=== PATIENT | male | born 1990 | race Caucasian/White ===

== ENCOUNTER 2016-05-25 11:38 | Inpatient (IN) | payer OTHER ==
[~2016-05-25] VITALS: Ht 154.9 cm; Wt 48.3 kg
[~2016-05-25 11:38] MED LIST: ACET167L GT; ALBU0.08 INH; BACL0.05; BACL1TAB GT; CHOL4POW11 GT; CLON0.5T3 GT; CLON0.5T3 PO; CLOT1CRE TOP; DIAZ5GEL PR; DICY10CA12 GT; DOXY1SUS PEG; GLYC1TAB5 GT; LACTCHW3 PEG; LAMO25TA GT; LMC/150 GT; MOME50SP5 NAE; NEOMOIN76 TOP; NUTRLIQ61 GT; PLMINSR5 NEB; PROM5SUP2 PR; TRIA0.5O TOP; [UNRECOGNIZED DRUG - CODE] PEG; [UNRECOGNIZED DRUG - CODE] TOP
--- NOTE | 2016-05-25 12:21 | EMERGENCY ROOM VISIT NOTE ---
History Report prepared by Ranjeet: Wilma Olvera Under the Supervision of: Dr. Everardo Marroquin M.D. First contact with patient: 11:58 Chief Complaint: FEVER Stated Complaint: FEVER, CONGESTION-SENT BY OFFICE History of Present Illness The patient is a 25 year old male who presents to the Emergency Room with complaints of sudden possible aspiration that occurred last evening. Per the patient's caregivers, the patient vomited last evening. They state that they took the patient to his PCP's office today and he was concerned for aspiration. The caregivers note that the patient developed a cough, cold, and congestion within the last two days. They state that the patient ran a fever of 102 degrees Fahrenheit yesterday that was alleviated with Tylenol. The patient's caregivers note that the patient was with his family over the holiday and was exposed to several illnesses. They note that the patient only receives medications through his g-tube. The caregivers note that the patient has a history of Cerebral Palsy. Source of History: caregiver Onset: last evening Position: other (global) Quality: other (possible aspiration) Timing: other (sudden) Associated Symptoms: + cough, + fevers, + vomiting Note: Associated Symptoms: cold, congestion Review of Systems All systems have been listed, reviewed, and are negative other than those previously mentioned. Please see Additional Medical History Sheet. Past Medical & Surgical Medical Problems: (1) Asthma (2) Cerebral palsy, quadriplegic (3) Dystonia (4) gastric tube placement (5) Incision of thigh tendon- bilateral (6) Pneumonia (7) Seizure (8) Sepsis Surgical Problems: (1) History of gastrostomy tube placement (2) MRSA nasal colonization (3) S/p incision of thigh tendon (4) S/P insertion of intrathecal pump Family History Patient reports no known family medical history. Social History Smoking Status: Never Smoker Alcohol Use: none Drug Use: none Marital Status: single Housing Status: other Occupation Status: disabled Current/Historical Medications Scheduled Budesonide (Pulmicort Respules 0.5MG/2ML), 2 ML NEB BID Cholestyramine (Questran), 1 PKT GT DAILY Clonazepam (Klonopin), 0.25 MG GT BID Clonazepam (Klonopin), 0.5 MG PO HS Dicyclomine Hcl (Dicyclomine Hcl), 10 MG GT BID Esomeprazole Magnesium (Nexium), 20 MG PO DAILY Fexofenadine Hcl (Chayo Allergy), 1 TAB PO DAILY Glycopyrrolate (Robinul), 1.25 TAB GT TID Lactobacillus (Lactinex), 1 TAB PEG BIDM Lamotrigine (Lamictal), 75 MG GT HS Lamotrigine (Lamictal), 150 MG GT BID Mometasone Furoate (Nasonex), 2 SPRAY ROSA MARIA DAILY Neomycin-Bacitracin Zn-Polymyx (Triple Antibiotic), 1 APPLN TOP BID Nutritional Supplements (Peptamen 1.5), 500 ML GT UD Nutritional Supplements (Nutren 2.0 Angel), 1 DOSE PEG UD Scheduled PRN Acetaminophen (Tylenol), 217 MG GT Q6 PRN for Headache or Pain Albuterol Soln (Proventil 0.083% 2.5MG/3ML), 2.5 MG INH Q4H PRN for Wheezing Clotrimazole (Topical) (Tgt Clotrimazole), 1 APPLN TOP BID PRN for fungal rash on buttocks/groin Diazepam (Anticonvulsant) (Diastat Acudial), 10 MG AZ for seizures Promethazine (Phenergan Suppository), 12.5 MG [place] Q8 PRN for Nausea Triamcinolone Acet 0.5% (Triamcinolone Acet 0.5%), 1 APPLN TOP BID PRN for rash Zinc Oxide (Topical) (Boudreauxs Butt Paste), 1 APPLN TOP UD PRN for brief change Allergies Coded Allergies: Cat Dander (Verified Allergy, Unknown, SHORTNESS OF BREATH, 05/25/16) POLLEN (Verified Allergy, Unknown, SHORTNESS OF BREATH, 05/25/16) Ciprofloxacin (Verified Adverse Reaction, Unknown, GI SYMPTOMS, 05/25/16) Dust (Verified Adverse Reaction, Unknown, SHORTNESS OF BREATH, 05/25/16) Physical Exam Vital Signs Date Time Temp Pulse Resp B/P Pulse Ox O2 Delivery O2 Flow Rate FiO2 05/25/16 13:33 105 22 99/59 95 Room Air 05/25/16 11:45 120 20 120/60 92 Room Air Physical Exam GENERAL: Patient awake, alert, noncommunicable, Patient does not appear toxic. Patient is adequately hydrated and well-nourished. SKIN: No erythema, pallor, cyanosis or rash HEENT: Normal head, pupils equal, reactive to light and accommodation. Neck: Without adenopathy, no neck vein distention. LUNGS: Clear to auscultation. No wheezes, no rales, no rhonchi. HEART: No murmurs. No gallops. No rubs ABDOMEN: G-tube in mid abdomen, soft, nontender. No masses, no rebound, no hepatomegaly or splenomegaly. EXTREMITIES: Contracted extremities NEUROLOGIC: Cranial nerves II-XII within normal limits. No gross motor sensory function deficits. Medical Decision & Procedures ER Provider Diagnostic Interpretation: X ray results are stated below per my interpretation and the radiologist's interpretation. CHEST ONE VIEW PORTABLE HISTORY: Cough. aspiration pneumonia ? COMPARISON: Chest 04/04/2016. FINDINGS: No pneumothorax. No pleural effusions. The heart remains borderline enlarged. Stable increased markings within the right perihilar location. This may represent prominent vessels. Increased density overlying the left cardiac silhouette has slightly progressed. IMPRESSION: Increased density within the left retrocardiac location. This may represent a developing pneumonia. Electronically signed by: Jamie Cash M.D. 05/25/2016 12:21 PM Dictated Date/Time: 05/25/2016 12:18 PM Laboratory Results 05/25/16 12:27 Red Blood Count 4.72, Mean Corpuscular Volume 93.9, Mean Corpuscular Hemoglobin 32.0, Mean Corpuscular Hemoglobin Concent 34.1, Mean Platelet Volume 11.1, Neutrophils (%) (Auto) 67.8, Lymphocytes (%) (Auto) 18.2, Monocytes (%) (Auto) 12.9, Eosinophils (%) (Auto) 0.5, Basophils (%) (Auto) 0.3, Neutrophils # (Auto ) 7.73, Lymphocytes # (Auto) 2.08, Monocytes # (Auto) 1.47, Eosinophils # (Auto ) 0.06, Basophils # (Auto) 0.03 05/25/16 12:27 Test 05/25/16 12:27 White Blood Count 11.40 K/uL (4.8-10.8) Red Blood Count 4.72 M/uL (4.7-6.1) Hemoglobin 15.1 g/dL (14.0-18.0) Hematocrit 44.3 % (42-52) Mean Corpuscular Volume 93.9 fL (80-100) Mean Corpuscular Hemoglobin 32.0 pg (25-34) Mean Corpuscular Hemoglobin Concent 34.1 g/dl (32-36) Platelet Count 208 K/uL (130-400) Mean Platelet Volume 11.1 fL (7.4-10.4) Neutrophils (%) (Auto) 67.8 % Lymphocytes (%) (Auto) 18.2 % Monocytes (%) (Auto) 12.9 % Eosinophils (%) (Auto) 0.5 % Basophils (%) (Auto) 0.3 % Neutrophils # (Auto) 7.73 K/uL (1.4-6.5) Lymphocytes # (Auto) 2.08 K/uL (1.2-3.4) Monocytes # (Auto) 1.47 K/uL (0.11-0.59) Eosinophils # (Auto) 0.06 K/uL (0-0.5) Basophils # (Auto) 0.03 K/uL (0-0.2) RDW Standard Deviation 46.0 fL (36.4-46.3) RDW Coefficient of Variation 13.3 % (11.5-14.5) Immature Granulocyte % (Auto) 0.3 % Immature Granulocyte # (Auto) 0.03 K/uL (0.00-0.02) Anion Gap 10.0 mmol/L (3-11) Est Creatinine Clear Calc Drug Dose 112.3 ml/min Estimated GFR () > 150.0 Estimated GFR (Non- 136.1 BUN/Creatinine Ratio 17.5 (10-20) Lactic Acid Level 2.3 mmol/L (0.4-2.0) Calcium Level 9.0 mg/dl (8.5-10.1) Procalcitonin 1.94 ng/mL (0-0.5) Laboratory results as stated above per my review. Medications Administered Medications (Trade) Dose Ordered Sig/Elizabeth Route Start Time Stop Time Status Last Admin Dose Admin Sodium Chloride 2,000 ml @ 999 mls/hr Q2H1M IV 05/25/16 13:15 06/24/16 13:14 05/25/16 13:27 999 MLS/HR Piperacillin Sod/ Tazobactam Sod/ Dextrose (Zosyn Iv/D5 100ml) 115 ml @ 230 mls/hr NOW ONCE IV 05/25/16 13:30 05/25/16 13:59 DC 05/25/16 13:28 230 MLS/HR ED Course 1158: Past medical records reviewed. The patient was evaluated in room A11B. A complete history and physical examination was performed. 1315: Ordered Sodium Chloride 2000 ml @ 999 mls/hr IV. 1322: I discussed the patients case with Mandeep Farley. He is going to evaluate the patient for further treatment. 1324: I reevaluated the patient and he is resting comfortably. I discussed the exam findings with the patient's caregivers and I discussed the treatment plan. They verbalized complete understanding and agreement. The patient will be evaluated for further treatment. 1330: Ordered Piperacillin Sod/Tazobactam Sod 3.375 gm/Dextrose 115 ml @ 230 mls /hr protocol IV. Medical Decision Nurses notes reviewed. Medical history sheet reviewed. Differential diagnosis includes but is not limited to: pneumonia, aspiration pneumonia, bronchitis, viral infection. The patient is brought here with concern about an aspiration pneumonia. On chest x-ray he does appear to have an infiltrate behind his heart. Lactic acid is elevated. White count is also slightly elevated. The patient was given extra fluids and started on IV antibiotics after blood cultures were obtained. I discussed care with the care managers and with the hospitalist. Consults Time Called: 1312 Consulting Physician: Mandeep Farley Returned Call: 1322 I discussed the patients case with Mandeep Farley. He is going to evaluate the patient for further treatment. Impression Primary Impression: Aspiration pneumonia Additional Impression: Sepsis Scribe Attestation The scribe's documentation has been prepared under my direction and personally reviewed by me in its entirety. I confirm that the note above accurately reflects all work, treatment, procedures, and medical decision making performed by me. Departure Information Dispostion Being Evaluated By Hospitalist Merissa Solis D.O. (PCP)
[2016-05-25 12:36] LABS: BASO % 0.3 %; BASO ABS # 0.03 K/uL (0-0.2); COMPLETE YES; EOS % 0.5 %; HEMATOCRIT 44.3 % (42-52); IG% 0.3 %; LYMPH % 18.2 %; LYMPH ABS # 2.08 K/uL (1.2-3.4); MEAN CELL VOLUME 93.9 fL (80-100); MEAN CORPUSCULAR HGB CONC 34.1 g/dl (32-36); MEAN PLATELET VOLUME 11.1 fL (7.4-10.4); MONO % 12.9 %; NEUT % 67.8 %; PLATELET COUNT 208 K/uL (130-400); RED BLOOD COUNT 4.72 M/uL (4.7-6.1)
[2016-05-25] MEDS ORDERED: ESOM20CA PO (12:46)
[2016-05-25] MEDS ORDERED: FEXO1TAB49 PO (12:49)
[2016-05-25 12:53] LABS: BLOOD UREA NITROGEN 11 mg/dl (7-18); BUN/CREATININE RATIO 17.5 (10-20); CARBON DIOXIDE 29 mmol/L (21-32); CHLORIDE 99 mmol/L (98-107); CREATININE 0.64 mg/dl (0.60-1.40); GLUCOSE 95 mg/dl (70-99); POTASSIUM 4.1 mmol/L (3.5-5.1); SODIUM 138 mmol/L (136-145)
[2016-05-25] MEDS ORDERED: PIPERACILLIN/TAZOBACTAM 3.375 GM/100ML D5W IV STA (13:09)
[2016-05-25] MEDS ORDERED: SODIUM CHLORIDE 0.9% 1000ML 2,000 ML IV SCH (13:15)
[2016-05-25] MEDS ORDERED: PIPERACILL/TAZOBAC IV 3.375 GM in DEXTROSE 5% 100ML IV ONE (13:30)
[2016-05-25 14:05] VITALS: O2SAT 95; Ht 154.9 cm; Wt 48.3 kg
[2016-05-25] MEDS ORDERED: LEVALBUTEROL/IPRATROPIUM NEB INH PRN (14:15)
[2016-05-25] MEDS ORDERED: BUTT PASTE 171 APPLN/57 GM JAR TOP PRN (14:30)
[2016-05-25] MEDS ORDERED: ACETAMINOPHEN SOLN 160 MG/5 ML BTL GT PRN (14:30)
[2016-05-25] MEDS ORDERED: CLOTRIMAZOLE 1% CR 15 GM TUBE EXT PRN (14:30)
[2016-05-25] MEDS ORDERED: PROMETHAZINE HCL 12.5 MG SUPP PR PRN (14:30)
[2016-05-25] MEDS ORDERED: LEVALBUTEROL/IPRATROPIUM NEB INH SCH (15:00)
--- NOTE | 2016-05-25 15:08 | DIAGNOSTIC IMAGING REPORT ---
KUB CLINICAL HISTORY: Evaluate for obstruction. COMPARISON STUDY: Abdominal ultrasound February 08, 2014. FINDINGS: A device projects over the right lower quadrant. There is a suspected PEG tube. The bowel gas pattern is normal. Deformity of the left hip is chronic. Bone formation projecting over each groin is chronic as well. There is mild dextroscoliosis of the lumbar spine. There is a moderate amount of stool within the rectum. IMPRESSION: No evidence of a bowel obstruction. Electronically signed by: Bebo Gonzalez M.D. 05/25/2016 3:05 PM Dictated Date/Time: 05/25/2016 3:04 PM
[2016-05-25] MEDS ORDERED: LEVALBUTEROL 1.25MG/0.5ML NEB INH PRN (15:15)
[2016-05-25] MEDS ORDERED: IPRATROPIUM BROMIDE NEB SOLN 0.02% 2.5 ML VIAL INH PRN (15:15)
[2016-05-25] MEDS ORDERED: PIPERACILL/TAZOBAC CONSULT ACTIVE PRN (15:40)
[2016-05-25] MEDS ORDERED: [UNRECOGNIZED DRUG - REMARK] PRN (15:45)
[2016-05-25 16:00] VITALS: O2SAT 91
[2016-05-25] MEDS: D5W AND NSS 1,000 ML IV SCH (16:21)
[2016-05-25] MEDS: DOXYCYCLINE HYCLATE 100 MG in DEXTROSE 5% 100ML IV SCH (16:24)
[2016-05-25] MEDS: LACTOBACILLUS ACIDOPHILUS (FLORANEX) TAB PEG SCH (16:31)
[2016-05-25 18:58] LABS: URINE APPEARANCE CLEAR (CLEAR); URINE BILIRUBIN NEG (NEG); URINE COLOR DK YELLOW; URINE EPITHELIAL CELL AUTO >30 /lpf (0-5); URINE NITRITE NEG (NEG); URINE SPECIFIC GRAVITY 1.032 (1.000-1.030); UROBILINOGEN NEG (NEG)
[2016-05-25 19:00] VITALS: PULSE 88; O2SAT 92
[2016-05-25 19:02] LABS: MANUAL MICROSCOPIC REQUIRED? NO; REVIEW REQ? YES
[2016-05-25] MEDS: BUDESONIDE 0.5 MG/2 ML VIAL (PULMICORT) INH SCH (20:00)
[2016-05-25] MEDS ORDERED: PIPERACILL/TAZOBAC IV 3.375 GM in DEXTROSE 5% 100ML IV SCH (20:00)
[2016-05-25] MEDS ORDERED: CLONAZEPAM 0.5 MG TAB GT SCH (20:00)
[2016-05-25] MEDS: LEVALBUTEROL 1.25MG/0.5ML NEB INH SCH (20:39)
[2016-05-25] MEDS: IPRATROPIUM BROMIDE NEB SOLN 0.02% 2.5 ML VIAL INH SCH (20:39)
[2016-05-25] MEDS: PIPERACILL/TAZOBAC IV 3.375 GM in DEXTROSE 5% 100ML IV SCH (20:49)
[2016-05-25] MEDS: BACITRACIN OINT 15 GM TUBE EXT SCH (21:10)
[2016-05-25] MEDS: NEOMYCIN/POLYMYX/BACITR OINT 15 GM TUBE EXT SCH (21:13)
[2016-05-25] MEDS: GLYCOPYRROLATE 1 MG TAB GT SCH (21:14)
[2016-05-25] MEDS: DICYCLOMINE HCL 10 MG CAP GT SCH (21:16)
[2016-05-25] MEDS: CLONAZEPAM 0.5 MG TAB GT SCH (21:17)
--- NOTE | 2016-05-25 22:14 | History and Physical ---
History & Physical Date & Time of Service: May 25, 2016 at 22:03 Chief Complaint: Aspiration Pneumonia Primary Care Physician: Merissa Lopez D.O. History of Present Illness Source: caregiver, clinic records 25 year old male with history of CP, Seizure, Recurrent Aspiration, G tube placement, and Asthma presenting with cough, fever and lethargy. Patient's history obtained from caregivers. Patient was at baseline health until yesterday when he was noted to have intermittent fevers throughout the day associated with cough. During the night, he apparently had vomiting as well. Caregivers were concerned for possible aspiration. He was then brought to the ED for further evaluation. At the ER, patient was tachycardic with elevated WBC. CXR showed possible left sided pneumonia. He was given Zosyn IV. On exam, patient seems sleepy intermittently awakens, moans and flails his arms. Not in distress, but bouts of cough noted. Past Medical/Surgical History Medical Problems: (1) Asthma Status: Chronic (2) Cerebral palsy, quadriplegic Status: Chronic (3) Dystonia Status: Chronic (4) gastric tube placement Status: Chronic (5) Incision of thigh tendon- bilateral Status: Chronic (6) Seizure Status: Chronic Surgical Problems: (1) History of gastrostomy tube placement Status: Chronic (2) MRSA nasal colonization Status: Chronic (3) S/p incision of thigh tendon Status: Chronic (4) S/P insertion of intrathecal pump Status: Chronic Family History Patient reports no known family medical history. Social History Smoking Status: Never Smoker Drug Use: none Marital Status: single Housing status: other Occupational Status: disabled Multi-Drug Resistant Organisms History of MDRO: Yes Type of MDRO: MRSA Allergies Coded Allergies: Cat Dander (Verified Allergy, Unknown, SHORTNESS OF BREATH, 05/25/16) POLLEN (Verified Allergy, Unknown, SHORTNESS OF BREATH, 05/25/16) Ciprofloxacin (Verified Adverse Reaction, Unknown, GI SYMPTOMS, 05/25/16) Dust (Verified Adverse Reaction, Unknown, SHORTNESS OF BREATH, 05/25/16) Home Medications Scheduled Budesonide (Pulmicort Respules 0.5MG/2ML), 2 ML NEB BID Cholestyramine (Questran), 1 PKT GT DAILY Clonazepam (Klonopin), 0.25 MG GT BID Clonazepam (Klonopin), 0.5 MG PO HS Dicyclomine Hcl (Dicyclomine Hcl), 10 MG GT BID Esomeprazole Magnesium (Nexium), 20 MG PO DAILY Fexofenadine Hcl (Chayo Allergy), 1 TAB PO DAILY Glycopyrrolate (Robinul), 1.25 TAB GT TID Lactobacillus (Lactinex), 1 TAB PEG BIDM Lamotrigine (Lamictal), 75 MG GT HS Lamotrigine (Lamictal), 150 MG GT BID Mometasone Furoate (Nasonex), 2 SPRAY ROSA MARIA DAILY Neomycin-Bacitracin Zn-Polymyx (Triple Antibiotic), 1 APPLN TOP BID Nutritional Supplements (Peptamen 1.5), 500 ML GT UD Nutritional Supplements (Nutren 2.0 Angel), 1 DOSE PEG UD Scheduled PRN Acetaminophen (Tylenol), 217 MG GT Q6 PRN for Headache or Pain Albuterol Soln (Proventil 0.083% 2.5MG/3ML), 2.5 MG INH Q4H PRN for Wheezing Clotrimazole (Topical) (Tgt Clotrimazole), 1 APPLN TOP BID PRN for fungal rash on buttocks/groin Diazepam (Anticonvulsant) (Diastat Acudial), 10 MG GA for seizures Promethazine (Phenergan Suppository), 12.5 MG GA Q8 PRN for Nausea Triamcinolone Acet 0.5% (Triamcinolone Acet 0.5%), 1 APPLN TOP BID PRN for rash Zinc Oxide (Topical) (Boudreauxs Butt Paste), 1 APPLN TOP UD PRN for brief change Review of Systems FULL ROS difficult to obtain as patient has CP. Constitutional- as noted above Pulmonary- as noted above GI- no diarrhea, no melena, no hematochezia - no hematuria Musculoskeletal- no signs of pain Derm- no rashes, no new skin lesions, no changing skin lesions Hematologic- no unusual bruising, no unusual bleeding Neuro- no new focal neurologic symptoms Physical Exam Vital Signs Date Time Temp Pulse Resp B/P Pulse Ox O2 Delivery O2 Flow Rate FiO2 05/25/16 19:00 88 24 92 Room Air 05/25/16 16:00 91 Room Air 05/25/16 14:52 110 20 97/56 91 05/25/16 14:47 110 20 97/56 91 Room Air 05/25/16 14:05 95 Room Air 05/25/16 13:33 105 22 99/59 95 Room Air 05/25/16 11:45 120 20 120/60 92 Room Air General Appearance: no apparent distress Head: normocephalic Eyes: normal inspection ENT: normal ENT inspection Neck: supple, no adenopathy, thyroid normal, no JVD Respiratory/Chest: lungs clear, normal breath sounds, no respiratory distress, no accessory muscle use Cardiovascular: regular rate, rhythm, no edema, no murmur Abdomen/GI: normal bowel sounds, non tender, soft, + pertinent finding ((+) PEG tube site benign) Extremities/Musculoskelatal: normal inspection, no calf tenderness, no pedal edema, normal range of motion Neurologic/Psych: + pertinent finding (moves extremities equally, patient is non verbal) Skin: normal color, warm/dry, no rash Lymphatic: no adenopathy Diagnostics Laboratory Results Results Past 24 Hours Test 05/25/16 12:27 05/25/16 15:25 05/25/16 16:13 05/25/16 18:30 Range/Units White Blood Count 11.40 4.8-10.8 K/uL Red Blood Count 4.72 4.7-6.1 M/uL Hemoglobin 15.1 14.0-18.0 g/dL Hematocrit 44.3 42-52 % Mean Corpuscular Volume 93.9 80-100 fL Mean Corpuscular Hemoglobin 32.0 25-34 pg Mean Corpuscular Hemoglobin Concent 34.1 32-36 g/dl Platelet Count 208 130-400 K/uL Mean Platelet Volume 11.1 7.4-10.4 fL Neutrophils (%) (Auto) 67.8 % Lymphocytes (%) (Auto) 18.2 % Monocytes (%) (Auto) 12.9 % Eosinophils (%) (Auto) 0.5 % Basophils (%) (Auto) 0.3 % Neutrophils # (Auto) 7.73 1.4-6.5 K/uL Lymphocytes # (Auto) 2.08 1.2-3.4 K/uL Monocytes # (Auto) 1.47 0.11-0.59 K/uL Eosinophils # (Auto) 0.06 0-0.5 K/uL Basophils # (Auto) 0.03 0-0.2 K/uL RDW Standard Deviation 46.0 36.4-46.3 fL RDW Coefficient of Variation 13.3 11.5-14.5 % Immature Granulocyte % (Auto) 0.3 % Immature Granulocyte # (Auto) 0.03 0.00-0.02 K/uL Sodium Level 138 136-145 mmol/L Potassium Level 4.1 3.5-5.1 mmol/L Chloride Level 99 98-107 mmol/L Carbon Dioxide Level 29 21-32 mmol/L Anion Gap 10.0 3-11 mmol/L Blood Urea Nitrogen 11 7-18 mg/dl Creatinine 0.64 0.60-1.40 mg/dl Est Creatinine Clear Calc Drug Dose 112.3 ml/min Estimated GFR () > 150.0 Estimated GFR (Non- 136.1 BUN/Creatinine Ratio 17.5 10-20 Random Glucose 95 70-99 mg/dl Lactic Acid Level 2.3 0.6 0.4-2.0 mmol/L Calcium Level 9.0 8.5-10.1 mg/dl Procalcitonin 1.94 0-0.5 ng/mL Influenza Type A Antigen Neg for Influ A NEG Influenza Type B Antigen Neg for Influ B NEG Urine Color DK YELLOW Urine Appearance CLEAR CLEAR Urine pH 7.0 4.5-7.5 Urine Specific [place] 1.032 1.000-1.030 Urine Protein 1+ NEG Urine Glucose (UA) NEG NEG Urine Ketones TRACE NEG Urine Occult Blood NEG NEG Urine Nitrite NEG NEG Urine Bilirubin NEG NEG Urine Urobilinogen NEG NEG Urine Leukocyte Esterase TRACE NEG Urine WBC (Auto) 5-10 0-5 /hpf Urine RBC (Auto) 0-4 0-4 /hpf Urine Hyaline Casts (Auto) 1-5 0-5 /lpf Urine Epithelial Cells (Auto) >30 0-5 /lpf Urine Bacteria (Auto) NEG NEG Urine Renal Epithelial Cells 0-5 0-5 /lpf Microbiology Results 05/25/16 Blood Culture, Received Pending 05/25/16 Blood Culture, Received Pending 05/25/16 MRSA DNA Surveillance Screen - Final, Complete Specimen Positive for MRSA by DNA Probe Diagnostic Radiology IMPRESSION: Increased density within the left retrocardiac location. This may represent a developing pneumonia. Impression Assessment and Plan POSSIBLE SEPSIS FROM R/O FLU flu swab ASPIRATION VS. CAP blood cultures Zosyn, Doxy IV Nebs Suction PRN R/O UTI check urinalysis R/O C DIFF check c diff, stool cultures VOMITING check KUB hold feeding today Nutrition consult IV fluids CEREBRAL PALSY 1:1 obs SEIZURE seizure precautions REC ASPIRATION aspiration precautions G TUBE PLACEMENT appears benign no issues as per caregivers ASTHMA not in exacerbation DVT prophylaxis SCDs Code status Full Code Disposition pending Advanced Directives Existing Advance Directive: No Existing Living Will: No Existing Power of Thermoforming Operator: No VTE Prophylaxis VTE Risk Assessment Done? Y/N: Yes Risk Level: Moderate
[2016-05-25 23:29] VITALS: BP 114/66; PULSE 94; TEMP 37.2; O2SAT 93
[2016-05-26] MEDS: D5W AND NSS 1,000 ML IV SCH ×2 (04:14→17:42)
[2016-05-26] MEDS: PIPERACILL/TAZOBAC IV 3.375 GM in DEXTROSE 5% 100ML IV SCH ×3 (04:14→22:05)
[2016-05-26] MEDS: DOXYCYCLINE HYCLATE 100 MG in DEXTROSE 5% 100ML IV SCH ×2 (04:14→19:48)
[2016-05-26 07:17] LABS: CREATININE 0.47 mg/dl (0.60-1.40)
[2016-05-26 07:50] VITALS: PULSE 84; O2SAT 96
[2016-05-26] MEDS: IPRATROPIUM BROMIDE NEB SOLN 0.02% 2.5 ML VIAL INH SCH ×3 (07:50→19:12)
[2016-05-26] MEDS: BUDESONIDE 0.5 MG/2 ML VIAL (PULMICORT) INH SCH ×2 (07:50→19:12)
[2016-05-26] MEDS: CLONAZEPAM 0.5 MG TAB GT SCH ×3 (07:57→20:57)
[2016-05-26] MEDS: NEOMYCIN/POLYMYX/BACITR OINT 15 GM TUBE EXT SCH ×2 (07:57→19:51)
[2016-05-26] MEDS: DICYCLOMINE HCL 10 MG CAP GT SCH ×2 (07:58→20:57)
[2016-05-26] MEDS: BACITRACIN OINT 15 GM TUBE EXT SCH ×2 (07:59→19:51)
[2016-05-26] MEDS: GLYCOPYRROLATE 1 MG TAB GT SCH ×3 (07:59→20:57)
[2016-05-26] MEDS: FEXOFENADINE HCL 180 MG TAB PO SCH (08:00)
[2016-05-26] MEDS ORDERED: CHOLESTYRAMINE LIGHT 4 GM PKT GT SCH (08:00)
[2016-05-26] MEDS: LANSOPRAZOLE SOLUTAB 30 MG GT SCH (08:01)
[2016-05-26] MEDS: LACTOBACILLUS ACIDOPHILUS (FLORANEX) TAB PEG SCH ×2 (08:01→17:43)
[2016-05-26] MEDS: FLUTICASONE PROPIONATE NA SPR 16 GM BTL SCH (08:03)
[2016-05-26 09:43] LABS: BASO % 0.2 %; BASO ABS # 0.02 K/uL (0-0.2); COMPLETE YES; EOS % 3.5 %; HEMATOCRIT 38.9 % (42-52); IG% 0.4 %; LYMPH % 19.3 %; LYMPH ABS # 1.55 K/uL (1.2-3.4); MEAN CELL VOLUME 93.7 fL (80-100); MEAN CORPUSCULAR HEMOGLOBIN 30.6 pg (25-34); MEAN CORPUSCULAR HGB CONC 32.6 g/dl (32-36); MEAN PLATELET VOLUME 11.3 fL (7.4-10.4); MONO % 10.3 %; NEUT % 66.3 %; PLATELET COUNT 191 K/uL (130-400); RED BLOOD COUNT 4.15 M/uL (4.7-6.1); WHITE BLOOD COUNT 8.02 K/uL (4.8-10.8)
[2016-05-26 09:49] LABS: BLOOD UREA NITROGEN 5 mg/dl (7-18); BUN/CREATININE RATIO 11.5 (10-20); CALCIUM 7.9 mg/dl (8.5-10.1); CARBON DIOXIDE 28 mmol/L (21-32); CHLORIDE 106 mmol/L (98-107); CREATININE 0.45 mg/dl (0.60-1.40); GLUCOSE 97 mg/dl (70-99); MAGNESIUM 2.1 mg/dl (1.8-2.4); POTASSIUM 3.4 mmol/L (3.5-5.1); SODIUM 142 mmol/L (136-145)
[2016-05-26 14:13] VITALS: BP 102/67; PULSE 96; TEMP 36.7; O2SAT 93
--- NOTE | 2016-05-26 14:15 | Progress Note ---
Medicine Progress Note Date & Time of Visit: May 26, 2016 at 14:05. Subjective as per RN, patient was awake this morning, seemed to enjoy his bath still noted to have occasional coughs no nausea/vomiting observed had 2 BMS today no other symptoms Objective Last 8 Hrs Date Time Temp Pulse Resp B/P Pulse Ox O2 Delivery O2 Flow Rate FiO2 05/26/16 08:00 Room Air 05/26/16 07:50 84 24 96 Room Air Physical Exam: General- sitting on wheelchair, seems sleepy, but easily rousable, not in distress, no accessory muscle use Eyes- anicteric Neck- supple, no JVD Lungs- clear to auscultation bilaterally, no rales/wheezes Heart- normal rate, regular rhythm; no murmur Abdomen- normal bowel sounds, soft, nontender Extremities- no pretibial edema, no calf tenderness Neuro- moves extremities equally with tactile stimuli Skin- warm & dry Laboratory Results: Last 24 Hours Test 05/25/16 15:25 05/25/16 16:13 05/25/16 18:30 05/26/16 06:19 Influenza Type A Antigen Neg for Influ A Influenza Type B Antigen Neg for Influ B Lactic Acid Level 0.6 mmol/L Urine Color DK YELLOW Urine Appearance CLEAR Urine pH 7.0 Urine Specific Slater 1.032 Urine Protein 1+ Urine Glucose (UA) NEG Urine Ketones TRACE Urine Occult Blood NEG Urine Nitrite NEG Urine Bilirubin NEG Urine Urobilinogen NEG Urine Leukocyte Esterase TRACE Urine WBC (Auto) 5-10 /hpf Urine RBC (Auto) 0-4 /hpf Urine Hyaline Casts (Auto) 1-5 /lpf Urine Epithelial Cells (Auto) >30 /lpf Urine Bacteria (Auto) NEG Urine Renal Epithelial Cells 0-5 /lpf White Blood Count 8.02 K/uL Red Blood Count 4.15 M/uL Hemoglobin 12.7 g/dL Hematocrit 38.9 % Mean Corpuscular Volume 93.7 fL Mean Corpuscular Hemoglobin 30.6 pg Mean Corpuscular Hemoglobin Concent 32.6 g/dl Platelet Count 191 K/uL Mean Platelet Volume 11.3 fL Neutrophils (%) (Auto) 66.3 % Lymphocytes (%) (Auto) 19.3 % Monocytes (%) (Auto) 10.3 % Eosinophils (%) (Auto) 3.5 % Basophils (%) (Auto) 0.2 % Neutrophils # (Auto) 5.31 K/uL Lymphocytes # (Auto) 1.55 K/uL Monocytes # (Auto) 0.83 K/uL Eosinophils # (Auto) 0.28 K/uL Basophils # (Auto) 0.02 K/uL RDW Standard Deviation 46.1 fL RDW Coefficient of Variation 13.4 % Immature Granulocyte % (Auto) 0.4 % Immature Granulocyte # (Auto) 0.03 K/uL Sodium Level 142 mmol/L Potassium Level 3.4 mmol/L Chloride Level 106 mmol/L Carbon Dioxide Level 28 mmol/L Anion Gap 8.0 mmol/L Blood Urea Nitrogen 5 mg/dl Creatinine 0.45 mg/dl Est Creatinine Clear Calc Drug Dose 159.7 ml/min Estimated GFR () > 150.0 Estimated GFR (Non- > 150.0 BUN/Creatinine Ratio 11.5 Random Glucose 97 mg/dl Calcium Level 7.9 mg/dl Magnesium Level 2.1 mg/dl Date/Time Source Procedure Growth Status 05/25/16 15:25 Nasal MRSA DNA Surveillance Screen - Final Specimen Positive for MRSA by DNA Probe Complete Assessment & Plan 25 year old male with history of Cerebral Palsy, Seizure, Recurrent Aspiration, G tube placement, and Asthma presenting with cough, fever and lethargy. POSSIBLE SEPSIS FROM ASPIRATION VS. CAP cxr: Increased density within the left retrocardiac location. This may represent developing pneumonia. blood cultures: pending Zosyn, Doxy IV Day 2 Nebs Suction PRN - flu: negative - U/A does not appear to have UTI - c diff, stool cultures: pending VOMITING, Resolved KUB: no obstruction, (+) moderate amount of stool (+) BMs today no nausea/vomiting today - resume tube feeds today, discussed with Nutrionist CEREBRAL PALSY 1:1 obs SEIZURE seizure precautions RECURRENT ASPIRATION aspiration precautions G TUBE PLACEMENT appears benign no issues as per caregivers ASTHMA not in exacerbation DVT prophylaxis SCDs for now Code status Full Code Disposition pending Current Inpatient Medications: Current Inpatient Medications Medications (Trade) Dose Ordered Sig/Elizabeth Route Start Time Stop Time Status Last Admin Dose Admin Piperacillin Sod/ Tazobactam Sod 1 ea 1 ea UD PRN N/A 05/25/16 15:40 06/24/16 15:39 Dextrose/Sodium Chloride (D5W And Nss) 1,000 ml @ 75 mls/hr [id number] IV 05/25/16 14:15 06/24/16 14:14 05/26/16 04:14 75 MLS/HR Budesonide (Pulmicort Respules 0.5MG/ 2ML Neb Soln) 1 mg BIDR INH 05/25/16 20:00 06/24/16 19:59 05/26/16 07:50 1 MG Clonazepam (Klonopin Tab) 0.5 mg HS GT 05/25/16 21:00 06/24/16 20:59 05/25/16 21:17 0.5 MG Clotrimazole (Lotrimin 1% Crm) 1 appln BID PRN EXT 05/25/16 14:30 06/24/16 14:29 Dicyclomine HCl (Bentyl Cap) 10 mg BID GT 05/25/16 20:00 06/24/16 20:59 05/26/16 07:58 10 MG Fexofenadine HCl (Chayo Tab) 180 mg DAILY PO 05/26/16 08:00 06/25/16 08:59 05/26/16 08:00 180 MG Glycopyrrolate (Robinul Tab) 1.25 mg TID GT 05/25/16 20:00 06/24/16 20:59 05/26/16 07:59 1.25 MG Lactobacillus Acidophilus (Floranex Tab) 1 tab BIDM PEG 05/25/16 17:00 06/24/16 17:59 05/26/16 08:01 1 TAB Lamotrigine (Lamictal Tab) 75 mg HS PO 05/25/16 21:00 06/24/16 20:59 05/25/16 21:19 75 MG Neomycin/ Polymyxin/ Bacitracin (Neosporin Oint) 1 appln BID EXT 05/25/16 20:00 06/24/16 19:59 05/26/16 07:57 1 APPLN Promethazine HCl (Phenergan Supp) 12.5 mg Q8H PRN [place] 05/25/16 14:30 06/24/16 14:29 Acetaminophen (Tylenol Soln) 217 mg Q6 PRN GT 05/25/16 14:30 06/24/16 14:29 Lansoprazole (Prevacid Solutab) 30 mg QAM GT 05/26/16 08:00 2/8/17 07:59 05/26/16 08:01 30 MG Lamotrigine (Lamictal Tab) 150 mg [id number] GT 05/26/16 07:00 06/25/16 06:59 05/26/16 06:30 150 MG Fluticasone Propionate (Flonase Nasal [place]) 2 sprays DAILY NA 05/26/16 08:00 06/25/16 07:59 05/26/16 08:03 2 SPRAYS Miscellaneous Information (Order Awaiting Action) 1 ea QS N/A 05/26/16 00:00 06/25/16 00:00 Clonazepam (Klonopin Tab) 0.25 mg BID@0800,1400 GT 05/26/16 08:00 06/25/16 07:59 05/26/16 07:57 0.25 MG Ipratropium [place] (Atrovent 0.02% 0.5MG/2.5ML Neb) 0.5 mg Q6R INH 05/25/16 21:00 06/24/16 20:59 05/26/16 07:50 0.5 MG Levalbuterol (Xopenex 1.25MG/ 0.5ML Neb) 1.25 mg Q6R INH 05/25/16 21:00 06/24/16 20:59 05/25/16 20:39 1.25 MG Ipratropium [place] (Atrovent 0.02% 0.5MG/2.5ML Neb) 0.5 mg Q4H PRN INH 05/25/16 15:15 06/24/16 15:14 Levalbuterol 1.25 mg 1.25 mg Q4H PRN INH 05/25/16 15:15 06/24/16 15:14 Doxycycline Hyclate/Dextrose (Vibramycin IV/ D5 100ml) 110 ml @ 55 mls/hr Q12@0400,1600 IV 05/25/16 16:00 06/01/16 15:59 05/26/16 04:14 55 MLS/HR Miscellaneous Information 1 ea 1 ea UD PRN N/A 05/25/16 15:45 06/24/16 15:44 Piperacillin Sod/ Tazobactam Sod/ Dextrose (Zosyn Iv/D5 100ml) 115 ml @ 28.75 mls/ hr Q8H IV 05/25/16 20:00 06/01/16 19:59 05/26/16 12:46 28.75 MLS/HR Bacitracin (Bacitracin Oint) 1 appln BID EXT 05/25/16 20:00 05/30/16 08:01 05/26/16 07:59 1 APPLN
[2016-05-26] MEDS: LEVALBUTEROL 1.25MG/0.5ML NEB INH SCH ×2 (14:23→19:12)
[2016-05-26 14:27] VITALS: PULSE 97; O2SAT 91
[2016-05-26] MEDS ORDERED: POTASSIUM CHLORIDE 20 MEQ/15 ML UDC PO ONE (14:30)
[2016-05-26] MEDS: PEPTAMEN 1.5 CAL 1000ML BAG PEG SCH (17:42)
[2016-05-26 19:13] VITALS: PULSE 96; O2SAT 92
[2016-05-26] MEDS: TUBE FEEDING WATER FLUSH PEG SCH (20:58)
[2016-05-27] VITALS (9 sets, daily range): BP systolic 105–128; BP diastolic 62–63; PULSE 78–113; TEMP 36.9–37.3; O2SAT 93–98
[2016-05-27] MEDS: IPRATROPIUM BROMIDE NEB SOLN 0.02% 2.5 ML VIAL INH SCH ×4 (02:00→21:45)
[2016-05-27] MEDS: LEVALBUTEROL 1.25MG/0.5ML NEB INH SCH ×4 (02:00→21:45)
[2016-05-27] MEDS: TUBE FEEDING WATER FLUSH PEG SCH ×4 (02:51→21:29)
[2016-05-27] MEDS: DOXYCYCLINE HYCLATE 100 MG in DEXTROSE 5% 100ML IV SCH ×2 (04:05→18:20)
[2016-05-27 06:21] LABS: HEMATOCRIT 38.1 % (42-52); MEAN CELL VOLUME 94.3 fL (80-100); MEAN CORPUSCULAR HEMOGLOBIN 32.2 pg (25-34); MEAN CORPUSCULAR HGB CONC 34.1 g/dl (32-36); MEAN PLATELET VOLUME 11.1 fL (7.4-10.4); PLATELET COUNT 226 K/uL (130-400); RED BLOOD COUNT 4.04 M/uL (4.7-6.1); WHITE BLOOD COUNT 7.92 K/uL (4.8-10.8)
[2016-05-27] MEDS: PIPERACILL/TAZOBAC IV 3.375 GM in DEXTROSE 5% 100ML IV SCH ×3 (06:24→22:00)
[2016-05-27] MEDS: D5W AND NSS 1,000 ML IV SCH ×2 (06:24→20:04)
[2016-05-27] MEDS: PEPTAMEN 1.5 CAL 1000ML BAG PEG SCH ×2 (06:32→17:09)
[2016-05-27 07:00] LABS: CREATININE 0.46 mg/dl (0.60-1.40)
[2016-05-27] MEDS: BUDESONIDE 0.5 MG/2 ML VIAL (PULMICORT) INH SCH ×2 (07:18→21:45)
[2016-05-27] MEDS: FEXOFENADINE HCL 180 MG TAB PO SCH (07:30)
[2016-05-27] MEDS: GLYCOPYRROLATE 1 MG TAB GT SCH ×3 (07:30→20:08)
[2016-05-27] MEDS: DICYCLOMINE HCL 10 MG CAP GT SCH ×2 (07:30→20:07)
[2016-05-27] MEDS: LACTOBACILLUS ACIDOPHILUS (FLORANEX) TAB PEG SCH ×2 (07:30→17:08)
[2016-05-27] MEDS: NEOMYCIN/POLYMYX/BACITR OINT 15 GM TUBE EXT SCH ×2 (07:31→20:07)
[2016-05-27] MEDS: LANSOPRAZOLE SOLUTAB 30 MG GT SCH (07:31)
[2016-05-27] MEDS: BACITRACIN OINT 15 GM TUBE EXT SCH ×2 (07:31→20:06)
[2016-05-27] MEDS: CLONAZEPAM 0.5 MG TAB GT SCH ×3 (07:32→20:16)
[2016-05-27] MEDS: FLUTICASONE PROPIONATE NA SPR 16 GM BTL SCH (07:33)
--- NOTE | 2016-05-27 15:41 | Progress Note ---
Medicine Progress Note Date & Time of Visit: May 27, 2016 at 11:49. (Tabatha Hannah PA-C) Subjective Patient seen and examined with caregiver at bedside. Unable to obtain hx from patient as he is nonverbal. Per prior notes patient was lethargic on presentation. Caregiver states mental status back to baseline. Nursing states he is still coughing and requiring suctioning. [facility]. He is getting tube feedings. No further vomiting. He had 1 loose BM today. (Tabatha Hannah PA-C) Objective Last 8 Hrs Date Time Temp Pulse Resp B/P Pulse Ox O2 Delivery O2 Flow Rate FiO2 05/27/16 08:05 Room Air 05/27/16 07:15 92 18 93 Room Air Physical Exam: General-alert, sitting in wheelchair, no edema, caregiver at bedside Eyes-anicteric Neck-trachea midline Lungs-coughing frequently, + diffuse rhonchi, no respiratory distress, no accessory muscle use Heart-RRR, no murmur Abdomen-soft, nontender, BS normal, G tube site appears healthy- no erythema or drainage Extremities- has spasticity of extremities Neuro-alert, nonverbal, does not follow commands, spontaneously moves all extremities Laboratory Results: Last 24 Hours Test 05/26/16 14:03 05/27/16 05:50 Bedside Glucose 86 mg/dl White Blood Count 7.92 K/uL Red Blood Count 4.04 M/uL Hemoglobin 13.0 g/dL Hematocrit 38.1 % Mean Corpuscular Volume 94.3 fL Mean Corpuscular Hemoglobin 32.2 pg Mean Corpuscular Hemoglobin Concent 34.1 g/dl RDW Standard Deviation 46.1 fL RDW Coefficient of Variation 13.3 % Platelet Count 226 K/uL Mean Platelet Volume 11.1 fL Creatinine 0.46 mg/dl Est Creatinine Clear Calc Drug Dose 156.3 ml/min Estimated GFR () > 150.0 Estimated GFR (Non- > 150.0 Date/Time Source Procedure Growth Status 05/26/16 22:00 Stool C.difficile Toxin B Gene (PCR) - Final No C. difficile toxin B gene detected Complete 05/26/16 22:00 Stool Shiga Toxin Test Pending Received 05/26/16 22:00 Stool Stool Culture Pending Received (Tabatha Hannah PA-C) Assessment & Plan POSSIBLE SEPSIS Likely secondary to pneumonia; possible aspiration vs. CAP CXR- left retrocardiac density Leukocytosis resolved Blood cultures- no growth to date; influenza negative; UA- did not appear infected; C diff neg; stool culture- no growth to date On Zosyn and doxycycline day 3- may transition to clindamycin tomorrow Continue nebs and suctioning VOMITING KUB showed no obstruction, + moderate amount of stool Vomiting is resolved Getting tube feedings DIARRHEA Had 1 loose BM today per nursing C. diff negative, stool cx- no growth to date CEREBRAL PALSY Has 1:1 observation HISTORY OF SEIZURE Continue Lamictal Seizure precautions HISTORY OF ASPIRATION S/P G TUBE PLACEMENT Aspiration precautions ASTHMA Not in exacerbation Continue nebs DVT PROPHYLAXIS SCD's [facility] management involved Follows with Dr. Merissa Lopez for primary care. Patient's mother Joyce West updated by phone on 05/27. States she will be coming by hospital tomorrow afternoon. Patient seen in collaboration with Dr. Montero. Please see her addendum. Current Inpatient Medications: Current Inpatient Medications Medications (Trade) Dose Ordered Sig/Elizabeth Route Start Time Stop Time Status Last Admin Dose Admin Piperacillin Sod/ Tazobactam Sod 1 ea 1 ea UD PRN N/A 05/25/16 15:40 06/24/16 15:39 Dextrose/Sodium Chloride (D5W And Nss) 1,000 ml @ 75 mls/hr [id number] IV 05/25/16 14:15 06/24/16 14:14 05/27/16 06:24 75 MLS/HR Budesonide (Pulmicort Respules 0.5MG/ 2ML Neb Soln) 1 mg BIDR INH 05/25/16 20:00 06/24/16 19:59 05/27/16 07:18 1 MG Clonazepam (Klonopin Tab) 0.5 mg HS GT 05/25/16 21:00 06/24/16 20:59 05/26/16 20:57 0.5 MG Clotrimazole (Lotrimin 1% Crm) 1 appln BID PRN EXT 05/25/16 14:30 06/24/16 14:29 Dicyclomine HCl (Bentyl Cap) 10 mg BID GT 05/25/16 20:00 06/24/16 20:59 05/27/16 07:30 10 MG Fexofenadine HCl (Chayo Tab) 180 mg DAILY PO 05/26/16 08:00 06/25/16 08:59 05/27/16 07:30 180 MG Glycopyrrolate (Robinul Tab) 1.25 mg TID GT 05/25/16 20:00 06/24/16 20:59 05/27/16 07:30 1.25 MG Lactobacillus Acidophilus (Floranex Tab) 1 tab BIDM PEG 05/25/16 17:00 06/24/16 17:59 05/27/16 07:30 1 TAB Lamotrigine (Lamictal Tab) 75 mg HS PO 05/25/16 21:00 06/24/16 20:59 05/26/16 20:58 75 MG Neomycin/ Polymyxin/ Bacitracin (Neosporin Oint) 1 appln BID EXT 05/25/16 20:00 06/24/16 19:59 05/27/16 07:31 1 APPLN Promethazine HCl (Phenergan Supp) 12.5 mg Q8H PRN [place] 05/25/16 14:30 06/24/16 14:29 Acetaminophen (Tylenol Soln) 217 mg Q6 PRN GT 05/25/16 14:30 06/24/16 14:29 Lansoprazole (Prevacid Solutab) 30 mg QAM GT 05/26/16 08:00 06/25/16 07:59 05/27/16 07:31 30 MG Lamotrigine (Lamictal Tab) 150 mg [id number] GT 05/26/16 07:00 06/25/16 06:59 05/27/16 06:27 150 MG Fluticasone Propionate (Flonase Nasal [place]) 2 sprays DAILY NA 05/26/16 08:00 06/25/16 07:59 05/27/16 07:33 2 SPRAYS Miscellaneous Information (Order Awaiting Action) 1 ea QS N/A 05/26/16 00:00 06/25/16 00:00 Clonazepam (Klonopin Tab) 0.25 mg BID@0800,1400 GT 05/26/16 08:00 06/25/16 07:59 05/27/16 07:32 0.25 MG Ipratropium [place] (Atrovent 0.02% 0.5MG/2.5ML Neb) 0.5 mg Q6R INH 05/25/16 21:00 06/24/16 20:59 05/27/16 07:17 0.5 MG Levalbuterol (Xopenex 1.25MG/ 0.5ML Neb) 1.25 mg Q6R INH 05/25/16 21:00 06/24/16 20:59 05/27/16 07:17 1.25 MG Ipratropium [place] (Atrovent 0.02% 0.5MG/2.5ML Neb) 0.5 mg Q4H PRN INH 05/25/16 15:15 06/24/16 15:14 Levalbuterol 1.25 mg 1.25 mg Q4H PRN INH 05/25/16 15:15 06/24/16 15:14 Doxycycline Hyclate/Dextrose (Vibramycin IV/ D5 100ml) 110 ml @ 55 mls/hr Q12@0400,1600 IV 05/25/16 16:00 06/01/16 15:59 05/27/16 04:05 55 MLS/HR Miscellaneous Information 1 ea UD PRN N/A 05/25/16 15:45 06/24/16 15:44 Bacitracin (Bacitracin Oint) 1 appln BID EXT 05/25/16 20:00 05/30/16 08:01 05/27/16 07:31 1 APPLN Enteral Nutritional Formula (Peptamen 1.5) 800 ml DAILY@0700,1600 PEG 05/26/16 17:00 06/25/16 16:59 05/27/16 06:32 800 ML Miscellaneous (Stop Order) 1 ea DAILY@1200,2100 N/A 05/26/16 22:00 06/25/16 21:59 05/27/16 11:40 1 EA Sterile Water 1 ea 1 ea Q6H PEG 05/26/16 21:00 06/25/16 20:59 05/27/16 07:31 1 EA Piperacillin Sod/ Tazobactam Sod/ Dextrose (Zosyn Iv/D5 100ml) 115 ml @ 28.75 mls/ hr Q8H IV 05/27/16 06:00 06/01/16 05:59 05/27/16 06:24 28.75 MLS/HR (Tabatha Hannah, PAEmmaC) Agree with the above progress note. Spoke with the patient's mother and updated on the condition/labs/plan of care. No overnight events noted. Suctioning requirements remain fairly frequent as per nursing staff. Patient tolerating tube feeds. + BM of diarrhea consistency. Cardiac: RR, S1 and S2 auscultated. Resp: few scattered rhonchi, no wheezes or rales. (Bibi Montero ., D.O.)
[2016-05-28 01:34] VITALS: O2SAT 95
[2016-05-28] MEDS: LEVALBUTEROL 1.25MG/0.5ML NEB INH SCH ×4 (03:00→19:48)
[2016-05-28] MEDS: IPRATROPIUM BROMIDE NEB SOLN 0.02% 2.5 ML VIAL INH SCH ×4 (03:00→19:48)
[2016-05-28] MEDS: TUBE FEEDING WATER FLUSH PEG SCH ×4 (03:13→22:00)
[2016-05-28] MEDS: DOXYCYCLINE HYCLATE 100 MG in DEXTROSE 5% 100ML IV SCH ×2 (03:55→21:59)
[2016-05-28] MEDS: PIPERACILL/TAZOBAC IV 3.375 GM in DEXTROSE 5% 100ML IV SCH ×2 (06:00→13:53)
[2016-05-28 06:14] LABS: HEMATOCRIT 37.3 % (42-52); MEAN CELL VOLUME 92.8 fL (80-100); MEAN CORPUSCULAR HEMOGLOBIN 30.8 pg (25-34); MEAN CORPUSCULAR HGB CONC 33.2 g/dl (32-36); MEAN PLATELET VOLUME 10.7 fL (7.4-10.4); PLATELET COUNT 243 K/uL (130-400); RED BLOOD COUNT 4.02 M/uL (4.7-6.1); WHITE BLOOD COUNT 6.91 K/uL (4.8-10.8)
[2016-05-28 06:51] LABS: CREATININE 0.38 mg/dl (0.60-1.40)
[2016-05-28] MEDS: CLONAZEPAM 0.5 MG TAB GT SCH ×3 (07:49→22:24)
[2016-05-28] MEDS: DICYCLOMINE HCL 10 MG CAP GT SCH ×2 (07:49→22:02)
[2016-05-28] MEDS: NEOMYCIN/POLYMYX/BACITR OINT 15 GM TUBE EXT SCH ×2 (07:49→22:04)
[2016-05-28 07:50] VITALS: BP 118/74; PULSE 88; TEMP 36.4; O2SAT 97
[2016-05-28] MEDS: LANSOPRAZOLE SOLUTAB 30 MG GT SCH (07:50)
[2016-05-28 07:51] VITALS: PULSE 96; O2SAT 92
[2016-05-28] MEDS: GLYCOPYRROLATE 1 MG TAB GT SCH ×3 (07:51→22:02)
[2016-05-28] MEDS: FLUTICASONE PROPIONATE NA SPR 16 GM BTL SCH (07:51)
[2016-05-28] MEDS: FEXOFENADINE HCL 180 MG TAB PO SCH (07:51)
[2016-05-28] MEDS: LACTOBACILLUS ACIDOPHILUS (FLORANEX) TAB PEG SCH ×2 (07:51→17:06)
[2016-05-28] MEDS: BUDESONIDE 0.5 MG/2 ML VIAL (PULMICORT) INH SCH ×2 (07:51→19:49)
[2016-05-28] MEDS: BACITRACIN OINT 15 GM TUBE EXT SCH ×2 (07:52→22:03)
[2016-05-28] MEDS: PEPTAMEN 1.5 CAL 1000ML BAG PEG SCH ×2 (07:53→17:06)
--- NOTE | 2016-05-28 10:09 | Progress Note ---
Medicine Progress Note Date & Time of Visit: May 28, 2016 at 08:59. (Tabatha Hannah PA-C) Subjective Patient seen and examined. Pt is nonverbal so history gathered from nursing. Nurse states he is still having some cough. Respiratory was in to see him this morning. He is having tube feedings. No vomiting. He had 1 loose stool overnight. He was mildly agitated this morning but resting comfortably in wheelchair now. (Tabatha Hannah PA-C) Objective Last 8 Hrs Date Time Temp Pulse Resp B/P Pulse Ox O2 Delivery O2 Flow Rate FiO2 05/28/16 07:51 96 22 92 Room Air 05/28/16 07:50 36.4 88 20 118/74 97 05/28/16 01:34 95 Room Air Physical Exam: General- sleeping comfortably in wheelchair, no distress, caregiver at bedside Eyes-anicteric Neck-trachea midline Lungs-occasional cough, lungs CTA bilaterally,no wheezing, no respiratory distress, no accessory muscle use Heart-RRR, no murmur Abdomen-soft, nontender, BS normal, G tube site appears healthy- no erythema or drainage Extremities- has spasticity of extremities, no edema Neuro-alert, nonverbal, does not follow commands, spontaneously moves all extremities Laboratory Results: Last 24 Hours Test 05/28/16 05:23 White Blood Count 6.91 K/uL Red Blood Count 4.02 M/uL Hemoglobin 12.4 g/dL Hematocrit 37.3 % Mean Corpuscular Volume 92.8 fL Mean Corpuscular Hemoglobin 30.8 pg Mean Corpuscular Hemoglobin Concent 33.2 g/dl RDW Standard Deviation 44.9 fL RDW Coefficient of Variation 13.1 % Platelet Count 243 K/uL Mean Platelet Volume 10.7 fL Creatinine 0.38 mg/dl Est Creatinine Clear Calc Drug Dose 189.1 ml/min Estimated GFR () > 150.0 Estimated GFR (Non- > 150.0 (Tabatha Hannah PA-C) Assessment & Plan POSSIBLE SEPSIS- resolved Likely secondary to pneumonia; possible aspiration vs. CAP CXR- left retrocardiac density Leukocytosis resolved Blood cultures- no growth to date; influenza negative; UA- did not appear infected; C diff neg; stool culture- no growth to date On Zosyn and doxycycline day 3- transition to Augmentin and doxycycline today Continue nebs and suctioning VOMITING- resolved KUB showed no obstruction, + moderate amount of stool Getting tube feedings DIARRHEA Having 1-2 loose BM per day C. diff negative, stool cx- no growth to date CEREBRAL PALSY Has 1:1 observation HISTORY OF SEIZURE Continue Lamictal Seizure precautions HISTORY OF ASPIRATION S/P G TUBE PLACEMENT Aspiration precautions ASTHMA Not in exacerbation Continue nebs DVT PROPHYLAXIS SCD's FULL CODE DISPOSITION Lives at [facility] care home Case management involved Follows with Dr. Merissa Lopez for primary care. Patient's mother Joyce West updated by phone on 05/27. Likely can be discharged tomorrow morning Patient seen in collaboration with Dr. Montero. Please see her addendum. Current Inpatient Medications: Current Inpatient Medications Medications (Trade) Dose Ordered Sig/Elizabeth Route Start Time Stop Time Status Last Admin Dose Admin Piperacillin Sod/ Tazobactam Sod 1 ea 1 ea UD PRN N/A 05/25/16 15:40 06/24/16 15:39 Dextrose/Sodium Chloride (D5W And Nss) 1,000 ml @ 75 mls/hr [id number] IV 05/25/16 14:15 06/24/16 14:14 05/27/16 20:04 75 MLS/HR Budesonide (Pulmicort Respules 0.5MG/ 2ML Neb Soln) 1 mg BIDR INH 05/25/16 20:00 06/24/16 19:59 05/28/16 07:51 1 MG Clonazepam (Klonopin Tab) 0.5 mg HS GT 05/25/16 21:00 06/24/16 20:59 05/27/16 20:16 0.5 MG Clotrimazole (Lotrimin 1% Crm) 1 appln BID PRN EXT 05/25/16 14:30 06/24/16 14:29 05/28/16 07:52 1 APPLN Dicyclomine HCl (Bentyl Cap) 10 mg BID GT 05/25/16 20:00 06/24/16 20:59 05/28/16 07:49 10 MG Fexofenadine HCl (Chayo Tab) 180 mg DAILY PO 05/26/16 08:00 06/25/16 08:59 05/28/16 07:51 180 MG Glycopyrrolate (Robinul Tab) 1.25 mg TID GT 05/25/16 20:00 06/24/16 20:59 05/28/16 07:51 1.25 MG Lactobacillus Acidophilus (Floranex Tab) 1 tab BIDM PEG 05/25/16 17:00 06/24/16 17:59 05/28/16 07:51 1 TAB Lamotrigine (Lamictal Tab) 75 mg HS PO 05/25/16 21:00 06/24/16 20:59 05/27/16 21:30 75 MG Neomycin/ Polymyxin/ Bacitracin (Neosporin Oint) 1 appln BID EXT 05/25/16 20:00 06/24/16 19:59 05/28/16 07:49 1 APPLN Promethazine HCl (Phenergan Supp) 12.5 mg Q8H PRN [place] 05/25/16 14:30 06/24/16 14:29 Acetaminophen (Tylenol Soln) 217 mg Q6 PRN GT 05/25/16 14:30 06/24/16 14:29 Lansoprazole (Prevacid Solutab) 30 mg QAM GT 05/26/16 08:00 06/25/16 07:59 05/28/16 07:50 30 MG Lamotrigine (Lamictal Tab) 150 mg [id number] GT 05/26/16 07:00 06/25/16 06:59 05/28/16 07:48 150 MG Fluticasone Propionate (Flonase Nasal [place]) 2 sprays DAILY NA 05/26/16 08:00 06/25/16 07:59 05/28/16 07:51 2 SPRAYS Miscellaneous Information (Order Awaiting Action) 1 ea QS N/A 05/26/16 00:00 06/25/16 00:00 Clonazepam (Klonopin Tab) 0.25 mg BID@0800,1400 GT 05/26/16 08:00 06/25/16 07:59 05/28/16 07:49 0.25 MG Ipratropium [place] (Atrovent 0.02% 0.5MG/2.5ML Neb) 0.5 mg Q6R INH 05/25/16 21:00 06/24/16 20:59 05/28/16 07:51 0.5 MG Levalbuterol (Xopenex 1.25MG/ 0.5ML Neb) 1.25 mg Q6R INH 05/25/16 21:00 06/24/16 20:59 05/28/16 07:51 1.25 MG Ipratropium [place] (Atrovent 0.02% 0.5MG/2.5ML Neb) 0.5 mg Q4H PRN INH 05/25/16 15:15 06/24/16 15:14 Levalbuterol 1.25 mg 1.25 mg Q4H PRN INH 05/25/16 15:15 06/24/16 15:14 Doxycycline Hyclate/Dextrose (Vibramycin IV/ D5 100ml) 110 ml @ 55 mls/hr Q12@0400,1600 IV 05/25/16 16:00 06/01/16 15:59 05/28/16 03:55 55 MLS/HR Miscellaneous Information 1 ea UD PRN N/A 05/25/16 15:45 06/24/16 15:44 Bacitracin (Bacitracin Oint) 1 appln BID EXT 05/25/16 20:00 05/30/16 08:01 05/28/16 07:52 1 APPLN Enteral Nutritional Formula (Peptamen 1.5) 800 ml DAILY@0700,1600 PEG 05/26/16 17:00 06/25/16 16:59 05/28/16 07:53 800 ML Miscellaneous (Stop Order) 1 ea DAILY@1200,2100 N/A 05/26/16 22:00 06/25/16 21:59 05/27/16 21:29 1 EA Sterile Water 1 ea 1 ea Q6H PEG 05/26/16 21:00 06/25/16 20:59 05/28/16 03:13 1 EA Piperacillin Sod/ Tazobactam Sod/ Dextrose (Zosyn Iv/D5 100ml) 115 ml @ 28.75 mls/ hr Q8H IV 05/27/16 06:00 06/01/16 05:59 05/28/16 06:00 28.75 MLS/HR (Tabatha Hannah, JESÚS) Agree with the above progress notes. Caregiver was at bedside and updated. No overnight events noted. Still with a productive cough and frequent suctioning but caregiver and mother reports the patient normally requires frequent suctioning at baseline. Has 1-2 episodes diarrhea per day. Patient was reportedly agitated earlier but appears calm and comfortable now. Cardiac exam: RR, S1 and S2 auscultated. GI: soft, NT, ND, +BS, + PEG tube. Resp: CTA B/L with occasional productive cough. Continue plan as above. (Bibi Montero, D.O.)
[2016-05-28] MEDS: D5W AND NSS 1,000 ML IV SCH ×2 (10:58→22:24)
[2016-05-28 14:18] VITALS: PULSE 92; O2SAT 92
--- NOTE | 2016-05-28 14:42 | DIAGNOSTIC IMAGING REPORT ---
CHEST ONE VIEW PORTABLE CLINICAL HISTORY: Aspiration pneumonia COMPARISON STUDY: 05/25/2016 FINDINGS: The heart is borderline enlarged. There are persistent left lower lobe airspace opacities. There is slight prominence of the upper lobe markings and one cannot exclude subtle upper lung zone airspace opacities. There is no overt failure. No pleural effusions are visualized.[ IMPRESSION: 1. Persistent left retrocardiac airspace opacity 2. Slight prominence the upper lobe interstitial markings. Additional subtle airspace opacities cannot be excluded Electronically signed by: Castro Liu M.D. 05/28/2016 2:40 PM Dictated Date/Time: 05/28/2016 2:38 PM
[2016-05-28 16:20] VITALS: O2SAT 92
[2016-05-28] MEDS: AMOXICILLIN/CLAVULANATE SUSP 250 MG/5 ML GT SCH ×2 (17:13→22:24)
[2016-05-28 19:54] VITALS: PULSE 102; O2SAT 96
[2016-05-29] MEDS: LEVALBUTEROL 1.25MG/0.5ML NEB INH SCH ×2 (02:55→07:20)
[2016-05-29] MEDS: IPRATROPIUM BROMIDE NEB SOLN 0.02% 2.5 ML VIAL INH SCH ×2 (02:55→07:20)
[2016-05-29] MEDS: TUBE FEEDING WATER FLUSH PEG SCH (03:55)
[2016-05-29] MEDS: DOXYCYCLINE HYCLATE 100 MG in DEXTROSE 5% 100ML IV SCH (03:55)
[2016-05-29] MEDS: AMOXICILLIN/CLAVULANATE SUSP 250 MG/5 ML GT SCH (05:49)
[2016-05-29 06:17] LABS: HEMATOCRIT 41.6 % (42-52); MEAN CELL VOLUME 93.3 fL (80-100); MEAN CORPUSCULAR HEMOGLOBIN 31.6 pg (25-34); MEAN CORPUSCULAR HGB CONC 33.9 g/dl (32-36); MEAN PLATELET VOLUME 10.9 fL (7.4-10.4); PLATELET COUNT 319 K/uL (130-400); RED BLOOD COUNT 4.46 M/uL (4.7-6.1); WHITE BLOOD COUNT 7.54 K/uL (4.8-10.8)
[2016-05-29 06:43] LABS: BLOOD UREA NITROGEN 9 mg/dl (7-18); CALCIUM 9.3 mg/dl (8.5-10.1); CARBON DIOXIDE 25 mmol/L (21-32); CHLORIDE 107 mmol/L (98-107); CREATININE 0.41 mg/dl (0.60-1.40); GLUCOSE 76 mg/dl (70-99); SODIUM 143 mmol/L (136-145)
[2016-05-29 07:12] VITALS: PULSE 99; O2SAT 96
[2016-05-29] MEDS: BUDESONIDE 0.5 MG/2 ML VIAL (PULMICORT) INH SCH (07:19)
[2016-05-29 08:00] VITALS: PULSE 109; O2SAT 94
[2016-05-29] MEDS: BACITRACIN OINT 15 GM TUBE EXT SCH (08:53)
[2016-05-29] MEDS: DICYCLOMINE HCL 10 MG CAP GT SCH (08:53)
[2016-05-29] MEDS: PEPTAMEN 1.5 CAL 1000ML BAG PEG SCH (08:53)
[2016-05-29] MEDS: CLONAZEPAM 0.5 MG TAB GT SCH (08:53)
[2016-05-29] MEDS: LANSOPRAZOLE SOLUTAB 30 MG GT SCH (08:54)
[2016-05-29] MEDS: GLYCOPYRROLATE 1 MG TAB GT SCH (08:55)
[2016-05-29] MEDS: FEXOFENADINE HCL 180 MG TAB PO SCH (08:55)
[2016-05-29] MEDS: LACTOBACILLUS ACIDOPHILUS (FLORANEX) TAB PEG SCH (08:55)
[2016-05-29] MEDS: FLUTICASONE PROPIONATE NA SPR 16 GM BTL SCH (08:55)
[2016-05-29] MEDS: NEOMYCIN/POLYMYX/BACITR OINT 15 GM TUBE EXT SCH (08:56)
[2016-05-29] MEDS ORDERED: AMOX1SUS4 GT (11:09)
[2016-05-29] MEDS ORDERED: DOXY1SUS PEG (11:09)
[2016-05-29] MEDS ORDERED: BCTO EXT (11:09)
[2016-05-29 11:18] VITALS: BP 118/74; PULSE 109; TEMP 36.4; O2SAT 94
--- NOTE | 2016-05-29 11:20 | Discharge Instructions ---
Discharge Instructions Admission Reason for Admission: Aspiration Pneumonia Discharge Discharge Diagnosis / Problem: Aspiration pneumonia Discharge Goals Goal(s): Therapeutic intervention Activity Recommendations Activity Limitations: resume your previous activity . Instructions / Follow-Up Instructions / Follow-Up Maintain aspiration precautions Please see Dr. Lopez on Thursday, June 02 at 10:50AM for hospital follow up. Current Hospital Diet Patient's current hospital diet: Discharge Diet Recommended Diet: N/A Pending Studies Studies pending at discharge: no Medical Emergencies . Who to Call and When: Medical Emergencies: If at any time you feel your situation is an emergency, please call 911 immediately. . Non-Emergent Contact Non-Emergency issues call your: Primary Care Provider . . "Provider Documentation" section prepared by Bibi Montero. VTE Core Measure Inpt VTE Proph given/why not?: SCD's
[2016-05-29] MEDS: D5W AND NSS 1,000 ML IV SCH (11:35)
--- NOTE | 2016-06-09 08:25 | Discharge Summary ---
Discharge Summary Admission Date: May 25, 2016 at 13:45 Discharge Date: May 29, 2016 Discharge Disposition: Home Principal Diagnosis: Aspiration pneumonia Medication Reconciliation New Medications: Doxycycline (Monohydrate) (Doxycycline) 25 Mg/5 Ml Nadira 100 MG PEG Q12 for 6 Days, #12 DOSE Amoxicillin & Pot Clavulanate (Amoxicillin/Clavulanate P) 1 Nadira Nadira 500 MG GT Q8 for 6 Days, #12 DOSE Bacitracin (Bacitracin Zinc) 45 Appln/15 Gm Oint 1 APPLN EXT BID, #1 TUBE Continued Medications: Acetaminophen (Tylenol) 500 Mg/15 Ml Liq 217 MG GT Q6 PRN for Headache or Pain Albuterol Soln (Proventil 0.083% 2.5MG/3ML) Nebu 2.5 MG INH Q4H PRN for Wheezing, EA Budesonide (Pulmicort Respules 0.5MG/2ML) 0.5 Mg/2 Ml Nebu 2 ML NEB BID, EA Cholestyramine (Questran) 4 Gm Pow 1 PKT GT DAILY with 12:30 tube feeding Clonazepam (Klonopin) 0.5 Mg Tab 0.25 MG GT BID, TAB Clonazepam (Klonopin) 0.5 Mg Tab 0.5 MG PO HS, TAB Clotrimazole (Topical) (Tgt Clotrimazole) 1 % Cre 1 APPLN TOP BID PRN for fungal rash on buttocks/groin for 7 Days, #45 GM Diazepam (Anticonvulsant) (Diastat Acudial) 10 Mg Gel 10 MG DE PRN for seizures Dicyclomine Hcl (Dicyclomine Hcl) 10 Mg Cap 10 MG GT BID for 30 Days, #60 CAP 3 Refills Esomeprazole Magnesium (Nexium) 20 Mg Capcr 20 MG PO DAILY, CAP open 1 cap and mix with 50ml water. then give via syringe into G-TUBE. MARGARITO FLUSH. Fexofenadine Hcl (Chayo Allergy) 180 Mg Tab 1 TAB PO DAILY, TAB Glycopyrrolate (Robinul) 1 Mg Tab 1.25 TAB GT TID Lactobacillus (Lactinex) Chw 1 TAB PEG BIDM, #60 CHW Lamotrigine (Lamictal) 25 Mg Tab 75 MG GT HS for 30 Days, #60 TAB 1 Refill Lamotrigine (Lamictal) 150 Mg Tab 150 MG GT BID, TAB Mometasone Furoate (Nasonex) [place] 2 SPRAY ROSA MARIA DAILY, BTL Neomycin-Bacitracin Zn-Polymyx (Triple Antibiotic) 1 Oin Oin 1 APPLN TOP BID to G tube area Nutritional Supplements (Nutren 2.0 Angel) 1 Liq Liq 1 DOSE PEG UD for 30 Days 5 cartons per day. Using Kangaroo pump, should run 155ml/hr over 8 hours daily from 7-11am and 5-9pm Promethazine (Phenergan Suppository) 12.5 Mg Supp 12.5 MG DE Q8 PRN for Nausea, SUPP Triamcinolone Acet 0.5% (Triamcinolone Acet 0.5%) Oint 1 APPLN TOP BID PRN for rash for 7 Days, #15 GM Zinc Oxide (Topical) (Boudreauxs Butt Paste) 16 % Oin 1 APPLN TOP UD PRN for brief change Discontinued Medications: Nutritional Supplements (Peptamen 1.5) 1 Liq Liq 500 ML GT UD for 30 Days 160 ml/hour 7AM-12PM, AND 4PM-9PM (total of 7 cartons per day) Admission Information HPI (per Admitting provider): 25 year old male with history of CP, Seizure, Recurrent Aspiration, G tube placement, and Asthma presenting with cough, fever and lethargy. Patient's history obtained from caregivers. Patient was at baseline health until yesterday when he was noted to have intermittent fevers throughout the day associated with cough. During the night, he apparently had vomiting as well. Caregivers were concerned for possible aspiration. He was then brought to the ED for further evaluation. At the ER, patient was tachycardic with elevated WBC. CXR showed possible left sided pneumonia. He was given Zosyn IV. On exam, patient seems sleepy intermittently awakens, moans and flails his arms. Not in distress, but bouts of cough noted. Physical Exam (per Admitting): General Appearance: no apparent distress Head: normocephalic Eyes: normal inspection ENT: normal ENT inspection Neck: supple, no adenopathy, thyroid normal, no JVD Respiratory/Chest: lungs clear, normal breath sounds, no respiratory distress, no accessory muscle use Cardiovascular: regular rate, rhythm, no edema, no murmur Abdomen/GI: normal bowel sounds, non tender, soft, + pertinent finding ((+) PEG tube site benign) Extremities/Musculoskelatal: normal inspection, no calf tenderness, no pedal edema, normal range of motion Neurologic/Psych: + pertinent finding (moves extremities equally, patient is non verbal) Skin: normal color, warm/dry, no rash Lymphatic: no adenopathy Hospital Course POSSIBLE SEPSIS: now resolved -secondary to pneumonia; most likely aspiration pneumonia vs. CAP CXR: left retrocardiac density -Leukocytosis resolved -Blood cultures: no growth to date; influenza negative -UA: negative for infection -C diff negative and stool culture negative -treated with Zosyn and doxycycline; transitioned to Augmentin and doxycycline for continuation upon discharge -Continue nebs and suctioning VOMITING: resolved -KUB: no obstruction, + moderate amount of stool -tolerating tube feedings without difficulty DIARRHEA: -Having 1-2 loose BM per day -C. diff negative, stool cx- no growth to date -did mention to patients mother that given KUB findings, patient may require holding questran periodically as KUB showed moderate retained stool CEREBRAL PALSY: -has 1:1 observation -seizure and aspiration precautions -strict NPO status SEIZURE DISORDER: -Continue Lamictal -Seizure precautions HISTORY OF ASPIRATION S/P G TUBE PLACEMENT -Aspiration precautions ASTHMA: -Not in exacerbation -Continue nebs PHYSICAL EXAM ON DAY OF DISCHARGE: GENERAL: Patient is in no acute distress. Sitting upright in wheelchair. Occasionally awakens and has spastic movements of head and extremities HEENT: No acute trauma, mucous membranes moist, no scleral icterus. NECK: No stridor, trachea is midline. LUNGS: Clear to auscultation bilaterally, no wheeze, no rhonchi, breath sounds equal. Occasional cough HEART: Without murmurs gallops or rubs, regular rate and rhythm. ABDOMEN: Soft, nontender, bowel sounds positive EXTREMITIES: No cyanosis or edema NEUROLOGIC: Moving all extremities, unable to answer questions, intermittently follows commands SKIN: No rash, no jaundice, no diaphoresis. Total time spent on discharge = 39 This includes examination of the patient, discharge planning, medication reconciliation, and communication with other providers. Discharge Instructions See patient instructions
[2016-10-11] MEDS ORDERED: AMOX1SUS4 GT (11:14)
[2016-10-11] MEDS ORDERED: PRED15SO GT (11:14)
== END 2016-05-29 12:57 | disposition home or self-care (01) | DRG 871 ==
LOC: ENRESERVDT → ENRESERVTM → EDSEX 11:40 → C.EDB 11:40 → UNDOADMIN 13:45 → C.MS4W 13:45 → C.4E 05-26 17:14
PROVIDERS: ADMIT Internal Medicine; ATTEND Internal Medicine
DX: A41.9 Sepsis, unspecified organism (principal); J69.0 Pneumonitis due to inhalation of food and vomit; R11.2 Nausea with vomiting, unspecified; R19.7 Diarrhea, unspecified; G80.9 Cerebral palsy, unspecified; R56.9 Unspecified convulsions; J45.909 Unspecified asthma, uncomplicated; Z93.1 Gastrostomy status; Z22.322 Carrier or suspected carrier of Methicillin resistant Staphylococcus aureus; Z79.51 Long term (current) use of inhaled steroids; Z79.899 Other long term (current) drug therapy

== ENCOUNTER 2016-06-28 12:37 | Emergency (ER) | payer OTHER ==
[~2016-06-28] VITALS: Ht 154.9 cm; Wt 42.0 kg
[~2016-06-28 12:37] MED LIST changes: +AMOX1SUS4 GT; -BACL0.05; -BACL1TAB GT; +BCTO EXT; +ESOM20CA PO; +FEXO1TAB49 PO; -NUTRLIQ61 GT
[2016-06-28 12:50] VITALS: TEMP 36.9; Ht 154.9 cm; Wt 42.0 kg
[2016-06-28] MEDS ORDERED: LORAZEPAM 2 MG/ML 1 ML VIAL IV STA (13:23)
[2016-06-28] MEDS ORDERED: SODIUM CHLORIDE 0.9% 1000ML 500 ML IV STA (13:23)
--- NOTE | 2016-06-28 13:39 | EMERGENCY ROOM VISIT NOTE ---
History Report prepared by Ranjeet: Jaswinder Rivera Under the Supervision of: Dr. Edwardo Christianson M.D. First contact with patient: 13:20 Chief Complaint: ILLNESS Stated Complaint: GENERAL MALAISE, INCREASED CONGESTION History of Present Illness The patient is a 25 year old male who presents to the Emergency Room with complaints of persistent "generalized malaise" beginning this week. He has a history of cerebral palsy. Per caregiver, the patient has had increased congestion lately. He notes that the patient has an extensive history of aspiration pneumonia and requires airway suctioning regularly. He denies noticing any choking episodes. The caregiver notes that the patient has been very agitated lately which may mean he is developing an infection. He denies any known fevers, or vomiting and states that the patient has otherwise been stable. He denies any recent falls, or injuries. The caregiver denies any known history of urine infections and states that the patient is able to urinate without catheterization. HPI limited secondary to mental status. Source of History: caregiver History Limited By: other (mental status) Onset: This week Quality: other ("generalized malaise") Timing: other (Persistent) Associated Symptoms: No fevers, No vomiting Review of Systems Unobtainable secondary to mental state Past Medical & Surgical Medical Problems: (1) Asthma (2) Cerebral palsy, quadriplegic (3) Dystonia (4) gastric tube placement (5) Incision of thigh tendon- bilateral (6) Pneumonia (7) Seizure (8) Sepsis Surgical Problems: (1) History of gastrostomy tube placement (2) MRSA nasal colonization (3) S/p incision of thigh tendon (4) S/P insertion of intrathecal pump Family History Patient reports no known family medical history. Social History Smoking Status: Never Smoker Alcohol Use: none Drug Use: none Marital Status: single Housing Status: other Occupation Status: disabled Current/Historical Medications Scheduled Amoxicillin & Pot Clavulanate (Amoxicillin/Clavulanate P), 500 MG GT Q8 Budesonide (Pulmicort Respules 0.5MG/2ML), 2 ML NEB BID Cefdinir (Omnicef), 300 MG PO Q12H Cefdinir (Omnicef), 300 MG PEG Q12H Cholestyramine (Questran), 1 PKT GT DAILY Clonazepam (Klonopin), 0.25 MG GT BID Clonazepam (Klonopin), 0.5 MG PO HS Dicyclomine Hcl (Dicyclomine Hcl), 10 MG GT BID Esomeprazole Magnesium (Nexium), 20 MG PO DAILY Fexofenadine Hcl (Chayo Allergy), 1 TAB PO DAILY Glycopyrrolate (Robinul), 1.25 TAB GT TID Lactobacillus (Lactinex), 1 TAB PEG BIDM Lamotrigine (Lamictal), 75 MG GT HS Lamotrigine (Lamictal), 150 MG GT BID Mometasone Furoate (Nasonex), 2 SPRAY ROSA MARIA DAILY Neomycin-Bacitracin Zn-Polymyx (Triple Antibiotic), 1 APPLN TOP BID Nutritional Supplements (Nutren 2.0 Angel), 1 DOSE PEG UD Scheduled PRN Albuterol Soln (Proventil 0.083% 2.5MG/3ML), 2.5 MG INH Q4H PRN for Wheezing Clotrimazole (Topical) (Tgt Clotrimazole), 1 APPLN TOP BID PRN for fungal rash on buttocks/groin Diazepam (Anticonvulsant) (Diastat Acudial), 10 MG ME for seizures Promethazine (Phenergan Suppository), 12.5 MG ME Q8 PRN for Nausea Triamcinolone Acet 0.5% (Triamcinolone Acet 0.5%), 1 APPLN TOP BID PRN for rash Zinc Oxide (Topical) (Boudreauxs Butt Paste), 1 APPLN TOP UD PRN for brief change Allergies Coded Allergies: Cat Dander (Verified Allergy, Unknown, SHORTNESS OF BREATH, 06/28/16) POLLEN (Verified Allergy, Unknown, SHORTNESS OF BREATH, 06/28/16) Ciprofloxacin (Verified Adverse Reaction, Unknown, GI SYMPTOMS, 06/28/16) Dust (Verified Adverse Reaction, Unknown, SHORTNESS OF BREATH, 06/28/16) Physical Exam Vital Signs Date Time Temp Pulse Resp B/P Pulse Ox O2 Delivery O2 Flow Rate FiO2 06/28/16 16:08 100 18 100/56 98 06/28/16 15:31 94 12 100/56 95 06/28/16 14:16 112 20 95 Room Air 06/28/16 14:16 95 Room Air 06/28/16 14:13 122 06/28/16 12:50 36.9 77 24 158/81 99 Room Air Physical Exam GENERAL: Patient is in no acute distress. HEENT: No acute trauma, normocephalic atraumatic, mucous membranes dry, no nasal congestion, no scleral icterus. NECK: No stridor, no adenopathy, no meningismus, trachea is midline. LUNGS: Clear to auscultation bilaterally, no wheeze, no rhonchi, breath sounds equal. HEART: Mildly tachycardic with a regular rhythm. No murmurs. ABDOMEN: Soft, nontender, bowel sounds positive, no hernias, no peritonitis. EXTREMITIES: Moving upper extremities but not lower extremities consistent with past history. NEUROLOGIC: Awake. MR noted. Moving upper extremities equally. SKIN: No rash, no jaundice, no diaphoresis. Medical Decision & Procedures ER Provider Diagnostic Interpretation: X-ray results as stated below per interpretation by me and the radiologist: SINGLE VIEW CHEST FINDINGS: An AP, portable, upright chest radiograph is compared to study dated 05/28/2016. The examination is significantly degraded by portable technique and patient rotation. The heart is mildly enlarged. The pulmonary vasculature is noncongested. No airspace consolidation or large pleural effusion is identified. Chronic interstitial thickening is similar to previous. No pneumothorax is seen. The bony thorax is grossly intact. IMPRESSION: Cardiomegaly with no active disease in the chest. Electronically signed by: Edwardo Herrera M.D. Laboratory Results 06/28/16 13:47 Red Blood Count 4.95, Mean Corpuscular Volume 96.0, Mean Corpuscular Hemoglobin 32.1, Mean Corpuscular Hemoglobin Concent 33.5, Mean Platelet Volume 12.5, Neutrophils (%) (Auto) 66.0, Lymphocytes (%) (Auto) 19.6, Monocytes (%) (Auto) 10.2, Eosinophils (%) (Auto) 3.5, Basophils (%) (Auto) 0.5, Neutrophils # (Auto ) 5.64, Lymphocytes # (Auto) 1.68, Monocytes # (Auto) 0.87, Eosinophils # (Auto ) 0.30, Basophils # (Auto) 0.04 06/28/16 13:47 Test 06/28/16 13:47 White Blood Count 8.55 K/uL (4.8-10.8) Red Blood Count 4.95 M/uL (4.7-6.1) Hemoglobin 15.9 g/dL (14.0-18.0) Hematocrit 47.5 % (42-52) Mean Corpuscular Volume 96.0 fL (80-100) Mean Corpuscular Hemoglobin 32.1 pg (25-34) Mean Corpuscular Hemoglobin Concent 33.5 g/dl (32-36) Platelet Count 237 K/uL (130-400) Mean Platelet Volume 12.5 fL (7.4-10.4) Neutrophils (%) (Auto) 66.0 % Lymphocytes (%) (Auto) 19.6 % Monocytes (%) (Auto) 10.2 % Eosinophils (%) (Auto) 3.5 % Basophils (%) (Auto) 0.5 % Neutrophils # (Auto) 5.64 K/uL (1.4-6.5) Lymphocytes # (Auto) 1.68 K/uL (1.2-3.4) Monocytes # (Auto) 0.87 K/uL (0.11-0.59) Eosinophils # (Auto) 0.30 K/uL (0-0.5) Basophils # (Auto) 0.04 K/uL (0-0.2) RDW Standard Deviation 48.8 fL (36.4-46.3) RDW Coefficient of Variation 13.9 % (11.5-14.5) Immature Granulocyte % (Auto) 0.2 % Immature Granulocyte # (Auto) 0.02 K/uL (0.00-0.02) Urine Color YELLOW Urine Appearance TURBID (CLEAR) Urine pH 7.5 (4.5-7.5) Urine Specific [place] 1.026 (1.000-1.030) Urine Protein TRACE (NEG) Urine Glucose (UA) NEG (NEG) Urine Ketones NEG (NEG) Urine Occult Blood NEG (NEG) Urine Nitrite NEG (NEG) Urine Bilirubin NEG (NEG) Urine Urobilinogen NEG (NEG) Urine Leukocyte Esterase SMALL (NEG) Urine WBC (Auto) >30 /hpf (0-5) Urine RBC (Auto) 5-10 /hpf (0-4) Urine Hyaline Casts (Auto) 10-30 /lpf (0-5) Urine Epithelial Cells (Auto) >30 /lpf (0-5) Urine Bacteria (Auto) NEG (NEG) Urine Renal Epithelial Cells 0-5 /lpf (0-5) Anion Gap 9.0 mmol/L (3-11) Est Creatinine Clear Calc Drug Dose 101.6 ml/min Estimated GFR () > 150.0 Estimated GFR (Non- 134.4 BUN/Creatinine Ratio 25.5 (10-20) Calcium Level 9.5 mg/dl (8.5-10.1) Total Bilirubin 0.6 mg/dl (0.2-1) Aspartate Amino Transf (AST/SGOT) 26 U/L (15-37) Alanine Aminotransferase (ALT/SGPT) 34 U/L (12-78) Alkaline Phosphatase 104 U/L (45-117) Total Protein 8.4 gm/dl (6.4-8.2) Albumin 4.4 gm/dl (3.4-5.0) Globulin 4.0 gm/dl (2.5-4.0) Albumin/Globulin Ratio 1.1 (0.9-2) Chemistry Specimen Hemolysis Laboratory results reviewed by me. Medications Administered Medications (Trade) Dose Ordered Sig/Elizabeth Route Start Time Stop Time Status Last Admin Dose Admin Sodium Chloride (Nss 1000ml) 500 ml @ 999 mls/hr Q31M STAT IV 06/28/16 13:23 06/28/16 13:53 DC 06/28/16 14:14 999 MLS/HR Lorazepam (Ativan Inj) 1 mg NOW STAT IV 06/28/16 13:23 06/28/16 13:28 DC 06/28/16 13:48 1 MG Ceftriaxone Sodium (Rocephin Inj) 1 gm NOW STAT IV 06/28/16 15:16 06/28/16 15:17 DC 06/28/16 15:26 1 GM ECG Indication: other (malaise) Rate (beats per minute): 113 Rhythm: sinus tachycardia Findings: no acute ischemic change, no ectopy ED Course 1321: The patient was evaluated in room A10. A complete history and physical exam was performed. 1323: Ordered Ativan 1 mg IV, Sodium Chloride 500 ml @ 999 mls/hr IV. 1516: Ordered Rocephin 1 gm IV. 1535: Reevaluated the patient. He is fast asleep. Discussed results and discharge instructions: his caregivers verbalized understanding and agreement. The patient is ready for discharge. Medical Decision The patient is a 25 year old male who presents to the ED with complaints of "generalized malaise". Differential diagnoses considered include aspiration, dehydration, pneumonia, UTI, electrolyte imbalance, anemia, as well as other etiologies were considered There is no leukocytosis or concerning anemia. No significant electrolyte abnormality, kidney failure or hepatitis. Chest film does not show pneumonia or CHF. Urinalysis is suggestive of infection, urine culture is pending. The patient received IV saline, he was given a dose of IV ceftriaxone for the possible UTI. He received a dose of IV Ativan to help with relaxation during his ER stay. The patient presents with a change in his behavior and some increased malaise. He may have a UTI. I do not think he requires a hospital stay, antibiotics are being prescribed as an outpatient. He will be on Omnicef twice a day for 10 days. The workers will watch him closely and return him here for worsening of his condition. A close follow-up with the doctors office outside the hospital was suggested. Impression Primary Impression: Weakness Additional Impression: UTI (urinary tract infection) Scribe Attestation The scribe's documentation has been prepared under my direction and personally reviewed by me in its entirety. I confirm that the note above accurately reflects all work, treatment, procedures, and medical decision making performed by me. Departure Information Dispostion Home / Self-Care Prescriptions Cefdinir (OMNICEF) 300 Mg Cap 300 MG PEG Q12H for 10 Days, #20 CAP Prov: Edwardo Christianson M.D. 06/28/16 Cefdinir (OMNICEF) 300 Mg Cap 300 MG PO Q12H for 10 Days, #20 CAP Prov: Edwardo Christianson M.D. 06/28/16 Referrals Merissa Lopez D.O. (PCP) Forms HOME CARE DOCUMENTATION FORM, IMPORTANT VISIT INFORMATION, WORK / SCHOOL INSTRUCTIONS Patient Instructions My [facility] [place] [facility] Additional Instructions all meds as before start omnicef 2x per day for 10 days for the urine infection return for worsening symptoms or worsening of his condition see teagan cooley for a recheck thursday this week lab testing and chest film looked ok today Problem Qualifiers
[2016-06-28 14:10] LABS: BASO % 0.5 %; BASO ABS # 0.04 K/uL (0-0.2); COMPLETE YES; EOS % 3.5 %; HEMATOCRIT 47.5 % (42-52); IG% 0.2 %; LYMPH % 19.6 %; LYMPH ABS # 1.68 K/uL (1.2-3.4); MEAN CORPUSCULAR HEMOGLOBIN 32.1 pg (25-34); MEAN CORPUSCULAR HGB CONC 33.5 g/dl (32-36); MEAN PLATELET VOLUME 12.5 fL (7.4-10.4); MONO % 10.2 %; PLATELET COUNT 237 K/uL (130-400); RED BLOOD COUNT 4.95 M/uL (4.7-6.1); WHITE BLOOD COUNT 8.55 K/uL (4.8-10.8)
[2016-06-28 14:16] VITALS: O2SAT 95
[2016-06-28 14:23] LABS: ALT/SGPT 34 U/L (12-78); BLOOD UREA NITROGEN 17 mg/dl (7-18); BUN/CREATININE RATIO 25.5 (10-20); CALCIUM 9.5 mg/dl (8.5-10.1); CARBON DIOXIDE 27 mmol/L (21-32); CHLORIDE 104 mmol/L (98-107); CREATININE 0.66 mg/dl (0.60-1.40); GLUCOSE 90 mg/dl (70-99); POTASSIUM 4.3 mmol/L (3.5-5.1); SODIUM 140 mmol/L (136-145)
--- NOTE | 2016-06-28 14:23 | DIAGNOSTIC IMAGING REPORT ---
SINGLE VIEW CHEST CLINICAL HISTORY: Weakness. Change in mental status. FINDINGS: An AP, portable, upright chest radiograph is compared to study dated 05/28/2016. The examination is significantly degraded by portable technique and patient rotation. The heart is mildly enlarged. The pulmonary vasculature is noncongested. No airspace consolidation or large pleural effusion is identified. Chronic interstitial thickening is similar to previous. No pneumothorax is seen. The bony thorax is grossly intact. IMPRESSION: Cardiomegaly with no active disease in the chest. Electronically signed by: Edwardo Herrera M.D. 06/28/2016 2:21 PM Dictated Date/Time: 06/28/2016 2:20 PM
[2016-06-28 14:41] LABS: ALB/GLOB RATIO 1.1 (0.9-2); ALKALINE PHOSPHATASE 104 U/L (45-117); AST/SGOT 26 U/L (15-37)
[2016-06-28 14:45] LABS: URINE APPEARANCE TURBID (CLEAR); URINE BILIRUBIN NEG (NEG); URINE COLOR YELLOW; URINE EPITHELIAL CELL AUTO >30 /lpf (0-5); URINE NITRITE NEG (NEG); URINE PH 7.5 (4.5-7.5); URINE SPECIFIC GRAVITY 1.026 (1.000-1.030); UROBILINOGEN NEG (NEG)
[2016-06-28 15:01] LABS: MANUAL MICROSCOPIC REQUIRED? NO; REVIEW REQ? YES
[2016-06-28 15:03] LABS: SULFASALICYLIC ACID POS (NEG)
[2016-06-28] MEDS ORDERED: CEFTRIAXONE SOD INJ 1 GM ADDVIAL IV STA (15:16)
[2016-06-28] MEDS ORDERED: CEFD300C2 PO (15:39)
[2016-06-28] MEDS ORDERED: CEFD300C2 PEG (15:55)
[2016-06-28 16:08] VITALS: BP 100/56; PULSE 100; O2SAT 98
[2016-10-11] MEDS ORDERED: PRED15SO GT (11:14)
[2016-10-11] MEDS ORDERED: AMOX1SUS4 GT (11:14)
== END 2016-06-28 16:10 | disposition home or self-care (01) ==
LOC: C.EDB 12:38 → C.EDA 16:10
DX: R53.1 Weakness (principal); N39.0 Urinary tract infection, site not specified; J45.909 Unspecified asthma, uncomplicated; G80.8 Other cerebral palsy; Z93.1 Gastrostomy status

== ENCOUNTER 2016-10-08 18:50 | Inpatient (IN) | payer OTHER ==
[~2016-10-08] VITALS: Ht 152.4 cm; Wt 48.3 kg
[~2016-10-08 18:50] MED LIST changes: -ACET167L GT; -BCTO EXT; -DOXY1SUS PEG
--- NOTE | 2016-10-08 19:46 | EMERGENCY ROOM VISIT NOTE ---
History Report prepared by Ranjeet: Dakotah Bhat Under the Supervision of: Dr. Edwardo Christianson M.D. First contact with patient: 19:07 Chief Complaint: COUGH Stated Complaint: COUGH, LUNG SOUNDS NOT CLEAR History of Present Illness The patient is a 26 year old male who presents to the Emergency Room with complaints of a constant cough and congestion for the past few days. The patient 's caretakers state that the patient has congestion in his lungs, and he has a history of aspiration with pneumonia. The caretakers state that the patient was a lot less active this morning. They state that the patient has a feeding tube, and he sometimes spits up his feeds. They deny any fever, urinary symptoms, and they state that he is taking amoxicillin for the respiratory symptoms, and he just finished taking prednisone. Source of History: caregiver Onset: a couple of days ago Position: other (global) Quality: other (cough and congestion) Timing: constant Associated Symptoms: No fevers, No urinary symptoms Review of Systems See HPI for pertinent positives & negatives. A total of 10 systems reviewed and were otherwise negative. Past Medical & Surgical Medical Problems: (1) Asthma (2) Cerebral palsy, quadriplegic (3) Cough (4) Dystonia (5) gastric tube placement (6) Incision of thigh tendon- bilateral (7) Pneumonia (8) Seizure (9) Sepsis Surgical Problems: (1) History of gastrostomy tube placement (2) MRSA nasal colonization (3) S/p incision of thigh tendon (4) S/P insertion of intrathecal pump Family History Patient reports no known family medical history. Social History Smoking Status: Never Smoker Alcohol Use: none Drug Use: none Marital Status: single Housing Status: other Occupation Status: disabled Current/Historical Medications Scheduled Albuterol Sulf (Proventil 0.083% 2.5MG/3ML), 2.5 MG INH BID Amoxicillin & Pot Clavulanate (Amoxicillin/Clavulanate P), 500 MG GT Q8 Budesonide (Pulmicort Respules 0.5MG/2ML), 2 ML NEB BID Cholestyramine (Cholestyramine), 4 GM GT DAILY Clonazepam (Klonopin), 0.25 MG GT BID Clonazepam (Klonopin), 0.5 MG PO HS Dicyclomine Hcl (Dicyclomine Hcl), 10 MG GT BID Fexofenadine Hcl (Chayo Allergy), 1 TAB GT DAILY Fluticasone Propionate (Nasal) (Flonase Allergy Relief), 2 SPRAYS ROSA MARIA DAILY Glycopyrrolate (Glycopyrrolate), 1.25 MG GT TID Lactobacillus Acidophilus (Lactinex), 1 TAB GT BID Lamotrigine (Lamotrigine), 75 MG GT HS Lamotrigine (Lamictal), 1 TAB GT BID Nutritional Supplements (Nutren 2.0 Angel), 1 DOSE PEG UD Omeprazole (Omeprazole), 1 TAB GT DAILY Prednisolone Sodium Phosphate (Prednisolone Sodium Phosp), 5 ML GT DAILY Saline (Saline Nasal [place]), 2 SPRAYS ROSA MARIA DAILY Scheduled PRN Clotrimazole (Topical) (Tgt Clotrimazole), 1 APPLN TOP BID PRN for fungal rash on buttocks/groin Diazepam (Anticonvulsant) (Diastat Acudial), 10 MG TX for seizures Promethazine (Phenergan Suppository), 12.5 MG TX Q8 PRN for Nausea Allergies Coded Allergies: Cat Dander (Verified Allergy, Unknown, SHORTNESS OF BREATH, 10/08/16) POLLEN (Verified Allergy, Unknown, SHORTNESS OF BREATH, 10/08/16) Ciprofloxacin (Verified Adverse Reaction, Unknown, GI SYMPTOMS, 10/08/16) Dust (Verified Adverse Reaction, Unknown, SHORTNESS OF BREATH, 10/08/16) Physical Exam Vital Signs Date Time Temp Pulse Resp B/P Pulse Ox O2 Delivery O2 Flow Rate FiO2 10/08/16 20:49 93 Room Air 10/08/16 20:38 36.6 118 20 106/79 88 Room Air 10/08/16 19:45 93 Room Air 10/08/16 18:58 36.3 117 24 105/65 100 Room Air Physical Exam GENERAL: Patient is in no acute distress. HEENT: No acute trauma, normocephalic atraumatic, mucous membranes moist, no nasal congestion, no scleral icterus. NECK: No stridor, no adenopathy, no meningismus, trachea is midline. LUNGS: Rhonchi heard bilaterally. Breath sounds are equal. No wheezing. HEART: Cannot assess heart tones because of the lung sounds. ABDOMEN: Feeding tube in the left upper quadrant. Soft, nontender, bowel sounds positive, no hernias, no peritonitis. EXTREMITIES: Constant movement in the upper extremities consistent with underlying cerebral palsy. No edema to the upper extremities. NEUROLOGIC: Constant motion of the upper extremities. MR noted. CP noted. Sitting in a wheel chair. SKIN: No rash, no jaundice, no diaphoresis. Medical Decision & Procedures ER Provider Diagnostic Interpretation: Radiology results as stated below per my review and radiologist interpretation: CHEST ONE VIEW PORTABLE CLINICAL HISTORY: Respiratory distress. Dyspnea. Cough. COMPARISON STUDY: Chest radiograph June 28, 2016. FINDINGS: The patient is slightly rotated. Lung volumes are normal. There is no consolidation to suggest pneumonia. Apparent retrocardiac opacity is likely artifactual. Cardiomediastinal silhouette is stable. There is no evidence of pulmonary edema. Widening of right paratracheal stripe is unchanged. IMPRESSION: No acute cardiopulmonary findings. Apparent retrocardiac opacity is likely artifactual. If persistent symptoms, PA and lateral chest radiographs are recommended. Electronically signed by: Bebo Gonzalez M.D. 10/08/2016 8:10 PM Dictated Date/Time: 10/08/2016 8:08 PM Laboratory Results Test 10/08/16 19:30 10/08/16 20:11 Immature Granulocyte % (Auto) 1.0 % White Blood Count 17.79 K/uL (4.8-10.8) Red Blood Count 5.43 M/uL (4.7-6.1) Hemoglobin 16.9 g/dL (14.0-18.0) Hematocrit 51.6 % (42-52) Mean Corpuscular Volume 95.0 fL (80-100) Mean Corpuscular Hemoglobin 31.1 pg (25-34) Mean Corpuscular Hemoglobin Concent 32.8 g/dl (32-36) Platelet Count 337 K/uL (130-400) Mean Platelet Volume 11.7 fL (7.4-10.4) Neutrophils (%) (Auto) 86.8 % Lymphocytes (%) (Auto) 8.0 % Monocytes (%) (Auto) 3.4 % Eosinophils (%) (Auto) 0.6 % Basophils (%) (Auto) 0.2 % Neutrophils # (Auto) 15.46 K/uL (1.4-6.5) Lymphocytes # (Auto) 1.42 K/uL (1.2-3.4) Monocytes # (Auto) 0.60 K/uL (0.11-0.59) Eosinophils # (Auto) 0.10 K/uL (0-0.5) Basophils # (Auto) 0.03 K/uL (0-0.2) Immature Granulocyte # (Auto) 0.18 K/uL (0.00-0.02) Bedside Lactic Acid Venous 2.07 mmol/L (0.90-1.70) Laboratory results reviewed by me. Medications Administered Medications (Trade) Dose Ordered Sig/Elizabeth Route Start Time Stop Time Status Last Admin Dose Admin Clindamycin Phosphate/Dextrose (Cleocin Iv/ Dextrose Add-Olive 100ML) 106 ml @ 100 mls/hr ONE ONCE IV 10/08/16 20:30 10/08/16 21:33 DC 10/08/16 20:45 100 MLS/HR Albuterol/ Ipratropium 3 ml 3 ml NOW STAT INH 10/08/16 20:56 10/08/16 20:57 DC 10/08/16 21:19 3 ML Sodium Chloride (Nss 500ml) 500 ml @ 999 mls/hr Q31M STAT IV 10/08/16 21:03 10/08/16 21:33 DC 10/08/16 21:20 999 MLS/HR ED Course 1907: The patient was evaluated in room C11. A complete history and physical exam was performed. 2030: Clindamycin Phosphate 900mg / Dextrose 106ml @ 100mls/hr 2055: DuoNeb 3ml INH 2102: Sodium Chloride 500 ml @ 999 mls/hr IV 2106: I reevaluated the patient, and I discussed the treatment plan with his caretakers. 2108: I discussed the patient's case with Mandeep Landrum. He is going to evaluate the patient for further treatment. Medical Decision The patient is a 26 year old male who presents to the ED with complaints of a cough and congestion. Differential diagnoses considered include pneumonia, bronchitis, aspiration, pneumothorax, heart failure, and URI. There is a moderate leukocytosis at 17,000, this could be consistent with infection. No anemia. No significant electrolyte abnormality or kidney failure. Blood cultures are pending. Lactic acid level was mildly elevated at just over 2. Chest film showed some possible congestion at the left base. No pneumothorax or heart failure. The patient received IV saline, he was given a DuoNeb. He received IV clindamycin. The patient did become hypoxic during his stay in the ER, given his failed outpatient treatment, given the hypoxia and the concern for pneumonia, admission /observation was warranted. The on-call hospitalist was consulted. Consults Time Called: 2104 Consulting Physician: Mandeep Landrum Returned Call: 2108 I discussed the patient's case with Mandeep Landrum. He is going to evaluate the patient for further treatment. Impression Primary Impression: Pneumonia Additional Impressions: Hypoxia Failure of outpatient treatment Scribe Attestation The scribe's documentation has been prepared under my direction and personally reviewed by me in its entirety. I confirm that the note above accurately reflects all work, treatment, procedures, and medical decision making performed by me. Departure Information Dispostion Being Evaluated By Hospitalist Referrals No Doctor, Assigned (PCP) Patient Instructions My [facility] Problem Qualifiers
[2016-10-08 19:53] LABS: BASO % 0.2 %; BASO ABS # 0.03 K/uL (0-0.2); COMPLETE YES; EOS % 0.6 %; HEMATOCRIT 51.6 % (42-52); LYMPH ABS # 1.42 K/uL (1.2-3.4); MEAN CORPUSCULAR HEMOGLOBIN 31.1 pg (25-34); MEAN CORPUSCULAR HGB CONC 32.8 g/dl (32-36); MEAN PLATELET VOLUME 11.7 fL (7.4-10.4); MONO % 3.4 %; NEUT % 86.8 %; PLATELET COUNT 337 K/uL (130-400); RED BLOOD COUNT 5.43 M/uL (4.7-6.1); WHITE BLOOD COUNT 17.79 K/uL (4.8-10.8)
--- NOTE | 2016-10-08 20:11 | DIAGNOSTIC IMAGING REPORT ---
CHEST ONE VIEW PORTABLE CLINICAL HISTORY: Respiratory distress. Dyspnea. Cough. COMPARISON STUDY: Chest radiograph June 28, 2016. FINDINGS: The patient is slightly rotated. Lung volumes are normal. There is no consolidation to suggest pneumonia. Apparent retrocardiac opacity is likely artifactual. Cardiomediastinal silhouette is stable. There is no evidence of pulmonary edema. Widening of right paratracheal stripe is unchanged. IMPRESSION: No acute cardiopulmonary findings. Apparent retrocardiac opacity is likely artifactual. If persistent symptoms, PA and lateral chest radiographs are recommended. Electronically signed by: Bebo Gonzalez M.D. 10/08/2016 8:10 PM Dictated Date/Time: 10/08/2016 8:08 PM
[2016-10-08 20:13] LABS: BLOOD UREA NITROGEN 26 mg/dl (7-18); BUN/CREATININE RATIO 36.1 (10-20); CALCIUM 9.6 mg/dl (8.5-10.1); CARBON DIOXIDE 36 mmol/L (21-32); CHLORIDE 103 mmol/L (98-107); CREATININE 0.72 mg/dl (0.60-1.40); GLUCOSE 96 mg/dl (70-99); POTASSIUM 5.1 mmol/L (3.5-5.1); SODIUM 143 mmol/L (136-145)
[2016-10-08] MEDS ORDERED: CLINDAMYCIN IV 900 MG in DEXTROSE 5% ADD-VANTAGE 100ML 100 ML IV ONE (20:30)
[2016-10-08] MEDS ORDERED: ALBUT/IPRATROP 3MG/0.5MG NEB 3 ML VIAL INH STA (20:56)
[2016-10-08] MEDS ORDERED: SODIUM CHLORIDE 0.9% 500ML 500 ML IV STA (21:03)
[2016-10-08] MEDS ORDERED: PRED15SO GT (21:14)
[2016-10-08] MEDS ORDERED: CHOL4POW4 GT ×2 (21:17→22:15)
[2016-10-08] MEDS ORDERED: FEXO1TAB49 GT (21:17)
[2016-10-08] MEDS ORDERED: LMC25 GT (21:19)
[2016-10-08] MEDS ORDERED: OMEP20TA GT (21:19)
[2016-10-08] MEDS ORDERED: ALBINS/ INH (21:21)
[2016-10-08] MEDS ORDERED: LCTX GT (21:24)
[2016-10-08] MEDS ORDERED: LAMO150T32 GT (21:25)
--- NOTE | 2016-10-08 22:02 | History and Physical ---
History & Physical Date & Time of Service: October 08, 2016 at 21:30 . Chief Complaint: cough . Primary Care Physician: Merissa Lopez D.O. . History of Present Illness Source: caregiver, clinic records, hospital records 26 YO male followed by Dr. Merissa Lopez for Family Medicine. History of cerebral palsy, seizure disorder, asthma, and other problems as noted below. Lives in [facility] facility. Nonverbal, bed & wheelchair bound at baseline. NPO. Receives all meds and nutrition via PEG. Developed increasing chest congestion a few days ago. No apparent fever. No nausea or vomiting. Stools somewhat looser than baseline. Seen in clinic and prescribed amoxicillin / clavulanic acid + prednisolone. [facility] staff has noted increasing cough and chest congestion despite those therapies. . Past Medical/Surgical History Chronic Medical Problems: (1) Asthma Status: Chronic (2) Cerebral palsy, quadriplegic Status: Chronic (3) Dystonia Status: Chronic (4) gastric tube placement Status: Chronic (5) Incision of thigh tendon- bilateral Status: Chronic (6) Seizure Status: Chronic Surgical Problems: (1) History of gastrostomy tube placement Status: Chronic (2) MRSA nasal colonization Status: Chronic (3) S/p incision of thigh tendon Status: Chronic (4) S/P insertion of intrathecal pump Status: Chronic . Family History Unable to obtain due to patient's cognitive status. . Social History Smoking Status: Never Smoker Alcohol Use: none Drug Use: none Marital Status: single Housing status: assisted living Occupational Status: disabled Multi-Drug Resistant Organisms History of MDRO: Yes Type of MDRO: MRSA Allergies Coded Allergies: Cat Dander (Verified Allergy, Unknown, SHORTNESS OF BREATH, 10/08/16) POLLEN (Verified Allergy, Unknown, SHORTNESS OF BREATH, 10/08/16) Ciprofloxacin (Verified Adverse Reaction, Unknown, GI SYMPTOMS, 10/08/16) Dust (Verified Adverse Reaction, Unknown, SHORTNESS OF BREATH, 10/08/16) Home Medications Scheduled Albuterol Sulf (Proventil 0.083% 2.5MG/3ML), 2.5 MG INH BID Amoxicillin & Pot Clavulanate (Amoxicillin/Clavulanate P), 500 MG GT Q8 Budesonide (Pulmicort Respules 0.5MG/2ML), 2 ML NEB BID Cholestyramine (Cholestyramine), 4 GM GT DAILY Clonazepam (Klonopin), 0.25 MG GT BID Clonazepam (Klonopin), 0.5 MG PO HS Dicyclomine Hcl (Dicyclomine Hcl), 10 MG GT BID Fexofenadine Hcl (Chayo Allergy), 1 TAB GT DAILY Fluticasone Propionate (Nasal) (Flonase Allergy Relief), 2 SPRAYS ROSA MARIA DAILY Glycopyrrolate (Glycopyrrolate), 1.25 MG GT TID Lactobacillus Acidophilus (Lactinex), 1 TAB GT BID Lamotrigine (Lamotrigine), 75 MG GT HS Lamotrigine (Lamictal), 1 TAB GT BID Nutritional Supplements (Nutren 2.0 Angel), 1 DOSE PEG UD Omeprazole (Omeprazole), 1 TAB GT DAILY Prednisolone Sodium Phosphate (Prednisolone Sodium Phosp), 5 ML GT DAILY Saline (Saline Nasal [place]), 2 SPRAYS ROSA MARIA DAILY Scheduled PRN Clotrimazole (Topical) (Tgt Clotrimazole), 1 APPLN TOP BID PRN for fungal rash on buttocks/groin Diazepam (Anticonvulsant) (Diastat Acudial), 10 MG GA for seizures Promethazine (Phenergan Suppository), 12.5 MG GA Q8 PRN for Nausea Review of Systems Unable to obtain due to patient's cognitive status. . Physical Exam Vital Signs Date Time Temp Pulse Resp B/P Pulse Ox O2 Delivery O2 Flow Rate FiO2 10/08/16 20:49 93 Room Air 10/08/16 20:38 36.6 118 20 106/79 88 Room Air 10/08/16 19:45 93 Room Air 10/08/16 18:58 36.3 117 24 105/65 100 Room Air General Appearance: no apparent distress, + thin Head: normocephalic, atraumatic Eyes: normal inspection, PERRL, EOMI, sclerae normal ENT: + pertinent finding (increased oral secretions) Neck: supple, no adenopathy, thyroid normal, no JVD, trachea midline Respiratory/Chest: no respiratory distress, no accessory muscle use, + rhonchi (bilateral), + wheezing (diffuse) Cardiovascular: regular rate, rhythm, no edema, no gallop, no JVD, + systolic murmur (I/ sys murmur at base) Abdomen/GI: normal bowel sounds, non tender, soft, no organomegaly, + pertinent finding (PEG) Extremities/Musculoskelatal: no calf tenderness, + pertinent finding (atrophy all 4 extremities) Neurologic/Psych: alert, + pertinent finding (pupils reactive, EOMI, nonverbal , diffuse motor weakness, dystonic movements upper extremities) Skin: normal color, warm/dry, no rash Lymphatic: no adenopathy (cervical) Diagnostics Laboratory Results Results Past 24 Hours Test 10/08/16 19:30 10/08/16 20:11 10/08/16 21:15 Range/Units White Blood Count 17.79 4.8-10.8 K/uL Red Blood Count 5.43 4.7-6.1 M/uL Hemoglobin 16.9 14.0-18.0 g/dL Hematocrit 51.6 42-52 % Mean Corpuscular Volume 95.0 80-100 fL Mean Corpuscular Hemoglobin 31.1 25-34 pg Mean Corpuscular Hemoglobin Concent 32.8 32-36 g/dl Platelet Count 337 130-400 K/uL Mean Platelet Volume 11.7 7.4-10.4 fL Neutrophils (%) (Auto) 86.8 % Lymphocytes (%) (Auto) 8.0 % Monocytes (%) (Auto) 3.4 % Eosinophils (%) (Auto) 0.6 % Basophils (%) (Auto) 0.2 % Neutrophils # (Auto) 15.46 1.4-6.5 K/uL Lymphocytes # (Auto) 1.42 1.2-3.4 K/uL Monocytes # (Auto) 0.60 0.11-0.59 K/uL Eosinophils # (Auto) 0.10 0-0.5 K/uL Basophils # (Auto) 0.03 0-0.2 K/uL RDW Standard Deviation 44.1 36.4-46.3 fL RDW Coefficient of Variation 12.8 11.5-14.5 % Immature Granulocyte % (Auto) 1.0 % Immature Granulocyte # (Auto) 0.18 0.00-0.02 K/uL Sodium Level 143 136-145 mmol/L Potassium Level 5.1 3.5-5.1 mmol/L Chloride Level 103 98-107 mmol/L Carbon Dioxide Level 36 21-32 mmol/L Anion Gap 4.0 3-11 mmol/L Blood Urea Nitrogen 26 7-18 mg/dl Creatinine 0.72 0.60-1.40 mg/dl Estimated GFR () 149.2 Estimated GFR (Non- 128.7 BUN/Creatinine Ratio 36.1 10-20 Random Glucose 96 70-99 mg/dl Calcium Level 9.6 8.5-10.1 mg/dl Bedside Lactic Acid Venous 2.07 0.90-1.70 mmol/L Microbiology Results 10/08/16 Blood Culture, Received Pending 10/08/16 Blood Culture, Received Pending Diagnostic Radiology CHEST ONE VIEW PORTABLE FINDINGS: The patient is slightly rotated. Lung volumes are normal. There is no consolidation to suggest pneumonia. Apparent retrocardiac opacity is likely artifactual. Cardiomediastinal silhouette is stable. There is no evidence of pulmonary edema. Widening of right paratracheal stripe is unchanged. IMPRESSION: No acute cardiopulmonary findings. Apparent retrocardiac opacity is likely artifactual. If persistent symptoms, PA and lateral chest radiographs are recommended. Electronically signed by: Bebo Gonzalez M.D. 10/08/2016 8:10 PM Dictated Date/Time: 10/08/2016 8:08 PM . Impression Assessment and Plan COUGH Suspected aspiration pneumonia, although chest x-ray does not show any definite infiltrates. Serum lactate 2.07- recheck. Blood cultures obtained in ED. Received IV clindamycin in ED. Change Rx to clindamycin + piperacillin / tazobactam for broader coverage. Add MRSA coverage if no improvement. HYPOXIA O2 sats as low as 88% on RA in ED. Improved with suctioning + nebs. Supplemental O2 as needed. EXACERBATION OF ASTHMA Rx with IV methylprednisolone and nebs. SEIZURE DISORDER No recent seizures. Continue lamotrigine. CEREBRAL PALSY Continue usual meds, ROM. VTE PROPHYLAXIS High risk for VTE. SQ heparin. DISPOSITION Expected discharge to [facility] facility. Family Medicine follow-up with Dr. Merissa Norton. . VTE Prophylaxis VTE Risk Assessment Done? Y/N: Yes Risk Level: Moderate Given or contraindicated: Unfractionated heparin SQ
[2016-10-08] MEDS ORDERED: RBN1 GT (22:15)
[2016-10-08] MEDS ORDERED: FLUT0.15 NAE (22:15)
[2016-10-08] MEDS ORDERED: SALI1SPR3 NAE (22:15)
[2016-10-08] MEDS ORDERED: GLYCOPYRROLATE 1 MG TAB GT ONE (22:16)
[2016-10-08] MEDS ORDERED: BUDESONIDE 0.5 MG/2 ML VIAL (PULMICORT) INH ONE (22:16)
[2016-10-08] MEDS ORDERED: CLONAZEPAM 0.5 MG TAB GT ONE (22:16)
[2016-10-08 22:30] VITALS: BP 115/57; O2SAT 92; Ht 152.4 cm; Wt 48.3 kg
[2016-10-08] MEDS ORDERED: SODIUM CHLORIDE 0.9% 1000ML 1,000 ML IV SCH (22:45)
[2016-10-08] MEDS ORDERED: LEVALBUTEROL 0.63MG/3 ML NEB INH PRN (22:45)
[2016-10-08] MEDS ORDERED: METHYLPREDNISOLONE IV 40 MG in SYRINGE 0 ML IV ONE (23:00)
[2016-10-08] MEDS ORDERED: PIPERACILL/TAZOBAC CONSULT ACTIVE PRN (23:15)
[2016-10-08] MEDS ORDERED: PIPERACILL/TAZOBAC IV 3.375 GM in DEXTROSE 5% 100ML IV ONE (23:15)
[2016-10-08 23:50] LABS: INR 1.1 (0.9-1.1); PARTIAL THROMBOPLASTIN RATIO 1.1
[2016-10-09] MEDS: PIPERACILL/TAZOBAC IV 3.375 GM in DEXTROSE 5% 100ML 100 ML IV SCH ×3 (03:58→20:11)
[2016-10-09] MEDS: CLINDAMYCIN IV 600 MG in DEXTROSE 5% ADD-VANTAGE 50ML 50 ML IV SCH ×2 (05:47→16:01)
[2016-10-09] MEDS: METHYLPREDNISOLONE IV 20 MG in SYRINGE 0 ML IV SCH ×3 (05:47→20:11)
[2016-10-09] MEDS: LANSOPRAZOLE SOLUTAB 15 MG PEG SCH (06:01)
[2016-10-09] MEDS: HEPARIN SOD 5000 UNIT/0.5 ML CARP SQ SCH ×2 (06:29→17:39)
[2016-10-09] MEDS: LEVALBUTEROL 1.25MG/0.5ML NEB INH SCH ×4 (08:05→18:50)
[2016-10-09] MEDS: IPRATROPIUM BROMIDE NEB SOLN 0.02% 2.5 ML VIAL INH SCH ×4 (08:05→18:49)
[2016-10-09] MEDS: BUDESONIDE 0.5 MG/2 ML VIAL (PULMICORT) INH SCH ×2 (08:05→18:50)
[2016-10-09 08:06] VITALS: PULSE 86
[2016-10-09 08:20] LABS: BLOOD UREA NITROGEN 18 mg/dl (7-18); BUN/CREATININE RATIO 28.4 (10-20); CARBON DIOXIDE 28 mmol/L (21-32); CHLORIDE 104 mmol/L (98-107); CREATININE 0.64 mg/dl (0.60-1.40); GLUCOSE 143 mg/dl (70-99); POTASSIUM 4.5 mmol/L (3.5-5.1); SODIUM 140 mmol/L (136-145)
[2016-10-09] MEDS: GLYCOPYRROLATE 1 MG TAB GT SCH ×3 (08:21→19:37)
[2016-10-09] MEDS: CLONAZEPAM 0.5 MG TAB GT SCH ×2 (08:21→19:39)
[2016-10-09] MEDS: FEXOFENADINE HCL 180 MG TAB PO SCH (08:21)
[2016-10-09] MEDS: DICYCLOMINE HCL 20 MG TAB GT SCH ×2 (08:22→19:34)
[2016-10-09] MEDS: LACTOBACILLUS ACIDOPHILUS (FLORANEX) TAB GT SCH ×2 (08:22→16:28)
[2016-10-09 09:11] LABS: CALCIUM 8.7 mg/dl (8.5-10.1)
[2016-10-09 09:45] LABS: HEMATOCRIT 48.7 % (42-52); MEAN CELL VOLUME 94.2 fL (80-100); MEAN CORPUSCULAR HEMOGLOBIN 30.8 pg (25-34); MEAN CORPUSCULAR HGB CONC 32.6 g/dl (32-36); MEAN PLATELET VOLUME 11.6 fL (7.4-10.4); PLATELET COUNT 278 K/uL (130-400); RED BLOOD COUNT 5.17 M/uL (4.7-6.1)
[2016-10-09] MEDS: FLUTICASONE PROPIONATE NA SPR 16 GM BTL NAE SCH (10:11)
[2016-10-09] MEDS: SODIUM CHLORIDE 0.65% NA SOLN 45 ML (OCEAN) NAE SCH (10:11)
[2016-10-09 11:26] VITALS: PULSE 105
[2016-10-09] MEDS: CHOLESTYRAMINE LIGHT 4 GM PKT PO SCH (13:33)
[2016-10-09 15:42] VITALS: PULSE 99
[2016-10-09 15:49] VITALS: BP 124/74; PULSE 122; TEMP 35.8; O2SAT 91
--- NOTE | 2016-10-09 16:21 | Progress Note ---
Medicine Progress Note Date & Time of Visit: October 09, 2016 at 15:56. Subjective Pt was seen and examined Lying in bed sleeping with mother at bedside Open eyes during physical exam and went back to sleep Mother said that he has been comfortable. As per mother his cough seems to be improved Objective Last 8 Hrs Date Time Temp Pulse Resp B/P Pulse Ox O2 Delivery O2 Flow Rate FiO2 10/09/16 15:49 35.8 122 18 124/74 91 Room Air 10/09/16 15:42 99 20 Room Air 10/09/16 11:26 105 20 Room Air 10/09/16 08:45 Room Air 10/09/16 08:06 86 20 Room Air Physical Exam: General- No acute distress Head- atraumatic Eyes- PERRL, EOMI ENT- oropharynx clear Neck- supple, no JVD Lungs- Poor air entry Heart- regular rhythm; + systolic murmur Abdomen- normal bowel sounds, soft Extremities- no pretibial edema Neuro- sleeping, pupil reactive Skin- warm & dry Laboratory Results: Last 24 Hours Test 10/08/16 19:30 10/08/16 20:11 10/08/16 23:30 10/09/16 07:25 White Blood Count 17.79 K/uL 13.20 K/uL Red Blood Count 5.43 M/uL 5.17 M/uL Hemoglobin 16.9 g/dL 15.9 g/dL Hematocrit 51.6 % 48.7 % Mean Corpuscular Volume 95.0 fL 94.2 fL Mean Corpuscular Hemoglobin 31.1 pg 30.8 pg Mean Corpuscular Hemoglobin Concent 32.8 g/dl 32.6 g/dl Platelet Count 337 K/uL 278 K/uL Mean Platelet Volume 11.7 fL 11.6 fL Neutrophils (%) (Auto) 86.8 % Lymphocytes (%) (Auto) 8.0 % Monocytes (%) (Auto) 3.4 % Eosinophils (%) (Auto) 0.6 % Basophils (%) (Auto) 0.2 % Neutrophils # (Auto) 15.46 K/uL Lymphocytes # (Auto) 1.42 K/uL Monocytes # (Auto) 0.60 K/uL Eosinophils # (Auto) 0.10 K/uL Basophils # (Auto) 0.03 K/uL RDW Standard Deviation 44.1 fL 43.7 fL RDW Coefficient of Variation 12.8 % 12.7 % Immature Granulocyte % (Auto) 1.0 % Immature Granulocyte # (Auto) 0.18 K/uL Sodium Level 143 mmol/L 140 mmol/L Potassium Level 5.1 mmol/L 4.5 mmol/L Chloride Level 103 mmol/L 104 mmol/L Carbon Dioxide Level 36 mmol/L 28 mmol/L Anion Gap 4.0 mmol/L 8.0 mmol/L Blood Urea Nitrogen 26 mg/dl 18 mg/dl Creatinine 0.72 mg/dl 0.64 mg/dl Estimated GFR () 149.2 > 150.0 Estimated GFR (Non- 128.7 135.1 BUN/Creatinine Ratio 36.1 28.4 Random Glucose 96 mg/dl 143 mg/dl Calcium Level 9.6 mg/dl 8.7 mg/dl Bedside Lactic Acid Venous 2.07 mmol/L Prothrombin Time 12.0 SECONDS Prothromb Time International Ratio 1.1 Activated Partial Thromboplast Time 28.8 SECONDS Partial Thromboplastin Ratio 1.1 Lactic Acid Level 0.6 mmol/L Procalcitonin < 0.05 ng/ml Est Creatinine Clear Calc Drug Dose 119.5 ml/min Date/Time Source Procedure Growth Status 10/08/16 20:05 Blood Blood Culture Pending Received 10/08/16 19:30 Blood Blood Culture Pending Received Assessment & Plan COUGH Possible related to aspiration pneumonia vs oral secretion CXR showed no acute cardiopulmonary findings Leukocytosis and elevated poc lactate on admission Received IV clinda in the ED On IV Zosyn + clinda will discontinue clinda Blood cx pending. repeat latic acid normal WBC trending down Will repeat procalcitonin and if negative will discontinue abx HYPOXIA O2 sats in the 91 % on RA Continue suctioning and DuoNeb treatment Supplemental O2 as needed. will do chest PT EXACERBATION OF ASTHMA continue IV solumedrol and titrate to BID Continue neb treatment. SEIZURE DISORDER No recent seizures. Continue lamotrigine. CEREBRAL PALSY Continue usual meds, Stable VTE PROPHYLAXIS High risk for VTE. SQ heparin. DISPOSITION Expected discharge to [facility] facility. Family Medicine follow-up with Dr. Merissa Norton. Current Inpatient Medications: Current Inpatient Medications Medications (Trade) Dose Ordered Sig/Elizabeth Route Start Time Stop Time Status Last Admin Dose Admin Heparin Sodium (Porcine) (Heparin Sq 5000 Unit/0.5ml) 5,000 unit Q12H SQ 5/25/17 06:00 11/08/16 05:59 10/09/16 06:29 5,000 UNIT Budesonide (Pulmicort Respules 0.5MG/ 2ML Neb Soln) 0.5 mg BID@0800,1999 INH 10/09/16 08:00 11/08/16 07:59 10/09/16 08:05 0.5 MG Clonazepam (Klonopin Tab) 0.25 mg BID@08,1999 GT 10/09/16 08:00 11/08/16 07:59 10/09/16 08:21 0.25 MG Clonazepam (Klonopin Tab) 0.5 mg HS PO 10/09/16 21:00 11/08/16 20:59 Dicyclomine HCl (Bentyl Tab) 10 mg BID GT 10/09/16 08:00 11/08/16 08:59 10/09/16 08:22 10 MG Fexofenadine HCl (Chayo Tab) 180 mg DAILY@0800 PO 10/09/16 08:00 11/08/16 07:59 10/09/16 08:21 180 MG Fluticasone Propionate (Flonase Nasal [place]) 2 sprays DAILY@1000 ROSA MARIA 10/09/16 10:00 11/08/16 09:59 10/09/16 10:11 2 SPRAYS Glycopyrrolate (Robinul Tab) 1.25 mg TID@0800,1400,1999 GT 10/09/16 08:00 11/08/16 07:59 10/09/16 13:31 1.25 MG Lactobacillus Acidophilus (Floranex Tab) 1 tab BID@0800,1700 GT 10/09/16 08:00 11/08/16 07:59 10/09/16 08:22 1 TAB Lamotrigine (Lamictal Tab) 75 mg DAILY@1999 PEG 10/09/16 20:00 11/08/16 19:59 Lamotrigine (Lamictal Tab) 150 mg BID@0800,1999 GT 10/09/16 08:00 11/08/16 07:59 10/09/16 08:22 150 MG Sodium Chloride (Vona Nasal [place]) 2 sprays DAILY@1000 ROSA MARIA 10/09/16 10:00 11/08/16 09:59 10/09/16 10:11 2 SPRAYS Cholestyramine Resin (Questran Powder Light) 4 gm DAILY@1230 PO 10/09/16 12:30 11/08/16 12:29 10/09/16 13:33 4 GM Lansoprazole (Prevacid Solutab) 15 mg DAILY@0700 PEG 10/09/16 07:00 11/08/16 06:59 10/09/16 06:01 15 MG Non-Formulary Medication (Non-Formulary Patient'S Own Med) 155 ea BID@0700,1700 PEG 10/09/16 17:00 11/08/16 16:59 Ipratropium [place] (Atrovent 0.02% 0.5MG/2.5ML Neb) 0.5 mg QIDR INH 10/09/16 08:00 11/08/16 07:59 10/09/16 15:42 0.5 MG Levalbuterol (Xopenex 1.25MG/ 0.5ML Neb) 1.25 mg QIDR INH 10/09/16 08:00 11/08/16 07:59 10/09/16 15:42 1.25 MG Levalbuterol 0.63 mg 0.63 mg Q2H PRN INH 10/08/16 22:45 11/07/16 22:44 Clindamycin Phosphate 600 mg/ Dextrose 54 ml @ 100 mls/hr Q8H IV 10/09/16 06:00 10/16/16 05:59 10/09/16 05:47 100 MLS/HR Methylprednisolone Sodium Succinate 20 mg/Syringe 0.32 ml @ 1.5 mls/min Q8H IV 10/09/16 06:00 11/08/16 05:59 10/09/16 13:31 1.5 MLS/MIN Piperacillin Sod/ Tazobactam Sod/ Dextrose (Zosyn Iv/D5 100ml) 115 ml @ 28.75 mls/ hr Q8H IV 10/09/16 04:00 10/16/16 03:59 10/09/16 11:46 28.75 MLS/HR Piperacillin Sod/ Tazobactam Sod (Consult) 1 ea UD PRN N/A 10/08/16 23:15 11/07/16 23:14 Miscellaneous (Stop Order) 1 ea BID@1100,2100 ONCE N/A 10/09/16 21:00 10/09/16 21:01
[2016-10-09] MEDS: NUTREN PEG SCH (17:00)
[2016-10-09 18:51] VITALS: PULSE 111
[2016-10-09] MEDS ORDERED: [UNRECOGNIZED DRUG - REMARK] ONE (21:00)
[2016-10-09] MEDS: CLONAZEPAM 0.5 MG TAB PO SCH (22:31)
[2016-10-10] VITALS (7 sets, daily range): BP systolic 103–114; BP diastolic 51–77; PULSE 99–116; TEMP 36.5–36.9; O2SAT 90–92
[2016-10-10] MEDS: PIPERACILL/TAZOBAC IV 3.375 GM in DEXTROSE 5% 100ML 100 ML IV SCH ×3 (04:00→20:29)
[2016-10-10] MEDS: HEPARIN SOD 5000 UNIT/0.5 ML CARP SQ SCH ×2 (06:21→18:55)
[2016-10-10] MEDS: NUTREN PEG SCH ×2 (06:50→17:20)
[2016-10-10] MEDS: IPRATROPIUM BROMIDE NEB SOLN 0.02% 2.5 ML VIAL INH SCH ×4 (07:31→19:18)
[2016-10-10] MEDS: LEVALBUTEROL 1.25MG/0.5ML NEB INH SCH ×4 (07:31→19:18)
[2016-10-10] MEDS: BUDESONIDE 0.5 MG/2 ML VIAL (PULMICORT) INH SCH ×2 (07:31→19:18)
[2016-10-10 08:42] LABS: HEMATOCRIT 43.7 % (42-52); MEAN CELL VOLUME 94.6 fL (80-100); MEAN CORPUSCULAR HEMOGLOBIN 31.2 pg (25-34); MEAN PLATELET VOLUME 11.9 fL (7.4-10.4); PLATELET COUNT 262 K/uL (130-400); RED BLOOD COUNT 4.62 M/uL (4.7-6.1); WHITE BLOOD COUNT 18.03 K/uL (4.8-10.8)
[2016-10-10] MEDS: CLONAZEPAM 0.5 MG TAB GT SCH ×2 (08:44→20:20)
[2016-10-10] MEDS: LACTOBACILLUS ACIDOPHILUS (FLORANEX) TAB GT SCH ×2 (08:46→17:20)
[2016-10-10] MEDS: GLYCOPYRROLATE 1 MG TAB GT SCH ×3 (08:46→20:22)
[2016-10-10] MEDS: FEXOFENADINE HCL 180 MG TAB PO SCH (08:47)
[2016-10-10] MEDS: DICYCLOMINE HCL 20 MG TAB GT SCH ×2 (08:47→20:24)
[2016-10-10] MEDS: LANSOPRAZOLE SOLUTAB 15 MG PEG SCH (08:47)
[2016-10-10] MEDS: FLUTICASONE PROPIONATE NA SPR 16 GM BTL NAE SCH (10:22)
[2016-10-10] MEDS: SODIUM CHLORIDE 0.65% NA SOLN 45 ML (OCEAN) NAE SCH (10:22)
[2016-10-10] MEDS: METHYLPREDNISOLONE IV 20 MG in SYRINGE 0 ML IV SCH ×2 (10:22→21:25)
[2016-10-10] MEDS: CHOLESTYRAMINE LIGHT 4 GM PKT PO SCH (12:30)
--- NOTE | 2016-10-10 16:50 | Progress Note ---
Internal Med Progress Note Date of Service: October 10, 2016. Provider Documentation: SUBJECTIVE: The patient was seen and examined in presence of the Mother Remains stable No events at last night OBJECTIVE: Vital Signs-as noted below Exam: General-no distress at rest Eyes-normal ENT-normal Neck-Supple Lungs-Clear to auscultate bilaterally Heart-Regular,no murmur Abdomen-Benign,no masses Extremities-No edema Neuro-AAOx3 Lab data as noted below. ASSESSMENT & PLAN: COUGH with Respiratory distress Possible related to aspiration pneumonia vs oral secretion CXR showed no acute cardiopulmonary findings Leukocytosis and elevated POC lactate on admission Received IV Clinda in the ED Has been on IV Zosyn ,Clindamycin discontinued Blood cx -Negative WBC trending down Clinically better Repeat CXR in AM If clinically better will discharge-discussed with the Mother HYPOXIA O2 sats in the 91 % on RA Continue suctioning and DuoNeb treatment Supplemental O2 as needed. will do chest PT Saturating well on RA EXACERBATION OF ASTHMA Continue IV solumedrol and titrate to BID Continue neb treatment. Will need tapering dose on discharge SEIZURE DISORDER No recent seizures. Continue lamotrigine. CEREBRAL PALSY Continue usual meds, Stable VTE PROPHYLAXIS High risk for VTE. SQ heparin. DISPOSITION Expected discharge to [facility] facility. Family Medicine follow-up with Dr. Merissa Norton. Likely to be discharged tomorrow Vital Signs: Date Time Temp Pulse Resp B/P Pulse Ox O2 Delivery O2 Flow Rate FiO2 10/10/16 15:26 100 20 92 Room Air 10/10/16 10:58 102 20 92 Room Air 10/10/16 08:01 36.9 112 16 103/51 91 Room Air 10/10/16 08:00 Room Air 10/10/16 07:31 102 20 91 Room Air 10/10/16 00:00 Room Air 10/09/16 20:00 Room Air 10/09/16 18:51 111 20 Room Air Lab Results: Results Past 24 Hours Test 10/10/16 08:12 Range/Units White Blood Count 18.03 4.8-10.8 K/uL Red Blood Count 4.62 4.7-6.1 M/uL Hemoglobin 14.4 14.0-18.0 g/dL Hematocrit 43.7 42-52 % Mean Corpuscular Volume 94.6 80-100 fL Mean Corpuscular Hemoglobin 31.2 25-34 pg Mean Corpuscular Hemoglobin Concent 33.0 32-36 g/dl RDW Standard Deviation 44.7 36.4-46.3 fL RDW Coefficient of Variation 13.0 11.5-14.5 % Platelet Count 262 130-400 K/uL Mean Platelet Volume 11.9 7.4-10.4 fL Procalcitonin < 0.05 0-0.5 ng/ml
[2016-10-10] MEDS: CLONAZEPAM 0.5 MG TAB PO SCH (22:06)
[2016-10-11] MEDS: PIPERACILL/TAZOBAC IV 3.375 GM in DEXTROSE 5% 100ML 100 ML IV SCH (04:04)
[2016-10-11] MEDS: HEPARIN SOD 5000 UNIT/0.5 ML CARP SQ SCH (06:09)
[2016-10-11] MEDS: LANSOPRAZOLE SOLUTAB 15 MG PEG SCH (06:46)
[2016-10-11] MEDS: IPRATROPIUM BROMIDE NEB SOLN 0.02% 2.5 ML VIAL INH SCH ×2 (06:53→11:21)
[2016-10-11] MEDS: BUDESONIDE 0.5 MG/2 ML VIAL (PULMICORT) INH SCH (06:53)
[2016-10-11 06:54] VITALS: PULSE 92; O2SAT 93
[2016-10-11] MEDS: LEVALBUTEROL 1.25MG/0.5ML NEB INH SCH ×2 (06:54→11:21)
[2016-10-11 07:21] VITALS: BP 99/81; PULSE 92; TEMP 37.6; O2SAT 93
[2016-10-11] MEDS: FEXOFENADINE HCL 180 MG TAB PO SCH (07:39)
[2016-10-11] MEDS: DICYCLOMINE HCL 20 MG TAB GT SCH (07:39)
[2016-10-11] MEDS: GLYCOPYRROLATE 1 MG TAB GT SCH (07:39)
[2016-10-11] MEDS: LACTOBACILLUS ACIDOPHILUS (FLORANEX) TAB GT SCH (07:40)
[2016-10-11] MEDS: CLONAZEPAM 0.5 MG TAB GT SCH (07:40)
[2016-10-11] MEDS: NUTREN PEG SCH (08:23)
--- NOTE | 2016-10-11 08:37 | DIAGNOSTIC IMAGING REPORT ---
SINGLE VIEW CHEST CLINICAL HISTORY: Pneumonia. FINDINGS: An AP, portable, semierect chest radiograph is compared to study dated 10/08/2016. The examination is significantly degraded by portable technique and patient rotation. The heart is mildly enlarged. The pulmonary vasculature is noncongested. No airspace consolidation or large pleural effusion is identified. Chronic interstitial thickening is similar to previous. No pneumothorax is seen. The bony thorax is grossly intact. IMPRESSION: Cardiomegaly with no acute cardiopulmonary abnormality. There has been no significant change from 10/08/2016. Electronically signed by: Edwardo Herrera M.D. 10/11/2016 8:36 AM Dictated Date/Time: 10/11/2016 8:35 AM
[2016-10-11] MEDS: METHYLPREDNISOLONE IV 20 MG in SYRINGE 0 ML IV SCH (08:45)
[2016-10-11] MEDS: SODIUM CHLORIDE 0.65% NA SOLN 45 ML (OCEAN) NAE SCH (09:45)
[2016-10-11] MEDS: FLUTICASONE PROPIONATE NA SPR 16 GM BTL NAE SCH (09:46)
[2016-10-11] MEDS ORDERED: AMOXICILLIN/CLAVULANATE SUSP 400 MG/5 ML UDP GT ONE (11:03)
--- NOTE | 2016-10-11 11:08 | Progress Note ---
Internal Med Progress Note Date of Service: October 11, 2016. Provider Documentation: SUBJECTIVE: The patient was seen and examined in presence of the Mother Remains stable No events at last night Mother wants to take him lauren today OBJECTIVE: Vital Signs-as noted below Exam: General-no distress at rest Eyes-normal ENT-normal Neck-Supple Lungs-Clear to auscultate bilaterally Heart-Regular,no murmur Abdomen-Benign,no masses Extremities-No edema Neuro-Has cerebral Palsy Nonverbal Dystonic movements of the Upper extremities Lab data as noted below. ASSESSMENT & PLAN: COUGH with Respiratory distress Possible related to aspiration pneumonia vs oral secretion CXR showed no acute cardiopulmonary findings Leukocytosis and elevated POC lactate on admission Received IV Clinda in the ED Has been on IV Zosyn ,Clindamycin discontinued Blood cx -Negative WBC remains elevated and in part due to Steroid Clinically much better Repeat CXR in AM-no pneumonia Will continue with Augmentin suspension BID for 4 more days Mother is ready to take him home any moment HYPOXIA-Resolved O2 sats in the 91 % on RA Continue suctioning and DuoNeb treatment Supplemental O2 as needed. will do chest PT Saturating well on RA EXACERBATION OF ASTHMA Continue IV solumedrol and titrate to BID Continue neb treatment. Will need tapering dose on discharge Short tapering course was prescribed SEIZURE DISORDER No recent seizures. Continue lamotrigine. CEREBRAL PALSY Continue usual meds, Stable VTE PROPHYLAXIS High risk for VTE. SQ heparin. DISPOSITION Expected discharge to [facility] facility. Family Medicine follow-up with Dr. Merissa Norton. Discharged today Vital Signs: Date Time Temp Pulse Resp B/P Pulse Ox O2 Delivery O2 Flow Rate FiO2 10/11/16 11:46 37.6 121 20 97 Room Air 10/11/16 11:22 121 20 97 Room Air 10/11/16 08:30 Room Air 10/11/16 07:21 37.6 92 16 99/81 93 Room Air 10/11/16 06:54 92 20 93 Room Air 10/11/16 00:00 Room Air 10/10/16 23:02 36.5 116 16 114/77 90 Room Air 10/10/16 19:18 99 20 92 Room Air 10/10/16 16:00 92 Room Air 10/10/16 15:26 100 20 92 Room Air
[2016-10-11] MEDS ORDERED: AMOX1SUS4 GT (11:14)
[2016-10-11] MEDS ORDERED: PRED15SO GT (11:14)
--- NOTE | 2016-10-11 11:21 | Discharge Instructions ---
Discharge Instructions Date of Service October 11, 2016. Admission Reason for Admission: COUGH Discharge Discharge Diagnosis / Problem: Cough with respiratory distress,Likely aspiration ,no pneumonia Discharge Goals Goal(s): Prevent Disease Progression Activity Recommendations Activity Limitations: resume your previous activity (Assistannce required) . Instructions / Follow-Up Instructions / Follow-Up Dr Marcum on 10/17/16 at 10:45 AM at [facility],Dr Lopez is out of office. Current Hospital Diet Patient's current hospital diet: Discharge Diet Recommended Diet: N/A (Peg Tube feeding) Pending Studies Studies pending at discharge: no Medical Emergencies . Who to Call and When: Medical Emergencies: If at any time you feel your situation is an emergency, please call 911 immediately. . Non-Emergent Contact Non-Emergency issues call your: Primary Care Provider . Past History Medical & Surgical History: (1) Cerebral palsy, quadriplegic (2) Cough (3) Hypoxia (4) Asthma (5) Seizure (6) Dystonia (7) gastric tube placement (8) History of gastrostomy tube placement (9) S/p incision of thigh tendon (10) S/P insertion of intrathecal pump (11) MRSA nasal colonization . "Provider Documentation" section prepared by Darell Jung. . VTE Core Measure Inpt VTE Proph given/why not?: Unfractionated heparin SQ
[2016-10-11 11:22] VITALS: PULSE 121; O2SAT 97
[2016-10-11 11:46] VITALS: BP 99/81; PULSE 121; TEMP 37.6; O2SAT 97
[2016-10-11] MEDS ORDERED: AMOXICILLIN/CLAVULANATE SUSP 400 MG/5 ML UDP PO ONE (12:00)
[2016-10-11] MEDS ORDERED: AMOXICILLIN/CLAVULANATE SUSP 400 MG/5 ML UDP GT SCH (20:00)
--- NOTE | 2016-10-12 07:31 | Discharge Summary ---
Discharge Summary Date of Service October 12, 2016. Discharge Summary Admission Date: October 08, 2016 at 21:20 Discharge Date: October 11, 2016 Discharge Disposition: Home Principal Diagnosis: Cough with respiratory distress,Likely aspiration ,no pneumonia Secondary Diagnoses/Problems: Please see H&P and Hospital progress note Medication Reconciliation Changed Medications: Prednisolone Sodium Phosphate (Prednisolone Sodium Phosp) 15 Mg/5 Ml Reena 5 ML GT DAILY for 6 Days, #20 ML (Changed from: x 3 days) 5ml daily for 3 days and then 2.5 ml daily for 4 days Continued Medications: Albuterol Sulf (Proventil 0.083% 2.5MG/3ML) 2.5 Mg/3 Ml Nebu 2.5 MG INH BID, EA BID @ [id number] + q 4 hrs PRN Amoxicillin & Pot Clavulanate (Amoxicillin/Clavulanate P) 1 Nadira Nadira 500 MG GT Q8 for 4 Days, #8 DOSE (This prescription has been renewed) Budesonide (Pulmicort Respules 0.5MG/2ML) 0.5 Mg/2 Ml Nebu 2 ML NEB BID, EA 3159-7394 Cholestyramine (Cholestyramine) 4 Gm Pow 4 GM GT DAILY mix with 4 ounces of tube feeding daily at 12:30 Clonazepam (Klonopin) 0.5 Mg Tab 0.25 MG GT BID, TAB 0532-3551 Clonazepam (Klonopin) 0.5 Mg Tab 0.5 MG PO HS, TAB 2000 Clotrimazole (Topical) (Tgt Clotrimazole) 1 % Cre 1 APPLN TOP BID PRN for fungal rash on buttocks/groin for 7 Days, #45 GM Diazepam (Anticonvulsant) (Diastat Acudial) 10 Mg Gel 10 MG WA PRN for seizures Dicyclomine Hcl (Dicyclomine Hcl) 10 Mg Cap 10 MG GT BID for 30 Days, #60 CAP 3 Refills [id number] Fexofenadine Hcl (Chayo Allergy) 180 Mg Tab 1 TAB GT DAILY, TAB Fluticasone Propionate (Nasal) (Flonase Allergy Relief) 50 Mcg/Act Spr 2 SPRAYS ROSA MARIA DAILY use saline nasal spray before Flonase Glycopyrrolate (Glycopyrrolate) 1 Mg Tab 1.25 MG GT TID @ 0800, 1400, 2000 Lactobacillus Acidophilus (Lactinex) Tab 1 TAB GT BID, TAB 8311-5313 Lamotrigine (Lamotrigine) 25 Mg Tab 75 MG GT HS at 2000 with 150 mg dose Lamotrigine (Lamictal) 150 Mg Tab 1 TAB GT BID, TAB 3534-1570 Nutritional Supplements (Nutren 2.0 Angel) 1 Liq Liq 1 DOSE PEG UD for 30 Days 5 cartons per day. Using Kangaroo pump, should run 155ml/hr over 8 hours daily from 7-11am and 5-9pm Omeprazole (Omeprazole) 20 Mg Tab 1 TAB GT DAILY, TAB Promethazine (Phenergan Suppository) 12.5 Mg Supp 12.5 MG WA Q8 PRN for Nausea, SUPP Saline (Saline Nasal [place]) 0.65 % Spr 2 SPRAYS ROSA MARIA DAILY prior to Flonase Admission Information HPI (per Admitting provider): 26 YO male followed by Dr. Merissa Lopez for Family Medicine. History of cerebral palsy, seizure disorder, asthma, and other problems as noted below. Lives in [facility] facility. Nonverbal, bed & wheelchair bound at baseline. NPO. Receives all meds and nutrition via PEG. Developed increasing chest congestion a few days ago. No apparent fever. No nausea or vomiting. Stools somewhat looser than baseline. Seen in clinic and prescribed amoxicillin / clavulanic acid + prednisolone. [facility] staff has noted increasing cough and chest congestion despite those therapies. Past Medical/Surgical History Chronic Medical Problems: (1) Asthma Status: Chronic (2) Cerebral palsy, quadriplegic Status: Chronic (3) Dystonia Status: Chronic (4) gastric tube placement Status: Chronic (5) Incision of thigh tendon- bilateral Status: Chronic (6) Seizure Status: Chronic Surgical Problems: (1) History of gastrostomy tube placement Status: Chronic (2) MRSA nasal colonization Status: Chronic (3) S/p incision of thigh tendon Status: Chronic (4) S/P insertion of intrathecal pump Status: Chronic . Family History Unable to obtain due to patient's cognitive status. . Social History Smoking Status: Never Smoker Alcohol Use: none Drug Use: none Marital Status: single Housing status: assisted living Occupational Status: disabled Multi-Drug Resistant Organisms History of MDRO: Yes Type of MDRO: MRSA Allergies Coded Allergies: Cat Dander (Verified Allergy, Unknown, SHORTNESS OF BREATH, 10/08/16) POLLEN (Verified Allergy, Unknown, SHORTNESS OF BREATH, 10/08/16) Ciprofloxacin (Verified Adverse Reaction, Unknown, GI SYMPTOMS, 10/08/16) Dust (Verified Adverse Reaction, Unknown, SHORTNESS OF BREATH, 10/08/16) Home Medications Scheduled Albuterol Sulf (Proventil 0.083% 2.5MG/3ML), 2.5 MG INH BID Amoxicillin & Pot Clavulanate (Amoxicillin/Clavulanate P), 500 MG GT Q8 Budesonide (Pulmicort Respules 0.5MG/2ML), 2 ML NEB BID Cholestyramine (Cholestyramine), 4 GM GT DAILY Clonazepam (Klonopin), 0.25 MG GT BID Clonazepam (Klonopin), 0.5 MG PO HS Dicyclomine Hcl (Dicyclomine Hcl), 10 MG GT BID Fexofenadine Hcl (Chayo Allergy), 1 TAB GT DAILY Fluticasone Propionate (Nasal) (Flonase Allergy Relief), 2 SPRAYS ROSA MARIA DAILY Glycopyrrolate (Glycopyrrolate), 1.25 MG GT TID Lactobacillus Acidophilus (Lactinex), 1 TAB GT BID Lamotrigine (Lamotrigine), 75 MG GT HS Lamotrigine (Lamictal), 1 TAB GT BID Nutritional Supplements (Nutren 2.0 Angel), 1 DOSE PEG UD Omeprazole (Omeprazole), 1 TAB GT DAILY Prednisolone Sodium Phosphate (Prednisolone Sodium Phosp), 5 ML GT DAILY Saline (Saline Nasal [place]), 2 SPRAYS ROSA MARIA DAILY Scheduled PRN Clotrimazole (Topical) (Tgt Clotrimazole), 1 APPLN TOP BID PRN for fungal rash on buttocks/groin Diazepam (Anticonvulsant) (Diastat Acudial), 10 MG WA for seizures Promethazine (Phenergan Suppository), 12.5 MG WA Q8 PRN for Nausea Review of Systems Unable to obtain due to patient's cognitive status. . Physical Ex - H&P Physical Exam Vital Signs Date Time Temp Pulse Resp B/P Pulse Ox O2 Delivery O2 Flow Rate FiO2 10/08/16 20:49 93 Room Air 10/08/16 20:38 36.6 118 20 106/79 88 Room Air 10/08/16 19:45 93 Room Air 10/08/16 18:58 36.3 117 24 105/65 100 Room Air General Appearance: no apparent distress, + thin Head: normocephalic, atraumatic Eyes: normal inspection, PERRL, EOMI, sclerae normal ENT: + pertinent finding (increased oral secretions) Neck: supple, no adenopathy, thyroid normal, no JVD, trachea midline Respiratory/Chest: no respiratory distress, no accessory muscle use, + rhonchi (bilateral), + wheezing (diffuse) Cardiovascular: regular rate, rhythm, no edema, no gallop, no JVD, + systolic murmur (I/ sys murmur at base) Abdomen/GI: normal bowel sounds, non tender, soft, no organomegaly, + pertinent finding (PEG) Extremities/Musculoskelatal: no calf tenderness, + pertinent finding (atrophy all 4 extremities) Neurologic/Psych: alert, + pertinent finding (pupils reactive, EOMI, nonverbal , diffuse motor weakness, dystonic movements upper extremities) Skin: normal color, warm/dry, no rash Lymphatic: no adenopathy (cervical) Diagnostics - H&P Diagnostics Laboratory Results Results Past 24 Hours Test 10/08/16 19:30 10/08/16 20:11 10/08/16 21:15 Range/Units White Blood Count 17.79 4.8-10.8 K/uL Red Blood Count 5.43 4.7-6.1 M/uL Hemoglobin 16.9 14.0-18.0 g/dL Hematocrit 51.6 42-52 % Mean Corpuscular Volume 95.0 80-100 fL Mean Corpuscular Hemoglobin 31.1 25-34 pg Mean Corpuscular Hemoglobin Concent 32.8 32-36 g/dl Platelet Count 337 130-400 K/uL Mean Platelet Volume 11.7 7.4-10.4 fL Neutrophils (%) (Auto) 86.8 % Lymphocytes (%) (Auto) 8.0 % Monocytes (%) (Auto) 3.4 % Eosinophils (%) (Auto) 0.6 % Basophils (%) (Auto) 0.2 % Neutrophils # (Auto) 15.46 1.4-6.5 K/uL Lymphocytes # (Auto) 1.42 1.2-3.4 K/uL Monocytes # (Auto) 0.60 0.11-0.59 K/uL Eosinophils # (Auto) 0.10 0-0.5 K/uL Basophils # (Auto) 0.03 0-0.2 K/uL RDW Standard Deviation 44.1 36.4-46.3 fL RDW Coefficient of Variation 12.8 11.5-14.5 % Immature Granulocyte % (Auto) 1.0 % Immature Granulocyte # (Auto) 0.18 0.00-0.02 K/uL Sodium Level 143 136-145 mmol/L Potassium Level 5.1 3.5-5.1 mmol/L Chloride Level 103 98-107 mmol/L Carbon Dioxide Level 36 21-32 mmol/L Anion Gap 4.0 3-11 mmol/L Blood Urea Nitrogen 26 7-18 mg/dl Creatinine 0.72 0.60-1.40 mg/dl Estimated GFR () 149.2 Estimated GFR (Non- 128.7 BUN/Creatinine Ratio 36.1 10-20 Random Glucose 96 70-99 mg/dl Calcium Level 9.6 8.5-10.1 mg/dl Bedside Lactic Acid Venous 2.07 0.90-1.70 mmol/L Microbiology Results 10/08/16 Blood Culture, Received Pending 10/08/16 Blood Culture, Received Pending Diagnostic Radiology CHEST ONE VIEW PORTABLE FINDINGS: The patient is slightly rotated. Lung volumes are normal. There is no consolidation to suggest pneumonia. Apparent retrocardiac opacity is likely artifactual. Cardiomediastinal silhouette is stable. There is no evidence of pulmonary edema. Widening of right paratracheal stripe is unchanged. IMPRESSION: No acute cardiopulmonary findings. Apparent retrocardiac opacity is likely artifactual. If persistent symptoms, PA and lateral chest radiographs are recommended. Electronically signed by: Bebo Gonzalez M.D. 10/08/2016 8:10 PM Dictated Date/Time: 10/08/2016 8:08 PM . Impression - H&P Impression Assessment and Plan COUGH Suspected aspiration pneumonia, although chest x-ray does not show any definite infiltrates. Serum lactate 2.07- recheck. Blood cultures obtained in ED. Received IV clindamycin in ED. Change Rx to clindamycin + piperacillin / tazobactam for broader coverage. Add MRSA coverage if no improvement. HYPOXIA O2 sats as low as 88% on RA in ED. Improved with suctioning + nebs. Supplemental O2 as needed. EXACERBATION OF ASTHMA Rx with IV methylprednisolone and nebs. SEIZURE DISORDER No recent seizures. Continue lamotrigine. CEREBRAL PALSY Continue usual meds, ROM. VTE PROPHYLAXIS High risk for VTE. SQ heparin. DISPOSITION Expected discharge to [facility] facility. Family Medicine follow-up with Dr. Merissa Norton. . VTE Prophylaxis VTE Risk Assessment Done? Y/N: Yes Risk Level: Moderate Given or contraindicated: Unfractionated heparin SQ . Physical Exam (per Admitting): General Appearance: no apparent distress, + thin Head: normocephalic, atraumatic Eyes: normal inspection, PERRL, EOMI, sclerae normal ENT: + pertinent finding (increased oral secretions) Neck: supple, no adenopathy, thyroid normal, no JVD, trachea midline Respiratory/Chest: no respiratory distress, no accessory muscle use, + rhonchi (bilateral), + wheezing (diffuse) Cardiovascular: regular rate, rhythm, no edema, no gallop, no JVD, + systolic murmur (I/ sys murmur at base) Abdomen/GI: normal bowel sounds, non tender, soft, no organomegaly, + pertinent finding (PEG) Extremities/Musculoskelatal: no calf tenderness, + pertinent finding ( atrophy all 4 extremities) Neurologic/Psych: alert, + pertinent finding (pupils reactive, EOMI, nonverbal, diffuse motor weakness, dystonic movements upper extremities) Skin: normal color, warm/dry, no rash Lymphatic: no adenopathy (cervical) Hospital Course COUGH with Respiratory distress Possible related to aspiration pneumonia vs oral secretion CXR showed no acute cardiopulmonary findings Leukocytosis and elevated POC lactate on admission Received IV Clinda in the ED Has been on IV Zosyn ,Clindamycin discontinued Blood cx -Negative WBC remains elevated and in part due to Steroid Clinically much better Repeat CXR in AM-no pneumonia Will continue with Augmentin suspension BID for 4 more days Mother is ready to take him home any moment HYPOXIA-Resolved O2 sats in the 91 % on RA Continue suctioning and DuoNeb treatment Supplemental O2 as needed. will do chest PT Saturating well on RA EXACERBATION OF ASTHMA Continue IV solumedrol and titrate to BID Continue neb treatment. Will need tapering dose on discharge Short tapering course was prescribed SEIZURE DISORDER No recent seizures. Continue lamotrigine. CEREBRAL PALSY Continue usual meds, Stable VTE PROPHYLAXIS High risk for VTE. SQ heparin. DISPOSITION Expected discharge to [facility] facility. Family Medicine follow-up with Dr. Merissa Norton. Discharged today Total time spent on discharge = 35 minutes This includes examination of the patient, discharge planning, medication reconciliation, and communication with other providers. Discharge Instructions Date of Service October 11, 2016. Admission Reason for Admission: COUGH Discharge Discharge Diagnosis / Problem: Cough with respiratory distress,Likely aspiration ,no pneumonia Discharge Goals Goal(s): Prevent Disease Progression Activity Recommendations Activity Limitations: resume your previous activity (Assistannce required) . Instructions / Follow-Up Instructions / Follow-Up Dr Marcum on 10/17/16 at 10:45 AM at [facility] [place],Dr Lopez is out of office. Current Hospital Diet Patient's current hospital diet: Discharge Diet Recommended Diet: N/A (Peg Tube feeding) Pending Studies Studies pending at discharge: no Medical Emergencies . Who to Call and When: Medical Emergencies: If at any time you feel your situation is an emergency, please call 911 immediately. . Non-Emergent Contact Non-Emergency issues call your: Primary Care Provider . Past History Medical & Surgical History: (1) Cerebral palsy, quadriplegic (2) Cough (3) Hypoxia (4) Asthma (5) Seizure (6) Dystonia (7) gastric tube placement (8) History of gastrostomy tube placement (9) S/p incision of thigh tendon (10) S/P insertion of intrathecal pump (11) MRSA nasal colonization . "Provider Documentation" section prepared by Darell Jung. . VTE Core Measure Inpt VTE Proph given/why not?: Unfractionated heparin SQ <Electronically signed by Darell Jung M.D.> Signed: 10/11/16 1121
== END 2016-10-11 12:40 | disposition home or self-care (01) | DRG 206 ==
LOC: ENRESERVDT → ENRESERVTM → C.EDB 18:52 → C.MS4W 21:20
PROVIDERS: ADMIT Hospitalist; ATTEND Internal Medicine
DX: T17.800A Unspecified foreign body in other parts of respiratory tract causing asphyxiation, initial encounter (principal); J45.901 Unspecified asthma with (acute) exacerbation; G80.8 Other cerebral palsy; Z93.1 Gastrostomy status; Z86.14 Personal history of Methicillin resistant Staphylococcus aureus infection; G40.909 Epilepsy, unspecified, not intractable, without status epilepticus; Z74.09 Other reduced mobility; X58.XXXA Exposure to other specified factors, initial encounter; Y92.199 Unspecified place in other specified residential institution as the place of occurrence of the external cause

== ENCOUNTER → 2016-12-09 | Outpatient (CLI) | payer OTHER ==
[~2016-12-09] MED LIST changes: +ALBINS/ INH; -ALBU0.08 INH; -CHOL4POW11 GT; +CHOL4POW4 GT; -ESOM20CA PO; +FEXO1TAB49 GT; -FEXO1TAB49 PO; +FLUT0.15 NAE; -GLYC1TAB5 GT; -LACTCHW3 PEG; +LAMO150T32 GT; -LAMO25TA GT; +LCTX GT; -LMC/150 GT; +LMC25 GT; -MOME50SP5 NAE; -NEOMOIN76 TOP; +OMEP20TA GT; +PRED15SO GT; +RBN1 GT; +SALI1SPR3 NAE; -TRIA0.5O TOP; -[UNRECOGNIZED DRUG - CODE] TOP
--- NOTE | 2016-12-09 18:31 | DIAGNOSTIC IMAGING REPORT ---
CHEST 2 VIEWS ROUTINE CLINICAL HISTORY: 26 years-old Male presenting with pneumonia, cough, congestion. TECHNIQUE: PA and lateral views of the chest were obtained. COMPARISON: 10/11/2016. FINDINGS: Cardiomediastinal silhouette unchanged from prior and likely within normal limits. Mild prominence of the main pulmonary artery. Lungs and pleural spaces clear. Osseous structures normal. A gastrostomy tube is likely present. IMPRESSION: 1. No acute cardiopulmonary disease. Electronically signed by: Willie Ruiz M.D. 12/09/2016 6:30 PM Dictated Date/Time: 12/09/2016 6:28 PM
== END | disposition home or self-care (01) ==
LOC: C.RAD 17:21
PROVIDERS: ATTEND Physician Assistant
DX: J18.9 Pneumonia, unspecified organism (principal)

== ENCOUNTER → 2016-12-19 | Outpatient (CLI) | payer OTHER ==
--- NOTE | 2016-12-19 19:40 | DIAGNOSTIC IMAGING REPORT ---
CHEST 2 VIEWS ROUTINE HISTORY: COUGH COMPARISON: Chest 12/09/2016. FINDINGS: The lungs are clear. Cardiac silhouette is top normal in size. No pleural effusions. No pneumothorax. IMPRESSION: No significant change compared to the prior study. No acute process. Electronically signed by: Jamie Cash M.D. 12/19/2016 7:38 PM Dictated Date/Time: 12/19/2016 7:33 PM
== END | disposition home or self-care (01) ==
LOC: C.RAD1850 18:19
PROVIDERS: ATTEND Physician Assistant Medical
DX: R05 Cough (principal)

== ENCOUNTER → 2017-03-31 | Outpatient (CLI) | payer OTHER ==
[2017-03-31 10:05] LABS: BASO % 0.2 %; BASO ABS # 0.03 K/uL (0-0.2); COMPLETE YES; EOS % 3.6 %; HEMATOCRIT 48.5 % (42-52); IG% 0.3 %; LYMPH % 12.9 %; MEAN CORPUSCULAR HEMOGLOBIN 31.9 pg (25-34); MEAN CORPUSCULAR HGB CONC 33.2 g/dl (32-36); MEAN PLATELET VOLUME 12.7 fL (7.4-10.4); MONO % 5.9 %; NEUT % 77.1 %; PLATELET COUNT 211 K/uL (130-400); RED BLOOD COUNT 5.05 M/uL (4.7-6.1); WHITE BLOOD COUNT 15.47 K/uL (4.8-10.8)
[2017-03-31 10:32] LABS: ALT/SGPT 50 U/L (12-78); BLOOD UREA NITROGEN 17 mg/dl (7-18); BUN/CREATININE RATIO 29.6 (10-20); CALCIUM 9.2 mg/dl (8.5-10.1); CARBON DIOXIDE 31 mmol/L (21-32); CHLORIDE 102 mmol/L (98-107); CREATININE 0.57 mg/dl (0.60-1.40); GLUCOSE 74 mg/dl (70-99); POTASSIUM 4.7 mmol/L (3.5-5.1); SODIUM 141 mmol/L (136-145)
[2017-03-31 10:35] LABS: ALKALINE PHOSPHATASE 107 U/L (45-117); AST/SGOT 28 U/L (15-37)
== END | disposition home or self-care (01) ==
LOC: C.LAB1850 09:16
PROVIDERS: ATTEND Psychiatry & Neurology Neurology
DX: R56.9 Unspecified convulsions (principal)

== ENCOUNTER 2017-04-12 13:47 | Emergency (ER) | payer OTHER ==
[2017-04-12 13:53] VITALS: TEMP 37.2
[2017-04-12] MEDS ORDERED: ALBUT/IPRATROP 3MG/0.5MG NEB 3 ML VIAL INH STA (14:32)
[2017-04-12] MEDS ORDERED: SODIUM CHLORIDE 0.9% 1000ML 1,000 ML IV ONE (14:32)
--- NOTE | 2017-04-12 14:32 | EMERGENCY ROOM VISIT NOTE ---
History Report prepared by Ranjeet: Keyon Dalal Under the Supervision of: Dr. Reinier Álvarez M.D. First contact with patient: 14:18 Chief Complaint: FEVER Stated Complaint: FEVER, COUGH, CONGESTION History of Present Illness The patient is a 26 year old white male with a past medical history of asthma, CP, MR, seizures who presents to the ED with a cc of worsening fever beginning 2 hours ago. The caregiver states the patient was home for the past few days and developed severe congestion. She reports this morning, the patient woke with a 'white frothy' congestion. The caregiver notes the patient developed a fever of 100.3 this afternoon, was given Tylenol, and it brielle to 101.7. She states the patient had a normal WBC last week after recovering from an infection. Positive flu vaccine, persistent cough. Source of History: caregiver Onset: 2 hours ago Position: other (global) Quality: other (fever) Timing: worsening Associated Symptoms: + cough Note: Associated symptoms: severe congestion Review of Systems See HPI for pertinent positives and negatives. A total of ten systems were reviewed and were otherwise negative. Past Medical & Surgical Medical Problems: (1) Asthma (2) Cerebral palsy, quadriplegic (3) Cough (4) Dystonia (5) gastric tube placement (6) Incision of thigh tendon- bilateral (7) Pneumonia (8) Seizure (9) Sepsis Surgical Problems: (1) History of gastrostomy tube placement (2) MRSA nasal colonization (3) S/p incision of thigh tendon (4) S/P insertion of intrathecal pump Family History Patient reports no known family medical history. Social History Smoking Status: Never Smoker Alcohol Use: none Drug Use: none Marital Status: single Housing Status: other Occupation Status: disabled Current/Historical Medications Scheduled Albuterol Sulf (Proventil 0.083% 2.5MG/3ML), 2.5 MG INH BID Artificial Saliva (Biotene Moisturizing Mout), 2 SPRAY MT DAILY Budesonide (Pulmicort Respules 0.5MG/2ML), 2 ML NEB BID Cholestyramine (Cholestyramine), 4 GM GT DAILY Clonazepam (Klonopin), 0.25 MG GT BID Clonazepam (Klonopin), 0.5 MG PO HS Dicyclomine Hcl (Dicyclomine Hcl), 10 MG GT BID Fexofenadine Hcl (Chayo Allergy), 180 MG GT DAILY Fluticasone Propionate (Nasal) (Flonase Allergy Relief), 2 SPRAYS ROSA MARIA DAILY Glycopyrrolate (Glycopyrrolate), 1.25 MG GT TID Lactobacillus Acidophilus (Lactinex), 1 TAB GT BID Lamotrigine (Lamotrigine), 75 MG GT HS Lamotrigine (Lamictal), 150 MG GT BID Levofloxacin (Levaquin), 750 MG PEG DAILY Lorazepam (Ativan), 1 MG GT DIRECTED Gupxrzxv-Erdapvnetn-Jsjmujixs (Triple Antibiotic), 1 APPLN TOP BID Nutritional Supplements (Nutren 2.0), 1 DOSE PEG DIRECTED Omeprazole (Omeprazole), 20 MG GT DAILY Saline (Saline Nasal [place]), 2 SPRAYS ROSA MARIA DAILY Zinc Oxide (Topical) (Boudreauxs Butt Paste), 1 APPLN TOP DIRECTED [Water], 1 DOSE GT DIRECTED Scheduled PRN Acetaminophen 320 Mg/10 Ml (Tylenol 320 MG/10 ML), 6.5 ML GT Q4H PRN for Fever or Headache Baclofen (Lioresal), 10 MG GT TID PRN for SPASMS Diazepam (Anticonvulsant) (Diastat Acudial), 10 MG PA for seizures Allergies Coded Allergies: Cat Dander (Verified Allergy, Unknown, SHORTNESS OF BREATH, 04/01/17) POLLEN (Verified Allergy, Unknown, SHORTNESS OF BREATH, 04/01/17) Ciprofloxacin (Verified Adverse Reaction, Unknown, GI SYMPTOMS, 04/01/17) Dust (Verified Adverse Reaction, Unknown, SHORTNESS OF BREATH, 04/01/17) Physical Exam Vital Signs Date Time Temp Pulse Resp B/P (MAP) Pulse Ox O2 Delivery O2 Flow Rate FiO2 04/12/17 17:00 118 24 94 04/12/17 16:00 127 28 96 Room Air 04/12/17 15:20 110 04/12/17 15:01 113 20 95 Room Air 04/12/17 15:00 139 32 90 Room Air 04/12/17 13:53 37.2 86 20 96 Room Air Physical Exam GENERAL: Awake, alert, well-appearing, NAD HENT: Normocephalic, atraumatic. EYES: Normal conjunctiva. Sclera non-icteric. NECK: Supple. No nuchal rigidity. FROM. RESPIRATORY: Coarse breath sounds in the right lung field. CARDIAC: RRR, no MRG ABDOMEN: Soft, NTND, BS+ MSK: No chest wall TTP, no LE edema. Thin extremities. NEURO: GCS 15, CN 2-12 intact, moves all 4s on command SKIN: No rash or jaundice noted. Medical Decision & Procedures ER Provider Diagnostic Interpretation: Radiology results as stated below per my review and radiologist interpretation: CHEST ONE VIEW PORTABLE HISTORY: Evaluate Fever/Sepsis COMPARISON: Chest 12/19/2016. FINDINGS: No focal lung consolidations to suggest pneumonia. No evidence for pulmonary edema. No pleural effusions. No pneumothorax. The heart is stable in size. A gastrostomy tube and right lower quadrant pain pump are noted. IMPRESSION: No focal lung consolidations to suggest pneumonia. Electronically signed by: Jamie Cash M.D. 04/12/2017 3:57 PM Dictated Date/Time: 04/12/2017 3:56 PM Laboratory Results 04/12/17 14:55 Red Blood Count 4.88, Mean Corpuscular Volume 95.9, Mean Corpuscular Hemoglobin 31.8, Mean Corpuscular Hemoglobin Concent 33.1, Mean Platelet Volume 11.6, Neutrophils (%) (Auto) 77.6, Lymphocytes (%) (Auto) 8.1, Monocytes (%) (Auto) 12.1, Eosinophils (%) (Auto) 1.5, Basophils (%) (Auto) 0.3, Neutrophils # (Auto ) 8.82, Lymphocytes # (Auto) 0.92, Monocytes # (Auto) 1.38, Eosinophils # (Auto ) 0.17, Basophils # (Auto) 0.03 04/12/17 14:55 04/12/17 15:45 Test 04/12/17 14:40 04/12/17 14:55 04/12/17 15:45 Influenza Type A Antigen Neg for Influ A (NEG) Influenza Type B Antigen Neg for Influ B (NEG) White Blood Count 11.36 K/uL (4.8-10.8) Red Blood Count 4.88 M/uL (4.7-6.1) Hemoglobin 15.5 g/dL (14.0-18.0) Hematocrit 46.8 % (42-52) Mean Corpuscular Volume 95.9 fL (80-100) Mean Corpuscular Hemoglobin 31.8 pg (25-34) Mean Corpuscular Hemoglobin Concent 33.1 g/dl (32-36) Platelet Count 197 K/uL (130-400) Mean Platelet Volume 11.6 fL (7.4-10.4) Neutrophils (%) (Auto) 77.6 % Lymphocytes (%) (Auto) 8.1 % Monocytes (%) (Auto) 12.1 % Eosinophils (%) (Auto) 1.5 % Basophils (%) (Auto) 0.3 % Neutrophils # (Auto) 8.82 K/uL (1.4-6.5) Lymphocytes # (Auto) 0.92 K/uL (1.2-3.4) Monocytes # (Auto) 1.38 K/uL (0.11-0.59) Eosinophils # (Auto) 0.17 K/uL (0-0.5) Basophils # (Auto) 0.03 K/uL (0-0.2) RDW Standard Deviation 47.8 fL (36.4-46.3) RDW Coefficient of Variation 13.5 % (11.5-14.5) Immature Granulocyte % (Auto) 0.4 % Immature Granulocyte # (Auto) 0.04 K/uL (0.00-0.02) Anion Gap 8.0 mmol/L (3-11) Estimated GFR () 148.4 Estimated GFR (Non- 128.0 BUN/Creatinine Ratio 23.8 (10-20) Calcium Level 9.0 mg/dl (8.5-10.1) Total Bilirubin 0.5 mg/dl (0.2-1) Alanine Aminotransferase (ALT/SGPT) 40 U/L (12-78) Alkaline Phosphatase 102 U/L (45-117) Total Protein 8.1 gm/dl (6.4-8.2) Albumin 3.9 gm/dl (3.4-5.0) Venous Blood pH 7.40 (7.36-7.41) Venous Blood Partial Pressure CO2 54 mmHg (38.0-50.0) Venous Blood Partial Pressure O2 31 mmHg Venous Blood HCO3 32 mmol/L Venous Blood Oxygen Saturation 61.3 % Venous Blood Base Excess 5.9 mEq/L Lactic Acid Level 2.0 mmol/L (0.4-2.0) Direct Bilirubin 0.1 mg/dl (0-0.2) Aspartate Amino Transf (AST/SGOT) 26 U/L (15-37) Laboratory results reviewed by me Medications Administered Medications (Trade) Dose Ordered Sig/Elizabeth Route Start Time Stop Time Status Last Admin Dose Admin Sodium Chloride 1,000 ml @ 2,000 mls/hr Q30M ONCE IV 04/12/17 14:32 04/12/17 15:01 DC 04/12/17 16:15 2,000 MLS/HR Albuterol/ Ipratropium (Duoneb) 12 ml ONE STAT INH 04/12/17 14:32 04/12/17 14:36 DC 04/12/17 15:01 12 ML Levofloxacin (Levaquin Tab) 750 mg ONE ONCE PO 04/12/17 17:15 04/12/17 17:16 DC 04/12/17 17:29 750 MG ECG Indication: other (respiratory distress) Rate (beats per minute): 113 Rhythm: sinus tachycardia Findings: other (RAD but normal intervals, No STS or TWI) Comparison ECG Date: 06/28/16 Change: no significant change ED Course 1425: The patient was evaluated in room A10. A complete history and physical exam was performed. 1738: I reevaluated the patient. Discussed results and discharge instructions: the caregiver verbalized understanding and agreement. The patient is ready for discharge. Medical Decision The patient is a 26 year old white male with a past medical history of asthma, CP, MR, seizures who presents to the ED with a cc of worsening fever beginning 2 hours ago. Etiologies such as infections, reactive airway disease, pneumonia, pneumothorax, COPD, CHF, cardiac ischemia, pulmonary embolism, musculoskeletal, gastrointestinal, as well as others were entertained. Patient was seen and evaluated the bedside. Patient has a known history of CPMR and seizure disorder who has had some issues with pneumonia in the past. There was concern that the patient did have a fever beginning today. He is also had some increased secretions coming from the mouth. Patient does live in a 24-hour care correction. Patient did receive flu shot this year. On exam patient is fairly well-appearing and does not appear toxic. Patient per the caregiver states that he is at his baseline. Patient did have blood work that was completed along with a chest x-ray, flu, VBG, lactate, EKG. Patient's EKG did show some sinus tachycardia. Patient's gas did show some chronic hypercarbia was well compensated with a normal pH. Patient's chest x- ray was clear. Flu was negative. Patient lactate was 2. Patient did receive 2 L of IV fluids. Patient was suctioned from the mouth without much issue. Patient did have blood cultures that were drawn. Patient was routinely incontinent did not have a [place] in place and thus a urinalysis was not able to be obtained. Patient was never amenable to having a blood pressure completed. Upon review of the patient's chart over the last year patient has not had a documented blood pressure. I did discuss this with the caregiver stated that the patient really has a blood pressure that is taken unless he is asleep. Patient is very active. Patient's white blood cell count is normal. Patient flu negative. patient did receive some Levaquin through his PEG tube. He did have a known adverse reaction with some abdominal issues with Cipro however he tolerated this well and did not have an adverse reaction. Given that the patient was unable to have a urinalysis completed I discussed with the caregiver that this would cover both long and urine. She was concerned about the possibility as the patient has not had his baclofen pump refilled. However , she did state that if the patient is have a fever and/or infection that the patient would not have this filled regardless. Given that the patient had a fever with likely not have this completed anyway the antibiotics were continued. Case management did discuss this with the caregiver and stated that he would have follow-up this week was told return if anything else was concerning. Also, the patient does receive 24-hour care and is protecting his airway without issue. I do not believe that staying in the hospital will change the management of his care given that he heard he has 24-hour care and follow-up arranged for him this week. They were amenable to this plan of care. Furthermore, with blood cultures being drawn that were positive that would be called. I also did review prior blood and urine cultures over the last year. None have grown anything. Caregiver was amenable to this plan of care. Patient was given strict follow-up, discharge, and return precautions. All questions were answered. Patient was deemed suitable for outpatient follow-up at this time. Patient agreed with the plan of care and was safely discharged home. Medication Reconcilliation Current Medication List: was personally reviewed by me Impression Primary Impression: Cough Additional Impressions: Fever Upper respiratory infection Scribe Attestation The scribe's documentation has been prepared under my direction and personally reviewed by me in its entirety. I confirm that the note above accurately reflects all work, treatment, procedures, and medical decision making performed by me. Departure Information Dispostion Home / Self-Care Prescriptions Levofloxacin (Levaquin) 500 Mg Tab 750 MG PEG DAILY for 7 Days, #11 TAB Please give with 5pm medications via PEG tube. Prov: Reinier Álvarez M.D. 04/12/17 Referrals Merissa Lopez D.O. (PCP) Forms HOME CARE DOCUMENTATION FORM, IMPORTANT VISIT INFORMATION Patient Instructions ED Upper Resp Infec Abx Tx, My [facility] Additional Instructions Please return to the emergency department if you have worsening or recurrent symptoms not amenable to at-home treatment. Please call for a follow-up appointment with her primary care physician. Please take your medications as prescribed. If you have other concerns and/or complaints please feel free to also call your primary care physician's office or return the ED for further evaluation, management, and treatment. Take your medications as prescribed. Please continue to take antibiotics for your G-tube. Consider a probiotic. You have been examined and treated today on an emergency basis only. This is not a substitute for, or an effort to provide, complete comprehensive medical care. It is impossible to recognize and treat all injuries or illnesses in a single emergency department visit. It is therefore important that you follow up closely with [facility], your PCP, and/or your specialist(s). Call as soon as possible for an appointment. Thank you for your time and consideration. I look forward to speaking with you again soon. Please don't hesitate to call us if you have any questions. Problem Qualifiers Additional Impressions: Fever Fever type: unspecified Qualified Codes: R50.9 - Fever, unspecified Upper respiratory infection URI type: unspecified URI Qualified Codes: J06.9 - Acute upper respiratory infection, unspecified
[2017-04-12] MEDS ORDERED: WATER GT (14:44)
[2017-04-12] MEDS ORDERED: NEOM-25 TOP (14:44)
[2017-04-12] MEDS ORDERED: [UNRECOGNIZED DRUG - CODE] TOP (14:44)
[2017-04-12] MEDS ORDERED: ARTISPR MT (14:44)
[2017-04-12] MEDS ORDERED: BACL1TAB GT (14:44)
[2017-04-12] MEDS ORDERED: NUTRLIQ14 PEG (14:44)
[2017-04-12] MEDS ORDERED: ATV/1 GT (14:44)
[2017-04-12] MEDS ORDERED: ACTUDL10 GT (14:44)
[2017-04-12 15:01] VITALS: PULSE 113; O2SAT 95
[2017-04-12 15:09] LABS: BASO % 0.3 %; BASO ABS # 0.03 K/uL (0-0.2); COMPLETE YES; EOS % 1.5 %; HEMATOCRIT 46.8 % (42-52); IG% 0.4 %; LYMPH % 8.1 %; LYMPH ABS # 0.92 K/uL (1.2-3.4); MEAN CELL VOLUME 95.9 fL (80-100); MEAN CORPUSCULAR HEMOGLOBIN 31.8 pg (25-34); MEAN CORPUSCULAR HGB CONC 33.1 g/dl (32-36); MEAN PLATELET VOLUME 11.6 fL (7.4-10.4); MONO % 12.1 %; NEUT % 77.6 %; PLATELET COUNT 197 K/uL (130-400); RED BLOOD COUNT 4.88 M/uL (4.7-6.1); WHITE BLOOD COUNT 11.36 K/uL (4.8-10.8)
[2017-04-12 15:31] LABS: ALKALINE PHOSPHATASE 102 U/L (45-117); ALT/SGPT 40 U/L (12-78); BLOOD UREA NITROGEN 17 mg/dl (7-18); BUN/CREATININE RATIO 23.8 (10-20); CARBON DIOXIDE 30 mmol/L (21-32); CHLORIDE 98 mmol/L (98-107); CREATININE 0.73 mg/dl (0.60-1.40); GLUCOSE 86 mg/dl (70-99); SODIUM 136 mmol/L (136-145)
[2017-04-12 15:56] LABS: VEN BLD GAS O2 SATURATION 61.3 %; VEN BLOOD GAS BASE EXCESS 5.9 mEq/L
--- NOTE | 2017-04-12 15:59 | DIAGNOSTIC IMAGING REPORT ---
CHEST ONE VIEW PORTABLE HISTORY: Evaluate Fever/Sepsis COMPARISON: Chest 12/19/2016. FINDINGS: No focal lung consolidations to suggest pneumonia. No evidence for pulmonary edema. No pleural effusions. No pneumothorax. The heart is stable in size. A gastrostomy tube and right lower quadrant pain pump are noted. IMPRESSION: No focal lung consolidations to suggest pneumonia. Electronically signed by: Jamie Cash M.D. 04/12/2017 3:57 PM Dictated Date/Time: 04/12/2017 3:56 PM
[2017-04-12 16:06] LABS: POTASSIUM 4.2 mmol/L (3.5-5.1)
[2017-04-12] MEDS ORDERED: LEVOFLOXACIN 750 MG TAB PO ONE (17:15)
[2017-04-12] MEDS ORDERED: LEVO-366 PEG (17:43)
[2017-04-12 18:02] VITALS: PULSE 118; O2SAT 96
== END 2017-04-12 17:55 | disposition home or self-care (01) ==
LOC: C.EDB 13:48 → C.EDA 17:55
DX: J06.9 Acute upper respiratory infection, unspecified (principal); J45.909 Unspecified asthma, uncomplicated; Z79.2 Long term (current) use of antibiotics

== ENCOUNTER → 2017-06-30 | Outpatient (CLI) | payer OTHER ==
[~2017-06-30] MED LIST changes: +ACTUDL10 GT; -AMOX1SUS4 GT; +ARTISPR MT; +ATV/1 GT; +BACL1TAB GT; -CLOT1CRE TOP; +LAMO150T GT; -LAMO150T32 GT; +NEOM-25 TOP; +NUTRLIQ14 PEG; -PRED15SO GT; -PROM5SUP2 PR; +WATER GT; -[UNRECOGNIZED DRUG - CODE] PEG; +[UNRECOGNIZED DRUG - CODE] TOP
--- NOTE | 2017-06-30 14:52 | DIAGNOSTIC IMAGING REPORT ---
CHEST 2 VIEWS ROUTINE HISTORY: Cough. COMPARISON: Chest 04/12/2017. FINDINGS: No focal lung consolidations to suggest pneumonia. No pleural effusions. No pneumothorax. The heart remains borderline enlarged. Right lower quadrant partially visualized pain pump with the intrathecal catheter terminating at the T6 level. IMPRESSION: No focal lung consolidations to suggest pneumonia. Electronically signed by: Jamie Cash M.D. 06/30/2017 2:51 PM Dictated Date/Time: 06/30/2017 2:49 PM
== END | disposition home or self-care (01) ==
LOC: C.RAD1850 14:15
PROVIDERS: ATTEND Physician Assistant
DX: R05 Cough (principal)

== ENCOUNTER 2020-11-05 13:52 | Inpatient (IN) ==
--- NOTE | 2020-11-05 15:22 | Emergency Department Note ---
Impression & Plan Abdominal wall cellulitis, Fever ED Provider Note NAME: DEXTER PUGA AGE: 30 SEX: M : 1990 ARRIVES VIA: Walk-In INFORMANT: Patient, ED PROVIDER(S): Reinier Álvarez MD Chief Complaint: Fever, cough HPI: Patient does present with mother at bedside and the patient does have a known history of intellectual disability and aspiration pneumonia who developed a fever beginning Thursday. Several weeks ago the patient did have a dry and unproductive cough but this is since gotten worse. Of note the mother states that the patient also did have his baclofen pump changed at the end of August with Dr. Zapien. This was done at same-day surgery. Fevers were as high as 102 at home and the patient has been trialed ibuprofen and Tylenol. Patient is vaccinated for Covid. Patient does live at the [facility]. ROS: See HPI for pertinent positives and negatives. A total of 10 systems were reviewed and otherwise negative. Past medical history: See below Surgical history: See below Social history: See below Physical Exam: GENERAL: Wearing glasses. EYE EXAM: Normal conjunctiva. PERRL, no anisocoria and EOM's grossly intact w/o pain. NECK: Supple, no nuchal rigidity, no adenopathy, non-tender. No signs of meni ngismus. LUNGS: Clear to auscultation. Normal chest wall mechanics. HEART: Tachycardic and regular, no MRG. ABDOMEN: Abdomen soft, scant erythema surrounding surgical scarring site with no active bleeding or drainage over the right lower quadrant. BACK: No CVA TTP. SKIN: No rashes and no bruising. UPPER EXTREMITIES: Upper extremities are grossly normal. Spasticity noted. LOWER EXTREMITIES: Thin extremities noted, no edema. NEURO EXAM: Awake and alert, does not follow commands, nonverbal. Differential diagnoses: Sepsis, UTI, pneumonia, metabolic, electrolyte abnormalities, cardiac sources, intracerebral event, toxicologic, neurologic, as well as other pathologies. Course: Patient was seen and evaluated the bedside. Full history physical exam was performed. EKG interpreted by me Sinus tachycardia, rate of 110, normal intervals, normal axis, incomplete right bundle, motion artifact most prominent in leads I to III. No significant change from comparison EKG April 12, 2017. Imaging Studies: See below Cardiac monitoring: An order was placed for continuous cardiac monitoring. The monitor shows a rate of 113 with sinus tachycardia rhythm. MDM: Patient does present with concern for fevers and [facility] Covid testing and chest x-ray. Of note the patient does have some slight erythema surrounding his baclofen pump site. Blood work is obtained patient was ordered Zosyn empirically and IV fluids. CT scan of the abdomen pelvis also ordered. Patient does have very mild white count of 12 with slight thrombocytosis and anemia. Kidney function relatively unremarkable. Pro-Angel not elevated. Covid negative. Patient CT does show likely soft tissue infection cannot rule out small abscess given that the patient motion during the scan. Given the patient is intellectually disabled and lives at a intermediate with fever believe the patient would benefit from inpatient treatment and monitoring and reassessment. I did speak to the on-call hospitalist Romel Tineo PA-C and the patient was admitted by Dr. Mccoy. 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 Seizure Seizures well controlled on Lamictal per 03/19/20 neuro note Severe mental handicap Spasticity Surgical History H/O wisdom tooth extraction Hamstring tightness of both lower extremities s/p surgical release of adductor and hamstrings S/P insertion of intrathecal pump Family History Family/Other Heart disease Father Diabetes Heart trouble Social History Smoking Status: Never smoker Second Hand Exposure: No; Preferred Language: Armenian Communication Ability: Impaired Beliefs That Will Affect Care: None marital status: Single Current Living Situation: Personal Care Facility Current Living Situation Comment: LIVES AT [facility] current occupational status: disabled Feels Safe at Home: Yes Assistive Devices: None and Glasses Allergies Allergies Allergy/AdvReac Type Severity Reaction Status Date / Time cat dander Allergy Intermediate SHORTNESS Verified 11/05/20 16:17 OF BREATH pollen extracts Allergy Intermediate SHORTNESS Verified 11/05/20 16:17 OF BREATH ciprofloxacin AdvReac Intermediate GI SYMPTOMS Verified 11/05/20 16:17 Dust AdvReac Intermediate SHORTNESS Uncoded 11/05/20 16:17 OF BREATH Home Meds Home Medications Medication Instructions Recorded Confirmed clonazepam 0.5 mg tablet 0.25 mg FEEDING TUBE UD tab 01/22/18 11/05/20 dicyclomine 10 mg capsule 10 mg FEEDING TUBE BID cap 01/22/18 11/05/20 fexofenadine 180 mg tablet 180 mg FEEDING TUBE QAM 01/22/18 11/05/20 fluticasone propionate 50 2 sprays INTNAS QAM 01/22/18 11/05/20 mcg/actuation nasal spray,suspension glycopyrrolate 1 mg tablet 1 mg FEEDING TUBE TID tab 01/22/18 11/05/20 lamotrigine 150 mg tablet 150 mg FEEDING TUBE BID 01/22/18 11/05/20 lamotrigine 25 mg tablet 75 mg FEEDING TUBE HS tab 01/22/18 11/05/20 omeprazole 20 mg capsule,delayed 20 mg FEEDING TUBE QAM 01/22/18 11/05/20 release saliva stimulant comb. no.3 1 appln MUCOUS MEMBRANE Q2H PRN 01/22/18 11/05/20 sodium chloride 0.65 % nasal spray 2 sprays INTNAS QAM PRN ml 01/22/18 11/05/20 aerosol water for irrigation, sterile 1 ml IRRIGATION DAILY PRN ml 01/22/18 11/05/20 diazepam 12.5 mg-15 mg-17.5 mg-20 10 mg NM DAILY PRN 02/14/19 11/05/20 mg rectal kit Nutren 2.0 4 ea FEEDING TUBE DAILY 02/25/19 11/05/20 Florajen3 3 cap DAILY 08/14/20 11/05/20 Percussion Vest 08/14/20 09/19/20 Prevalite 4 g PO QDL 08/14/20 11/05/20 albuterol sulfate 2.5 mg INHALATION QAM PRN 08/14/20 11/05/20 clotrimazole 1 applic TOPICAL BID PRN 08/14/20 11/05/20 dantrolene 25 mg FEEDING TUBE BID 08/14/20 11/05/20 triamcinolone acetonide 1 applic TOPICAL BID PRN 08/14/20 11/05/20 baclofen 10 mg PO DIRECTED PRN 11/05/20 11/05/20 Previous Rx's Medication Instructions Recorded budesonide 0.5 mg/2 mL suspension 0.5 mg INH BID #120 ml 06/21/20 for nebulization hydrocodone 7.5 mg-acetaminophen 15 ml PO Q8H PRN #60 ml 09/04/20 325 mg/15 mL oral solution Results & Data (ED) Vital Signs Vital Signs - 24 hr 11/05/20 14:24 11/05/20 15:45 11/05/20 17:44 Temperature 37.5 C Temperature Source Temporal Artery Scan Pulse Rate 113 H Pulse Rate [Right Radial] Pulse Rhythm [Right Radial] Pulse Strength [Right Radial] Respiratory Rate 20 18 Respiratory Effort / Characteristics Non-Labored Spontaneous Non-Labored Spontaneous Respiratory Depth Respiratory Pattern Blood Pressure 133/76 Blood Pressure Mean 95 Blood Pressure Position Sitting Pulse Oximetry 97 97 99 Oxygen Delivery Method Room Air Room Air Room Air Sepsis Recent Fever Within 48 Hours Yes Sepsis New/Unexplained Change in Mental Status No Sepsis Action Taken by Nursing No Action Required 11/05/20 18:00 Temperature Temperature Source Pulse Rate Pulse Rate [Right Radial] 110 H Pulse Rhythm [Right Radial] Regular Pulse Strength [Right Radial] Normal Respiratory Rate 17 Respiratory Effort / Characteristics Non-Labored Spontaneous Respiratory Depth Normal Respiratory Pattern Regular Blood Pressure Blood Pressure Mean Blood Pressure Position Pulse Oximetry 98 Oxygen Delivery Method Room Air Sepsis Recent Fever Within 48 Hours Sepsis New/Unexplained Change in Mental Status Sepsis Action Taken by Retirement Medications Current Medication List: was personally reviewed by me Laboratory Data Attestation: I reviewed the patient's lab results. Result diagrams: 11/05/20 15:48 11/05/20 15:48 Lab Results 11/05/20 11/05/20 11/05/20 Range/Units 15:35 15:35 15:48 WBC 12.94 H (4.8-10.8) K/uL RBC 4.08 L (4.7-6.1) M/uL Hgb 12.5 L (14.0-18.0) g/dL Hct 39.0 L (42-52) % MCV 95.6 (80-100) fL MCH 30.6 (25-34) pg MCHC 32.1 (32-36) g/dL RDW Std Deviation 46.1 (36.4-46.3) fL RDW Coeff of Kimo 13.1 (11.5-14.5) % Plt Count 450 H (130-400) K/uL MPV 10.4 (7.4-10.4) fL Immature Gran % (Auto) 0.3 % Neut % (Auto) 76.6 % Lymph % (Auto) 13.1 % [place] % (Auto) 7.0 % Eos % (Auto) 2.8 % Baso % (Auto) 0.2 % Neut # (Auto) 9.92 H (1.4-6.5) K/uL Lymph # (Auto) 1.70 (1.2-3.4) K/uL [place] # (Auto) 0.90 H (0.11-0.59) K/uL Eos # (Auto) 0.36 (0-0.5) K/uL Baso # (Auto) 0.02 (0-0.2) K/uL Immature Gran # (Auto) 0.04 H (0.00-0.02) K/uL PT (9.0-12.0) Seconds INR (0.9-1.1) APTT (21.0-31.0) Seconds PTT Ratio Sodium (136-145) mmol/L Potassium (3.5-5.1) mmol/L Chloride (98-107) mmol/L Carbon Dioxide (21-32) mmol/L Anion Gap (3-11) BUN (7-18) mg/dl Creatinine (0.6-1.4) mg/dl Est Cr Clr Drug Dosing Est GFR ( Amer) ml/min Est GFR (Non-Af Amer) ml/min BUN/Creatinine Ratio (10-20) Glucose (70-99) mg/dl Lactate (0.4-2.0) mmol/L Calcium (8.5-10.1) mg/dl Magnesium (1.8-2.4) mg/dl Total Bilirubin (0.2-1) mg/dl AST (15-37) U/L ALT (12-78) U/L Alkaline Phosphatase (45-117) U/L Total Protein (6.4-8.2) gm/dl Albumin (3.4-5.0) gm/dl Globulin (2.5-4.0) gm/dl Albumin/Globulin Ratio (0.9-2) Procalcitonin (0-0.5) ng/ml COVID-19 Eval Order Covid19 at [facility] SARS-CoV-2 (PCR) NEGATIVE (Negative) 11/05/20 11/05/20 11/05/20 Range/Units 15:48 15:48 15:48 WBC (4.8-10.8) K/uL RBC (4.7-6.1) M/uL Hgb (14.0-18.0) g/dL Hct (42-52) % MCV (80-100) fL MCH (25-34) pg MCHC (32-36) g/dL RDW Std Deviation (36.4-46.3) fL RDW Coeff of Kimo (11.5-14.5) % Plt Count (130-400) K/uL MPV (7.4-10.4) fL Immature Gran % (Auto) % Neut % (Auto) % Lymph % (Auto) % [place] % (Auto) % Eos % (Auto) % Baso % (Auto) % Neut # (Auto) (1.4-6.5) K/uL Lymph # (Auto) (1.2-3.4) K/uL [place] # (Auto) (0.11-0.59) K/uL Eos # (Auto) (0-0.5) K/uL Baso # (Auto) (0-0.2) K/uL Immature Gran # (Auto) (0.00-0.02) K/uL PT (9.0-12.0) Seconds INR (0.9-1.1) APTT (21.0-31.0) Seconds PTT Ratio Sodium 138 (136-145) mmol/L Potassium 4.6 (3.5-5.1) mmol/L Chloride 102 (98-107) mmol/L Carbon Dioxide 31 (21-32) mmol/L Anion Gap 5.0 (3-11) BUN 15 (7-18) mg/dl Creatinine 0.58 L (0.6-1.4) mg/dl Est Cr Clr Drug Dosing Not Reportable Est GFR ( Amer) > 150.0 ml/min Est GFR (Non-Af Amer) 136.8 ml/min BUN/Creatinine Ratio 25.9 H (10-20) Glucose 101 H (70-99) mg/dl Lactate 1.2 (0.4-2.0) mmol/L Calcium 9.0 (8.5-10.1) mg/dl Magnesium 2.5 H (1.8-2.4) mg/dl Total Bilirubin 0.3 (0.2-1) mg/dl AST 11 L (15-37) U/L ALT 14 (12-78) U/L Alkaline Phosphatase 93 (45-117) U/L Total Protein 8.1 (6.4-8.2) gm/dl Albumin 3.4 (3.4-5.0) gm/dl Globulin 4.7 H (2.5-4.0) gm/dl Albumin/Globulin Ratio 0.7 L (0.9-2) Procalcitonin < 0.05 (0-0.5) ng/ml COVID-19 Eval Order SARS-CoV-2 (PCR) (Negative) 11/05/20 Range/Units 16:36 WBC (4.8-10.8) K/uL RBC (4.7-6.1) M/uL Hgb (14.0-18.0) g/dL Hct (42-52) % MCV (80-100) fL MCH (25-34) pg MCHC (32-36) g/dL RDW Std Deviation (36.4-46.3) fL RDW Coeff of Kimo (11.5-14.5) % Plt Count (130-400) K/uL MPV (7.4-10.4) fL Immature Gran % (Auto) % Neut % (Auto) % Lymph % (Auto) % [place] % (Auto) % Eos % (Auto) % Baso % (Auto) % Neut # (Auto) (1.4-6.5) K/uL Lymph # (Auto) (1.2-3.4) K/uL [place] # (Auto) (0.11-0.59) K/uL Eos # (Auto) (0-0.5) K/uL Baso # (Auto) (0-0.2) K/uL Immature Gran # (Auto) (0.00-0.02) K/uL PT 11.2 (9.0-12.0) Seconds INR 1.1 (0.9-1.1) APTT 26.8 (21.0-31.0) Seconds PTT Ratio 1.0 Sodium (136-145) mmol/L Potassium (3.5-5.1) mmol/L Chloride (98-107) mmol/L Carbon Dioxide (21-32) mmol/L Anion Gap (3-11) BUN (7-18) mg/dl Creatinine (0.6-1.4) mg/dl Est Cr Clr Drug Dosing Est GFR ( Amer) ml/min Est GFR (Non-Af Amer) ml/min BUN/Creatinine Ratio (10-20) Glucose (70-99) mg/dl Lactate (0.4-2.0) mmol/L Calcium (8.5-10.1) mg/dl Magnesium (1.8-2.4) mg/dl Total Bilirubin (0.2-1) mg/dl AST (15-37) U/L ALT (12-78) U/L Alkaline Phosphatase (45-117) U/L Total Protein (6.4-8.2) gm/dl Albumin (3.4-5.0) gm/dl Globulin (2.5-4.0) gm/dl Albumin/Globulin Ratio (0.9-2) Procalcitonin (0-0.5) ng/ml COVID-19 Eval Order SARS-CoV-2 (PCR) (Negative) Administered Medications Discontinued Medications Sodium Chloride (Nss 1000ml) 1,000 mls @ 999 mls/hr IV .Q1H1M AIMEE Stop: 11/05/20 16:30 Last Infusion: 11/05/20 18:22 Dose: 0 mls/hr Documented by: [id number] Admin: 11/05/20 17:05 Dose: 999 mls/hr Documented by: [id number] Piperacillin Sod/Tazobactam Sod (Zosyn) 4.5 gm in 120 mls @ 240 mls/hr IV NOW ONE Stop: 11/05/20 15:58 Last Infusion: 11/05/20 17:39 Dose: 0 mls/hr Documented by: [id number] Admin: 11/05/20 17:04 Dose: 240 mls/hr Documented by: [id number] Lorazepam (Ativan) 0.5 mg in 1 mls @ 1 mls/min IV NOW STA Stop: 11/05/20 18:08 Last Admin: 11/05/20 18:23 Dose: Not Given Documented by: [id number] Vancomycin HCl 1,250 mg/ (Sodium Chloride) 525 mls @ 200 mls/hr IV NOW ONE Stop: 11/05/20 21:05 Last Admin: 11/05/20 18:46 Dose: 200 mls/hr Documented by: [id number] Ioversol (Optiray 320 100ml) 94 ml IV ONCE ONE Stop: 11/05/20 18:09 Last Admin: 11/05/20 18:08 Dose: 94 ml Documented by: [id number] Imaging Data Radiologist's Impression: Abdomen/Pelvis CT 11/05/20 15:29 CT SCAN OF THE ABDOMEN AND PELVIS WITH IV CONTRAST CLINICAL HISTORY: Erythema at the right lower quadrant baclofen pump site. Fever. COMPARISON STUDY: Abdominal radiograph dated 05/25/2016. TECHNIQUE: Following the IV administration of 94 cc of Optiray 320, CT scan of the abdomen and pelvis is performed from the lung bases to the proximal femora. Images are reviewed in the axial, sagittal, and coronal planes. IV contrast was administered without complication. A dose lowering technique was utilized adhering to the principles of ALARA. The examination is degraded by streak artifact from the arms which could not be elevated above the abdomen as well as by extensive metallic streak artifact from a pump device in the right lower quadrant. There is also motion artifact. The patient is also suboptimal due to cachexia and a paucity of intraperitoneal fat. CT DOSE: 313.74 mGy.cm FINDINGS: Lung bases: The heart is normal in size and without pericardial effusion. There are mild bibasilar airspace opacities. No pleural effusion is seen. Liver: The contrast-enhanced liver is normal in size, contour, and attenuation. There is no intrahepatic biliary ductal dilatation. The hepatic veins and portal veins are patent. Gallbladder: Unremarkable. Spleen: Normal in size and attenuation. Pancreas: Unremarkable. Adrenal glands: Unremarkable. Kidneys: The contrast enhanced kidneys are normal in size and without hydronephrosis. The kidneys enhance symmetrically. A nonobstructing left renal calculus is identified. This is not well measured due to streak and motion artifact. Abdominal vasculature: The abdominal aorta is normal in course and caliber. Stomach and bowel: A gastrostomy tube is in place. There is no bowel obstruction. Question an inflammatory process involving the ascending colon deep to the pain pump. Inflammatory stranding is suggested around the colon at this level and there is likely wall thickening. This is not well assessed due to extensive streak artifact.. The appendix is well-visualized and normal. Peritoneum: There is no intraperitoneal free air or abdominal ascites. Lymphadenopathy: None. Pelvic viscera: The bladder is distended but otherwise normal in appearance. The prostate and seminal vesicles are normal as visualized. Skeletal structures: The skeletal structures appear osteopenic. No lytic or b lastic lesions are seen. Chronic deformity of the hips and bony pelvis is similar to previous. Soft tissues: The patient is cachectic. A pain pump device is present in the r ight lower quadrant abdominal wall. Leads enter the central canal at the thoracolumbar junction. There is infiltration, soft tissue gas (axial image #264), and fluid identified around the pump, greatest superficially. There is overlying dermal thickening. IMPRESSION: 1. Significantly streak and motion artifact compromised examination. 2. There is infiltration, soft tissue gas, and fluid identified surrounding the pain pump with overlying dermal thickening. This is not well evaluated due to significant streak artifact. Correlate clinically for evidence of soft tissue infection. A small abscess is not excluded. 3. Suspect an inflammatory process involving the ascending colon deep to the pain pump. Again, this is not well assessed due to significant streak artifact. This could represent a primary colonic inflammatory process such as colitis or diverticulitis or could be related to the inflammatory process around the pump. Clinical correlation will be essential. 4. The appendix is discrete from this process and normal. 5. No intraperitoneal free air is identified. 6. Airspace opacities are present at both lung bases. This likely represents atelectasis. Correlate clinically for evidence of a mild infectious/inflammatory pneumonitis. ACT 112: Negative or not required by law. Electronically signed by: Edwardo Herrera M.D. 11/05/2020 6:22 PM Chest X-Ray 11/05/20 15:29 XR chest 1V portable CLINICAL HISTORY: SEPSIS COMPARISON STUDY: August 28, 2020 FINDINGS: No pneumothorax. No pleural effusion. No large infiltrates or consolidative lesions are seen. Previously seen hazy opa cities at bilateral lower lung region are improved. Cardiac silhouette is prominent. Evaluation is slightly limited due to rotation. No significant pulmonary vascular congestion.. Osseous structures: unremarkable IMPRESSION: 1. Mild prominence of cardiac silhouette. 2. Interval improvement of hazy opacities at bilateral lower lungs ACT 112: Negative or not required by law. The above report was generated using voice recognition software. It may contain grammatical, syntax or spelling errors. Electronically signed by: Rosenda Iglesias DO 11/05/2020 4:37 PM Discharge Plan Visit Data Chief Complaint: Fever Stated Complaint: FEVER/COUGH ED Provider: Reinier Álvarez Discharge Problem: Abdominal wall cellulitis, Fever Discharge Instructions Interventions: ED Discharge Assessment Last Done: 11/05/20 20:55 Discharge Problem: Fever Qualifiers: Fever type: unspecified Qualified Code(s): R50.9 - Fever, unspecified
[2020-11-05] MEDS ORDERED: PIPERACILL/TAZOBAC CONSULT ACTIVE PRN (15:29)
[2020-11-05] MEDS ORDERED: PIPERACILLIN/TAZOBACTAM 4.5 GM/120 ML BAG IV ONE (15:29)
[2020-11-05] MEDS ORDERED: SODIUM CHLORIDE 0.9% 1000ML 1,000 ML IV SCH (15:30)
[2020-11-05 16:18] LABS: Basophils # (auto) 0.02 K/uL (0-0.2); Basophils % (auto) 0.2 %; Eosinophils # (auto) 0.36 K/uL (0-0.5); Eosinophils % (auto) 2.8 %; Hemoglobin 12.5 g/dL (14.0-18.0); Immature Granulocytes # (auto) 0.04 K/uL (0.00-0.02); Immature Granulocytes % (auto) 0.3 %; Lymphocytes % (auto) 13.1 %; Mean Corpuscular Hemoglobin 30.6 pg (25-34); Mean Corpuscular Hgb Conc 32.1 g/dL (32-36); Mean Corpuscular Volume 95.6 fL (80-100); Mean Platelet Volume 10.4 fL (7.4-10.4); Neutrophils # (auto) 9.92 K/uL (1.4-6.5); Neutrophils % (auto) 76.6 %; Platelet Count 450 K/uL (130-400); RDW Coefficient of Variation 13.1 % (11.5-14.5); RDW Standard Deviation 46.1 fL (36.4-46.3); Red Blood Count 4.08 M/uL (4.7-6.1); White Blood Count 12.94 K/uL (4.8-10.8)
[2020-11-05 16:33] LABS: Alanine Aminotransferase 14 U/L (12-78); Albumin Level 3.4 gm/dl (3.4-5.0); Aspartate Aminotransferase 11 U/L (15-37); BUN Creatinine Ratio 25.9 (10-20); Blood Urea Nitrogen 15 mg/dl (7-18); Carbon Dioxide 31 mmol/L (21-32); Chloride 102 mmol/L (98-107); Est GFR (African American) > 150.0 ml/min; Est GFR (Non-African American) 136.8 ml/min; Glucose 101 mg/dl (70-99); Magnesium 2.5 mg/dl (1.8-2.4); Potassium 4.6 mmol/L (3.5-5.1); Sodium 138 mmol/L (136-145)
[2020-11-05 16:36] LABS: Albumin Globulin Ratio 0.7 (0.9-2); Alkaline Phosphatase 93 U/L (45-117); Bilirubin,Total 0.3 mg/dl (0.2-1); Globulin 4.7 gm/dl (2.5-4.0); Total Protein 8.1 gm/dl (6.4-8.2)
--- NOTE | 2020-11-05 16:38 | XRay Report ---
XR chest 1V portable CLINICAL HISTORY: SEPSIS COMPARISON STUDY: August 28, 2020 FINDINGS: No pneumothorax. No pleural effusion. No large infiltrates or consolidative lesions are seen. Previously seen hazy opacities at bilateral l ower lung region are improved. Cardiac silhouette is prominent. Evaluation is slightly limited due to rotation. No significant pulmonary vascular congestion.. Osseous structures: unremarkable IMPRESSION: 1. Mild prominence of cardiac silhouette. 2. Interval improvement of hazy opacities at bilateral lower lungs ACT 112: Negative or not required by law. The above report was generated using voice recognition software. It may contain grammatical, syntax o r spelling errors. Electronically signed by: Rosenda Iglesias DO 11/05/2020 4:37 PM
[2020-11-05 16:59] LABS: INR 1.1 (0.9-1.1); Partial Thromboplastin Time 26.8 Seconds (21.0-31.0); Prothrombin Time 11.2 Seconds (9.0-12.0)
[2020-11-05] MEDS ORDERED: LORazepam 0.5 MG/1 ML VIAL IV STA (18:07)
[2020-11-05] MEDS ORDERED: OPTIRAY 320 100ml IV ONE (18:08)
[2020-11-05] MEDS ORDERED: ETOMIDATE 2 MG/ML 20 ML VIAL IV ONE (18:15)
--- NOTE | 2020-11-05 18:24 | CT Scan Report ---
CT SCAN OF THE ABDOMEN AND PELVIS WITH IV CONTRAST CLINICAL HISTORY: Erythema at the right lower quadrant baclofen pump site. Fever. COMPARISON STUDY: Abdominal radiograph dated 05/25/2016. TECHNIQUE: Following the IV administration of 94 cc of Optiray 320, CT scan of the abdomen and pelvi s is performed from the lung bases to the proximal femora. Images are reviewed in the axial, sagittal , and coronal planes. IV contrast was administered without complication. A dose lowering technique wa s utilized adhering to the principles of ALARA. The examination is degraded by streak artifact from t he arms which could not be elevated above the abdomen as well as by extensive metallic streak artifac t from a pump device in the right lower quadrant. There is also motion artifact. The patient is also suboptimal due to cachexia and a paucity of intraperitoneal fat. CT DOSE: 313.74 mGy.cm FINDINGS: Lung bases: The heart is normal in size and without pericardial effusion. There are mild bibasilar ai rspace opacities. No pleural effusion is seen. Liver: The contrast-enhanced liver is normal in size, contour, and attenuation. There is no intrahepa tic biliary ductal dilatation. The hepatic veins and portal veins are patent. Gallbladder: Unremarkable. Spleen: Normal in size and attenuation. Pancreas: Unremarkable. Adrenal glands: Unremarkable. Kidneys: The contrast enhanced kidneys are normal in size and without hydronephrosis. The kidneys enh ance symmetrically. A nonobstructing left renal calculus is identified. This is not well measured due to streak and motion artifact. Abdominal vasculature: The abdominal aorta is normal in course and caliber. Stomach and bowel: A gastrostomy tube is in place. There is no bowel obstruction. Question an inflamm atory process involving the ascending colon deep to the pain pump. Inflammatory stranding is suggeste d around the colon at this level and there is likely wall thickening. This is not well assessed due t o extensive streak artifact.. The appendix is well-visualized and normal. Peritoneum: There is no intraperitoneal free air or abdominal ascites. Lymphadenopathy: None. Pelvic viscera: The bladder is distended but otherwise normal in appearance. The prostate and seminal vesicles are normal as visualized. Skeletal structures: The skeletal structures appear osteopenic. No lytic or blastic lesions are seen. Chronic deformity of the hips and bony pelvis is similar to previous. Soft tissues: The patient is cachectic. A pain pump device is present in the right lower quadrant abd ominal wall. Leads enter the central canal at the thoracolumbar junction. There is infiltration, soft tissue gas (axial image #264), and fluid identified around the pump, greatest superficially. There i s overlying dermal thickening. IMPRESSION: 1. Significantly streak and motion artifact compromised examination. 2. There is infiltration, soft tissue gas, and fluid identified surrounding the pain pump with overly ing dermal thickening. This is not well evaluated due to significant streak artifact. Correlate clini mat for evidence of soft tissue infection. A small abscess is not excluded. 3. Suspect an inflammatory process involving the ascending colon deep to the pain pump. Again, this i s not well assessed due to significant streak artifact. This could represent a primary colonic inflam matory process such as colitis or diverticulitis or could be related to the inflammatory process arou nd the pump. Clinical correlation will be essential. 4. The appendix is discrete from this process and normal. 5. No intraperitoneal free air is identified. 6. Airspace opacities are present at both lung bases. This likely represents atelectasis. Correlate c linically for evidence of a mild infectious/inflammatory pneumonitis. ACT 112: Negative or not required by law. Electronically signed by: Edwardo Herrera M.D. 11/05/2020 6:22 PM
[2020-11-05] MEDS ORDERED: VANCOMYCIN HCL 1,250 MG in SODIUM CHLORIDE 0.9% 500 ML IV ONE (18:28)
[2020-11-05] MEDS ORDERED: VANCOMYCIN CONSULT ACTIVE PRN (18:28)
--- NOTE | 2020-11-05 20:09 | History & Physical Report ---
Date of Service November 05, 2020 Assessment & Plan (1) Sepsis: Multifactorial : Recurrent aspiration pneumonia, history of aspiration with status post PEG tube placement Abdominal wall infection, hx intrathecal pump placement for spasticity secondary to cerebral palsy Colitis on CT ? Extension of abdominal wall/possible intrathecal pump infection hx MRSA as per records New onset anemia, stool Hemoccult negative seizure disorder, stable on regimen Medical telemetry CS, Vanco Zosyn Aspiration precautions, swallow eval Pain Management follow-up evaluation for intrathecal pump site May need General Surgery consultation pending pain management evaluation. GI consult Re: Colitis on CT Anemia work-up, transfuse PRBC if hemoglobin less than 7 and or for symptomatic anemia DVT prophylaxis. Lovenox subcu Full code Patient's mother requesting updates from providers. Ms. Joyce West, contact #[phone]. History of Present Illness Chief Complaint: Fever, cough Primary Care Provider: Merissa Lopez DO History obtained from family and records. Unable to obtain history from patient secondary to nonverbal state. Medical history significant for asthma, recurrent aspiration status post PEG replacement, dystonia as per records; cerebral palsy, chronic spasticity on intrathecal baclofen pump, seizure disorder, history of MRSA as per records. Last confinement 2016 for aspiration pneumonia. Patient underwent baclofen pump replacement on the right abdomen last August 2020 by [facility]. Wound healing appropriately on follow-up at the office last month. Patient's mother noted persistent redness however procedure from 2 months ago. 2 days ago patient noted to be febrile at home with dry unproductive cough. Productive cough subsequently got worse. Patient intrathecal pump site on the abdomen noted to be persistently read by both parents. Temperature 102 at home. No black/bloody stools as per patient's mother. At the ER, patient received Vancomycin and Zosyn for sepsis. MEDICAL HISTORY: As above. SURGERIES: PEG tube placement. Some thigh tendon surgery, thecal pump placement. FAMILY HISTORY: Cannot be obtained. PERSONAL AND SOCIAL HISTORY: Non-smoker, primary caregiver is mother. Allergies Allergy/AdvReac Type Severity Reaction Status Date / Time cat dander Allergy Intermediate SHORTNESS Verified 11/05/20 16:17 OF BREATH pollen extracts Allergy Intermediate SHORTNESS Verified 11/05/20 16:17 OF BREATH ciprofloxacin AdvReac Intermediate GI SYMPTOMS Verified 11/05/20 16:17 Dust AdvReac Intermediate SHORTNESS Uncoded 11/05/20 16:17 OF BREATH Home Medications Medication Instructions Recorded Confirmed Type clonazepam 0.5 mg tablet 0.25 mg FEEDING TUBE UD tab 01/22/18 11/05/20 History dicyclomine 10 mg capsule 10 mg FEEDING TUBE BID cap 01/22/18 11/05/20 History fexofenadine 180 mg tablet 180 mg FEEDING TUBE QAM 01/22/18 11/05/20 History fluticasone propionate 50 2 sprays INTNAS QAM 01/22/18 11/05/20 History mcg/actuation nasal spray,suspension glycopyrrolate 1 mg tablet 1 mg FEEDING TUBE TID tab 01/22/18 11/05/20 History lamotrigine 150 mg tablet 150 mg FEEDING TUBE BID 01/22/18 11/05/20 History lamotrigine 25 mg tablet 75 mg FEEDING TUBE HS tab 01/22/18 11/05/20 History omeprazole 20 mg capsule,delayed 20 mg FEEDING TUBE QAM 01/22/18 11/05/20 History release saliva stimulant comb. no.3 1 appln MUCOUS MEMBRANE Q2H PRN 01/22/18 11/05/20 History sodium chloride 0.65 % nasal spray 2 sprays INTNAS QAM PRN ml 01/22/18 11/05/20 History aerosol water for irrigation, sterile 1 ml IRRIGATION DAILY PRN ml 01/22/18 11/05/20 History diazepam 12.5 mg-15 mg-17.5 mg-20 10 mg [place] DAILY PRN 02/14/19 11/05/20 History mg rectal kit Nutren 2.0 4 ea FEEDING TUBE DAILY 02/25/19 11/05/20 History budesonide 0.5 mg/2 mL suspension 0.5 mg INH BID #120 ml 06/21/20 11/05/20 Rx for nebulization Florajen3 3 cap DAILY 08/14/20 11/05/20 History Percussion Vest 08/14/20 09/19/20 History Prevalite 4 g PO QDL 08/14/20 11/05/20 History albuterol sulfate 2.5 mg INHALATION QAM PRN 08/14/20 11/05/20 History clotrimazole 1 applic TOPICAL BID PRN 08/14/20 11/05/20 History dantrolene 25 mg FEEDING TUBE BID 08/14/20 11/05/20 History triamcinolone acetonide 1 applic TOPICAL BID PRN 08/14/20 11/05/20 History hydrocodone 7.5 mg-acetaminophen 15 ml PO Q8H PRN #60 ml 09/04/20 11/05/20 Rx 325 mg/15 mL oral solution baclofen 10 mg PO DIRECTED PRN 11/05/20 11/05/20 History 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 Seizure Seizures well controlled on Lamictal per 03/19/20 neuro note Severe mental handicap Spasticity Surgical History H/O wisdom tooth extraction Hamstring tightness of both lower extremities s/p surgical release of adductor and hamstrings S/P insertion of intrathecal pump Family History Family/Other Heart disease Father Diabetes Heart trouble Social History Smoking Status: Never smoker Second Hand Exposure: No; Hx Alcohol Use: No Hx Substance Use: No Preferred Language: Sinhala Communication Ability: Impaired Beliefs That Will Affect Care: None marital status: Single Current Living Situation: Parent and Personal Care Facility Current Living Situation Comment: Personal Care Facility during week. Parents during the weekend current occupational status: disabled Other Information That Helps Us Care for You: No Feels Safe at Home: Yes Assistive Devices: Nebulizer and Wheelchair Review of Systems Review of Systems: Could not be reliably obtained Physical Exam Physical Exam: GENERAL: Restless, no respiratory distress, intermittent coughing spells SKIN: Pallor , warm HEENT: pale palpebral conjunctivae, no ptosis, dry buccal mucosa NECK : Supple, no tenderness CHEST : Decreased breath sounds, occasional expiratory wheezes, no tenderness HEART : RRR , no obvious murmurs ABDOMEN: Tender induration right anterior abdomen, PEG tube in place RECTAL : Intact sphincter, brown stool (FOBT negative) EXTREMITIES : No LE swelling/tenderness, no other conspicuous deformities noted NEUROLOGIC : Incoherent, restless Results & Data Results & Data ([facility]) Vital Signs (Past 12 Hours) Vital Signs Temp Pulse Pulse Resp BP Pulse Ox 11/05/20 18:00 110 H 17 98 11/05/20 17:44 99 11/05/20 15:45 18 97 11/05/20 14:24 37.5 C 113 H 20 133/76 97 Laboratory Results Laboratory Results WBC 12.94 K/uL (4.8-10.8) H 11/05/20 15:48 RBC 4.08 M/uL (4.7-6.1) L 11/05/20 15:48 Hgb 12.5 g/dL (14.0-18.0) L 11/05/20 15:48 Hct 39.0 % (42-52) L 11/05/20 15:48 MCV 95.6 fL (80-100) 11/05/20 15:48 MCH 30.6 pg (25-34) 11/05/20 15:48 MCHC 32.1 g/dL (32-36) 11/05/20 15:48 RDW Std Deviation 46.1 fL (36.4-46.3) 11/05/20 15:48 RDW Coeff of Kimo 13.1 % (11.5-14.5) 11/05/20 15:48 Plt Count 450 K/uL (130-400) H 11/05/20 15:48 MPV 10.4 fL (7.4-10.4) 11/05/20 15:48 Immature Gran % (Auto) 0.3 % 11/05/20 15:48 Neut % (Auto) 76.6 % 11/05/20 15:48 Lymph % (Auto) 13.1 % 11/05/20 15:48 [place] % (Auto) 7.0 % 11/05/20 15:48 Eos % (Auto) 2.8 % 11/05/20 15:48 Baso % (Auto) 0.2 % 11/05/20 15:48 Neut # (Auto) 9.92 K/uL (1.4-6.5) H 11/05/20 15:48 Lymph # (Auto) 1.70 K/uL (1.2-3.4) 11/05/20 15:48 [place] # (Auto) 0.90 K/uL (0.11-0.59) H 11/05/20 15:48 Eos # (Auto) 0.36 K/uL (0-0.5) 11/05/20 15:48 Baso # (Auto) 0.02 K/uL (0-0.2) 11/05/20 15:48 Immature Gran # (Auto) 0.04 K/uL (0.00-0.02) H 11/05/20 15:48 PT 11.2 Seconds (9.0-12.0) 11/05/20 16:36 INR 1.1 (0.9-1.1) 11/05/20 16:36 APTT 26.8 Seconds (21.0-31.0) 11/05/20 16:36 PTT Ratio 1.0 11/05/20 16:36 Sodium 138 mmol/L (136-145) 11/05/20 15:48 Potassium 4.6 mmol/L (3.5-5.1) 11/05/20 15:48 Chloride 102 mmol/L (98-107) 11/05/20 15:48 Carbon Dioxide 31 mmol/L (21-32) 11/05/20 15:48 Anion Gap 5.0 (3-11) 11/05/20 15:48 BUN 15 mg/dl (7-18) 11/05/20 15:48 Creatinine 0.58 mg/dl (0.6-1.4) L 11/05/20 15:48 Est Cr Clr Drug Dosing Not Reportable 11/05/20 15:48 Est GFR ( Amer) > 150.0 ml/min 11/05/20 15:48 Est GFR (Non-Af Amer) 136.8 ml/min 11/05/20 15:48 BUN/Creatinine Ratio 25.9 (10-20) H 11/05/20 15:48 Glucose 101 mg/dl (70-99) H 11/05/20 15:48 Lactate 1.2 mmol/L (0.4-2.0) 11/05/20 15:48 Calcium 9.0 mg/dl (8.5-10.1) 11/05/20 15:48 Magnesium 2.5 mg/dl (1.8-2.4) H 11/05/20 15:48 Total Bilirubin 0.3 mg/dl (0.2-1) 11/05/20 15:48 AST 11 U/L (15-37) L 11/05/20 15:48 ALT 14 U/L (12-78) 11/05/20 15:48 Alkaline Phosphatase 93 U/L (45-117) 11/05/20 15:48 Total Protein 8.1 gm/dl (6.4-8.2) 11/05/20 15:48 Albumin 3.4 gm/dl (3.4-5.0) 11/05/20 15:48 Globulin 4.7 gm/dl (2.5-4.0) H 11/05/20 15:48 Albumin/Globulin Ratio 0.7 (0.9-2) L 11/05/20 15:48 Procalcitonin < 0.05 ng/ml (0-0.5) 11/05/20 15:48 COVID-19 Eval Order Covid19 at [facility] 11/05/20 15:35 SARS-CoV-2 (PCR) NEGATIVE (Negative) 11/05/20 15:35 Impressions Abdomen/Pelvis CT 11/05/20 15:29 CT SCAN OF THE ABDOMEN AND PELVIS WITH IV CONTRAST CLINICAL HISTORY: Erythema at the right lower quadrant baclofen pump site. Fever. COMPARISON STUDY: Abdominal radiograph dated 05/25/2016. TECHNIQUE: Following the IV administration of 94 cc of Optiray 320, CT scan of the abdomen and pelvis is performed from the lung bases to the proximal femora. Images are reviewed in the axial, sagittal, and coronal planes. IV contrast was administered without complication. A dose lowering technique was utilized adhering to the principles of ALARA. The examination is degraded by streak artifact from the arms which could not be elevated above the abdomen as well as by extensive metallic streak artifact from a pump device in the right lower quadrant. There is also motion artifact. The patient is also suboptimal due to cachexia and a paucity of intraperitoneal fat. CT DOSE: 313.74 mGy.cm FINDINGS: Lung bases: The heart is normal in size and without pericardial effusion. There are mild bibasilar airspace opacities. No pleural effusion is seen. Liver: The contrast-enhanced liver is normal in size, contour, and attenuation. There is no intrahepatic biliary ductal dilatation. The hepatic veins and portal veins are patent. Gallbladder: Unremarkable. Spleen: Normal in size and attenuation. Pancreas: Unremarkable. Adrenal glands: Unremarkable. Kidneys: The contrast enhanced kidneys are normal in size and without hydronephrosis. The kidneys enhance symmetrically. A nonobstructing left renal calculus is identified. This is not well measured due to streak and motion artifact. Abdominal vasculature: The abdominal aorta is normal in course and caliber. Stomach and bowel: A gastrostomy tube is in place. There is no bowel obstruction. Question an inflammatory process involving the ascending colon deep to the pain pump. Inflammatory stranding is suggested around the colon at this level and there is likely wall thickening. This is not well assessed due to extensive streak artifact.. The appendix is well-visualized and normal. Peritoneum: There is no intraperitoneal free air or abdominal ascites. Lymphadenopathy: None. Pelvic viscera: The bladder is distended but otherwise normal in appearance. The prostate and seminal vesicles are normal as visualized. Skeletal structures: The skeletal structures appear osteopenic. No lytic or blastic lesions are seen. Chronic deformity of the hips and bony pelvis is similar to previous. Soft tissues: The patient is cachectic. A pain pump device is present in the right lower quadrant abdominal wall. Leads enter the central canal at the thoracolumbar junction. There is infiltration, soft tissue gas (axial image #264), and fluid identified around the pump, greatest superficially. There is overlying dermal thickening. IMPRESSION: 1. Significantly streak and motion artifact compromised examination. 2. There is infiltration, soft tissue gas, and fluid identified surrounding the pain pump with overlying dermal thickening. This is not well evaluated due to significant streak artifact. Correlate clinically for evidence of soft tissue infection. A small abscess is not excluded. 3. Suspect an inflammatory process involving the ascending colon deep to the pain pump. Again, this is not well assessed due to significant streak artifact. This could represent a primary colonic inflammatory process such as colitis or diverticulitis or could be related to the inflammatory process around the pump. Clinical correlation will be essential. 4. The appendix is discrete from this process and normal. 5. No intraperitoneal free air is identified. 6. Airspace opacities are present at both lung bases. This likely represents atelectasis. Correlate clinically for evidence of a mild infectious/inflammatory pneumonitis. ACT 112: Negative or not required by law. Electronically signed by: Edwardo Herrera M.D. 11/05/2020 6:22 PM Chest X-Ray 11/05/20 15:29 XR chest 1V portable CLINICAL HISTORY: SEPSIS COMPARISON STUDY: August 28, 2020 FINDINGS: No pneumothorax. No pleural effusion. No large infiltrates or consolidative lesions are seen. Previously seen hazy opacities at bilateral lower lung region are improved. Cardiac silhouette is prominent. Evaluation is slightly limited due to rotation. No significant pulmonary vascular congestion.. Osseous structures: unremarkable IMPRESSION: 1. Mild prominence of cardiac silhouette. 2. Interval improvement of hazy opacities at bilateral lower lungs ACT 112: Negative or not required by law. The above report was generated using voice recognition software. It may contain grammatical, syntax or spelling errors. Electronically signed by: Rosenda Iglesias DO 11/05/2020 4:37 PM Diagnostic Findings EKG as per interpretation: Rate 110, sinus tachycardia, normal axis, incomplete RBBB, T wave inversion septal leads
[2020-11-05] MEDS ORDERED: ACETAMINOPHEN 1,000 MG/100 ML VIAL IV PRN (20:29)
[2020-11-05] MEDS ORDERED: PROMETHAZINE HCL 6.25 MG in SODIUM CHLORIDE 0.9% 50 ML IV PRN (20:30)
[2020-11-05] MEDS ORDERED: KETOROLAC TROMETHAMINE 15 MG/ML VIAL IV ONE (20:40)
[2020-11-05] MEDS ORDERED: SODIUM CHLORIDE 0.65% NA SOLN 45 ML (OCEAN) PRN (21:26)
[2020-11-05] MEDS ORDERED: SODIUM CHLORIDE 0.9% 1000ML 1,000 ML IV ONE (21:26)
[2020-11-05] MEDS ORDERED: [UNRECOGNIZED DRUG - OTHER] feeding tube SCH (21:26)
[2020-11-05] MEDS ORDERED: NUTRITIONAL SUPPLEMENTS feeding tube SCH (21:26)
[2020-11-05 22:10] LABS: Appearance Urine Clear (Clear); Bacteria Urine Automated Negative (Negative); Bilirubin Urine Negative (Negative); Blood Urine Negative (Negative); Color Urine Yellow; Epithelial Cell Urine Auto 0-5 /lpf (0-5); Glucose Urine UA Negative (Negative); Ketones Urine Negative (Negative); Leukocyte Esterase Urine 1+ (Negative); Nitrite Urine Negative (Negative); Protein Urine Negative (Negative); RBC Urine Automated 0-4 /hpf (0-4); Specific Gravity Urine > 1.045 (1.000-1.030); Urobilinogen Urine Negative (Negative); WBC Urine Automated >30 /hpf (0-5); pH Urine 8.5 (4.5-7.5)
[2020-11-05] MEDS: PIPERACILLIN/TAZOBACTAM 3.375 GM in DEXTROSE 5% 100 ML IV SCH (22:14)
[2020-11-05] MEDS: GLYCOPYRROLATE 1 MG TAB PO SCH (22:18)
[2020-11-05] MEDS: DANTROLENE SODIUM 25 MG CAP PEG SCH (22:19)
[2020-11-05] MEDS: DICYCLOMINE HCL 10 MG CAP GT SCH (22:20)
[2020-11-05] MEDS: lamoTRIgine 25 MG TAB PO SCH (22:22)
[2020-11-05] MEDS: BUDESONIDE 0.5 MG/2 ML VIAL (PULMICORT) INH SCH (22:30)
[2020-11-05] MEDS: clonazePAM 0.25 MG TAB PO SCH (22:43)
[2020-11-06] MEDS ORDERED: XOPENEX/ATROVENT 1.25mg/0.5MG NEB COMBO NEB SCH (01:00)
[2020-11-06] MEDS: IPRATROPIUM BROMIDE NEB SOLN 0.02% 2.5 ML VIAL INH SCH ×4 (01:21→18:55)
[2020-11-06] MEDS: LEVALBUTEROL 1.25MG/0.5ML NEB INH SCH ×4 (01:21→18:55)
[2020-11-06] MEDS: VANCOMYCIN HCL 1,000 MG in SODIUM CHLORIDE 0.9% 250 ML IV SCH ×3 (01:41→18:07)
[2020-11-06] MEDS: PIPERACILLIN/TAZOBACTAM 3.375 GM in DEXTROSE 5% 100 ML IV SCH ×3 (05:51→22:01)
[2020-11-06 06:27] LABS: Basophils # (auto) 0.03 K/uL (0-0.2); Basophils % (auto) 0.3 %; Eosinophils # (auto) 0.57 K/uL (0-0.5); Eosinophils % (auto) 5.8 %; Hematocrit (blood only) 36.4 % (42-52); Hemoglobin 11.5 g/dL (14.0-18.0); Immature Granulocytes # (auto) 0.03 K/uL (0.00-0.02); Immature Granulocytes % (auto) 0.3 %; Lymphocytes # (auto) 1.56 K/uL (1.2-3.4); Lymphocytes % (auto) 15.8 %; Mean Corpuscular Hemoglobin 30.7 pg (25-34); Mean Corpuscular Hgb Conc 31.6 g/dL (32-36); Mean Corpuscular Volume 97.1 fL (80-100); Mean Platelet Volume 10.3 fL (7.4-10.4); Monocytes # (auto) 0.68 K/uL (0.11-0.59); Monocytes % (auto) 6.9 %; Neutrophils # (auto) 7.03 K/uL (1.4-6.5); Neutrophils % (auto) 70.9 %; Platelet Count 407 K/uL (130-400); RDW Coefficient of Variation 13.2 % (11.5-14.5); RDW Standard Deviation 46.6 fL (36.4-46.3); Red Blood Count 3.75 M/uL (4.7-6.1); Reticulocyte % 1.4 % (0.5-2.0); Reticulocytes # 0.05 10^6/uL (0.02-0.10)
[2020-11-06 07:07] LABS: BUN Creatinine Ratio 21.5 (10-20); Blood Urea Nitrogen 9 mg/dl (7-18); Calcium 8.2 mg/dl (8.5-10.1); Carbon Dioxide 25 mmol/L (21-32); Chloride 110 mmol/L (98-107); Creatinine Clr Calc Pharmacy 179.4 ml/min; Est GFR (African American) > 150.0 ml/min; Est GFR (Non-African American) > 150.0 ml/min; Glucose 69 mg/dl (70-99); Potassium 4.1 mmol/L (3.5-5.1); Sodium 140 mmol/L (136-145)
[2020-11-06] MEDS: BUDESONIDE 0.5 MG/2 ML VIAL (PULMICORT) INH SCH ×2 (07:08→18:55)
[2020-11-06 07:11] LABS: Ferritin 98.5 ng/ml (8-388); Iron 67 mcg/dl (35-175); Total Iron Binding Capacity 297 mcg/dl (250-450); Transferrin 207 mg/dl (200-360)
[2020-11-06] MEDS: DICYCLOMINE HCL 10 MG CAP GT SCH ×2 (08:43→20:27)
[2020-11-06] MEDS: clonazePAM 0.25 MG TAB PO SCH ×3 (08:43→20:26)
[2020-11-06] MEDS: FEXOFENADINE HCL 180 MG TAB PO SCH (08:44)
[2020-11-06] MEDS: DANTROLENE SODIUM 25 MG CAP PEG SCH ×2 (08:44→20:26)
[2020-11-06] MEDS: GLYCOPYRROLATE 1 MG TAB PO SCH ×3 (08:44→20:29)
[2020-11-06] MEDS: LANSOPRAZOLE 30 MG SOLTAB PEG SCH (08:44)
[2020-11-06] MEDS: lamoTRIgine 100 MG TAB PO SCH ×2 (08:45→20:26)
[2020-11-06] MEDS: ADVANCED PROBIOTIC 1250 MG CAPSULE PO SCH (08:45)
[2020-11-06] MEDS: FLUTICASONE PROPIONATE NA SPR 16 GM BTL SCH (08:46)
[2020-11-06 08:53] LABS: Folate (Folic Acid) > 20.00 ng/ml (>5.38)
[2020-11-06] MEDS ORDERED: ENOXAPARIN INJ 30 MG/0.3 ML SYR SQ SCH (09:00)
[2020-11-06 09:31] LABS: Vitamin B12 1672 pg/ml (193-986)
--- NOTE | 2020-11-06 09:53 | Pain Management Consultation ---
Date of Consultation November 06, 2020 Assessment & Plan (1) Sepsis: (2) Abdominal wall cellulitis: (3) Cerebral palsy, quadriplegic: (4) Presence of intrathecal pump: Intrathecal pump pocket appears infected. I have consulted Dr. Luciano to aid in removal of intrathecal pump as it is a subfascial implant. Spoke with Dr. Jenkins and discussed the case and agrees with removal of the pump due to infection. Explantation of the pump will be planned. Continue current antibiotic regimen. History of Present Illness Attending Physician: Tyrese Velasco MD History of Present Illness Mr. West is a 30-year-old male that is well-known with the [facility] pain service with a history of cerebral palsy and significant spasticity that has required the implantation of an intrathecal baclofen pump and catheter delivery system. He did have the pump replaced on 09/04/2020 without any complication. Week 1 and week 2 wound checks appeared well. Patient is nonverbal so his mother is providing history. She states that the incision site appeared pink and thought to be normal healing process. Spams have not worsened recently. Mother brought him in because of a fever. CT scan shows infiltration, soft tissue gas, and fluid surrounding the pump. There is also a suspected inflammatory process of the ascending colon. No reported GI symptoms. Allergies Allergy/AdvReac Type Severity Reaction Status Date / Time cat dander Allergy Intermediate SHORTNESS Verified 11/05/20 16:17 OF BREATH pollen extracts Allergy Intermediate SHORTNESS Verified 11/05/20 16:17 OF BREATH ciprofloxacin AdvReac Intermediate GI SYMPTOMS Verified 11/05/20 16:17 Dust AdvReac Intermediate SHORTNESS Uncoded 11/05/20 16:17 OF BREATH Home Medications Medication Instructions Recorded Confirmed Type clonazepam 0.5 mg tablet 0.25 mg FEEDING TUBE UD tab 01/22/18 11/05/20 History dicyclomine 10 mg capsule 10 mg FEEDING TUBE BID cap 01/22/18 11/05/20 History fexofenadine 180 mg tablet 180 mg FEEDING TUBE QAM 01/22/18 11/05/20 History fluticasone propionate 50 2 sprays INTNAS QAM 01/22/18 11/05/20 History mcg/actuation nasal spray,suspension glycopyrrolate 1 mg tablet 1 mg FEEDING TUBE TID tab 01/22/18 11/05/20 History lamotrigine 150 mg tablet 150 mg FEEDING TUBE BID 01/22/18 11/05/20 History lamotrigine 25 mg tablet 75 mg FEEDING TUBE HS tab 01/22/18 11/05/20 History omeprazole 20 mg capsule,delayed 20 mg FEEDING TUBE QAM 01/22/18 11/05/20 History release saliva stimulant comb. no.3 1 appln MUCOUS MEMBRANE Q2H PRN 01/22/18 11/05/20 History sodium chloride 0.65 % nasal spray 2 sprays INTNAS QAM PRN ml 01/22/18 11/05/20 History aerosol water for irrigation, sterile 1 ml IRRIGATION DAILY PRN ml 01/22/18 11/05/20 History diazepam 12.5 mg-15 mg-17.5 mg-20 10 mg [place] DAILY PRN 02/14/19 11/05/20 History mg rectal kit Nutren 2.0 4 ea FEEDING TUBE DAILY 02/25/19 11/05/20 History budesonide 0.5 mg/2 mL suspension 0.5 mg INH BID #120 ml 06/21/20 11/05/20 Rx for nebulization Florajen3 3 cap DAILY 08/14/20 11/05/20 History Percussion Vest 08/14/20 09/19/20 History Prevalite 4 g PO QDL 08/14/20 11/05/20 History albuterol sulfate 2.5 mg INHALATION QAM PRN 08/14/20 11/05/20 History clotrimazole 1 applic TOPICAL BID PRN 08/14/20 11/05/20 History dantrolene 25 mg FEEDING TUBE BID 08/14/20 11/05/20 History triamcinolone acetonide 1 applic TOPICAL BID PRN 08/14/20 11/05/20 History hydrocodone 7.5 mg-acetaminophen 15 ml PO Q8H PRN #60 ml 09/04/20 11/05/20 Rx 325 mg/15 mL oral solution baclofen 10 mg PO DIRECTED PRN 11/05/20 11/05/20 History Supervising Physician Co-Signing Physician Notes Patient's EMR reviewed, patient examined and plan of care discussed with patient's mother at 17:05 today. Kennedy is a 30-year-old male with trouble palsy with severe spasticity for which she had an intrathecal drug delivery system implanted with infusion of intrathecal baclofen. He underwent a subfascial implant initially and had the intrathecal pump replaced several months ago due to depleted battery. Initially, he was doing well but subsequently it was noted that he had redness at the pump pocket site. Over the last several days he developed fever and subsequently brought to emergency room as the parents thought that he might have Covid. During the evaluation it was noted that he had increased erythema and fluid collection at the pump pocket site and he was subsequently admitted for IV antibiotic therapy and consultation was placed with pain management. Examination, he has erythema around the incision site with palpable fluid collection underneath the skin. CT scan demonstrated presence of fluid and gas in the pump pocket. Consultation was requested with Dr. Ojeda from general surgery and it was determined mutually that the pump needs to be explanted due to infection at the site. Patient did receive Lovenox subcutaneously this morning for DVT prophylaxis this morning. It is plan to proceed with explantation pump tomorrow at 1 PM. Treatment plan discussed with mother in detail. She was informed that the plan is to leave the intrathecal portion of the catheter in case the spasms cannot be treated with oral baclofen and dantrolene and he requires reimplantation of the pump in the future for intrathecal baclofen therapy. Potential complications were discussed with her. Discussion included possibility of additional infection, bleeding, nerve injury, and possible drawls from baclofen requiring additional treatment and monitoring in the PCU over the ICU in the perioperative. Her questions were answered and she voiced understanding. She gives informed consent. Patient History Medical History Allergies Anxiety Aspiration into airway Per pulm 12/04, "doing well clinically, continue to observe for signs or symptoms of aspiration" Asthma working diagnosis, unable to complete PFTs Cerebral palsy, 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) Dry mouth Dystonia Excessive salivation Gastrostomy in place 18F 2.7 cm, change every 3 months, maintain 5-6 ml of water in baloon GERD (gastroesophageal reflux disease) 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 Seizure Seizures well controlled on Lamictal per 03/19/20 neuro note Severe mental handicap Spasticity Surgical History H/O wisdom tooth extraction Hamstring tightness of both lower extremities s/p surgical release of adductor and hamstrings S/P insertion of intrathecal pump Family History Family/Other Heart disease Father Diabetes Heart trouble Social History Smoking Status: Never smoker Second Hand Exposure: No; Hx Alcohol Use: No Hx Substance Use: No Preferred Language: Macedonian Communication Ability: Impaired Beliefs That Will Affect Care: None marital status: Single Current Living Situation: Parent and Personal Care Facility Current Living Situation Comment: Personal Care Facility during week. Parents during the weekend current occupational status: disabled Other Information That Helps Us Care for You: No Feels Safe at Home: Yes Assistive Devices: Nebulizer and Wheelchair Physical Exam Physical Exam: GENERAL: This is a 30 year old male that is sleeping comfortably in the hospital bed, accompanied by his mother. HEAD/FACE: Normocephalic and atraumatic. ENT: Nose without bleeding or discharge. Oral mucosa moist. NECK: Full ROM without apparent pain. No swelling or masses noted. RESPIRATORY: Patient with unlabored breathing. No signs of respiratory distress. CHEST/AXILLA: Chest movement symmetrical. No deformities noted. ABDOMEN/GI: Intrathecal pump is located in the right lower abdomen. There is no tenderness or mobility. There is some fluctuation over the pump. BACK: Moves without difficulty SKIN: The incision is enlarged and striated. There are papules surrounding the pump incision. There is mild warmth to the touch. MS/EXTREMITY: Chronic lower extremity atrophy. One spontaneous spasm during my visit. NEURO: Nonverbal.
--- NOTE | 2020-11-06 10:20 | Gastrointestinal Consultation ---
Date of Consultation November 06, 2020 Assessment & Plan (1) Abdominal wall cellulitis: 30 year old male with history of asthma, recurrent aspiration status post PEG replacement, dystonia as per records;cerebral palsy, chronic spasticity on intrathecal baclofen pump, seizure disorder, history of MRSA admitted w/ fever and abnormal imaging, GI asked to evaluate for colitis on CT. Recommended ID, general surgery and pain management consultation regarding cellulitis and abnormal CT imaging concerning for soft tissue infection. Please continue IV ABX. Discussed with family at bedside colitis on CT who is interested in stool studies if diarrhea type symptoms were to occur but would prefer conservative management at this point in time. No acute indication for colonoscopy. Recall GI as needed. Thank you for allowing us to participate in the care of this patient. Please call with any acute changes, questions or concerns. Please see addendum below with additional recommendation from my supervising physician. Supervising Physician Co-Signing Physician Notes Attg add - I interviewed and examined pt, reviwed chart and labs. Pt with cellulitis around intrathecal pain pump also ? coliits. Pt without change in BH, diarrhea. CT images reviewed with radiology - asc colon is difficult to see due to streak artifact, colitis findings are equivocal. Would not pursue further w/u for colitis in absence of other clinical symptoms. Please call with questions. History of Present Illness Reason for Consultation: colitis on CT Requesting Physician: Krista Attending Physician: Tyrese Velasco MD History of Present Illness 30 year old male with history of asthma, recurrent aspiration status post PEG replacement, dystonia as per records;cerebral palsy, chronic spasticity on intrathecal baclofen pump, seizure disorder, history of MRSA as per records who is admitted through the ED w/ fevers - GI asked to evaluate for colitis on CT. Pt was seen and evaluated, chart reviewed. Mother and nursing in room who aids in history. Notes was in his typical state of health. Had pain pump replaced in August and had been doing well. She notes prolonged healing and some erythema at incision s ite but denies any fluid collection or drainage. Suggests about 1-2 days ago he developed intermittent fevers, dry cough and per family they thought the redness of incision site was larger. This prompted ED evaluation. Family denies any GI symptoms. No issues with tube feeds, tolerance. No vomiting. No change in bowel habits, specifically no black or bloody stools. In the ED, he was started on Vancomycin and Zosyn. Labs revealed leukocytics at 13 w/ slight anemia, HGB 11.5 w/o BUN elevation. CT w/ infiltration, soft tissue gas, and fluid identified surrounding the pain pump with overlying dermal thickening. This is not well evaluated due to significant streak artifact. Correlate clinically for evidence of soft tissue infection. A small abscess is not excluded. Suspect an inflammatory process involving the ascending colon deep to the pain pump CTAP 2020: Significantly streak and motion artifact compromised examination.There is infiltration, soft tissue gas, and fluid identified surrou nding the pain pump with overlying dermal thickening. This is not well evaluated due to significant streak artifact. Correlate clinically for evidence of soft tissue infection. A small abscess is not excluded. Suspect an inflammatory process involving the ascending colon deep to the pain pump. Again, this is not well assessed due to significant streak artifact. This could represent a primary colonic inflammatory process such as colitis or diverticulitis or could be related to the inflammatory process around the pump. Clinical correlation will be essential.The appendix is discrete from this process and normal. No intraperitoneal free air is identified. Airspace opacities are present at both lung bases. This likely represents atelectasis. Correlate clinically for evidence of a mild infectious/inflammatory pneumonitis. Allergies Allergy/AdvReac Type Severity Reaction Status Date / Time cat dander Allergy Intermediate SHORTNESS Verified 11/05/20 16:17 OF BREATH pollen extracts Allergy Intermediate SHORTNESS Verified 11/05/20 16:17 OF BREATH ciprofloxacin AdvReac Intermediate GI SYMPTOMS Verified 11/05/20 16:17 Dust AdvReac Intermediate SHORTNESS Uncoded 11/05/20 16:17 OF BREATH Home Medications Medication Instructions Recorded Confirmed Type clonazepam 0.5 mg tablet 0.25 mg FEEDING TUBE UD tab 01/22/18 11/05/20 History dicyclomine 10 mg capsule 10 mg FEEDING TUBE BID cap 01/22/18 11/05/20 History fexofenadine 180 mg tablet 180 mg FEEDING TUBE QAM 01/22/18 11/05/20 History fluticasone propionate 50 2 sprays INTNAS QAM 01/22/18 11/05/20 History mcg/actuation nasal spray,suspension glycopyrrolate 1 mg tablet 1 mg FEEDING TUBE TID tab 01/22/18 11/05/20 History lamotrigine 150 mg tablet 150 mg FEEDING TUBE BID 01/22/18 11/05/20 History lamotrigine 25 mg tablet 75 mg FEEDING TUBE HS tab 01/22/18 11/05/20 History omeprazole 20 mg capsule,delayed 20 mg FEEDING TUBE QAM 01/22/18 11/05/20 History release saliva stimulant comb. no.3 1 appln MUCOUS MEMBRANE Q2H PRN 01/22/18 11/05/20 History sodium chloride 0.65 % nasal spray 2 sprays INTNAS QAM PRN ml 01/22/18 11/05/20 History aerosol water for irrigation, sterile 1 ml IRRIGATION DAILY PRN ml 01/22/18 11/05/20 History diazepam 12.5 mg-15 mg-17.5 mg-20 10 mg NM DAILY PRN 02/14/19 11/05/20 History mg rectal kit Nutren 2.0 4 ea FEEDING TUBE DAILY 02/25/19 11/05/20 History budesonide 0.5 mg/2 mL suspension 0.5 mg INH BID #120 ml 06/21/20 11/05/20 Rx for nebulization Florajen3 3 cap DAILY 08/14/20 11/05/20 History Percussion Vest 08/14/20 09/19/20 History Prevalite 4 g PO QDL 08/14/20 11/05/20 History albuterol sulfate 2.5 mg INHALATION QAM PRN 08/14/20 11/05/20 History clotrimazole 1 applic TOPICAL BID PRN 08/14/20 11/05/20 History dantrolene 25 mg FEEDING TUBE BID 08/14/20 11/05/20 History triamcinolone acetonide 1 applic TOPICAL BID PRN 08/14/20 11/05/20 History hydrocodone 7.5 mg-acetaminophen 15 ml PO Q8H PRN #60 ml 09/04/20 11/05/20 Rx 325 mg/15 mL oral solution baclofen 10 mg PO DIRECTED PRN 11/05/20 11/05/20 History Patient History Medical History Allergies Anxiety Aspiration into airway Per pulm 12/04, "doing well clinically, continue to observe for signs or symptoms of aspiration" Asthma working diagnosis, unable to complete PFTs Cerebral palsy, 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) Dry mouth Dystonia Excessive salivation Gastrostomy in place 18F 2.7 cm, change every 3 months, maintain 5-6 ml of water in baloon GERD (gastroesophageal reflux disease) 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 Seizure Seizures well controlled on Lamictal per 03/19/20 neuro note Severe mental handicap Spasticity Surgical History H/O wisdom tooth extraction Hamstring tightness of both lower extremities s/p surgical release of adductor and hamstrings S/P insertion of intrathecal pump Family History Family/Other Heart disease Father Diabetes Heart trouble Social History Smoking Status: Never smoker Second Hand Exposure: No; Hx Alcohol Use: No Hx Substance Use: No Preferred Language: Portuguese Communication Ability: Impaired Beliefs That Will Affect Care: None marital status: Single Current Living Situation: Parent and Personal Care Facility Current Living Situation Comment: Personal Care Facility during week. Parents during the weekend current occupational status: disabled Other Information That Helps Us Care for You: No Feels Safe at Home: Yes Assistive Devices: Nebulizer and Wheelchair Review of Systems Review of Systems: Unobtainable due to cognitive status Physical Exam 2 Constitutional: WD/WN, vitals as above no acute distress Neck: trachea midline, no thyromegaly Respiratory: normal respiratory effort; no respiratory distress Auscultation: + diminished lung sounds Cardiovascular: Rate/Rhythm: regular rate and regular rhythm Gastrointestinal (Abdomen): Inspection/Auscultation: normal bowel sounds Pe rcussion/Palpation: abdomen soft; abdomen nontender, no guarding and abdomen not rigid PEG tube in place, flushing well Erythema noted in RLQ at incision line of pain pump Skin: no rashes, warm and dry Results & Data ([facility]) Vital Signs (Past 12 Hours) Vital Signs Temp Pulse Pulse Resp BP BP Pulse Ox 11/06/20 07:40 36.9 C 120/62 11/06/20 07:34 106 H 11/06/20 07:20 104 H 98 11/06/20 07:08 104 H 20 98 11/06/20 05:13 36.4 C L 98 H 18 103/73 93 11/06/20 01:23 77 18 95 11/05/20 22:33 94 H 16 94 11/05/20 22:20 94 H Laboratory Results 11/06/20 11/06/20 11/06/20 Range/Units 05:57 05:57 05:57 WBC 9.90 (4.8-10.8) K/uL RBC 3.75 L (4.7-6.1) M/uL Hgb 11.5 L (14.0-18.0) g/dL Hct 36.4 L (42-52) % MCV 97.1 (80-100) fL MCH 30.7 (25-34) pg MCHC 31.6 L (32-36) g/dL RDW Std Deviation 46.6 H (36.4-46.3) fL RDW Coeff of Kimo 13.2 (11.5-14.5) % Plt Count 407 H (130-400) K/uL MPV 10.3 (7.4-10.4) fL Immature Gran % (Auto) 0.3 % Neut % (Auto) 70.9 % Lymph % (Auto) 15.8 % Schley % (Auto) 6.9 % Eos % (Auto) 5.8 % Baso % (Auto) 0.3 % Reticulocyte % (Auto) 1.4 (0.5-2.0) % Neut # (Auto) 7.03 H (1.4-6.5) K/uL Lymph # (Auto) 1.56 (1.2-3.4) K/uL Schley # (Auto) 0.68 H (0.11-0.59) K/uL Eos # (Auto) 0.57 H (0-0.5) K/uL Baso # (Auto) 0.03 (0-0.2) K/uL Reticulocyte # 0.05 (0.02-0.10) 10^6/uL Immature Gran # (Auto) 0.03 H (0.00-0.02) K/uL PT (9.0-12.0) Seconds INR (0.9-1.1) APTT (21.0-31.0) Seconds PTT Ratio Sodium 140 (136-145) mmol/L Potassium 4.1 (3.5-5.1) mmol/L Chloride 110 H (98-107) mmol/L Carbon Dioxide 25 (21-32) mmol/L Anion Gap 5.0 (3-11) BUN 9 D (7-18) mg/dl Creatinine 0.43 L (0.6-1.4) mg/dl Est Cr Clr Drug Dosing 179.4 Est GFR ( Amer) > 150.0 ml/min Est GFR (Non-Af Amer) > 150.0 ml/min BUN/Creatinine Ratio 21.5 H (10-20) Glucose 69 L (70-99) mg/dl Lactate (0.4-2.0) mmol/L Calcium 8.2 L (8.5-10.1) mg/dl Magnesium (1.8-2.4) mg/dl Iron 67 (35-175) mcg/dl TIBC 297 (250-450) mcg/dl Transferrin 207 (200-360) mg/dl Ferritin 98.5 (8-388) ng/ml Total Bilirubin (0.2-1) mg/dl AST (15-37) U/L ALT (12-78) U/L Alkaline Phosphatase (45-117) U/L Total Protein (6.4-8.2) gm/dl Albumin (3.4-5.0) gm/dl Globulin (2.5-4.0) gm/dl Albumin/Globulin Ratio (0.9-2) Vitamin B12 1672 H (193-986) pg/ml Folate > 20.00 (>5.38) ng/ml Procalcitonin (0-0.5) ng/ml Urine Color Urine Appearance (Clear) Urine pH (4.5-7.5) Ur Specific [place] (1.000-1.030) Urine Protein (Negative) Urine Glucose (UA) (Negative) Urine Ketones (Negative) Urine Blood (Negative) Urine Nitrite (Negative) Urine Bilirubin (Negative) Urine Urobilinogen (Negative) Ur Leukocyte Esterase (Negative) Urine WBC (Auto) (0-5) /hpf Urine RBC (Auto) (0-4) /hpf U Hyaline Cast (Auto) (0-5) /lpf U Epithel Cells (Auto) (0-5) /lpf Urine Bacteria (Auto) (Negative) COVID-19 Eval Order SARS-CoV-2 (PCR) (Negative) Blood Type Antibody Screen 11/06/20 11/05/20 11/05/20 Range/Units 05:57 21:48 16:36 WBC (4.8-10.8) K/uL RBC (4.7-6.1) M/uL Hgb (14.0-18.0) g/dL Hct (42-52) % MCV (80-100) fL MCH (25-34) pg MCHC (32-36) g/dL RDW Std Deviation (36.4-46.3) fL RDW Coeff of Kimo (11.5-14.5) % Plt Count (130-400) K/uL MPV (7.4-10.4) fL Immature Gran % (Auto) % Neut % (Auto) % Lymph % (Auto) % Schley % (Auto) % Eos % (Auto) % Baso % (Auto) % Reticulocyte % (Auto) (0.5-2.0) % Neut # (Auto) (1.4-6.5) K/uL Lymph # (Auto) (1.2-3.4) K/uL Schley # (Auto) (0.11-0.59) K/uL Eos # (Auto) (0-0.5) K/uL Baso # (Auto) (0-0.2) K/uL Reticulocyte # (0.02-0.10) 10^6/uL Immature Gran # (Auto) (0.00-0.02) K/uL PT 11.2 (9.0-12.0) Seconds INR 1.1 (0.9-1.1) APTT 26.8 (21.0-31.0) Seconds PTT Ratio 1.0 Sodium (136-145) mmol/L Potassium (3.5-5.1) mmol/L Chloride (98-107) mmol/L Carbon Dioxide (21-32) mmol/L Anion Gap (3-11) BUN (7-18) mg/dl Creatinine (0.6-1.4) mg/dl Est Cr Clr Drug Dosing Est GFR ( Amer) ml/min Est GFR (Non-Af Amer) ml/min BUN/Creatinine Ratio (10-20) Glucose (70-99) mg/dl Lactate (0.4-2.0) mmol/L Calcium (8.5-10.1) mg/dl Magnesium (1.8-2.4) mg/dl Iron (35-175) mcg/dl TIBC (250-450) mcg/dl Transferrin (200-360) mg/dl Ferritin (8-388) ng/ml Total Bilirubin (0.2-1) mg/dl AST (15-37) U/L ALT (12-78) U/L Alkaline Phosphatase (45-117) U/L Total Protein (6.4-8.2) gm/dl Albumin (3.4-5.0) gm/dl Globulin (2.5-4.0) gm/dl Albumin/Globulin Ratio (0.9-2) Vitamin B12 (193-986) pg/ml Folate (>5.38) ng/ml Procalcitonin (0-0.5) ng/ml Urine Color Yellow Urine Appearance Clear (Clear) Urine pH 8.5 H (4.5-7.5) Ur Specific [place] > 1.045 H (1.000-1.030) Urine Protein Negative (Negative) Urine Glucose (UA) Negative (Negative) Urine Ketones Negative (Negative) Urine Blood Negative (Negative) Urine Nitrite Negative (Negative) Urine Bilirubin Negative (Negative) Urine Urobilinogen Negative (Negative) Ur Leukocyte Esterase 1+ H (Negative) Urine WBC (Auto) >30 H (0-5) /hpf Urine RBC (Auto) 0-4 (0-4) /hpf U Hyaline Cast (Auto) 10-30 H (0-5) /lpf U Epithel Cells (Auto) 0-5 (0-5) /lpf Urine Bacteria (Auto) Negative (Negative) COVID-19 Eval Order SARS-CoV-2 (PCR) (Negative) Blood Type O Positive Antibody Screen NEGATIVE 11/05/20 11/05/20 11/05/20 Range/Units 15:48 15:48 15:48 WBC (4.8-10.8) K/uL RBC (4.7-6.1) M/uL Hgb (14.0-18.0) g/dL Hct (42-52) % MCV (80-100) fL MCH (25-34) pg MCHC (32-36) g/dL RDW Std Deviation (36.4-46.3) fL RDW Coeff of Kimo (11.5-14.5) % Plt Count (130-400) K/uL MPV (7.4-10.4) fL Immature Gran % (Auto) % Neut % (Auto) % Lymph % (Auto) % Schley % (Auto) % Eos % (Auto) % Baso % (Auto) % Reticulocyte % (Auto) (0.5-2.0) % Neut # (Auto) (1.4-6.5) K/uL Lymph # (Auto) (1.2-3.4) K/uL Schley # (Auto) (0.11-0.59) K/uL Eos # (Auto) (0-0.5) K/uL Baso # (Auto) (0-0.2) K/uL Reticulocyte # (0.02-0.10) 10^6/uL Immature Gran # (Auto) (0.00-0.02) K/uL PT (9.0-12.0) Seconds INR (0.9-1.1) APTT (21.0-31.0) Seconds PTT Ratio Sodium 138 (136-145) mmol/L Potassium 4.6 (3.5-5.1) mmol/L Chloride 102 (98-107) mmol/L Carbon Dioxide 31 (21-32) mmol/L Anion Gap 5.0 (3-11) BUN 15 (7-18) mg/dl Creatinine 0.58 L (0.6-1.4) mg/dl Est Cr Clr Drug Dosing Not Reportable Est GFR ( Amer) > 150.0 ml/min Est GFR (Non-Af Amer) 136.8 ml/min BUN/Creatinine Ratio 25.9 H (10-20) Glucose 101 H (70-99) mg/dl Lactate 1.2 (0.4-2.0) mmol/L Calcium 9.0 (8.5-10.1) mg/dl Magnesium 2.5 H (1.8-2.4) mg/dl Iron (35-175) mcg/dl TIBC (250-450) mcg/dl Transferrin (200-360) mg/dl Ferritin (8-388) ng/ml Total Bilirubin 0.3 (0.2-1) mg/dl AST 11 L (15-37) U/L ALT 14 (12-78) U/L Alkaline Phosphatase 93 (45-117) U/L Total Protein 8.1 (6.4-8.2) gm/dl Albumin 3.4 (3.4-5.0) gm/dl Globulin 4.7 H (2.5-4.0) gm/dl Albumin/Globulin Ratio 0.7 L (0.9-2) Vitamin B12 (193-986) pg/ml Folate (>5.38) ng/ml Procalcitonin < 0.05 (0-0.5) ng/ml Urine Color Urine Appearance (Clear) Urine pH (4.5-7.5) Ur Specific [place] (1.000-1.030) Urine Protein (Negative) Urine Glucose (UA) (Negative) Urine Ketones (Negative) Urine Blood (Negative) Urine Nitrite (Negative) Urine Bilirubin (Negative) Urine Urobilinogen (Negative) Ur Leukocyte Esterase (Negative) Urine WBC (Auto) (0-5) /hpf Urine RBC (Auto) (0-4) /hpf U Hyaline Cast (Auto) (0-5) /lpf U Epithel Cells (Auto) (0-5) /lpf Urine Bacteria (Auto) (Negative) COVID-19 Eval Order SARS-CoV-2 (PCR) (Negative) Blood Type Antibody Screen 11/05/20 11/05/20 11/05/20 Range/Units 15:48 15:35 15:35 WBC 12.94 H (4.8-10.8) K/uL RBC 4.08 L (4.7-6.1) M/uL Hgb 12.5 L (14.0-18.0) g/dL Hct 39.0 L (42-52) % MCV 95.6 (80-100) fL MCH 30.6 (25-34) pg MCHC 32.1 (32-36) g/dL RDW Std Deviation 46.1 (36.4-46.3) fL RDW Coeff of Kimo 13.1 (11.5-14.5) % Plt Count 450 H (130-400) K/uL MPV 10.4 (7.4-10.4) fL Immature Gran % (Auto) 0.3 % Neut % (Auto) 76.6 % Lymph % (Auto) 13.1 % Schley % (Auto) 7.0 % Eos % (Auto) 2.8 % Baso % (Auto) 0.2 % Reticulocyte % (Auto) (0.5-2.0) % Neut # (Auto) 9.92 H (1.4-6.5) K/uL Lymph # (Auto) 1.70 (1.2-3.4) K/uL Schley # (Auto) 0.90 H (0.11-0.59) K/uL Eos # (Auto) 0.36 (0-0.5) K/uL Baso # (Auto) 0.02 (0-0.2) K/uL Reticulocyte # (0.02-0.10) 10^6/uL Immature Gran # (Auto) 0.04 H (0.00-0.02) K/uL PT (9.0-12.0) Seconds INR (0.9-1.1) APTT (21.0-31.0) Seconds PTT Ratio Sodium (136-145) mmol/L Potassium (3.5-5.1) mmol/L Chloride (98-107) mmol/L Carbon Dioxide (21-32) mmol/L Anion Gap (3-11) BUN (7-18) mg/dl Creatinine (0.6-1.4) mg/dl Est Cr Clr Drug Dosing Est GFR ( Amer) ml/min Est GFR (Non-Af Amer) ml/min BUN/Creatinine Ratio (10-20) Glucose (70-99) mg/dl Lactate (0.4-2.0) mmol/L Calcium (8.5-10.1) mg/dl Magnesium (1.8-2.4) mg/dl Iron (35-175) mcg/dl TIBC (250-450) mcg/dl Transferrin (200-360) mg/dl Ferritin (8-388) ng/ml Total Bilirubin (0.2-1) mg/dl AST (15-37) U/L ALT (12-78) U/L Alkaline Phosphatase (45-117) U/L Total Protein (6.4-8.2) gm/dl Albumin (3.4-5.0) gm/dl Globulin (2.5-4.0) gm/dl Albumin/Globulin Ratio (0.9-2) Vitamin B12 (193-986) pg/ml Folate (>5.38) ng/ml Procalcitonin (0-0.5) ng/ml Urine Color Urine Appearance (Clear) Urine pH (4.5-7.5) Ur Specific [place] (1.000-1.030) Urine Protein (Negative) Urine Glucose (UA) (Negative) Urine Ketones (Negative) Urine Blood (Negative) Urine Nitrite (Negative) Urine Bilirubin (Negative) Urine Urobilinogen (Negative) Ur Leukocyte Esterase (Negative) Urine WBC (Auto) (0-5) /hpf Urine RBC (Auto) (0-4) /hpf U Hyaline Cast (Auto) (0-5) /lpf U Epithel Cells (Auto) (0-5) /lpf Urine Bacteria (Auto) (Negative) COVID-19 Eval Order Covid19 at [facility] SARS-CoV-2 (PCR) NEGATIVE (Negative) Blood Type Antibody Screen
[2020-11-06] MEDS: CHOLESTYRAMINE LIGHT 4 GM PKT PEG SCH (11:30)
--- NOTE | 2020-11-06 15:04 | Hospitalist Progress Note ---
Date of Service November 06, 2020 Assessment & Plan (1) Sepsis: Sepsis Secondary to abdominal wall cellulitis due to intrathecal pump implant pocket infection Possible Aspiration pneumonia -CTA DB:There is infiltration, soft tissue gas, and fluid identified surrounding the pain pump with overlying dermal thickening. This is not well evaluated due to significant streak artifact. Correlate clinically for evidence of soft tissue infection. A small abscess is not excluded. Suspect an inflammatory process involving the ascending colon deep to the pain pump. Again, this is not well assessed due to significant streak artifact. This could represent a primary colonic inflammatory process such as colitis or diverticulitis or could be related to the inflammatory process around the pump. Clinical correlation will be essential. The appendix is discrete from this process and normal. No intraperitoneal free air is identified. Airspace opacities are present at both lung bases. This likely represents atelectasis. Correlate clinically for evidence of a mild infectious/inflammatory pneumonitis. -Urine culture negative Blood cultures pending Continue empiric antibiotics with vancomycin, Zosyn Appreciate GI, pain management input Surgery consult for replacement of intrathecal pain pump Anemia Likely due to chronic disease Normal iron panel, folate levels High B12 levels stool Hemoccult negative Cerebral Palsy Seizure disorder stable Continue home medications DVT Px: Lovenox SQ Code Status Full code Admission and Anticipated Discharge Date Admission Date: November 05, 2020 Subjective Patient is seen and examined at bedside Non verbal at baseline secondary to cerebral palsy +Dystonic movements at baseline as per family Discussed with patient's mother at bedside Afebrile today Leukocytosis normalized Surgery consulted for possible intrathecal pump replacement Urine culture negative Blood cultures pending Review of Systems Review of Systems: Unobtainable due to cognitive status Physical Exam Physical Exam: Physical Exam: Vitals signs as noted above General Appearance:Thin, +Dystonic movements Head: normocephalic, Atraumatic Eyes: normal inspection, EOMI Neck: supple, Trachea midline Respiratory/Chest: Decreased breath sounds, CTA Cardiovascular: S1, S2, No murmur Abdomen/GI:Soft, Non tender, Bowel sounds present, + intrathecal pocket induration, +PEG tube Extremities/Musculoskeletal:normal inspection, no edema Neurologic/Psych:+ Dystonic movement of all extremities + Cerebral Palsy Skin: normal color, warm Results & Data Results & Data ([facility]) Vital Signs (Past 12 Hours) Vital Signs Temp Pulse Pulse Resp BP BP Pulse Ox 11/06/20 12:57 99 H 20 94 11/06/20 12:17 37.1 C 107 H 20 93 11/06/20 07:40 36.9 C 120/62 11/06/20 07:34 106 H 11/06/20 07:20 104 H 98 11/06/20 07:08 104 H 20 98 11/06/20 05:13 36.4 C L 98 H 18 103/73 93 Laboratory Results Short CBC 11/05/20 11/06/20 Range/Units 15:48 05:57 WBC 12.94 H 9.90 (4.8-10.8) K/uL Hgb 12.5 L 11.5 L (14.0-18.0) g/dL Hct 39.0 L 36.4 L (42-52) % Plt Count 450 H 407 H (130-400) K/uL BMP 11/05/20 11/06/20 15:48 05:57 Sodium 138 140 Potassium 4.6 4.1 Chloride 102 110 H Carbon Dioxide 31 25 BUN 15 9 D Creatinine 0.58 L 0.43 L Glucose 101 H 69 L Calcium 9.0 8.2 L Liver Function 11/05/20 Range/Units 15:48 Total Bilirubin 0.3 (0.2-1) mg/dl AST 11 L (15-37) U/L ALT 14 (12-78) U/L Alkaline Phosphatase 93 (45-117) U/L Albumin 3.4 (3.4-5.0) gm/dl Urine 11/05/20 Range/Units 21:48 Urine Color Yellow Urine Appearance Clear (Clear) Urine pH 8.5 H (4.5-7.5) Ur Specific [place] > 1.045 H (1.000-1.030) Urine Protein Negative (Negative) Urine Glucose (UA) Negative (Negative)
--- NOTE | 2020-11-06 15:08 | Electrocardiogram Report ---
Test Reason : Blood Pressure : / mmHG Vent. Rate : 110 BPM Atrial Rate : 110 BPM P-R Int : 146 ms QRS Dur : 082 ms QT Int : 360 ms P-R-T Axes : 074 051 064 degrees QTc Int : 487 ms Poor data quality, interpretation may be adversely affected Sinus tachycardia Left atrial enlargement Nonspecific ST abnormality Abnormal ECG When compared with ECG of 12-APR-2017 14:43, No significant change was found Confirmed by Walt Banegas ([id number]) on 11/06/2020 3:07:53 PM Referred By: REFERRED SELF Confirmed By:Walt Banegas
--- NOTE | 2020-11-06 16:20 | Surgery Consultation ---
Date of Consultation November 06, 2020 Assessment & Plan (1) Abdominal wall cellulitis: Patient seen with Dr. Ojeda. Agree that pump should be removed and coordinated with Dr. Jenkins to be done tomorrow in the OR. History of Present Illness Attending Physician: Tyrese Velasco MD History of Present Illness 30 y/o male with replacement of Baclofen pump in August. Incision has been red since shortly after the procedure according to the patients mother. Now admitted for fever. CT shows infiltration, soft tissue gas and fluid around the pump. We were asked to evaluate and assist in removal. Allergies Allergy/AdvReac Type Severity Reaction Status Date / Time cat dander Allergy Intermediate SHORTNESS Verified 11/05/20 16:17 OF BREATH pollen extracts Allergy Intermediate SHORTNESS Verified 11/05/20 16:17 OF BREATH ciprofloxacin AdvReac Intermediate GI SYMPTOMS Verified 11/05/20 16:17 Dust AdvReac Intermediate SHORTNESS Uncoded 11/05/20 16:17 OF BREATH Home Medications Medication Instructions Recorded Confirmed Type clonazepam 0.5 mg tablet 0.25 mg FEEDING TUBE UD tab 01/22/18 11/05/20 History dicyclomine 10 mg capsule 10 mg FEEDING TUBE BID cap 01/22/18 11/05/20 History fexofenadine 180 mg tablet 180 mg FEEDING TUBE QAM 01/22/18 11/05/20 History fluticasone propionate 50 2 sprays INTNAS QAM 01/22/18 11/05/20 History mcg/actuation nasal spray,suspension glycopyrrolate 1 mg tablet 1 mg FEEDING TUBE TID tab 01/22/18 11/05/20 History lamotrigine 150 mg tablet 150 mg FEEDING TUBE BID 01/22/18 11/05/20 History lamotrigine 25 mg tablet 75 mg FEEDING TUBE HS tab 01/22/18 11/05/20 History omeprazole 20 mg capsule,delayed 20 mg FEEDING TUBE QAM 01/22/18 11/05/20 History release saliva stimulant comb. no.3 1 appln MUCOUS MEMBRANE Q2H PRN 01/22/18 11/05/20 History sodium chloride 0.65 % nasal spray 2 sprays INTNAS QAM PRN ml 01/22/18 11/05/20 History aerosol water for irrigation, sterile 1 ml IRRIGATION DAILY PRN ml 01/22/18 11/05/20 History diazepam 12.5 mg-15 mg-17.5 mg-20 10 mg OR DAILY PRN 02/14/19 11/05/20 History mg rectal kit Nutren 2.0 4 ea FEEDING TUBE DAILY 02/25/19 11/05/20 History budesonide 0.5 mg/2 mL suspension 0.5 mg INH BID #120 ml 06/21/20 11/05/20 Rx for nebulization Florajen3 3 cap DAILY 08/14/20 11/05/20 History Percussion Vest 08/14/20 09/19/20 History Prevalite 4 g PO QDL 08/14/20 11/05/20 History albuterol sulfate 2.5 mg INHALATION QAM PRN 08/14/20 11/05/20 History clotrimazole 1 applic TOPICAL BID PRN 08/14/20 11/05/20 History dantrolene 25 mg FEEDING TUBE BID 08/14/20 11/05/20 History triamcinolone acetonide 1 applic TOPICAL BID PRN 08/14/20 11/05/20 History hydrocodone 7.5 mg-acetaminophen 15 ml PO Q8H PRN #60 ml 09/04/20 11/05/20 Rx 325 mg/15 mL oral solution baclofen 10 mg PO DIRECTED PRN 11/05/20 11/05/20 History Patient History Medical History Allergies Anxiety Aspiration into airway Per pulm 12/04, "doing well clinically, continue to observe for signs or symptoms of aspiration" Asthma working diagnosis, unable to complete PFTs Cerebral palsy, 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) Dry mouth Dystonia Excessive salivation Gastrostomy in place 18F 2.7 cm, change every 3 months, maintain 5-6 ml of water in baloon GERD (gastroesophageal reflux disease) 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 Seizure Seizures well controlled on Lamictal per 03/19/20 neuro note Severe mental handicap Spasticity Surgical History H/O wisdom tooth extraction Hamstring tightness of both lower extremities s/p surgical release of adductor and hamstrings S/P insertion of intrathecal pump Family History Family/Other Heart disease Father Diabetes Heart trouble Social History Smoking Status: Never smoker Second Hand Exposure: No; Hx Alcohol Use: No Hx Substance Use: No Preferred Language: Gibralt[place] Communication Ability: Impaired Beliefs That Will Affect Care: None marital status: Single Current Living Situation: Parent and Personal Care Facility Current Living Situation Comment: Personal Care Facility during week. Parents during the weekend current occupational status: disabled Other Information That Helps Us Care for You: No Feels Safe at Home: Yes Assistive Devices: Nebulizer and Wheelchair Review of Systems Constitutional: + fever Gastrointestinal: no change in bowel habits and no diarrhea/loose stools Physical Exam Gastrointestinal (Abdomen): Inspection/Auscultation: + abdominal surgical incision (erythema 2cm around each side of the incision ) Results & Data ([facility]) Vital Signs (Past 12 Hours) Vital Signs Temp Pulse Pulse Resp BP BP BP 11/06/20 15:26 36.8 C 102 H 22 91/50 L 11/06/20 14:56 95 H 11/06/20 12:57 99 H 20 11/06/20 12:17 37.1 C 107 H 20 11/06/20 07:40 36.9 C 120/62 11/06/20 07:34 106 H 11/06/20 07:20 104 H 11/06/20 07:08 104 H 20 11/06/20 05:13 36.4 C L 98 H 18 103/73 Pulse Ox 11/06/20 15:26 94 11/06/20 14:56 11/06/20 12:57 94 11/06/20 12:17 93 11/06/20 07:40 11/06/20 07:34 11/06/20 07:20 98 11/06/20 07:08 98 11/06/20 05:13 93 PG Care Time/CCT Total # of Minutes Spent Total Time Spent with Patient: Total time spent is greater than 50% in coordination of care (as documented) at patient's floor/unit and/or counseling patient: Coding Level of Care Code 00170 Inpt Consult Level 2 Diagnoses Abdominal wall cellulitis L03.311
[2020-11-06] MEDS ORDERED: SODIUM CHLORIDE 0.9% 1000ML 1,000 ML IV ONE (16:27)
[2020-11-06] MEDS: lamoTRIgine 25 MG TAB PO SCH (20:28)
[2020-11-07] MEDS: IPRATROPIUM BROMIDE NEB SOLN 0.02% 2.5 ML VIAL INH SCH ×4 (00:58→19:43)
[2020-11-07] MEDS: LEVALBUTEROL 1.25MG/0.5ML NEB INH SCH ×4 (00:58→19:43)
[2020-11-07] MEDS: VANCOMYCIN HCL 1,000 MG in SODIUM CHLORIDE 0.9% 250 ML IV SCH ×3 (01:53→18:05)
[2020-11-07] MEDS: PIPERACILLIN/TAZOBACTAM 3.375 GM in DEXTROSE 5% 100 ML IV SCH ×3 (06:04→21:48)
[2020-11-07] MEDS: BUDESONIDE 0.5 MG/2 ML VIAL (PULMICORT) INH SCH ×2 (07:10→19:43)
[2020-11-07] MEDS: clonazePAM 0.25 MG TAB PO SCH ×3 (08:14→20:40)
[2020-11-07] MEDS: lamoTRIgine 100 MG TAB PO SCH ×2 (08:14→20:36)
[2020-11-07] MEDS: GLYCOPYRROLATE 1 MG TAB PO SCH ×3 (08:16→20:35)
[2020-11-07] MEDS: FEXOFENADINE HCL 180 MG TAB PO SCH (08:16)
[2020-11-07] MEDS: LANSOPRAZOLE 30 MG SOLTAB PEG SCH (08:16)
[2020-11-07] MEDS: ADVANCED PROBIOTIC 1250 MG CAPSULE PO SCH (08:17)
[2020-11-07] MEDS: DICYCLOMINE HCL 10 MG CAP GT SCH ×2 (08:17→20:35)
[2020-11-07] MEDS: DANTROLENE SODIUM 25 MG CAP PEG SCH ×2 (08:17→20:35)
[2020-11-07] MEDS: FLUTICASONE PROPIONATE NA SPR 16 GM BTL SCH (08:18)
[2020-11-07] MEDS ORDERED: VANCOMYCIN TROUGH ONE (09:30)
[2020-11-07 09:51] LABS: Hemoglobin 11.3 g/dL (14.0-18.0); Mean Corpuscular Hemoglobin 31.1 pg (25-34); Mean Corpuscular Hgb Conc 32.3 g/dL (32-36); Mean Corpuscular Volume 96.4 fL (80-100); Mean Platelet Volume 9.7 fL (7.4-10.4); Platelet Count 398 K/uL (130-400); RDW Standard Deviation 45.9 fL (36.4-46.3); Red Blood Count 3.63 M/uL (4.7-6.1); White Blood Count 6.54 K/uL (4.8-10.8)
[2020-11-07 10:07] LABS: BUN Creatinine Ratio 18.5 (10-20); Blood Urea Nitrogen 7 mg/dl (7-18); Calcium 8.3 mg/dl (8.5-10.1); Carbon Dioxide 25 mmol/L (21-32); Chloride 107 mmol/L (98-107); Est GFR (African American) > 150.0 ml/min; Est GFR (Non-African American) > 150.0 ml/min; Glucose 74 mg/dl (70-99); Potassium 3.7 mmol/L (3.5-5.1); Sodium 139 mmol/L (136-145)
--- NOTE | 2020-11-07 11:07 | Hospitalist Progress Note ---
Date of Service November 07, 2020 Assessment & Plan (1) Sepsis: Sepsis Secondary to abdominal wall cellulitis due to intrathecal pump implant pocket infection Possible Aspiration pneumonia -CT abdomen/pelvis :There is infiltration, soft tissue gas, and fluid identified surrounding the pain pump with overlying dermal thickening. This is not well evaluated due to significant streak artifact. Correlate clinically for evidence of soft tissue infection. A small abscess is not excluded. Suspect an inflammatory process involving the ascending colon deep to the pain pump. Again, this is not well assessed due to significant streak artifact. This could represent a primary colonic inflammatory process such as colitis or diverticulitis or could be related to the inflammatory process around the pump. Clinical correlation will be essential. The appendix is discrete from this process and normal. No intraperitoneal free air is identified. Airspace opacities are present at both lung bases. This likely represents atelectasis. Correlate clinically for evidence of a mild infectious/inflammatory pneumonitis. Patient started on broad-spectrum antibiotic with IV Zosyn/vancomycin With cultures ordered Appreciate input from pain management, Intrathecal baclofen pump was removed surgically by Dr. Zapien today, Appreciate input from Dr. Zapien, was updated: There was minimal pus collection around pump pocket, Significant inflammation around the muscle space, No evidence of peritonitis. Wound was kept open, dressing placed, wound care consult was placed Wound culture sample obtained intraoperatively Recommends continue antibiotic, Mandeep infectious disease consulted May need long-term IV antibiotic Anemia Likely due to chronic disease Normal iron panel, folate levels High B12 levels stool Hemoccult negative Cerebral Palsy Seizure disorder Intrathecal baclofen pump surgically removed today for infection around the pump pocket. Ordered for scheduled dose of p.o. 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 [facility] Admission and Anticipated Discharge Date Admission Date: November 05, 2020 Subjective Patient was taken to the OR for intrathecal pump extraction, was not back into room from OR till late evening pt was not personally seen by be I did a detail chart review and also discussed with Dr Jenkins post operatively - for operative findings and treatment plan Physical Exam Physical Exam: no done , pt was not seen Results & Data Results & Data ([facility]) Vital Signs (Past 12 Hours) Vital Signs Pulse Pulse Resp Pulse Ox 11/07/20 07:16 81 11/07/20 07:11 99 H 20 93 11/07/20 01:03 112 H 94
[2020-11-07] MEDS: CHOLESTYRAMINE LIGHT 4 GM PKT PEG SCH (11:22)
[2020-11-07] MEDS ORDERED: MIDAZOLAM HCL 1 MG/ML 2ML VIAL ONE (11:25)
[2020-11-07] MEDS ORDERED: fentaNYL citrate 100 MCG/2 ML VIAL ONE (11:25)
--- NOTE | 2020-11-07 12:22 | History & Physical Bridge Note ---
Date of Service November 07, 2020 History & Physical Bridge Note No change in Kennedy West's interval history examination noted today. He has been n.p.o. and his Lovenox has been held for over 24 hours now. The necessity for the procedure, post explantation management of his spasticity and inherent surgical and anesthetic risks discussed with patient's mother. She gives informed consent to proceed.
--- NOTE | 2020-11-07 12:37 | Anesthesiology Consultation ---
Date of Service November 07, 2020 Assessment & Plan (1) Encounter for pre-operative examination: Chart Review Chart Review: Acceptable Risk for Surgery and Patient NOT seen in Pre Admission Testing Consults Requested none ASA ASA3 Proposed Anesthesia Risk / Benefits Reviewed With: PT / POA / Parent / Guardian, Accepts Plan and Informed Consent Obtained History Surgery Operation Date: 11/07/20 12:00 Proposed Procedures p Removal of Pain Pump and Catheter - Pawelcharbel Jenkins MD, FIPP Height/Weight Height: 5 ft 1 in Weight: 50.8 kg Allergies Allergy/AdvReac Type Severity Reaction Status Date / Time cat dander Allergy Intermediate SHORTNESS Verified 11/05/20 16:17 OF BREATH pollen extracts Allergy Intermediate SHORTNESS Verified 11/05/20 16:17 OF BREATH ciprofloxacin AdvReac Intermediate GI SYMPTOMS Verified 11/05/20 16:17 Dust AdvReac Intermediate SHORTNESS Uncoded 11/05/20 16:17 OF BREATH Medications Home Medications Medication Instructions Recorded Confirmed Last Taken clonazepam 0.5 mg tablet 0.25 mg FEEDING TUBE UD tab 01/22/18 11/05/20 09/03/20 20:00 dicyclomine 10 mg capsule 10 mg FEEDING TUBE BID cap 01/22/18 11/05/20 11/05/20 fexofenadine 180 mg tablet 180 mg FEEDING TUBE QAM 01/22/18 11/05/20 11/05/20 fluticasone propionate 50 2 sprays INTNAS QAM 01/22/18 11/05/20 11/05/20 mcg/actuation nasal spray,suspension glycopyrrolate 1 mg tablet 1 mg FEEDING TUBE TID tab 01/22/18 11/05/20 11/05/20 lamotrigine 150 mg tablet 150 mg FEEDING TUBE BID 01/22/18 11/05/20 11/04/20 lamotrigine 25 mg tablet 75 mg FEEDING TUBE HS tab 01/22/18 11/05/20 11/04/20 omeprazole 20 mg capsule,delayed 20 mg FEEDING TUBE QAM 01/22/18 11/05/20 11/05/20 release saliva stimulant comb. no.3 1 appln MUCOUS MEMBRANE Q2H PRN 01/22/18 11/05/20 11/05/20 sodium chloride 0.65 % nasal spray 2 sprays INTNAS QAM PRN ml 01/22/18 11/05/2011/05/21 aerosol water for irrigation, sterile 1 ml IRRIGATION DAILY PRN ml 01/22/18 11/05/20 11/05/20 diazepam 12.5 mg-15 mg-17.5 mg-20 10 mg SD DAILY PRN 02/14/19 11/05/20 Unknown mg rectal kit Nutren 2.0 4 ea FEEDING TUBE DAILY 02/25/19 11/05/20 11/05/20 budesonide 0.5 mg/2 mL suspension 0.5 mg INH BID #120 ml 06/21/20 11/05/20 11/05/20 for nebulization Florajen3 3 cap DAILY 08/14/20 11/05/20 11/05/20 Percussion Vest 08/14/20 09/19/20 Unknown Prevalite 4 g PO QDL 08/14/20 11/05/20 11/05/20 albuterol sulfate 2.5 mg INHALATION QAM PRN 08/14/20 11/05/20 11/05/20 clotrimazole 1 applic TOPICAL BID PRN 08/14/20 11/05/20 Unknown dantrolene 25 mg FEEDING TUBE BID 08/14/20 11/05/20 11/05/20 triamcinolone acetonide 1 applic TOPICAL BID PRN 08/14/20 11/05/20 09/02/20 08:00 hydrocodone 7.5 mg-acetaminophen 15 ml PO Q8H PRN #60 ml 09/04/20 11/05/20 Unknown 325 mg/15 mL oral solution baclofen 10 mg PO DIRECTED PRN 11/05/20 11/05/20 Unknown Active Medications Generic Name Dose Route Start Last Admin Trade Name Freq PRN Reason Stop Dose Admin Budesonide 0.5 mg 11/05/20 21:26 11/07/20 07:10 Budesonide 0.5 Mg/2 Ml Vial (Pulmicort) INH 12/05/20 21:25 0.5 mg BIDR AIMEE Administration Cholestyramine Resin 4 gm 11/06/20 11:30 11/07/20 11:22 Cholestyramine Light 4 Gm Pkt PEG 12/06/20 11:29 Not Given QDL AIMEE Clonazepam 0.125 mg 11/06/20 08:00 11/07/20 08:14 Clonazepam 0.25 Mg Tab PO 12/06/20 07:59 0.125 mg DAILY@0800,1400 AIMEE Administration Clonazepam 0.25 mg 11/05/20 21:45 11/06/20 20:26 Clonazepam 0.25 Mg Tab PO 12/05/20 21:44 0.25 mg HS AIMEE Administration Dantrolene Sodium 25 mg 11/05/20 21:26 11/07/20 08:17 Dantrolene Sodium 25 Mg Cap PEG 12/05/20 21:25 25 mg BID AIMEE Administration Dicyclomine HCl 10 mg 11/05/20 21:26 11/07/20 08:17 Dicyclomine Hcl 10 Mg Cap GT 12/05/20 21:25 10 mg BID AIMEE Administration Enoxaparin Sodium 30 mg 11/06/20 09:00 11/06/20 08:47 Enoxaparin Inj 30 Mg/0.3 Ml Syr SQ 12/06/20 08:59 30 mg QAM AIMEE Administration Fexofenadine HCl 180 mg 11/06/20 09:00 11/07/20 08:16 Fexofenadine Hcl 180 Mg Tab PO 12/06/20 08:59 180 mg QAM AIMEE Administration Fluticasone Propionate 2 sprays 11/06/20 09:00 11/07/20 08:18 Fluticasone Propionate Na Spr 16 Gm Btl NA 12/06/20 08:59 2 sprays QAM AIMEE Administration Glycopyrrolate 1 mg 11/05/20 21:26 11/07/20 08:16 Glycopyrrolate 1 Mg Tab PO 12/05/20 21:25 1 mg TID AIMEE Administration Piperacillin Sod/Tazobactam 115 mls @ 28.75 mls/hr 11/05/20 22:00 11/07/20 10:04 Sod 3.375 gm/ Dextrose IV 11/12/20 21:59 Infused Q8H AIMEE Infusion Protocol Vancomycin HCl 1,000 mg/ 270 mls @ 200 mls/hr 11/06/20 02:00 11/07/20 11:21 Sodium Chloride IV 11/13/20 01:59 200 mls/hr Q8H AIMEE Administration Ipratropium [place] 0.5 mg 11/06/20 01:00 11/07/20 07:10 Ipratropium [place] Neb Soln 0.02% 2.5 Ml Vial INH 12/06/20 00:59 0.5 mg Q6R AIMEE Administration Lactobacillus Acidoph/Casei/Rhamnos 2 cap 11/06/20 09:00 11/07/20 08:17 Advanced Probiotic 1250 Mg Capsule PO 12/06/20 08:59 2 cap DAILY AIMEE Administration Lamotrigine 150 mg 11/06/20 09:00 11/07/20 08:14 Lamotrigine 100 Mg Tab PO 12/06/20 08:59 150 mg BID AIMEE Administration Lamotrigine 75 mg 11/05/20 21:26 11/06/20 20:28 Lamotrigine 25 Mg Tab PO 12/05/20 21:25 75 mg HS AIMEE Administration Lansoprazole 30 mg 11/06/20 09:00 11/07/20 08:16 Lansoprazole 30 Mg Soltab PEG 12/06/20 08:59 30 mg QAM AIMEE Administration Levalbuterol HCl 1.25 mg 11/06/20 01:00 11/07/20 07:10 Levalbuterol 1.25mg/0.5ml Neb INH 12/06/20 00:59 1.25 mg Q6R AIMEE Administration NPO Date Last Intake of Fluids: 11/07/20 Time Last Intake of Fluids: 08:30 Last Intake of Fluids Comment: with meds through peg tube Date Last Intake of Solids: 11/05/20 Last Intake of Solids Comment: tube feeding. Past Medical History Medical History Allergies Anxiety Aspiration into airway Per pulm 12/04, "doing well clinically, continue to observe for signs or symptoms of aspiration" Asthma working diagnosis, unable to complete PFTs Cerebral palsy, 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) Dry mouth Dystonia Excessive salivation Gastrostomy in place 18F 2.7 cm, change every 3 months, maintain 5-6 ml of water in baloon GERD (gastroesophageal reflux disease) 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 Seizure Seizures well controlled on Lamictal per 03/19/20 neuro note Severe mental handicap Spasticity Exercise / Class Metabolic Activity IV < 2 Limit ADL/Bedbound Past Family History Family History Family/Other Heart disease Father Diabetes Heart trouble Past Surgical History Surgical History H/O wisdom tooth extraction Hamstring tightness of both lower extremities s/p surgical release of adductor and hamstrings S/P insertion of intrathecal pump Past Anesthesia History No Hx of Anesthesia Complications and No Family Hx of Anesthesia Complications History of PONV No Hx of PONV and No Hx of Motion Sickness Social History Smoking Status: Never smoker Hx Alcohol Use: No Hx Substance Use: No substance use type: does not use Physical Exam Vital Signs Last Vital Signs Temp 37.1 C 11/07/20 12:29 Pulse 103 H 11/07/20 12:29 Resp 18 11/07/20 12:29 BP 115/67 11/06/20 23:05 Pulse Ox 91 11/07/20 12:29 Constitutional non verbal ENMT Mouth: no dentition abnormality Thyromental Distance: > or= 3.5 Finger Breadths Mallampati Class: II Neck normal visual inspection Respiratory normal respiratory effort Auscultation: lungs clear to auscultation bilaterally Cardiovascular Rate/Rhythm: regular rate and regular rhythm Neurologic contractures x4 extremities Psychiatric Orientation: alert Testing Laboratory Results 11/07/20 09:36 11/07/20 09:36 PT 11.2 Seconds (9.0-12.0) 11/05/20 16:36 INR 1.1 (0.9-1.1) 11/05/20 16:36 APTT 26.8 Seconds (21.0-31.0) 11/05/20 16:36 Urine Color Yellow 11/05/20 21:48 Urine Appearance Clear (Clear) 11/05/20 21:48 Urine pH 8.5 (4.5-7.5) H 11/05/20 21:48 Ur Specific [place] > 1.045 (1.000-1.030) H 11/05/20 21:48 Urine Protein Negative (Negative) 11/05/20 21:48 Urine Glucose (UA) Negative (Negative) 11/05/20 21:48 Urine Ketones Negative (Negative) 11/05/20 21:48 Urine Nitrite Negative (Negative) 11/05/20 21:48 Ur Leukocyte Esterase 1+ (Negative) H 11/05/20 21:48 Urine WBC (Auto) >30 /hpf (0-5) H 11/05/20 21:48 Urine RBC (Auto) 0-4 /hpf (0-4) 11/05/20 21:48 U Hyaline Cast (Auto) 10-30 /lpf (0-5) H 11/05/20 21:48 U Epithel Cells (Auto) 0-5 /lpf (0-5) 11/05/20 21:48 Urine Bacteria (Auto) Negative (Negative) 11/05/20 21:48 Blood Type O Positive 11/06/20 05:57 Antibody Screen NEGATIVE 11/06/20 05:57 11/05/20 16:00 Aerobic Blood Culture - Preliminary Blood No growth in Aerobic bottle after 24 hours. Anaerobic Blood Culture - Preliminary No growth in Anaerobic bottle after 24 hours. 11/05/20 15:48 Aerobic Blood Culture - Preliminary Blood No growth in Aerobic bottle after 24 hours. Anaerobic Blood Culture - Preliminary No growth in Anaerobic bottle after 24 hours. 11/05/20 21:48 Urine Culture - Preliminary Urine,Straight Cath No growth - Less than 1,000 colonies/mL, Final report to follow.
[2020-11-07] MEDS ORDERED: ATROPINE SULFATE 0.1 MG/ML 10ML SYR IV PRN (12:49)
[2020-11-07] MEDS ORDERED: ePHEDrine sulfate 50 MG/ML AMP IV PRN (12:49)
[2020-11-07] MEDS ORDERED: fentaNYL citrate 100 MCG/2 ML VIAL IV PRN (12:49)
[2020-11-07] MEDS ORDERED: ONDANSETRON INJ 2 MG/ML 2 ML VIAL IV PRN (12:49)
[2020-11-07] MEDS ORDERED: BUPIVACAINE 0.25% 30 ML VIAL ONE (13:33)
[2020-11-07] MEDS ORDERED: EPINEPHrine INJ 1 MG/ML AMP ONE (13:34)
[2020-11-07] MEDS ORDERED: SUGAMMADEX SODIUM 200 MG/2 ML VIAL IV ONE (13:46)
[2020-11-07] MEDS ORDERED: PHENYLEPHRINE 100MCG/ML 5ML SYR ONE (13:56)
[2020-11-07] MEDS ORDERED: ePHEDrine sulfate 50 MG/ML SYR ONE (13:56)
[2020-11-07] MEDS ORDERED: ROCURONIUM BROMIDE 10 MG/ML 5 ML VIAL IV ONE (13:56)
[2020-11-07] MEDS ORDERED: PROPOFOL IV EMULSION 10 MG/ML 20 ML VIAL IV ONE ×2 (13:56→14:06)
[2020-11-07] MEDS ORDERED: LIDOCAINE 2% 2 ML VIAL/AMP(20MG/ML) INFIL ONE (13:56)
--- NOTE | 2020-11-07 15:10 | Operative Report ---
Post Operative Report Pre & Post Diagnosis Operation Date: 11/07/20 12:00 Pre-Op Diagnosis: Intrathecal pump pocket site infection. Post-Op Diagnosis: Same I identified the patient and participated in the time-out.: Yes Procedure Operation Date: 11/07/20 12:00 Actual Procedures Removal of intrathecal pump and and extrathecal portion of Catheter - Pawel Jenkins MD, SERGIO Surgeon Pawel Jenkins MD, SERGIO Overlock Hemmer Dr. Ojeda Estimated Blood Loss 50 Findings Consistent with Post-Op Diagnosis Specimens Superficial and deep wound cultures Drains Wound packed in 1 inch gauze Ponce catheter Anesthesia Type General Complications none None Disposition Accompanied Patient To Recovery: No Disposition: Recovery Room Description of Procedure INTRATHECAL PUMP EXPLANTATION PROCEDURE PERFORMED: Intrathecal pump explanation. PREOPERATIVE DIAGNOSIS: Intrathecal pump pocket site infection. POSTOPERATIVE DIAGNOSIS: Same. COMPLICATIONS: None. SURGEON: Dr. Brayan Jenkins. ANESTHESIA: General/ETT. MATERIAL FORWARDED TO THE LAB: Explanted pump. EBL: 50 ml INDICATIONS: Kennedy West is a 30 year old male with cerebral palsy with spasticity. He has an infected intrathecal pump pocket site and requires explanation. The patients critical care registered nurse was explained the risks, benefits, alternatives of the procedure and agreed to proceed as above. Informed consent was obtained and witnessed. A time out was performed after the patient was brought into the Operating Room. Antibiotics were given. The patient was then induced with general anesthesia without complications and was placed in supine position with left lateral tilt. The skin was prepped with DuraPrep and Betadine and draped in sterile fashion. The catheter was located using fluoroscopy and incision was made in the lumbar spine area and carried down to locate the catheter using electrocautery. Catheter was followed to the anchor and the portion that was distal to the anchor towards the pump was identified. 3-0 silk pursing structures were taken to ligate the intrathecal portion of the catheter as well as 2 vascular clips were applied to stop any CSF leaks. Catheter was then cut distal to the clips. The back incision was then irrigated with Betadine containing saline and closed with 0 strata fix antibiotic coated sutures the deeper layer and 3-0 antibiotic coated strata fix for subcuticular layer. 4x4 dressings followed by OpSite were applied to the wound. Wound was then covered with additional large OpSite and isolated. Next, the existing pump was identified and using a scalpel, electro cautery, and blunt dissection, the existing pump was exposed. A culture was taken from the superficial wound upon entering the pocket. Small amount of purulent material was noted exiting from the wound as it was opened. Pump was then removed along with 12 cm of the remaining catheter. Catheter portion from the back was unable to be removed as it was trapped in scar tissue and therefore was left in place. Wound was inspected and the peritoneum was noted to be intact. The wound culture was taken as well. Necrotic debris was removed from the wound and the wound was irrigated with Betadine containing saline. Wound was packed with 1 inch gauze and 2-0 Prolene sutures were used to suture the gauze in place and partially close the wound. 4 x 4 dressings followed by an OpSite was applied to the wound. Kennedy was allowed to emerge from general anesthesia and extubated. He was taken to the recovery room. I attest to the content of the Intraoperative Record and any orders documented therein. Any exceptions are noted below.
--- NOTE | 2020-11-07 16:01 | Anesthesiology Progress Note ---
Date of Service November 07, 2020 Anesthesia Post Procedure Vital Signs Vital Signs: Temp Pulse Pulse Pulse Pulse Resp BP 11/07/20 15:55 36.2 C L 99 H 19 100/61 11/07/20 15:45 36.2 C L 95 H 19 118/64 11/07/20 15:35 36.2 C L 95 H 25 H 109/69 11/07/20 15:25 36.2 C L 99 H 21 118/72 11/07/20 15:15 89 20 111/71 11/07/20 15:05 93 H 19 114/71 11/07/20 14:55 36.1 C L 105 H 14 116/74 11/07/20 12:29 37.1 C 103 H 18 11/07/20 11:40 36.9 C 101 H 18 11/07/20 07:16 81 11/07/20 07:11 99 H 20 11/07/20 01:03 112 H 11/06/20 23:05 36.8 C 111 H 20 11/06/20 22:29 106 H 11/06/20 19:20 37.0 C 118 H 22 11/06/20 18:57 100 H 20 BP Pulse Ox 11/07/20 15:55 95 11/07/20 15:45 95 11/07/20 15:35 91 11/07/20 15:25 89 L 11/07/20 15:15 96 11/07/20 15:05 95 11/07/20 14:55 96 11/07/20 12:29 91 11/07/20 11:40 94 11/07/20 07:16 11/07/20 07:11 93 11/07/20 01:03 94 11/06/20 23:05 115/67 94 11/06/20 22:29 11/06/20 19:20 133/60 94 11/06/20 18:57 94 Transfer of Care Handoff Completed per policy Notes Mental Status: alert / awake / arousable (non verbal at baseline) Patient Amnestic to Procedure: Yes (non verbal) Nausea / Vomiting: adequately controlled Pain: adequately controlled Airway Patency, RR, SpO2: stable & adequate BP & HR: stable & adequate Hydration State: stable & adequate Anesthetic Complications: no major complications apparent
[2020-11-07] MEDS ORDERED: TRIAMCINOLONE ACET 0.1% CR 15 GM TUBE TOP PRN (16:39)
[2020-11-07] MEDS ORDERED: CLOTRIMAZOLE 1% CR 15 GM TUBE TOP PRN (16:39)
[2020-11-07] MEDS ORDERED: ALBUTEROL 0.083% NEBU SOLN 3 ML VIAL INH PRN (16:39)
[2020-11-07] MEDS: TUBE FEEDING WATER FLUSH PEG SCH ×3 (17:59→20:37)
[2020-11-07] MEDS: BACLOFEN 20 MG TAB PO SCH (20:33)
[2020-11-07] MEDS: lamoTRIgine 25 MG TAB PO SCH (20:34)
[2020-11-08] MEDS: IPRATROPIUM BROMIDE NEB SOLN 0.02% 2.5 ML VIAL INH SCH ×4 (01:31→19:08)
[2020-11-08] MEDS: LEVALBUTEROL 1.25MG/0.5ML NEB INH SCH ×4 (01:31→19:08)
[2020-11-08] MEDS: HYDROmorphone INJ 0.5 MG/0.5 ML SYR IV PRN ×6 (01:48→21:50)
[2020-11-08] MEDS: LORazepam 0.25 MG/0.5 ML VIAL IV PRN ×3 (01:50→22:50)
[2020-11-08] MEDS: VANCOMYCIN HCL 1,000 MG in SODIUM CHLORIDE 0.9% 250 ML IV SCH ×3 (01:54→23:41)
[2020-11-08] MEDS: PIPERACILLIN/TAZOBACTAM 3.375 GM in DEXTROSE 5% 100 ML IV SCH ×3 (05:59→21:43)
[2020-11-08] MEDS: BUDESONIDE 0.5 MG/2 ML VIAL (PULMICORT) INH SCH ×2 (07:16→19:08)
[2020-11-08] MEDS: DICYCLOMINE HCL 10 MG CAP GT SCH ×2 (07:56→21:20)
[2020-11-08] MEDS: FLUTICASONE PROPIONATE NA SPR 16 GM BTL SCH (07:56)
[2020-11-08] MEDS: TUBE FEEDING WATER FLUSH PEG SCH ×6 (07:56→21:23)
[2020-11-08] MEDS: DANTROLENE SODIUM 25 MG CAP PEG SCH ×2 (07:56→21:21)
[2020-11-08] MEDS: GLYCOPYRROLATE 1 MG TAB PO SCH ×3 (07:56→21:21)
[2020-11-08] MEDS: BACLOFEN 20 MG TAB PO SCH ×3 (07:56→21:24)
[2020-11-08] MEDS: FEXOFENADINE HCL 180 MG TAB PO SCH (07:56)
[2020-11-08] MEDS: clonazePAM 0.25 MG TAB PO SCH ×3 (07:56→21:20)
[2020-11-08] MEDS: lamoTRIgine 100 MG TAB PO SCH ×2 (07:57→21:21)
[2020-11-08] MEDS: ADVANCED PROBIOTIC 1250 MG CAPSULE PO SCH (07:57)
[2020-11-08] MEDS: LANSOPRAZOLE 30 MG SOLTAB PEG SCH (07:57)
--- NOTE | 2020-11-08 08:39 | Anesthesiology Progress Note ---
Date of Service November 08, 2020 Anesthesia Post Procedure Vital Signs Vital Signs: Temp Pulse Pulse Pulse Resp BP BP 11/08/20 07:29 133 H 28 H 11/08/20 07:22 103 H 11/08/20 06:25 36.6 C 108 H 22 107/64 11/08/20 01:32 118 H 25 H 11/08/20 00:39 122 H 11/07/20 22:30 36.7 C 86 18 118/70 11/07/20 20:17 37.0 C 102 H 21 11/07/20 19:50 113 H 25 H 11/07/20 17:56 97 H 19 107/38 L 11/07/20 17:40 90 18 107/63 11/07/20 17:30 88 21 11/07/20 17:25 100 H 34 H 103/62 11/07/20 17:15 96 H 21 11/07/20 17:11 100 H 15 106/66 11/07/20 17:00 98 H 25 H 11/07/20 16:45 96 H 23 11/07/20 16:30 112 H 20 11/07/20 16:21 121/87 11/07/20 16:19 11/07/20 15:55 36.2 C L 99 H 19 11/07/20 15:45 36.2 C L 95 H 19 11/07/20 15:35 36.2 C L 95 H 25 H 11/07/20 15:25 36.2 C L 99 H 21 11/07/20 15:15 89 20 11/07/20 15:05 93 H 19 11/07/20 14:55 36.1 C L 105 H 14 11/07/20 12:29 37.1 C 103 H 18 11/07/20 11:40 36.9 C 101 H 18 BP Pulse Ox 11/08/20 07:29 93 11/08/20 07:22 11/08/20 06:25 93 11/08/20 01:32 97 11/08/20 00:39 11/07/20 22:30 95 11/07/20 20:17 124/86 93 11/07/20 19:50 94 11/07/20 17:56 96 11/07/20 17:40 95 11/07/20 17:30 96 06/23/21 17:25 97 11/07/20 17:15 95 11/07/20 17:11 96 11/07/20 17:00 97 11/07/20 16:45 96 11/07/20 16:30 88 L 11/07/20 16:21 97 11/07/20 16:19 98 11/07/20 15:55 100/61 95 11/07/20 15:45 118/64 95 11/07/20 15:35 109/69 91 11/07/20 15:25 118/72 89 L 11/07/20 15:15 111/71 96 11/07/20 15:05 114/71 95 11/07/20 14:55 116/74 96 11/07/20 12:29 91 11/07/20 11:40 94 Pain Intensity Generalized: Pain Intensity: 0 Notes Mental Status: alert / awake / arousable Patient Amnestic to Procedure: Yes (CLAIRE) Nausea / Vomiting: adequately controlled Pain: see Notes below (Receiving pain medications around the clock and pain management is following him for control per RN. Patient unable to mentally respond to questions. Mother at bedside and said patient had no issues/ complications with anesthesia yesterday. VSS.) Airway Patency, RR, SpO2: stable & adequate BP & HR: stable & adequate Hydration State: stable & adequate Anesthetic Complications: no major complications apparent
--- NOTE | 2020-11-08 09:03 | Pain Management Progress Note ---
Date of Service November 08, 2020 Assessment & Plan (1) Abdominal wall cellulitis: (2) Sepsis: (3) Severe mental handicap: (4) Spasticity: Continue current medication regimen. It is difficult to evaluate the patient's status due to cognitive disability. His spasticity does not seem any worse than baseline this morning. Dantrolene and Baclofen for spasticity, Tylenol, Hydrocodone, Dilaudid for pain. Continue IV ABX for sepsis. Wound clinic is to come in today to repack the wound. Admission and Anticipated Discharge Date Admission Date: November 05, 2020 Subjective Mr. West is a 30 year old male that is post op intrathecal pump explantation that was performed 11/07/20. Mother states that he had a difficult evening and did not sleep much. He has been receiving IV Dilaudid, , IV Hydrocodone, PO Baclofen, IV Ativan, IV Tylenol. She has not seen a significant worsening of spasms since the pump was removed. Mother dose want to try decreasing the use of Dilaudid and using more of the other medications as they seem to help a bit better. Physical Exam Physical Exam: GENERAL: This is a 30 year old male that is in the hospital bed, accompanied by his mother. HEAD/FACE: Normocephalic and atraumatic. ENT: Nose without bleeding or discharge. Oral mucosa moist. NECK: Full ROM without apparent pain. No swelling or masses noted. RESPIRATORY: Patient with unlabored breathing. No signs of respiratory distress. CHEST/AXILLA: Chest movement symmetrical. No deformities noted. ABDOMEN/GI: Incision in the right lower abdomen. The incision is packed with gauze. Some tinge of pink noted. Abdominal binder in place. SKIN: The incision is enlarged and striated. There are papules surrounding the pump incision. There is mild warmth to the touch. MS/EXTREMITY: Chronic lower extremity atrophy. There are moderate body spasms noted. NEURO: Nonverbal. Supervising Physician Co-Signing Physician Notes Patient wound care management discussed with wound care nurse. Plan is to put the wound VAC on the explanted pump site tomorrow. Also discussed with the attending hospitalist regarding wound care management. Recommend holding Lovenox for the next several days to minimize wound site bleeding.
[2020-11-08] MEDS ORDERED: VANCOMYCIN TROUGH ONE (09:30)
[2020-11-08 10:14] LABS: Creatinine Clr Calc Pharmacy 109.3 ml/min; Est GFR (African American) 145.9 ml/min; Est GFR (Non-African American) 125.9 ml/min
[2020-11-08] MEDS ORDERED: HYDROmorphone INJ 0.5 MG/0.5 ML SYR IV STA ×3 (10:52→11:10)
[2020-11-08] MEDS: CHOLESTYRAMINE LIGHT 4 GM PKT PEG SCH (12:03)
--- NOTE | 2020-11-08 13:03 | Hospitalist Progress Note ---
Date of Service November 08, 2020 Assessment & Plan (1) Sepsis: Sepsis Secondary to abdominal wall cellulitis due to intrathecal pump implant pocket infection Possible Aspiration pneumonia -CT abdomen/pelvis :There is infiltration, soft tissue gas, and fluid identified surrounding the pain pump with overlying dermal thickening. This is not well evaluated due to significant streak artifact. Correlate clinically for evidence of soft tissue infection. A small abscess is not excluded. Suspect an inflammatory process involving the ascending colon deep to the pain pump. Again, this is not well assessed due to significant streak artifact. This could represent a primary colonic inflammatory process such as colitis or diverticulitis or could be related to the inflammatory process around the pump. Clinical correlation will be essential. The appendix is discrete from this process and normal. No intraperitoneal free air is identified. Airspace opacities are present at both lung bases. This likely represents atelectasis. Correlate clinically for evidence of a mild infectious/inflammatory pneumonitis. Patient started on broad-spectrum antibiotic with IV Zosyn/vancomycin blood cultures ordered Appreciate input from pain management, Intrathecal baclofen pump was removed surgically by Dr. Zapien 11/07/2020 Wound dressing changed by wound care today Surgical wound bed appears to be noninfected, oozing noted during dressing change, Patient will need wound VAC placement, We will update case management Continue broad-spectrum antibiotic with IV Zosyn/vancomycin table surgical wound culture report available [facility] infectious disease consulted May need long-term IV antibiotic Mother updated at bedside Anemia Likely due to chronic disease Normal iron panel, folate levels High B12 levels stool Hemoccult negative Cerebral Palsy Seizure disorder Intrathecal baclofen pump surgically removed for infection around the pump pocket. Ordered for scheduled dose of p.o. baclofen, continue outpatient seizure medications-via PEG tube tube feeding resumed DVT Px: Continue to hold subcu Lovenox postoperatively to prevent bleeding complication at the surgical wound Code Status Full code Disposition: Dental Receptionist at a [facility] Admission and Anticipated Discharge Date Admission Date: November 05, 2020 Subjective Follow-up visit for infected intrathecal baclofen pump/sepsis, cerebral palsy nonverbal. Patient seen at bedside, during dressing change done by wound care team. nonverbal unable intubated chronically spastic limbs, Patient was in significant pain during the dressing change, required multiple doses of IV Dilaudid, Patient's mother with present at bedside, Updated operative findings Dr. Zapien , and explained that patient may need long-term IV antibiotic and wound VAC Review of Systems Review of Systems: Unobtainable due to cognitive status (Cerebral palsy /nonverbal) Physical Exam Constitutional: + thin, + behavioral limitations (Nonverbal), + physical limitations (Cerebral palsy), + frail appearing and + underweight Severely underweight, male, nonverbal, cachectic, with chronic limbs spasficity Eyes: + anicteric sclerae Respiratory: normal respiratory effort, lungs clear to auscultation Cardiovascular: RRR, no murmur, no edema Gastrointestinal (Abdomen): Inspection/Auscultation: + abdominal surgical incision (Surgical open wound on left lower quadrant, ) Musculoskeletal: Chronic spastic limbs secondary to cerebral palsy Neurologic: cerebral palsy Results & Data Results & Data ([facility]) Vital Signs (Past 12 Hours) Vital Signs Temp Pulse Pulse Pulse Resp BP Pulse Ox 11/08/20 07:29 133 H 28 H 93 11/08/20 07:22 103 H 11/08/20 06:25 36.6 C 108 H 22 107/64 93 11/08/20 01:32 118 H 25 H 97
--- NOTE | 2020-11-08 15:25 | Pharmacy Report ---
Pharmacy Abx Dose Short Note - Date of Service November 08, 2020 - Assessment & Plan Assessment 30 year old M receiving Vancomycin for treatment of Aspiration PNA. Pt is also on Zosyn. Day #4 of antimicrobial therapy. Patient had been on Vancomycin 1 gm IV q 8h. Trough level yesterday from this dosing was within goal. Another trough level obtained today before 10 AM dose. Laboratory Tests 11/08/20 09:36 Vancomycin Trough 21.8 Plan Vancomycin * Trough level of 21.8 mcg/mL is supratherapeutic. * Vancomycin dose reduced to 1000 mg IV every 12 hours starting tonight. * Patient did receive the dose at 10 AM today. * Goal trough level for PNA : 15 to 20 mcg/mL * Trough Vanc level ordered for: 11/10 before dose at 1200 after 3 maintenance doses. Pharmacy will continue to follow and will adjust dose/frequency as necessary. Thank you.
[2020-11-08] MEDS: lamoTRIgine 25 MG TAB PO SCH (21:23)
[2020-11-09] MEDS: LEVALBUTEROL 1.25MG/0.5ML NEB INH SCH ×2 (01:02→07:08)
[2020-11-09] MEDS: IPRATROPIUM BROMIDE NEB SOLN 0.02% 2.5 ML VIAL INH SCH ×2 (01:02→07:08)
[2020-11-09] MEDS: PIPERACILLIN/TAZOBACTAM 3.375 GM in DEXTROSE 5% 100 ML IV SCH (05:46)
[2020-11-09] MEDS: HYDROmorphone INJ 0.5 MG/0.5 ML SYR IV PRN ×6 (05:46→20:09)
[2020-11-09] MEDS: LORazepam 0.25 MG/0.5 ML VIAL IV PRN ×2 (06:21→15:43)
[2020-11-09] MEDS: BUDESONIDE 0.5 MG/2 ML VIAL (PULMICORT) INH SCH ×2 (07:08→18:53)
--- NOTE | 2020-11-09 08:35 | Pain Management Progress Note ---
Date of Service November 09, 2020 Assessment & Plan (1) Abdominal wall cellulitis: (2) Presence of intrathecal pump: (3) Spasticity: Continue current medication regimen. It is difficult to evaluate the patient's status due to cognitive disability. He is sleeping during my visit and did not have any spontaneous spasm. Dantrolene and Baclofen for spasticity. Continue Ativan and Dilaudid for comfort. Wound clinic is to come in today to place wound vac. Admission and Anticipated Discharge Date Admission Date: November 05, 2020 Subjective Mother states that Kennedy slept better last night. When he wakes up he may flail his extremities and after Ativan and Dilaudid is given he is calmed. Mother has not noticed that the Baclofen is alleviating the flailing when it is given. He did tolerate the packing replacement after given a dose of Dilaudid. Wound care is to apply wound vac today. Physical Exam Physical Exam: GENERAL: This is a 30 year old male that is sleeping comfortably in the hospital bed, accompanied by his mother. HEAD/FACE: Normocephalic and atraumatic. ENT: Nose without bleeding or discharge. Oral mucosa moist. RESPIRATORY: Patient with unlabored breathing. No signs of respiratory distress. CHEST/AXILLA: Chest movement symmetrical. No deformities noted. ABDOMEN/GI: Dressing at [facility] abdomen and abdominal binder in place. MS/EXTREMITY: Chronic lower extremity atrophy. No spontaneous spasm during my visit. NEURO: Nonverbal. Supervising Physician Co-Signing Physician Notes No reports of increased spasticity in absence of intrathecal baclofen infusion with oral dantrolene and schedule dosage of oral baclofen. Analgesia improved with IV hydromorphone and Ativan. Plan is for application of wound VAC today for management of the wound and to continue antibiotic therapy per hospitalist service. Have recommended ID consultation for long-term management of antibiotics as an outpatient.
[2020-11-09] MEDS: ADVANCED PROBIOTIC 1250 MG CAPSULE PO SCH (09:02)
[2020-11-09] MEDS: FEXOFENADINE HCL 180 MG TAB PO SCH (09:02)
[2020-11-09] MEDS: lamoTRIgine 100 MG TAB PO SCH ×2 (09:02→20:21)
[2020-11-09] MEDS: DICYCLOMINE HCL 10 MG CAP GT SCH ×2 (09:02→20:18)
[2020-11-09] MEDS: BACLOFEN 20 MG TAB PO SCH ×3 (09:02→20:17)
[2020-11-09] MEDS: GLYCOPYRROLATE 1 MG TAB PO SCH ×3 (09:02→20:19)
[2020-11-09] MEDS: LANSOPRAZOLE 30 MG SOLTAB PEG SCH (09:02)
[2020-11-09] MEDS: TUBE FEEDING WATER FLUSH PEG SCH ×6 (09:03→20:22)
[2020-11-09] MEDS: DANTROLENE SODIUM 25 MG CAP PEG SCH ×2 (09:03→20:18)
[2020-11-09] MEDS: clonazePAM 0.25 MG TAB PO SCH ×3 (09:12→20:17)
[2020-11-09] MEDS: FLUTICASONE PROPIONATE NA SPR 16 GM BTL SCH (09:13)
[2020-11-09] MEDS: CHOLESTYRAMINE LIGHT 4 GM PKT PEG SCH (11:40)
[2020-11-09 12:56] LABS: Creatinine Clr Calc Pharmacy 66.2 ml/min; Est GFR (African American) 100.5 ml/min; Est GFR (Non-African American) 86.7 ml/min
[2020-11-09] MEDS: VANCOMYCIN HCL 1,000 MG in SODIUM CHLORIDE 0.9% 250 ML IV SCH (13:31)
--- NOTE | 2020-11-09 14:44 | Hospitalist Progress Note ---
Date of Service November 09, 2020 Assessment & Plan (1) Sepsis: Sepsis Secondary to abdominal wall cellulitis due to intrathecal pump implant pocket infection Possible Aspiration pneumonia -CT abdomen/pelvis :There is infiltration, soft tissue gas, and fluid identified surrounding the pain pump with overlying dermal thickening. This is not well evaluated due to significant streak artifact. Correlate clinically for evidence of soft tissue infection. A small abscess is not excluded. Suspect an inflammatory process involving the ascending colon deep to the pain pump. Again, this is not well assessed due to significant streak artifact. This could represent a primary colonic inflammatory process such as colitis or diverticulitis or could be related to the inflammatory process around the pump. Clinical correlation will be essential. The appendix is discrete from this process and normal. No intraperitoneal free air is identified. Airspace opacities are present at both lung bases. This likely represents atelectasis. Correlate clinically for evidence of a mild infectious/inflammatory pneumonitis. Patient was started on broad-spectrum antibiotic with IV vancomycin and Zosyn Appreciate input from pain management, Intrathecal baclofen pump was removed surgically by Dr. Zapien 11/07/2020 Wound dressing changed by wound care Surgical wound bed appears to be noninfected, oozing noted during dressing change, Wound VAC placed Wound culture growing staph aureus sensitivity pending [facility] infectious disease consulted Appreciate input, Recommends to discontinue Zosyn, patient will be continued with IV vancomycin If there is no CSF involvement of the infection, patient can be transitioned to p.o. antibiotic on discharge for 2 weeks Anemia Likely due to chronic disease Normal iron panel, folate levels High B12 levels stool Hemoccult negative Cerebral Palsy Seizure disorder Intrathecal baclofen pump surgically removed for infection around the pump pocket. Getting scheduled dose of p.o. baclofen, continue outpatient seizure medications-via PEG tube tube feeding resumed DVT Px: Continue to hold subcu Lovenox postoperatively to prevent bleeding complication at the surgical wound Code Status Full code Disposition: Resident at a [facility] in [facility] Will need continued hospital stay for wound care, antibiotic treatment, Patient will be discharged on wound VAC, and possibly oral antibiotics. Admission and Anticipated Discharge Date Admission Date: November 05, 2020 Subjective Patient seen at bedside, had wound VAC placed Patient is nonverbal Appears to be comfortable, Stable vitals, no fever reported Mother present at bedside Review of Systems Review of Systems: Unobtainable due to cognitive status Physical Exam Constitutional: + thin, + behavioral limitations (Nonverbal), + physical limitations (Cerebral palsy), + frail appearing and + underweight Eyes: + anicteric sclerae Respiratory: normal respiratory effort, lungs clear to auscultation Cardiovascular: RRR, no murmur, no edema Gastrointestinal (Abdomen): Inspection/Auscultation: + abdominal surgical incision (Surgical open wound on left lower quadrant, ) Results & Data Results & Data ([facility]) Vital Signs (Past 12 Hours) Vital Signs Temp Pulse Pulse Resp BP Pulse Ox 11/09/20 07:08 91 H 18 96 11/09/20 06:41 78 105/64 93 11/09/20 06:40 36.4 C L 120 H 22 88 L
[2020-11-09] MEDS: lamoTRIgine 25 MG TAB PO SCH (20:20)
[2020-11-10] MEDS: VANCOMYCIN HCL 1,000 MG in SODIUM CHLORIDE 0.9% 250 ML IV SCH ×2 (01:00→12:34)
[2020-11-10] MEDS: HYDROmorphone INJ 0.5 MG/0.5 ML SYR IV PRN ×4 (02:06→20:31)
[2020-11-10] MEDS: BUDESONIDE 0.5 MG/2 ML VIAL (PULMICORT) INH SCH ×2 (07:24→19:36)
[2020-11-10] MEDS: lamoTRIgine 100 MG TAB PO SCH ×2 (08:22→20:19)
[2020-11-10] MEDS: FEXOFENADINE HCL 180 MG TAB PO SCH (08:23)
[2020-11-10] MEDS: GLYCOPYRROLATE 1 MG TAB PO SCH ×3 (08:23→20:19)
[2020-11-10] MEDS: BACLOFEN 20 MG TAB PO SCH ×2 (08:23→14:34)
[2020-11-10] MEDS: DICYCLOMINE HCL 10 MG CAP GT SCH ×2 (08:23→20:20)
[2020-11-10] MEDS: LANSOPRAZOLE 30 MG SOLTAB PEG SCH (08:24)
[2020-11-10] MEDS: DANTROLENE SODIUM 25 MG CAP PEG SCH ×2 (08:24→18:30)
[2020-11-10] MEDS: ADVANCED PROBIOTIC 1250 MG CAPSULE PO SCH (08:24)
[2020-11-10] MEDS: TUBE FEEDING WATER FLUSH PEG SCH ×6 (08:26→20:21)
[2020-11-10] MEDS: clonazePAM 0.25 MG TAB PO SCH ×3 (08:41→20:19)
[2020-11-10] MEDS: FLUTICASONE PROPIONATE NA SPR 16 GM BTL SCH (09:10)
[2020-11-10] MEDS: LORazepam 0.25 MG/0.5 ML VIAL IV PRN (10:03)
[2020-11-10] MEDS ORDERED: VANCOMYCIN TROUGH ONE (11:30)
[2020-11-10] MEDS: CHOLESTYRAMINE LIGHT 4 GM PKT PEG SCH (12:22)
[2020-11-10] MEDS: LINEZOLID 600 MG/300 ML BAG IV SCH (13:44)
--- NOTE | 2020-11-10 16:08 | Hospitalist Progress Note ---
Date of Service November 10, 2020 Assessment & Plan (1) Sepsis: Sepsis Secondary to abdominal wall cellulitis due to intrathecal pump implant pocket infection Possible Aspiration pneumonia -CT abdomen/pelvis :There is infiltration, soft tissue gas, and fluid identified surrounding the pain pump with overlying dermal thickening. This is not well evaluated due to significant streak artifact. Correlate clinically for evidence of soft tissue infection. A small abscess is not excluded. Suspect an inflammatory process involving the ascending colon deep to the pain pump. Again, this is not well assessed due to significant streak artifact. This could represent a primary colonic inflammatory process such as colitis or diverticulitis or could be related to the inflammatory process around the pump. Clinical correlation will be essential. The appendix is discrete from this process and normal. No intraperitoneal free air is identified. Airspace opacities are present at both lung bases. This likely represents atelectasis. Correlate clinically for evidence of a mild infectious/inflammatory pneumonitis. Patient was started on broad-spectrum antibiotic with IV vancomycin and Zosyn Appreciate input from pain management, Intrathecal baclofen pump was removed surgically by Dr. Zapien 11/07/2020 appreciate input from wound care nursing : wound vac placed , will be discharged with wound vac Wound culture growing staph aureus MRSA [facility] infectious disease consulted Appreciate input, pt was on IV vancomycin , changed to Zyvox given the sensitivity D/w Dr Jenkins , there was no CSF infection , pt will be discharged on 2 weeks of PO Zyvox Anemia Likely due to chronic disease Normal iron panel, folate levels High B12 levels stool Hemoccult negative Cerebral Palsy Seizure disorder Intrathecal baclofen pump surgically removed for infection around the pump pocket. Getting scheduled dose of p.o. baclofen, continue outpatient seizure medications-via PEG tube\ Clinic follow up with Dr Jenkins in 2-3 weeks to discuss about Vaclofen pump in the mean while pt will be continued with scheduled dose of Baclofen via PEG tube Nutrition : on Tube feed : Nutren 4 cartons a day tube feeding resumed DVT Px: Continue to hold subcu Lovenox postoperatively to prevent bleeding complication at the surgical wound Code Status Full code Disposition: Resident at a [facility] in [facility] Patient will be discharged to [facility] on wound VAC, and oral antibiotics Admission and Anticipated Discharge Date Admission Date: November 05, 2020 Subjective Patient seen at bedside, Patient is nonverbal Appears to be comfortable, Stable vitals, no fever reported per nursing requiring intermittent IV Dilaudid as pt becomes restless /agitated was on Liquid Lortab prn at home will increase the dose and frequency , and trial to utilize meds via PEG tube , and wean of IV dialudid as tolerated Review of Systems Review of Systems: Unobtainable due to cognitive status Physical Exam Physical Exam: no done , pt was not seen Constitutional: + thin, + behavioral limitations (Nonverbal), + physical limitations (Cerebral palsy), + frail appearing and + underweight Eyes: + anicteric sclerae Respiratory: normal respiratory effort, lungs clear to auscultation Cardiovascular: RRR, no murmur, no edema Gastrointestinal (Abdomen): Inspection/Auscultation: + abdominal surgical incision (Surgical open wound on left lower quadrant, ) Results & Data Results & Data ([facility]) Vital Signs (Past 12 Hours) Vital Signs Temp Pulse Pulse Resp BP BP Pulse Ox 11/10/20 15:03 35.6 C L 117 H 20 92/47 L 95 11/10/20 07:24 91 H 18 98 11/10/20 06:01 36.3 C L 95 H 16 112/59 L 99
[2020-11-10] MEDS ORDERED: LORazepam 1 MG/2 ML VIAL IV STA (17:30)
--- NOTE | 2020-11-10 17:48 | Communication Note ---
Date of Service: November 10, 2020 pt continues to have episodes of severe spasm , on Baclofen 20 mg TID , and Dantrolen 25 mg BID via PEG tube getting intermittent low dose 0.25 mg IV ativan with minimum improvement of severe spastic episodes updated Dr Jenkins for uncontrolled spasm recommends to increase Dantrolene to 50 mg via PEG tube BID , monitor Liver function incrase Baclofene to 20 mg QID IV ativan IV intermittently for severe spasm /agitation episode Syl Shaver MD
[2020-11-10] MEDS: lamoTRIgine 25 MG TAB PO SCH (20:18)
[2020-11-10] MEDS ORDERED: BACLOFEN 20 MG TAB PO SCH (21:00)
[2020-11-10] MEDS: LORazepam 1 MG/2 ML VIAL IV PRN (23:41)
[2020-11-11] MEDS: LINEZOLID 600 MG/300 ML BAG IV SCH ×2 (00:50→14:20)
[2020-11-11] MEDS: HYDROmorphone INJ 0.5 MG/0.5 ML SYR IV PRN ×2 (01:00→04:20)
[2020-11-11] MEDS: LORazepam 1 MG/2 ML VIAL IV PRN (03:42)
[2020-11-11 07:06] LABS: Alanine Aminotransferase 24 U/L (12-78); Albumin Level 2.6 gm/dl (3.4-5.0); Alkaline Phosphatase 66 U/L (45-117); Aspartate Aminotransferase 24 U/L (15-37); Bilirubin Direct < 0.1 mg/dl (0-0.2); Bilirubin,Total 0.3 mg/dl (0.2-1); Est GFR (African American) 22.3 ml/min; Est GFR (Non-African American) 19.2 ml/min; Total Protein 6.6 gm/dl (6.4-8.2)
[2020-11-11] MEDS: BUDESONIDE 0.5 MG/2 ML VIAL (PULMICORT) INH SCH ×2 (07:14→19:35)
[2020-11-11] MEDS ORDERED: HYDROmorphone INJ 1 MG/ML SYRINGE IV PRN ×2 (07:33→11:33)
[2020-11-11] MEDS: LACTATED RINGER'S 1,000 ML IV SCH ×3 (07:44→23:07)
[2020-11-11] MEDS ORDERED: PIPERACILL/TAZOBAC CONSULT ACTIVE PRN (08:21)
--- NOTE | 2020-11-11 08:21 | Hospitalist Progress Note ---
Date of Service November 11, 2020 Assessment & Plan (1) Sepsis: Continued spasm vs Seizure episode : pt continues to have episodes of severe spasm , Baclofen dose increased to 20 mg qid / Dantrolene 50 mg BID via PEG tube IV Ativan Q2 hrs for active spasm / appreciate input from Dr Jenkins overnight , pt remained in uncontrolled spastic movements IV Ativan and intermittent IV dialudid helped for short time updated Dr Jenkins : ordered for IV Valium instead of IV ativan which can help in both spasms and seizure episode neurology consult requested , pt is on Lamictal for seizure high risk for breakthrough seizure , given sepsis , abdominal procedure, Acute renal failure : Cr elevated > 4 ( was 1.1 on 11/09) CK level wnl : Rhabdomyolysis due to ongoing spasm /seizure less likely stat CT abdomen/pelvis non contrast ordered as pt had recent abdominal surgery ordered for Lactic acid and pro alla IV NSS @ 150 ml /hr hold Tube feeding will repeat BMP at 4 pm nephrology consult requested Sepsis Secondary to abdominal wall cellulitis due to intrathecal pump implant pocket infection Possible Aspiration pneumonia -CT abdomen/pelvis :There is infiltration, soft tissue gas, and fluid identified surrounding the pain pump with overlying dermal thickening. This is not well evaluated due to significant streak artifact. Correlate clinically for evidence of soft tissue infection. A small abscess is not excluded. Suspect an inflammatory process involving the ascending colon deep to the pain pump. Again, this is not well assessed due to significant streak artifact. This could represent a primary colonic inflammatory process such as colitis or diverticulitis or could be related to the inflammatory process around the pump. Clinical correlation will be essential. The appendix is discrete from this process and normal. No intraperitoneal free air is identified. Airspace opacities are present at both lung bases. This likely represents atelectasis. Correlate clinically for evidence of a mild infectious/inflammatory pneumonitis. Patient was started on broad-spectrum antibiotic with IV vancomycin and Zosyn Appreciate input from pain management, Intrathecal baclofen pump was removed surgically by Dr. Zapien 11/07/2020 appreciate input from wound care nursing : wound vac placed , will be discharged with wound vac D/w Dr Jenkins , there was no CSF infection , Wound culture growing staph aureus MRSA [facility] infectious disease consulted Appreciate input, abx changed to IV Zyvox added Zosyn empirically as pt developed leukocytosis , Anemia Likely due to chronic disease Normal iron panel, folate levels High B12 levels stool Hemoccult negative Cerebral Palsy Seizure disorder Intrathecal baclofen pump surgically removed for infection around the pump pocket. Baclofane and Dantrolene dose adjusted for ongoing spasm as outlined above appreciate input from Dr Jenkins Nutrition : on Tube feed : Nutren 4 cartons a day hold tube feeding for now till CT abdomen /pelvis result is available DVT Px: SCD and teds Continue to hold subcu Lovenox postoperatively to prevent bleeding complication at the surgical wound Code Status Full code Disposition: pt will be monitored in tele plan of care updated to pt's mother present at bedside Admission and Anticipated Discharge Date Admission Date: November 05, 2020 Subjective pt seen at bedside , active spasm ( seizure? ) movement noted pt is non verbal , per nursing : pt had a very rough night had continued spasms , discomfort , liquid Lortab through PEG tube did not help with symptoms mother stayed overnight she mentions Iv ativan helps to calm down only for 45-50 mins , then pt starts to have spasms again Review of Systems Review of Systems: Unobtainable due to cognitive status Physical Exam Physical Exam: in active spasm Constitutional: + thin, + behavioral limitations (Nonverbal), + physical limitations (Cerebral palsy), + frail appearing and + underweight Eyes: + anicteric sclerae Gastrointestinal (Abdomen): wound vac present Results & Data Results & Data ([facility]) Vital Signs (Past 12 Hours) Vital Signs Temp Pulse Resp BP BP Pulse Ox 11/11/20 07:41 36.8 C 113 H 18 111/48 L 92 11/11/20 07:14 113 H 24 92 11/11/20 00:04 90 112/67 11/10/20 23:00 36.4 C L 90 20 88/43 L 95
[2020-11-11 08:23] LABS: BUN Creatinine Ratio 2.6 (10-20); Creatinine Clr Calc Pharmacy 18.2 ml/min; Est GFR (Non-African American) 18.2 ml/min; Potassium 3.3 mmol/L (3.5-5.1)
[2020-11-11] MEDS ORDERED: PIPERACILLIN/TAZOBACTAM 2.25 GM in DEXTROSE 5% 100 ML IV SCH (08:30)
[2020-11-11 08:36] LABS: Basophils # (auto) 0.01 K/uL (0-0.2); Basophils % (auto) 0.1 %; Eosinophils # (auto) 0.09 K/uL (0-0.5); Eosinophils % (auto) 0.7 %; Hematocrit (blood only) 37.7 % (42-52); Hemoglobin 12.1 g/dL (14.0-18.0); Immature Granulocytes # (auto) 0.04 K/uL (0.00-0.02); Immature Granulocytes % (auto) 0.3 %; Lymphocytes % (auto) 5.2 %; Mean Corpuscular Hemoglobin 30.5 pg (25-34); Mean Platelet Volume 10.1 fL (7.4-10.4); Monocytes # (auto) 0.93 K/uL (0.11-0.59); Monocytes % (auto) 6.9 %; Neutrophils # (auto) 11.63 K/uL (1.4-6.5); Neutrophils % (auto) 86.8 %; Platelet Count 373 K/uL (130-400); RDW Coefficient of Variation 13.8 % (11.5-14.5); RDW Standard Deviation 47.9 fL (36.4-46.3); Red Blood Count 3.97 M/uL (4.7-6.1)
[2020-11-11 09:05] LABS: Magnesium 2.5 mg/dl (1.8-2.4); Phosphorus 4.2 mg/dl (2.5-4.9)
[2020-11-11 09:09] LABS: Mean Corpuscular Hgb Conc 32.1 g/dL (32-36)
[2020-11-11] MEDS ORDERED: PIPERACILLIN/TAZOBACTAM 3.375 GM in DEXTROSE 5% 100 ML IV ONE (09:15)
--- NOTE | 2020-11-11 09:15 | CT Scan Report ---
CT SCAN OF THE ABDOMEN AND PELVIS WITHOUT IV CONTRAST CLINICAL HISTORY: Acute renal insufficiency. Pain pump removal. Clinical concern for abscess. COMPARISON STUDY: Abdominal CT dated 11/05/2020. TECHNIQUE: Unenhanced CT scan of the abdomen and pelvis is performed from the lung bases to the proxi mal femora. Images are reviewed in the axial, sagittal, and coronal planes. IV contrast was not admin istered due to poor renal function. A dose lowering technique was utilized adhering to the principles of ALARA. The examination is degraded by streak artifact from the right arm which could not be eleva viet above the abdomen as well as motion artifact. The examination is also suboptimal due to cachexia and a paucity of intraperitoneal fat. CT DOSE: 357.89 mGy.cm FINDINGS: Lung bases: The heart is normal in size and without pericardial effusion. There are trace pleural eff usions and bibasilar atelectasis. Liver: The unenhanced liver is normal in size, contour, and attenuation. There is no intrahepatic ginny iary ductal dilatation. Gallbladder: Unremarkable. Spleen: Normal in size and attenuation. Pancreas: The unenhanced pancreas is grossly unremarkable. Adrenal glands: Unremarkable. Kidneys: The unenhanced kidneys are normal in size and without hydronephrosis. There is a 6 mm nonobs tructing left or a calculus. No right renal calculi are identified. There is no evidence of contour d eforming mass lesion. Abdominal vasculature: The abdominal aorta is normal in course and caliber. Stomach and bowel: A gastrostomy tube is in place. There is no bowel obstruction. Inflammatory change of the right colon suggested on 11/05/2020 is no longer identified. The appendix is normal as visual ized. Peritoneum: There is no intraperitoneal free air or abdominal ascites. Lymphadenopathy: None. Pelvic viscera: The bladder is decompressed and a Ponce catheter. Foci of intraluminal gas are nonspe cific. The bladder wall appears thickened and there is pericystic inflammation. The prostate and semi nal vesicles are normal as visualized. There is trace free fluid in the pelvis. Skeletal structures: The skeletal structures appear osteopenic. No lytic or blastic lesions are seen. Chronic deformity of the hips and bony pelvis is similar to previous. Soft tissues: The patient is cachectic. The pain pump device is present in the right lower quadrant h as been removed. The leads are unchanged in position and enter the central canal at the thoracolumbar junction. There is soft tissue, dermal thickening, and likely a wound in the right lower quadrant ab dominal wall with mild infiltration at the site of the pain pump removal. There is no evidence of org anized fluid collection. No soft tissue gas is seen. IMPRESSION: 1. The pain pump the right lower quadrant has been removed. 2. There is soft tissue thickening, dermal thickening, and a probable wound in the right lower quadra nt abdominal wall at the site of pump removal. Only mild surrounding soft tissue infiltration is note d. No organized fluid collection is seen to suggest abscess on this unenhanced examination. 3. Question cystitis. Correlate with urinalysis. 4. Infiltration involving the right colon questioned on 11/05/2020 has resolved. 5. No intraperitoneal free air is identified. 6. Trace pleural effusions are new from previous. 7. Left-sided nephrolithiasis. 8. Trace pelvic free fluid. 9. Additional findings as above. ACT 112: Negative or not required by law. Electronically signed by: Edwardo Herrera M.D. 11/11/2020 9:14 AM
[2020-11-11] MEDS: DANTROLENE SODIUM 25 MG CAP PEG SCH ×2 (09:47→21:05)
[2020-11-11] MEDS: clonazePAM 0.25 MG TAB PO SCH ×3 (09:47→21:03)
[2020-11-11] MEDS: TUBE FEEDING WATER FLUSH PEG SCH ×6 (09:48→21:05)
[2020-11-11] MEDS: BACLOFEN 20 MG TAB PO SCH ×3 (09:48→21:03)
[2020-11-11] MEDS: lamoTRIgine 100 MG TAB PO SCH ×2 (09:49→21:08)
[2020-11-11] MEDS: FEXOFENADINE HCL 180 MG TAB PO SCH (09:49)
[2020-11-11] MEDS: DICYCLOMINE HCL 10 MG CAP GT SCH ×2 (09:50→21:06)
[2020-11-11] MEDS: GLYCOPYRROLATE 1 MG TAB PO SCH ×3 (09:50→21:06)
[2020-11-11] MEDS: FLUTICASONE PROPIONATE NA SPR 16 GM BTL SCH (09:50)
[2020-11-11] MEDS: ADVANCED PROBIOTIC 1250 MG CAPSULE PO SCH (09:50)
[2020-11-11] MEDS: LANSOPRAZOLE 30 MG SOLTAB PEG SCH (09:50)
--- NOTE | 2020-11-11 10:24 | Nephrology Consultation ---
Date of Consultation November 11, 2020 Assessment & Plan (1) Acute kidney injury: Likely prerenal on the background of rhabdomyolysis, and ALEXIA and vancomycin toxicity. Agree with fluid resuscitation vancomycin has now been stopped ,avoid any more contrast less its life saving avoid nephrotoxic's, Daily BMP, to a UA again look for RBCs. At the moment he does not need dialysis, as his electrolytes are fine and he is not fluid overloaded. Daily assesmenty for dialysis needs. Strict/ output. (2) Abdominal wall cellulitis: On anti biotic as per culture renally dose ANTI BIOTICS. (3) Aspiration into airway: (4) Spasticity: (5) Seizure: History of Present Illness Reason for Consultation: Acute kidney injury Attending Physician: Syl Shaver MD History of Present Illness Unable to obtain history from the patient because of the present clinical state. HPI as per previous notes and documentation He has got a past medical history significant for asthma, recurrent aspiration, status post PEG replacement ,dystonia, cerebral palsy, chronic spasticity on intrathecal baclofen pump, seizure disorder and history of MRSA .He was originally admitted on 11/05 with fever and dry unproductive cough. He was on vancomycin and Zosyn for presumed sepsis secondary to abdominal wall cellulitis due to intrathecal pump implant pocket infection and possible aspiration pneumonia. His renal functions were normal until 11/09 and he was due to be discharged ,however the labs today showed his BUN to be 11/creatinine of 4.12. Nephrology was called in for AURELIANO management. On chart review, he has been hypotensive with blood pressures in the 90s to 110 over the last 48 hours ,urine output also has been in the oligoanuric range. Original UA from 11/05 showed no blood with normal RBC 0-4, Vancomycin levels raised at 36.1. He had contrast study done on 11/05. Allergies Allergy/AdvReac Type Severity Reaction Status Date / Time cat dander Allergy Intermediate SHORTNESS Verified 11/05/20 16:17 OF BREATH pollen extracts Allergy Intermediate SHORTNESS Verified 11/05/20 16:17 OF BREATH ciprofloxacin AdvReac Intermediate GI SYMPTOMS Verified 11/05/20 16:17 Dust AdvReac Intermediate SHORTNESS Uncoded 11/05/20 16:17 OF BREATH Home Medications Medication Instructions Recorded Confirmed Type clonazepam 0.5 mg tablet 0.25 mg FEEDING TUBE UD tab 01/22/18 11/05/20 History dicyclomine 10 mg capsule 10 mg FEEDING TUBE BID cap 01/22/18 11/05/20 History fexofenadine 180 mg tablet 180 mg FEEDING TUBE QAM 01/22/18 11/05/20 History fluticasone propionate 50 2 sprays INTNAS QAM 01/22/18 11/05/20 History mcg/actuation nasal spray,suspension glycopyrrolate 1 mg tablet 1 mg FEEDING TUBE TID tab 01/22/18 11/05/20 History lamotrigine 150 mg tablet 150 mg FEEDING TUBE BID 01/22/18 11/05/20 History lamotrigine 25 mg tablet 75 mg FEEDING TUBE HS tab 01/22/18 11/05/20 History omeprazole 20 mg capsule,delayed 20 mg FEEDING TUBE QAM 01/22/18 11/05/20 History release saliva stimulant comb. no.3 1 appln MUCOUS MEMBRANE Q2H PRN 01/22/18 11/05/20 History sodium chloride 0.65 % nasal spray 2 sprays INTNAS QAM PRN ml 01/22/18 11/05/20 History aerosol water for irrigation, sterile 1 ml IRRIGATION DAILY PRN ml 01/22/18 11/05/20 History diazepam 12.5 mg-15 mg-17.5 mg-20 10 mg AL DAILY PRN 02/14/19 11/05/20 History mg rectal kit Nutren 2.0 4 ea FEEDING TUBE DAILY 02/25/19 11/05/20 History budesonide 0.5 mg/2 mL suspension 0.5 mg INH BID #120 ml 06/21/20 11/05/20 Rx for nebulization Florajen3 3 cap DAILY 08/14/20 11/05/20 History Percussion Vest 08/14/20 09/19/20 History Prevalite 4 g PO QDL 08/14/20 11/05/20 History albuterol sulfate 2.5 mg INHALATION QAM PRN 08/14/20 11/05/20 History clotrimazole 1 applic TOPICAL BID PRN 08/14/20 11/05/20 History dantrolene 25 mg FEEDING TUBE BID 08/14/20 11/05/20 History triamcinolone acetonide 1 applic TOPICAL BID PRN 08/14/20 11/05/20 History hydrocodone 7.5 mg-acetaminophen 15 ml PO Q8H PRN #60 ml 09/04/20 11/05/20 Rx 325 mg/15 mL oral solution baclofen 10 mg PO DIRECTED PRN 11/05/20 11/05/20 History Patient History Medical History Allergies Anxiety Aspiration into airway Per pulm 12/04, "doing well clinically, continue to observe for signs or symptoms of aspiration" Asthma working diagnosis, unable to complete PFTs Cerebral palsy, 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) Dry mouth Dystonia Excessive salivation Gastrostomy in place 18F 2.7 cm, change every 3 months, maintain 5-6 ml of water in baloon GERD (gastroesophageal reflux disease) 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 Seizure Seizures well controlled on Lamictal per 03/19/20 neuro note Severe mental handicap Spasticity Surgical History H/O wisdom tooth extraction Hamstring tightness of both lower extremities s/p surgical release of adductor and hamstrings S/P insertion of intrathecal pump Family History Family/Other Heart disease Father Diabetes Heart trouble Social History Smoking Status: Never smoker Second Hand Exposure: No; Hx Alcohol Use: No Hx Substance Use: No Preferred Language: Icelandic Communication Ability: Impaired Beliefs That Will Affect Care: None marital status: Single Current Living Situation: Parent and Personal Care Facility Current Living Situation Comment: Personal Care Facility during week. Parents during the weekend current occupational status: disabled Other Information That Helps Us Care for You: No Feels Safe at Home: Yes Assistive Devices: Wheelchair Review of Systems Review of Systems: Unobtainable due to cognitive status Physical Exam Physical Exam: GENERAL:No respiratory distress HEENT: pale palpebral conjunctivae, dry buccal mucosa NECK : Supple, no tenderness CHEST : Decreased breath sounds no tenderness HEART : RRR , no obvious murmurs ABDOMEN: Tender induration right anterior abdomen, PEG tube in place EXT- no Edema Results & Data ([facility]) Vital Signs (Past 12 Hours) Vital Signs Temp Pulse Resp BP BP Pulse Ox 11/11/20 07:41 36.8 C 113 H 18 111/48 L 92 11/11/20 07:14 113 H 24 92 11/11/20 00:04 90 112/67 11/10/20 23:00 36.4 C L 90 20 88/43 L 95 Laboratory Results 11/11/20 08:28 11/11/20 07:52
[2020-11-11] MEDS: CHOLESTYRAMINE LIGHT 4 GM PKT PEG SCH (14:14)
--- NOTE | 2020-11-11 15:01 | Communication Note ---
Date of Service: November 11, 2020 CT abdomen pelvis noncontrast: Showed no evidence of abscess, mild infiltration/inflammatory changes in soft tissue which is common for postoperative status. Report of CT abdomen pelvis updated to Dr. Zapien. Labs reviewed, normal lactic acid level, normal procalcitonin level, normal CPK. No evidence of ongoing infection, no rhabdomyolysis. We will discontinue Zosyn, Patient will be continued with IV Zyvox for MRSA wound infection. Ordered for IV fluid, Appreciate input from nephrology. Patient spasm possibly secondary to baclofen withdrawal, Started on IV Valium as needed for spasm, after discussion with pain management. Discussed case with neurology Dr. Vazquez, for concern of possible breakthrough seizure, EEG ordered, ordered for Lamictal level Per neurology, spasm are controlled with Valium, and EEG does not show any evidence of seizure activity, There may not be any indication for change of dose or addition of new antiseizure medication. We will continue to monitor patient closely, monitoring tech ordered Patient's parents present at bedside, updated all questions answered. Syl Shaver MD
--- NOTE | 2020-11-11 15:57 | Communication Note ---
Date of Service: November 11, 2020 Dr. [place] [address]. Zapien of asked me to evaluate Kennedy West who is 30 years old has a longstanding issue with cerebral palsy, severe spasticity, men thad retardation and an active seizure disorder treated with Lamictal 225 mg at bedtime 150 in the morning. He has not seen a neurologist according to what I can glean from discussing his situation with his father briefly today for quite some time He had an intrathecal baclofen pump installed but then unfortunately developed an abdominal infection and the pump had to be removed and he is now had increasing episodes of severe spasms that have finally begun to respond to the administration of benzodiazepines in the form of Valium. Oral baclofen was attempted but in this setting is not likely to be effective. He is finally now calm has had no spasms for several hours and Dr. Davila's asked me not to awaken him and I agree. He has had an EEG but unfortunately the computer would not let me access the data directly from the hospital. I did discuss situation with the cd technician says it just appeared to be slow between the episodes of muscle twitching and spasms and I need to review it to be certain. It appears that there was really no seizure activity electrographically and the situation certainly sounds like baclofen withdrawal and hopefully the Valium will continue to be effective in this regard At this point I am going to simply read EEG I will check back with him tomorrow and Lamictal level has been obtained but is likely going to take some time to get back on the chart. I would not empirically raise the dose at this time as I think this is probably neuromuscular manifestations of baclofen withdrawal rather than a breakthrough seizure disorder but again time will tell and if things become more uncontrollable and resistant to benzodiazepines he may really need to be intubated and placed on a propofol drip Kennedy Vazquez MD
[2020-11-11 17:17] LABS: BUN Creatinine Ratio 3.1 (10-20); Calcium 8.2 mg/dl (8.5-10.1); Creatinine Clr Calc Pharmacy 16.6 ml/min; Est GFR (African American) 18.9 ml/min; Est GFR (Non-African American) 16.3 ml/min; Potassium 3.1 mmol/L (3.5-5.1)
[2020-11-11] MEDS ORDERED: PIPERACILLIN/TAZOBACTAM 3.375 GM in DEXTROSE 5% 100 ML IV SCH (18:00)
--- NOTE | 2020-11-11 20:53 | Electroencephalogram ---
EEG Procedure Note Date of Service November 11, 2020 Start / End Times Start Time: 1243 End Time: 103 Referring Physician Kennedy Vazquez MD History Chronic encephalopathy with remote history of seizures now with presumptive acute baclofen withdrawal syndrome and frequent generalized spasms question seizure-like activity Home Medication List Medication Instructions Recorded Confirmed Type clonazepam 0.5 mg tablet 0.25 mg FEEDING TUBE UD tab 01/22/18 11/05/20 History dicyclomine 10 mg capsule 10 mg FEEDING TUBE BID cap 01/22/18 11/05/20 History fexofenadine 180 mg tablet 180 mg FEEDING TUBE QAM 01/22/18 11/05/20 History fluticasone propionate 50 2 sprays INTNAS QAM 01/22/18 11/05/20 History mcg/actuation nasal spray,suspension glycopyrrolate 1 mg tablet 1 mg FEEDING TUBE TID tab 01/22/18 11/05/20 History lamotrigine 150 mg tablet 150 mg FEEDING TUBE BID 01/22/18 11/05/20 History lamotrigine 25 mg tablet 75 mg FEEDING TUBE HS tab 01/22/18 11/05/20 History omeprazole 20 mg capsule,delayed 20 mg FEEDING TUBE QAM 01/22/18 11/05/20 History release saliva stimulant comb. no.3 1 appln MUCOUS MEMBRANE Q2H PRN 01/22/18 11/05/20 History sodium chloride 0.65 % nasal spray 2 sprays INTNAS QAM PRN ml 01/22/18 11/05/20 History aerosol water for irrigation, sterile 1 ml IRRIGATION DAILY PRN ml 01/22/18 11/05/20 History diazepam 12.5 mg-15 mg-17.5 mg-20 10 mg NE DAILY PRN 02/14/19 11/05/20 History mg rectal kit Nutren 2.0 4 ea FEEDING TUBE DAILY 02/25/19 11/05/20 History budesonide 0.5 mg/2 mL suspension 0.5 mg INH BID #120 ml 06/21/20 11/05/20 Rx for nebulization Florajen3 3 cap DAILY 08/14/20 11/05/20 History Percussion Vest 08/14/20 09/19/20 History Prevalite 4 g PO QDL 08/14/20 11/05/20 History albuterol sulfate 2.5 mg INHALATION QAM PRN 08/14/20 11/05/20 History clotrimazole 1 applic TOPICAL BID PRN 08/14/20 11/05/20 History dantrolene 25 mg FEEDING TUBE BID 08/14/20 11/05/20 History triamcinolone acetonide 1 applic TOPICAL BID PRN 08/14/20 11/05/20 History hydrocodone 7.5 mg-acetaminophen 15 ml PO Q8H PRN #60 ml 09/04/20 11/05/20 Rx 325 mg/15 mL oral solution baclofen 10 mg PO DIRECTED PRN 11/05/20 11/05/20 History Inpatient Medication List Hydrocodone Bitart/Acetaminophen (Acetaminophen/Hydrocodone Elix 15 Ml/Cup Udp) 30 ml PO Q6 PRN PRN Reason: post operative pain Stop: 11/21/20 16:38 Last Admin: 11/11/20 03:45 Dose: 30 ml Documented by: [id number] Admin: 11/10/20 16:51 Dose: 30 ml Documented by: [id number] Baclofen (Baclofen 20 Mg Tab) 20 mg PO Q6H [facility] Stop: 12/11/20 08:14 Last Admin: 11/11/20 14:21 Dose: 20 mg Documented by: [id number] Admin: 11/11/20 09:48 Dose: 20 mg Documented by: [id number] Budesonide (Budesonide 0.5 Mg/2 Ml Vial (Pulmicort)) 0.5 mg INH BIDR [facility] Stop: 12/05/20 21:25 Last Admin: 11/11/20 19:35 Dose: 0.5 mg Documented by: [id number] Admin: 11/11/20 07:14 Dose: 0.5 mg Documented by: [id number] Admin: 11/10/20 19:36 Dose: 0.5 mg Documented by: [id number] Admin: 11/10/20 07:24 Dose: 0.5 mg Documented by: [id number] Admin: 11/09/20 18:53 Dose: 0.5 mg Documented by: [id number] Admin: 11/09/20 07:08 Dose: 0.5 mg Documented by: [id number] Admin: 11/08/20 19:08 Dose: 0.5 mg Documented by: [id number] Admin: 11/08/20 07:16 Dose: 0.5 mg Documented by: [id number] Admin: 11/07/20 19:43 Dose: 0.5 mg Documented by: [id number] Admin: 11/07/20 07:10 Dose: 0.5 mg Documented by: [id number] Admin: 11/06/20 18:55 Dose: 0.5 mg Documented by: [id number] Admin: 11/06/20 07:08 Dose: 0.5 mg Documented by: [id number] Admin: 11/05/20 22:30 Dose: 0.5 mg Documented by: [id number] Cholestyramine Resin (Cholestyramine Light 4 Gm Pkt) 4 gm PEG QDL [facility] Stop: 12/06/20 11:29 Last Admin: 11/11/20 14:14 Dose: 4 gm Documented by: [id number] Admin: 11/10/20 12:22 Dose: 4 gm Documented by: [id number] Admin: 11/09/20 11:40 Dose: 4 gm Documented by: [id number] Admin: 11/08/20 12:03 Dose: Not Given Documented by: [id number] Admin: 11/07/20 11:22 Dose: Not Given Documented by: [id number] Admin: 11/06/20 11:30 Dose: 4 gm Documented by: [id number] Clonazepam (Clonazepam 0.25 Mg Tab) 0.125 mg PO DAILY@0800,1400 [facility] Stop: 12/06/20 07:59 Last Admin: 11/11/20 14:20 Dose: 0.125 mg Documented by: [id number] Admin: 11/11/20 09:47 Dose: 0.125 mg Documented by: [id number] Admin: 11/10/20 14:34 Dose: 0.125 mg Documented by: [id number] Admin: 11/10/20 08:41 Dose: 0.125 mg Documented by: [id number] Admin: 11/09/20 13:44 Dose: 0.125 mg Documented by: [id number] Admin: 11/09/20 09:12 Dose: 0.125 mg Documented by: [id number] Admin: 11/08/20 13:43 Dose: 0.125 mg Documented by: [id number] Admin: 11/08/20 07:56 Dose: 0.125 mg Documented by: [id number] Admin: 11/07/20 16:43 Dose: Not Given Documented by: [id number] Admin: 11/07/20 08:14 Dose: 0.125 mg Documented by: [id number] Admin: 11/06/20 14:31 Dose: 0.125 mg Documented by: [id number] Admin: 11/06/20 08:43 Dose: 0.125 mg Documented by: [id number] Clonazepam (Clonazepam 0.25 Mg Tab) 0.25 mg PO HS [facility] Stop: 12/05/20 21:44 Last Admin: 11/10/20 20:19 Dose: 0.25 mg Documented by: [id number] Admin: 11/09/20 20:17 Dose: 0.25 mg Documented by: [id number] Admin: 11/08/20 21:20 Dose: 0.25 mg Documented by: [id number] Admin: 11/07/20 20:40 Dose: 0.25 mg Documented by: [id number] Admin: 11/06/20 20:26 Dose: 0.25 mg Documented by: [id number] Admin: 11/05/20 22:43 Dose: 0.25 mg Documented by: [id number] Dantrolene Sodium (Dantrolene Sodium 25 Mg Cap) 50 mg PEG BID [facility] Stop: 12/10/20 17:29 Last Admin: 11/11/20 09:47 Dose: 50 mg Documented by: [id number] Admin: 11/10/20 18:30 Dose: 50 mg Documented by: [id number] Diazepam (Diazepam 5 Mg/Ml Inj 10ml Vial) 1 mg IV Q2H PRN PRN Reason: spasm /seizure Stop: 12/11/20 08:17 Last Admin: 11/11/20 13:39 Dose: 1 mg Documented by: [id number] Dicyclomine HCl (Dicyclomine Hcl 10 Mg Cap) 10 mg GT BID [facility] Stop: 12/05/20 21:25 Last Admin: 11/11/20 09:50 Dose: 10 mg Documented by: [id number] Admin: 11/10/20 20:20 Dose: 10 mg Documented by: [id number] Admin: 11/10/20 08:23 Dose: 10 mg Documented by: [id number] Admin: 11/09/20 20:18 Dose: 10 mg Documented by: [id number] Admin: 11/09/20 09:02 Dose: 10 mg Documented by: [id number] Admin: 11/08/20 21:20 Dose: 10 mg Documented by: [id number] Admin: 11/08/20 07:56 Dose: 10 mg Documented by: [id number] Admin: 11/07/20 20:35 Dose: 10 mg Documented by: [id number] Admin: 11/07/20 08:17 Dose: 10 mg Documented by: [id number] Admin: 11/06/20 20:27 Dose: 10 mg Documented by: [id number] Admin: 11/06/20 08:43 Dose: 10 mg Documented by: [id number] Admin: 11/05/20 22:20 Dose: 10 mg Documented by: [id number] Fexofenadine HCl (Fexofenadine Hcl 180 Mg Tab) 180 mg PO QAM [facility] Stop: 12/06/20 08:59 Last Admin: 11/11/20 09:49 Dose: 180 mg Documented by: [id number] Admin: 11/10/20 08:23 Dose: 180 mg Documented by: [id number] Admin: 11/09/20 09:02 Dose: 180 mg Documented by: [id number] Admin: 11/08/20 07:56 Dose: 180 mg Documented by: [id number] Admin: 11/07/20 08:16 Dose: 180 mg Documented by: [id number] Admin: 11/06/20 08:44 Dose: 180 mg Documented by: [id number] Fluticasone Propionate (Fluticasone Propionate Na Spr 16 Gm Btl) 2 sprays NA QA [facility] Stop: 12/06/20 08:59 Last Admin: 11/11/20 09:50 Dose: 2 sprays Documented by: [id number] Admin: 11/10/20 09:10 Dose: 2 sprays Documented by: [id number] Admin: 11/09/20 09:13 Dose: 2 sprays Documented by: [id number] Admin: 11/08/20 07:56 Dose: 2 sprays Documented by: [id number] Admin: 11/07/20 08:18 Dose: 2 sprays Documented by: [id number] Admin: 11/06/20 08:46 Dose: 2 sprays Documented by: [id number] Glycopyrrolate (Glycopyrrolate 1 Mg Tab) 1 mg PO TID [facility] Stop: 12/05/20 21:25 Last Admin: 11/11/20 14:21 Dose: 1 mg Documented by: [id number] Admin: 11/11/20 09:50 Dose: 1 mg Documented by: [id number] Admin: 11/10/20 20:19 Dose: 1 mg Documented by: [id number] Admin: 11/10/20 14:35 Dose: 1 mg Documented by: [id number] Admin: 11/10/20 08:23 Dose: 1 mg Documented by: [id number] Admin: 11/09/20 20:19 Dose: 1 mg Documented by: [id number] Admin: 11/09/20 13:34 Dose: 1 mg Documented by: [id number] Admin: 11/09/20 09:02 Dose: 1 mg Documented by: [id number] Admin: 11/08/20 21:21 Dose: 1 mg Documented by: [id number] Admin: 11/08/20 13:43 Dose: 1 mg Documented by: [id number] Admin: 11/08/20 07:56 Dose: 1 mg Documented by: [id number] Admin: 11/07/20 20:35 Dose: 1 mg Documented by: [id number] Admin: 11/07/20 16:43 Dose: Not Given Documented by: [id number] Admin: 11/07/20 08:16 Dose: 1 mg Documented by: [id number] Admin: 11/06/20 20:29 Dose: 1 mg Documented by: [id number] Admin: 11/06/20 14:31 Dose: 1 mg Documented by: [id number] Admin: 11/06/20 08:44 Dose: 1 mg Documented by: [id number] Admin: 11/05/20 22:18 Dose: 1 mg Documented by: [id number] Linezolid (Zyvox) 600 mg in 300 mls @ 200 mls/hr IV Q12H [facility] Stop: 11/20/20 23:59 Last Infusion: 11/11/20 15:52 Dose: 0 mls/hr Documented by: [id number] Admin: 11/11/20 14:20 Dose: 200 mls/hr Documented by: [id number] Infusion: 11/11/20 03:01 Dose: 0 mls/hr Documented by: [id number] Admin: 11/11/20 00:50 Dose: 200 mls/hr Documented by: [id number] Infusion: 11/10/20 15:39 Dose: 0 mls/hr Documented by: [id number] Admin: 11/10/20 13:44 Dose: 200 mls/hr Documented by: [id number] Lactated Ringer's (Lr) 1,000 mls @ 150 mls/hr IV .Q6H40M [facility] Stop: 12/11/20 07:44 Last Admin: 11/11/20 14:21 Dose: 125 mls/hr Documented by: [id number] Infusion: 11/11/20 14:21 Dose: 125 mls/hr Documented by: [id number] Admin: 11/11/20 07:44 Dose: 125 mls/hr Documented by: [id number] Lactobacillus Acidoph/Casei/Rhamnos (Advanced Probiotic 1250 Mg Capsule) 2 cap PO DAILY [facility] Stop: 12/06/20 08:59 Last Admin: 11/11/20 09:50 Dose: 2 cap Documented by: [id number] Admin: 11/10/20 08:24 Dose: 2 cap Documented by: [id number] Admin: 11/09/20 09:02 Dose: 2 cap Documented by: [id number] Admin: 11/08/20 07:57 Dose: 2 cap Documented by: [id number] Admin: 11/07/20 08:17 Dose: 2 cap Documented by: [id number] Admin: 11/06/20 08:45 Dose: 2 cap Documented by: [id number] Lamotrigine (Lamotrigine 100 Mg Tab) 150 mg PO BID [facility] Stop: 12/06/20 08:59 Last Admin: 11/11/20 09:49 Dose: 150 mg Documented by: [id number] Admin: 11/10/20 20:19 Dose: 150 mg Documented by: [id number] Admin: 11/10/20 08:22 Dose: 150 mg Documented by: [id number] Admin: 11/09/20 20:21 Dose: 150 mg Documented by: [id number] Admin: 11/09/20 09:02 Dose: 150 mg Documented by: [id number] Admin: 11/08/20 21:21 Dose: 150 mg Documented by: [id number] Admin: 11/08/20 07:57 Dose: 150 mg Documented by: [id number] Admin: 11/07/20 20:36 Dose: 150 mg Documented by: [id number] Admin: 11/07/20 08:14 Dose: 150 mg Documented by: [id number] Admin: 11/06/20 20:26 Dose: 150 mg Documented by: [id number] Admin: 11/06/20 08:45 Dose: 150 mg Documented by: [id number] Lamotrigine (Lamotrigine 25 Mg Tab) 75 mg PO HS AIMEE Stop: 12/05/20 21:25 Last Admin: 11/10/20 20:18 Dose: 75 mg Documented by: [id number] Admin: 11/09/20 20:20 Dose: 75 mg Documented by: [id number] Admin: 11/08/20 21:23 Dose: 75 mg Documented by: [id number] Admin: 11/07/20 20:34 Dose: 75 mg Documented by: [id number] Admin: 11/06/20 20:28 Dose: 75 mg Documented by: [id number] Admin: 11/05/20 22:22 Dose: 75 mg Documented by: [id number] Lansoprazole (Lansoprazole 30 Mg Soltab) 30 mg PEG QAM [facility] Stop: 12/06/20 08:59 Last Admin: 11/11/20 09:50 Dose: 30 mg Documented by: [id number] Admin: 11/10/20 08:24 Dose: 30 mg Documented by: [id number] Admin: 11/09/20 09:02 Dose: 30 mg Documented by: [id number] Admin: 11/08/20 07:57 Dose: 30 mg Documented by: [id number] Admin: 11/07/20 08:16 Dose: 30 mg Documented by: [id number] Admin: 11/06/20 08:44 Dose: 30 mg Documented by: [id number] Sterile Water (Tube Feeding Water Flush) 200 ml PEG TID [facility] Stop: 12/07/20 16:38 Last Admin: 11/11/20 14:21 Dose: 200 ml Documented by: [id number] Admin: 11/11/20 09:50 Dose: 200 ml Documented by: [id number] Admin: 11/10/20 20:21 Dose: 200 ml Documented by: [id number] Admin: 11/10/20 14:34 Dose: 200 ml Documented by: [id number] Admin: 11/10/20 08:27 Dose: 200 ml Documented by: [id number] Admin: 11/09/20 20:22 Dose: 200 ml Documented by: [id number] Admin: 11/09/20 13:34 Dose: 200 ml Documented by: [id number] Admin: 11/09/20 09:03 Dose: 200 ml Documented by: [id number] Admin: 11/08/20 21:23 Dose: 200 ml Documented by: [id number] Admin: 11/08/20 13:44 Dose: 200 ml Documented by: [id number] Admin: 11/08/20 07:57 Dose: 200 ml Documented by: [id number] Admin: 11/07/20 20:37 Dose: 200 ml Documented by: [id number] Admin: 11/07/20 17:59 Dose: Not Given Documented by: [id number] Sterile Water (Tube Feeding Water Flush) 250 ml PEG TIDM [facility] Stop: 12/07/20 17:59 Last Admin: 11/11/20 16:21 Dose: 250 ml Documented by: [id number] Admin: 11/11/20 12:24 Dose: 250 ml Documented by: [id number] Admin: 11/11/20 09:48 Dose: 250 ml Documented by: [id number] Admin: 11/10/20 16:51 Dose: 250 ml Documented by: [id number] Admin: 11/10/20 12:23 Dose: 250 ml Documented by: [id number] Admin: 11/10/20 08:26 Dose: 250 ml Documented by: [id number] Admin: 11/09/20 18:06 Dose: 250 ml Documented by: [id number] Admin: 11/09/20 11:44 Dose: 250 ml Documented by: [id number] Admin: 11/09/20 09:12 Dose: 250 ml Documented by: [id number] Admin: 11/08/20 18:48 Dose: 250 ml Documented by: [id number] Admin: 11/08/20 12:03 Dose: 250 ml Documented by: [id number] Admin: 11/08/20 07:56 Dose: 250 ml Documented by: [id number] Admin: 11/07/20 17:59 Dose: Not Given Documented by: [id number] Discontinued Medications Hydrocodone Bitart/Acetaminophen (Acetaminophen/Hydrocodone Elix 15 Ml/Cup Udp) 15 ml PO Q8H PRN PRN Reason: post operative pain Stop: 11/21/20 16:38 Last Admin: 11/08/20 03:08 Dose: 15 ml Documented by: [id number] Baclofen (Baclofen 20 Mg Tab) 20 mg PO TID [facility]EE Stop: 12/07/20 20:59 Last Admin: 11/10/20 14:34 Dose: 20 mg Documented by: [id number] Admin: 11/10/20 08:23 Dose: 20 mg Documented by: [id number] Admin: 11/09/20 20:17 Dose: 20 mg Documented by: [id number] Admin: 11/09/20 13:34 Dose: 20 mg Documented by: [id number] Admin: 11/09/20 09:02 Dose: 20 mg Documented by: [id number] Admin: 11/08/20 21:24 Dose: 20 mg Documented by: [id number] Admin: 11/08/20 13:43 Dose: 20 mg Documented by: [id number] Admin: 11/08/20 07:56 Dose: 20 mg Documented by: [id number] Admin: 11/07/20 20:33 Dose: 20 mg Documented by: [id number] Baclofen (Baclofen 20 Mg Tab) 20 mg PO QID [facility] Stop: 12/10/20 20:59 Last Admin: 11/10/20 20:20 Dose: 20 mg Documented by: [id number] Bupivacaine HCl (Bupivacaine 0.25% 30 Ml Vial) Confirm Administered Dose 30 ml .ROUTE .STK-MED ONE Stop: 11/07/20 13:34 Last Admin: 11/07/20 14:27 Dose: 4 ml Documented by: [id number] Dantrolene Sodium (Dantrolene Sodium 25 Mg Cap) 25 mg PEG BID [facility] Stop: 12/05/20 21:25 Last Admin: 11/10/20 08:24 Dose: 25 mg Documented by: [id number] Admin: 11/09/20 20:18 Dose: 25 mg Documented by: [id number] Admin: 11/09/20 09:03 Dose: 25 mg Documented by: [id number] Admin: 11/08/20 21:21 Dose: 25 mg Documented by: [id number] Admin: 11/08/20 07:56 Dose: 25 mg Documented by: [id number] Admin: 11/07/20 20:35 Dose: 25 mg Documented by: [id number] Admin: 11/07/20 08:17 Dose: 25 mg Documented by: [id number] Admin: 11/06/20 20:26 Dose: 25 mg Documented by: [id number] Admin: 11/06/20 08:44 Dose: 25 mg Documented by: [id number] Admin: 11/05/20 22:19 Dose: 25 mg Documented by: [id number] Enoxaparin Sodium (Enoxaparin Inj 30 Mg/0.3 Ml Syr) 30 mg SQ QAM [facility] Stop: 12/06/20 08:59 Last Admin: 11/06/20 08:47 Dose: 30 mg Documented by: [id number] Epinephrine HCl (Epinephrine Inj 1 Mg/Ml Amp) Confirm Administered Dose 1 mg .RO KARSTEN .STK-MED ONE Stop: 11/07/20 13:35 Last Admin: 11/07/20 14:28 Dose: 0.15 mg Documented by: [id number] Hydromorphone HCl (Hydromorphone Inj 0.5 Mg/0.5 Ml Syr) 0.5 mg IV Q2H PRN PRN Reason: Pain Stop: 11/21/20 15:18 Last Admin: 11/08/20 10:46 Dose: 0.5 mg Documented by: [id number] Admin: 11/08/20 05:57 Dose: 0.5 mg Documented by: [id number] Admin: 11/08/20 04:01 Dose: 0.5 mg Documented by: [id number] Admin: 11/08/20 01:48 Dose: 0.5 mg Documented by: [id number] Hydromorphone HCl (Hydromorphone Inj 0.5 Mg/0.5 Ml Syr) 0.5 mg IV NOW STA Stop: 11/08/20 10:53 Last Admin: 11/08/20 11:01 Dose: 0.5 mg Documented by: [id number] Hydromorphone HCl (Hydromorphone Inj 0.5 Mg/0.5 Ml Syr) 0.5 mg IV NOW STA Stop: 11/08/20 10:59 Last Admin: 11/08/20 11:01 Dose: 0.5 mg Documented by: [id number] Hydromorphone HCl (Hydromorphone Inj 0.5 Mg/0.5 Ml Syr) 0.5 mg IV NOW STA Stop: 11/08/20 11:11 Last Admin: 11/08/20 12:03 Dose: 0.5 mg Documented by: [id number] Hydromorphone HCl (Hydromorphone Inj 0.5 Mg/0.5 Ml Syr) 1 mg IV Q2H PRN PRN Reason: Pain Stop: 11/21/20 15:18 Last Admin: 11/10/20 12:22 Dose: 1 mg Documented by: [id number] Admin: 11/10/20 08:41 Dose: 1 mg Documented by: [id number] Admin: 11/10/20 02:06 Dose: 1 mg Documented by: [id number] Admin: 11/09/20 20:09 Dose: 1 mg Documented by: [id number] Admin: 11/09/20 15:57 Dose: 1 mg Documented by: [id number] Admin: 11/09/20 13:56 Dose: 1 mg Documented by: [id number] Admin: 11/09/20 11:40 Dose: 1 mg Documented by: [id number] Admin: 11/09/20 08:55 Dose: 1 mg Documented by: [id number] Admin: 11/09/20 05:46 Dose: 1 mg Documented by: [id number] Admin: 11/08/20 21:50 Dose: 1 mg Documented by: [id number] Admin: 11/08/20 13:42 Dose: 1 mg Documented by: [id number] Hydromorphone HCl (Hydromorphone Inj 0.5 Mg/0.5 Ml Syr) 0.5 mg IV Q2H PRN PRN Reason: Pain Stop: 11/21/20 15:18 Last Admin: 11/11/20 04:20 Dose: 0.5 mg Documented by: [id number] Admin: 11/11/20 01:00 Dose: 0.5 mg Documented by: [id number] Admin: 11/10/20 20:31 Dose: 0.5 mg Documented by: [id number] Hydromorphone HCl (Hydromorphone Inj 1 Mg/Ml Syringe) 1 mg IV Q2H PRN PRN Reason: Pain Stop: 11/25/20 07:32 Last Admin: 11/11/20 09:55 Dose: 1 mg Documented by: [id number] Sodium Chloride (Nss 1000ml) 1,000 mls @ 999 mls/hr IV .Q1H1M [facility] Stop: 11/05/20 16:30 Last Infusion: 11/05/20 18:22 Dose: 0 mls/hr Documented by: [id number] Admin: 11/05/20 17:05 Dose: 999 mls/hr Documented by: [id number] Piperacillin Sod/Tazobactam Sod (Zosyn) 4.5 gm in 120 mls @ 240 mls/hr IV NOW ONE Stop: 11/05/20 15:58 Last Infusion: 11/05/20 17:39 Dose: 0 mls/hr Documented by: [id number] Admin: 11/05/20 17:04 Dose: 240 mls/hr Documented by: [id number] Lorazepam (Ativan) 0.5 mg in 1 mls @ 1 mls/min IV NOW STA Stop: 11/05/20 18:08 Last Admin: 11/05/20 18:23 Dose: Not Given Documented by: [id number] Vancomycin HCl 1,250 mg/ (Sodium Chloride) 525 mls @ 200 mls/hr IV NOW ONE Stop: 11/05/20 21:05 Last Infusion: 11/05/20 22:23 Dose: 0 mls/hr Documented by: [id number] Admin: 11/05/20 18:46 Dose: 200 mls/hr Documented by: [id number] Acetaminophen (Ofirmev) 1,000 mg in 100 mls @ 400 mls/hr IV Q8H PRN PRN Reason: fever/pain Stop: 11/08/20 20:28 Last Infusion: 11/08/20 08:25 Dose: 0 mls/hr Documented by: [id number] Admin: 11/08/20 07:58 Dose: 400 mls/hr Documented by: [id number] Lorazepam (Ativan) 0.25 mg in 0.5 mls @ 0.5 mls/min IV Q6H PRN PRN Reason: Anxiety/Agitation Stop: 12/05/20 20:28 Last Admin: 11/10/20 10:03 Dose: 0.5 mls/min Documented by: [id number] Admin: 11/09/20 15:43 Dose: 0.5 mls/min Documented by: [id number] Admin: 11/09/20 06:21 Dose: 0.5 mls/min Documented by: [id number] Admin: 11/08/20 22:50 Dose: 0.5 mls/min Documented by: [id number] Admin: 11/08/20 07:57 Dose: 0.5 mls/min Documented by: [id number] Admin: 11/08/20 01:50 Dose: 0.5 mls/min Documented by: [id number] Piperacillin Sod/Tazobactam (Sod 3.375 gm/ Dextrose) 115 mls @ 28.75 mls/hr IV Q8H [facility]; Protocol Stop: 11/12/20 21:59 Last Infusion: 11/09/20 10:24 Dose: 0 mls/hr Documented by: [id number] Admin: 11/09/20 05:46 Dose: 28.8 mls/hr Documented by: [id number] Infusion: 11/09/20 01:45 Dose: 0 mls/hr Documented by: [id number] Admin: 11/08/20 21:43 Dose: 28.8 mls/hr Documented by: [id number] Infusion: 11/08/20 17:58 Dose: 0 mls/hr Documented by: [id number] Admin: 11/08/20 13:43 Dose: 28 mls/hr Documented by: [id number] Infusion: 11/08/20 10:01 Dose: 0 mls/hr Documented by: [id number] Admin: 11/08/20 05:59 Dose: 28.8 mls/hr Documented by: [id number] Infusion: 11/08/20 01:55 Dose: 0 mls/hr Documented by: [id number] Admin: 11/07/20 21:48 Dose: 28.8 mls/hr Documented by: [id number] Infusion: 11/07/20 18:10 Dose: 0 mls/hr Documented by: [id number] Admin: 11/07/20 16:43 Dose: 28.8 mls/hr Documented by: [id number] Infusion: 11/07/20 10:04 Dose: 0 mls/hr Documented by: [id number] Admin: 11/07/20 06:04 Dose: 28.8 mls/hr Documented by: [id number] Infusion: 11/07/20 01:58 Dose: 0 mls/hr Documented by: [id number] Admin: 11/06/20 22:01 Dose: 28.8 mls/hr Documented by: [id number] Infusion: 11/06/20 18:31 Dose: 0 mls/hr Documented by: [id number] Admin: 11/06/20 14:31 Dose: 28.8 mls/hr Documented by: [id number] Infusion: 11/06/20 09:51 Dose: 0 mls/hr Documented by: [id number] Admin: 11/06/20 05:51 Dose: 28.8 mls/hr Documented by: [id number] Infusion: 11/06/20 01:53 Dose: 0 mls/hr Documented by: [id number] Admin: 11/05/20 22:14 Dose: 28.8 mls/hr Documented by: [id number] Vancomycin HCl 1,000 mg/ (Sodium Chloride) 270 mls @ 200 mls/hr IV Q8H [facility] Stop: 11/08/20 13:00 Last Infusion: 11/08/20 12:15 Dose: 0 mls/hr Documented by: [id number] Admin: 11/08/20 10:47 Dose: 200 mls/hr Documented by: [id number] Infusion: 11/08/20 03:56 Dose: 0 mls/hr Documented by: [id number] Admin: 11/08/20 01:54 Dose: 200 mls/hr Documented by: [id number] Infusion: 11/07/20 19:26 Dose: 0 mls/hr Documented by: [id number] Admin: 11/07/20 18:05 Dose: 200 mls/hr Documented by: [id number] Infusion: 11/07/20 12:42 Dose: 0 mls/hr Documented by: [id number] Admin: 11/07/20 11:21 Dose: 200 mls/hr Documented by: [id number] Infusion: 11/07/20 03:30 Dose: 0 mls/hr Documented by: [id number] Admin: 11/07/20 01:53 Dose: 200 mls/hr Documented by: [id number] Infusion: 11/06/20 20:49 Dose: 0 mls/hr Documented by: [id number] Admin: 11/06/20 18:07 Dose: 200 mls/hr Documented by: [id number] Infusion: 11/06/20 11:30 Dose: 0 mls/hr Documented by: [id number] Admin: 11/06/20 10:09 Dose: 200 mls/hr Documented by: [id number] Infusion: 11/06/20 03:14 Dose: 0 mls/hr Documented by: [id number] Admin: 11/06/20 01:41 Dose: 200 mls/hr Documented by: [id number] Sodium Chloride (Nss 1000ml) 1,000 mls @ 75 mls/hr IV .[id number] ONE Stop: 11/06/20 10:45 Last Infusion: 11/06/20 11:13 Dose: 0 mls/hr Documented by: [id number] Admin: 11/05/20 21:53 Dose: 75 mls/hr Documented by: [id number] Sodium Chloride (Nss 1000ml) 1,000 mls @ 80 mls/hr IV .[id number] ONE Stop: 11/07/20 04:56 Last Infusion: 11/07/20 06:13 Dose: 0 mls/hr Documented by: [id number] Admin: 11/06/20 18:07 Dose: 80 mls/hr Documented by: [id number] Vancomycin HCl 1,000 mg/ (Sodium Chloride) 270 mls @ 200 mls/hr IV Q12H AIMEE Stop: 11/13/20 01:59 Last Infusion: 11/10/20 13:27 Dose: 0 mls/hr Documented by: [id number] Admin: 11/10/20 12:34 Dose: 200 mls/hr Documented by: [id number] Infusion: 11/10/20 03:25 Dose: 0 mls/hr Documented by: [id number] Admin: 11/10/20 01:00 Dose: 200 mls/hr Documented by: [id number] Infusion: 11/09/20 15:46 Dose: 0 mls/hr Documented by: [id number] Admin: 11/09/20 13:31 Dose: 200 mls/hr Documented by: [id number] Infusion: 11/09/20 01:13 Dose: 0 mls/hr Documented by: [id number] Admin: 11/08/20 23:41 Dose: 200 mls/hr Documented by: [id number] Lorazepam (Ativan) 1 mg in 2 mls @ 2 mls/min IV NOW STA Stop: 11/10/20 17:31 Last Admin: 11/10/20 18:00 Dose: 2 mls/min Documented by: [id number] Lorazepam (Ativan) 1 mg in 2 mls @ 2 mls/min IV Q3H PRN PRN Reason: spasm /agitation Stop: 12/10/20 17:30 Last Admin: 11/11/20 03:42 Dose: 2 mls/min Documented by: [id number] Admin: 11/10/20 23:41 Dose: 2 mls/min Documented by: [id number] Piperacillin Sod/Tazobactam (Sod 3.375 gm/ Dextrose) 115 mls @ 230 mls/hr IV NOW ONE; Protocol Stop: 11/11/20 09:44 Last Infusion: 11/11/20 10:55 Dose: 0 mls/hr Documented by: [id number] Admin: 11/11/20 10:16 Dose: 230 mls/hr Documented by: [id number] Ioversol (Optiray 320 100ml) 94 ml IV ONCE ONE Stop: 11/05/20 18:09 Last Admin: 11/05/20 18:08 Dose: 94 ml Documented by: [id number] Ipratropium Mammoth (Ipratropium Mammoth Neb Soln 0.02% 2.5 Ml Vial) 0.5 mg INH Q6R AIMEE Stop: 12/06/20 00:59 Last Admin: 11/09/20 07:08 Dose: 0.5 mg Documented by: [id number] Admin: 11/09/20 01:02 Dose: 0.5 mg Documented by: [id number] Admin: 11/08/20 19:08 Dose: 0.5 mg Documented by: [id number] Admin: 11/08/20 13:07 Dose: 0.5 mg Documented by: [id number] Admin: 11/08/20 07:16 Dose: 0.5 mg Documented by: [id number] Admin: 11/08/20 01:31 Dose: 0.5 mg Documented by: [id number] Admin: 11/07/20 19:43 Dose: 0.5 mg Documented by: [id number] Admin: 11/07/20 13:16 Dose: Not Given Documented by: [id number] Admin: 11/07/20 07:10 Dose: 0.5 mg Documented by: [id number] Admin: 11/07/20 00:58 Dose: 0.5 mg Documented by: [id number] Admin: 11/06/20 18:55 Dose: 0.5 mg Documented by: [id number] Admin: 11/06/20 12:57 Dose: 0.5 mg Documented by: [id number] Admin: 11/06/20 07:08 Dose: 0.5 mg Documented by: [id number] Admin: 11/06/20 01:21 Dose: 0.5 mg Documented by: [id number] Ketorolac Tromethamine (Ketorolac Tromethamine 15 Mg/Ml Vial) 15 mg IV NOW ONE Stop: 11/05/20 20:41 Last Admin: 11/05/20 21:55 Dose: 15 mg Documented by: [id number] Levalbuterol HCl (Levalbuterol 1.25mg/0.5ml Neb) 1.25 mg INH Q6R AIMEE Stop: 12/06/20 00:59 Last Admin: 11/09/20 07:08 Dose: 1.25 mg Documented by: [id number] Admin: 11/09/20 01:02 Dose: 1.25 mg Documented by: [id number] Admin: 11/08/20 19:08 Dose: 1.25 mg Documented by: [id number] Admin: 11/08/20 13:07 Dose: 1.25 mg Documented by: [id number] Admin: 11/08/20 07:16 Dose: 1.25 mg Documented by: [id number] Admin: 11/08/20 01:31 Dose: 1.25 mg Documented by: [id number] Admin: 11/07/20 19:43 Dose: 1.25 mg Documented by: [id number] Admin: 11/07/20 13:16 Dose: Not Given Documented by: [id number] Admin: 11/07/20 07:10 Dose: 1.25 mg Documented by: [id number] Admin: 11/07/20 00:58 Dose: 1.25 mg Documented by: [id number] Admin: 11/06/20 18:55 Dose: 1.25 mg Documented by: [id number] Admin: 11/06/20 12:57 Dose: 1.25 mg Documented by: [id number] Admin: 11/06/20 07:08 Dose: 1.25 mg Documented by: [id number] Admin: 11/06/20 01:21 Dose: 1.25 mg Documented by: [id number] Miscellaneous (Biotene Moisturizing Mouth: Order Awaiting Action) 1 ea N/A QS AIMEE Stop: 12/06/20 07:59 Last Admin: 11/07/20 08:19 Dose: Not Given Documented by: [id number] Admin: 11/06/20 23:28 Dose: Not Given Documented by: [id number] Admin: 11/06/20 18:06 Dose: Not Given Documented by: [id number] Admin: 11/06/20 08:46 Dose: Not Given Documented by: [id number] Description This is a 21 electrode EEG with a single channel dedicated to limited EKG. The electrodes were placed in accordance with the International 10-20 This EEG was done as a bedside recording is of reasonably good technical quality allowing for a lot of muscle movement artifacts which periodically diminishes patient enters into what appears to be a drowsy/sleep state During these intervals of time there is no normal background rhythm in the alpha range but rather a generalized centrally maximum bilaterally symmetrical polymorphic relatively low frequency modest amplitude theta pattern intermixed with 3 to 4-second periods of time during which there is a higher amplitude theta delta activity without any clinical manifestations and without any associated sharp waves or unequivocal potentially epileptogenic activity. Beta activity is not present or if present is obscured by muscle artifact Stimulation provokes no particular change in the underlying EEG pattern and does not provoke any for myogenic or photoparoxysmal response There is no clear evidence for potentially epileptogenic activity or evidence to suggest a nonconvulsive status epilepticus Syndrome Interpretation Abnormal EEG with generalized slow-wave activity periodic bursts of theta delta activity and absence of normal alpha rhythm all consistent with a generalized nonspecific encephalopathy without clear-cut potentially epileptogenic features Clinical Correlation Abnormal EEG see above description for details that are consistent with a non specific generalized encephalopathy Kennedy Vazquez MD
[2020-11-11] MEDS: lamoTRIgine 25 MG TAB PO SCH (21:07)
[2020-11-12] MEDS: LINEZOLID 600 MG/300 ML BAG IV SCH (01:41)
[2020-11-12] MEDS: BACLOFEN 20 MG TAB PO SCH ×3 (03:00→14:26)
[2020-11-12] MEDS: BUDESONIDE 0.5 MG/2 ML VIAL (PULMICORT) INH SCH ×2 (07:28→18:52)
[2020-11-12] MEDS: LACTATED RINGER'S 1,000 ML IV SCH ×2 (08:56→11:38)
[2020-11-12] MEDS: TUBE FEEDING WATER FLUSH PEG SCH ×5 (08:57→17:49)
[2020-11-12] MEDS: DANTROLENE SODIUM 25 MG CAP PEG SCH (08:59)
[2020-11-12] MEDS: DOCUSATE SODIUM SYRUP 100 MG/10 ML UDC PO SCH (09:00)
[2020-11-12] MEDS: FEXOFENADINE HCL 180 MG TAB PO SCH (09:00)
[2020-11-12] MEDS: LANSOPRAZOLE 30 MG SOLTAB PEG SCH (09:00)
[2020-11-12] MEDS: GLYCOPYRROLATE 1 MG TAB PO SCH ×2 (09:02→14:27)
[2020-11-12] MEDS: ADVANCED PROBIOTIC 1250 MG CAPSULE PO SCH (09:02)
[2020-11-12] MEDS: DICYCLOMINE HCL 10 MG CAP GT SCH ×2 (09:03→22:52)
[2020-11-12] MEDS: FLUTICASONE PROPIONATE NA SPR 16 GM BTL SCH (09:05)
[2020-11-12 09:09] LABS: Basophils # (auto) 0.01 K/uL (0-0.2); Eosinophils # (auto) 0.01 K/uL (0-0.5); Hematocrit (blood only) 41.2 % (42-52); Hemoglobin 13.1 g/dL (14.0-18.0); Immature Granulocytes # (auto) 0.05 K/uL (0.00-0.02); Immature Granulocytes % (auto) 0.2 %; Lymphocytes # (auto) 1.51 K/uL (1.2-3.4); Mean Corpuscular Hemoglobin 30.5 pg (25-34); Mean Corpuscular Hgb Conc 31.8 g/dL (32-36); Mean Platelet Volume 10.7 fL (7.4-10.4); Monocytes # (auto) 0.89 K/uL (0.11-0.59); Monocytes % (auto) 4.1 %; Neutrophils # (auto) 19.24 K/uL (1.4-6.5); Neutrophils % (auto) 88.7 %; Platelet Count 396 K/uL (130-400); RDW Coefficient of Variation 13.9 % (11.5-14.5); Red Blood Count 4.29 M/uL (4.7-6.1); White Blood Count 21.71 K/uL (4.8-10.8)
[2020-11-12] MEDS: clonazePAM 0.25 MG TAB PO SCH ×3 (09:14→22:50)
[2020-11-12] MEDS: lamoTRIgine 100 MG TAB PO SCH (09:20)
[2020-11-12 09:41] LABS: Alanine Aminotransferase 17 U/L (12-78); Albumin Globulin Ratio 0.6 (0.9-2); Albumin Level 2.5 gm/dl (3.4-5.0); Alkaline Phosphatase 79 U/L (45-117); Aspartate Aminotransferase 17 U/L (15-37); BUN Creatinine Ratio 3.7 (10-20); Bilirubin Direct < 0.1 mg/dl (0-0.2); Bilirubin,Total 0.4 mg/dl (0.2-1); Blood Urea Nitrogen 18 mg/dl (7-18); Carbon Dioxide 30 mmol/L (21-32); Chloride 98 mmol/L (98-107); Creatine Kinase 38 U/L (39-308); Creatinine Clr Calc Pharmacy 15.7 ml/min; Est GFR (African American) 17.1 ml/min; Est GFR (Non-African American) 14.8 ml/min; Globulin 4.3 gm/dl (2.5-4.0); Glucose 106 mg/dl (70-99); Potassium 3.6 mmol/L (3.5-5.1); Sodium 135 mmol/L (136-145); Total Protein 6.8 gm/dl (6.4-8.2)
[2020-11-12] MEDS ORDERED: PIPERACILL/TAZOBAC CONSULT ACTIVE PRN (10:38)
--- NOTE | 2020-11-12 10:46 | Communication Note ---
Date of Service: November 12, 2020 Patient's a.m. labs looks worsened, white count elevated to 20 K, creatinine continues to worsen 4.88 today, Low urine output 250 mL over last 24-hour Patient been on LR 150 mill per hour since yesterday causing significantly volume overload Hypertensive urgency noted SBP 187/diastolic 119 Tachycardic Was hypotensive SBP was in low 90s few days back. Discussed with Dr. Zapien, will transfer patient to ICU for worsening of clinical status Blood for ABG, stat lactic acid level CT abdomen pelvis done yesterday did not show any postsurgical abscess, Chest x-ray shows possible bibasilar infiltrate, concern for aspiration Added IV Zosyn anaerobic coverage, Nephrology updated regarding low urine output, elevated creatinine and hypertensive urgency. IV fluid rate decreased to prevent volume overload Discussed case with infectious disease at [facility]. Recommends to do lumbar puncture, to rule out meningitis CSF infection, Patient was on IV vancomycin from an admission Radiology consulted for lumbar puncture, Concern for possible serotonin syndrome? Due to Zyvox? Very hard to accurately assess as patient has baseline chronic spasm EEG showed no active seizure-like activity, Patient developed leukocytosis, renal failure after initiation of Zyvox, (Vancomycin was changed to Zyvox for option of oral antibiotic choice on discharge) Zyvox discontinued, Continue supportive care, Syl Shaver MD
[2020-11-12] MEDS ORDERED: PIPERACILLIN/TAZOBACTAM 3.375 GM in DEXTROSE 5% 100 ML IV ONE (11:00)
--- NOTE | 2020-11-12 11:08 | XRay Report ---
SINGLE VIEW CHEST CLINICAL HISTORY: Sepsis. FINDINGS: An AP, portable, upright chest radiograph is compared to study dated 11/05/2020. The heart i s top normal for projection. There is pulmonary vascular congestion. Bilateral airspace opacities are noted. There is mild elevation right hemidiaphragm. Small pleural effusions are identified. No pneum othorax is seen. The bony thorax is grossly intact. IMPRESSION: 1. There is pulmonary vascular congestion. 2. Bilateral airspace opacities likely represent pulmonary edema. Correlate clinically for evidence o f a superimposed infectious/inflammatory pneumonitis. 3. Small pleural effusions. ACT 112: Negative or not required by law. Electronically signed by: Edwardo Herrera M.D. 11/12/2020 11:07 AM
[2020-11-12 11:22] LABS: HCO3 ABG 30 mmol/L (19-24); Oxygen Saturation ABG 93.1 % (90-95); PCO2 ABG 53 mmHg (35-46); PO2 ABG 62 mmHg (80-95); pH ABG 7.37 (7.35-7.45)
[2020-11-12 11:28] LABS: Allen Test Pos (Pos)
[2020-11-12] MEDS: CHOLESTYRAMINE LIGHT 4 GM PKT PEG SCH (11:39)
[2020-11-12 12:33] LABS: INR 1.1 (0.9-1.1); Prothrombin Time 11.3 Seconds (9.0-12.0)
--- NOTE | 2020-11-12 13:20 | Pain Management Progress Note ---
Date of Service November 12, 2020 Assessment & Plan (1) Abdominal wall cellulitis: (2) Sepsis: (3) Acute kidney injury: (4) Spasticity: (5) Cerebral palsy, quadriplegic: * Sedation likely multifactorial. We discussed the potential contributions of his current medications including but not limited to dantrolene, baclofen and his benzodiazepines although benzodiazepine dosing currently less than preadmission. We discussed baclofen withdrawal and expectations regarding length of potential associated symptoms. * Medical management will continue per primary medical team, nephrology and neurology * Continue with as needed diazepam for breakthrough spasm * No current recommendations for adjustment to dantrolene or baclofen dosing * Continue with wound care with wound VAC status post intrathecal pump removal Present on Admission?: Yes Admission and Anticipated Discharge Date Admission Date: November 05, 2020 Subjective Mr. West is a 30-year-old nonverbal white male who is well-known to the pain service with history of cerebral palsy and significant spasticity which had required implantation of intrathecal baclofen pump and catheter delivery system. The patient recently developed difficulties with abdominal wall cellulitis and sepsis which required explantation of the intrathecal pump completed on 11/07/2020. The patient has experienced difficulties with breakthrough spasticity likely as a byproduct of baclofen withdrawal in spite utilization of oral baclofen and dantrolene. There appears to have been improvement in his breakthrough spasticity with use of benzodiazepine therapies. Patient appeared to have an acute kidney injury and has been evaluated by nephrology as well as completion of an EEG with neurology. Wound care remains involved with wound VAC in place from site of intrathecal pump removal. History is obtained through the patient's mother at today's visit as the patient remains nonverbal. The patient's mother indicates the patient has been extremely sedate and sleeping over the past 12-16 hours but not experiencing difficulty breakthrough spasticity. She is concerned about his sedation at this time. Plan of care discussed with Dr. Jenkins. Physical Exam Physical Exam: General: Patient was sleeping/sedated upon entering the room accompanied by his mother. History was obtained via the mother only. Extremities: There was no involuntary movements appreciated. Abdomen: Dressing and wound VAC in place in the right lower abdomen.
[2020-11-12] MEDS ORDERED: BACLOFEN 10 MG TAB PO SCH (15:39)
--- NOTE | 2020-11-12 15:42 | Communication Note ---
Date of Service: November 12, 2020 I attempted to see Kennedy today but he is currently having a lumbar puncture to evaluate his sudden elevation of the white count and hypotension and his exces sive somnolence which probably reflects the Valium. His EEG showed some generalized slowing and some of the pattern could have actually been reflective of underlying drowsiness and sleep and no potentially epileptogenic activity was seen I did have the opportunity to discuss his case with his mother today and she informs me that Dr. Son is actually his neurologist and has been seeing him on a yearly basis. He has not had a true clinical seizure for years but the Lamictal has been kept up based on his high risk for recurrent seizures based on his cerebral palsy and underlying encephalopathy Should neurology need to get reinvolved in his case I would suggest that another consult be placed to Dr. Son for follow-up as he does have records and knowledge of this man's underlying baseline neurologic status and I do not Kennedy Vazquez MD
--- NOTE | 2020-11-12 15:57 | Fluoroscopy Report ---
FLUOROSCOPICALLY GUIDED LUMBAR PUNCTURE CLINICAL HISTORY: meningitis FLUOROSCOPY TIME: 0.8 minutes NUMBER OF FLUOROSCOPIC IMAGES: 1 PROCEDURE: The procedure, risks and benefits were discussed with the patient's mother given patient' s sedation including the risk of spinal headache, bleeding and infection. The patient's mother agreed to the procedure and informed written consent was obtained. The procedure was performed by Dr. Maryann horner following a timeout. The right L4-L5 interlaminar space was targeted. Skin overlying the space w as prepped and draped in sterile fashion and local anesthesia was achieved with 1% lidocaine. Under i ntermittent fluoroscopic guidance, a 3 1/2 inch, 22-gauge spinal needle was directed into the thecal sac. There was immediate return of clear cerebrospinal fluid. 8 cc of CSF was collected in 4 vials an d sent to the laboratory for analysis as ordered. The needle was removed. The patient tolerated the p rocedure well and no immediate complications were evident. IMPRESSION: Successful fluoroscopically guided lumbar puncture with collection of 8 cc of clear cereb rospinal fluid which was sent to the laboratory for analysis as ordered. ACT 112: Negative or not required by law. Electronically signed by: Bebo Gonzalez M.D. 11/12/2020 3:56 PM
[2020-11-12] MEDS ORDERED: VANCOMYCIN CONSULT ACTIVE SCH (16:04)
[2020-11-12 16:15] LABS: CSF Glucose 66 mg/dl (40-70)
[2020-11-12 16:44] LABS: Appearance Urine Clear (Clear); Bilirubin Urine Negative (Negative); Blood Urine 2+ (Negative); Color Urine Yellow; Glucose Urine UA Negative (Negative); Ketones Urine Negative (Negative); Leukocyte Esterase Urine 1+ (Negative); Nitrite Urine Negative (Negative); Protein Urine 1+ (Negative); Urobilinogen Urine Negative (Negative)
[2020-11-12 16:55] LABS: CSF Chemistry Tube # 1
[2020-11-12 17:09] LABS: Appearance CSF Clear; CSF Count Tube # 3
[2020-11-12 17:10] LABS: CSF Xanthrochromic No xanthochromia; Color CSF Colorless; Red Blood Cell CSF (A) 0 /uL (0-); Red Blood Cell CSF (B) 0 /uL (0-); White Blood Cell CSF (A) 6 /uL (0-5); White Blood Cell CSF (B) 7 /uL (0-5)
--- NOTE | 2020-11-12 17:12 | Nephrology Progress Note ---
Date of Service November 12, 2020 Assessment & Plan (1) Acute kidney injury: baseline creatinine 0.4-0.7; stage 3 AURELIANO not oliguric. not likely prerenal at this point as he has been resuscitated adn is 10L positive on the admission; ATN possibly from sepsis; concern also for ischemic atn w/ labile blood pressures, ?vanco toxicity. >last baclofen dose > today 1430 > 20 mg via PEG >> 20 mg q6h since 11/10 AM; prior to this was tid 20 mg 11/07-11/10; pump removed 11/07 need to hold baclofen or at very least dramatically reduce dose (was on 20 mg qid until this afternoon); he has minimal renal function at this point > in theory he is at high risk for baclofen toxicity/ accumulation; need now to monitor for withdrawal from baclofen though anticipate baclofen will be very slow to clear. challenging situation clinically -cannot rule out need for dialysis -repeat UA/CX ordered and repeat bmp -bordering on volume overload w/ HTN, pulmonary edema on CXR > stopped IV fluids -agree w/ pharmacy dosing vanco by level -monitor closely for withdrawal Care coordinated w/ Dr Shaver (2) Seizure: Admission and Anticipated Discharge Date Admission Date: November 05, 2020 Subjective had LP today, results pending but w/ markedly elevated protein. he was sedated for procedure w/ valium. renal function continues to worsen. borderline oliguria. Review of Systems Review of Systems: Unobtainable due to reduced consciousness Physical Exam Constitutional: + acute distress (slight agitation), + thin, + altered mental status and + frail appearing Eyes: EOM intact bilaterally ENMT: Ears: no external ear abnormality Nose: no external nose abnormality Mouth: + dry oral mucous membranes Neck: no nuchal rigidity Respiratory: + prolonged expiratory phase Auscultation: + diminished lung sounds and + rhonchi Cardiovascular: Rate/Rhythm: regular rhythm and + tachycardic (hyperdynamic) Heart Sounds: + murmur Gastrointestinal (Abdomen): Inspection/Auscultation: + hypoactive bowel sounds Percussion/Palpation: + guarding (possible guarding w/ palpations/wtih breaths); abdomen nontender Musculoskeletal: Extremities: + limited ROM of extremities and + muscle atrophy Skin: no rashes, warm and dry Neurologic: valladares, fluent speech, no tremor Genitourinary: llanos w/ some light yellow urine Results & Data ([facility]) Vital Signs (Past 12 Hours) Vital Signs Temp Pulse Resp BP BP Pulse Ox 11/12/20 16:10 36.6 C 105 H 22 158/100 H 97 11/12/20 11:10 36.8 C 101 H 18 117/79 92 11/12/20 08:14 36.1 C L 102 H 18 187/119 H 91 11/12/20 07:39 102 H 20 93 Laboratory Results 11/12/20 08:32 11/12/20 12:12 CREAT 4.9 THIS AM, k 3.6; WAS 4.1 YESTERDAY; 3.9 day before
[2020-11-12 17:14] LABS: Bacteria Urine 1+ (Negative); Epithelial Cell Urine 0-5 /lpf (0-5)
--- NOTE | 2020-11-12 17:46 | Hospitalist Progress Note ---
Date of Service November 12, 2020 Assessment & Plan (1) Sepsis: Multiple discussions with specialist: Mandeep PUENTES, cashier [employer] Dr. Burgos, pain management anesthesiology Dr. Zapien, nephrology Dr. Merino. Very hard to pinpoint exact source of infection, and because of sudden and progressive deterioration of renal function: IV fluid discontinued as patient can develop volume overload with acute renal failure, GFR less than 15, urine output diminished. Order to hold baclofen and dantrolene, patient appears to be extremely sedated, With worsening of kidney function, and in the absence of active spasm it would be prudent to hold blood Profen for now Continue as needed IV Valium EEG shows no active seizure-like activity, baseline low wave activity suggestive of encephalopathy. Overall prognosis remains poor, lumbar puncture done today, shows elevated protein, minimum WBC, suggestive of meningitis infection versus inflammatory Patient is already on IV vancomycin, and Zosyn, we will add acyclovir for viral infection coverage. Overall prognosis remains guarded If patient's hemodynamics continues to decline, will need to be transferred to tertiary care [place], spasm vs Seizure episode : EEG shows no evidence of active seizure, Today patient appears to be sedated, no active spasm noted, baclofen kept on hold for worsening of kidney function to prevent toxicity As needed IV Valium Acute renal failure : Not sure of the etiology, sepsis versus drug toxicity antibiotic vancomycin? CK level within normal limit, no evidence of rhabdo Creatinine continues to worsen, 5.2, baseline creatinine 1 0.8 Oliguric renal failure, IV fluid kept on hold as patient already with 3+ liter volume overload Nephrology following, may need dialysis Sepsis Secondary to abdominal wall cellulitis due to intrathecal pump implant pocket infection Possible Aspiration pneumonia -CT abdomen/pelvis :There is infiltration, soft tissue gas, and fluid identified surrounding the pain pump with overlying dermal thickening. This is not well evaluated due to significant streak artifact. Correlate clinically for evidence of soft tissue infection. A small abscess is not excluded. Suspect an inflammatory process involving the ascending colon deep to the pain pump. Again, this is not well assessed due to significant streak artifact. This could represent a primary colonic inflammatory process such as colitis or diverticulitis or could be related to the inflammatory process around the pump. Clinical correlation will be essential. The appendix is discrete from this proc ess and normal. No intraperitoneal free air is identified. Airspace opacities are present at both lung bases. This likely represents atelectasis. Correlate clinically for evidence of a mild infectious/inflammatory pneumonitis. Patient was started on broad-spectrum antibiotic with IV vancomycin and Zosyn Appreciate input from pain management, Intrathecal baclofen pump was removed surgically by Dr. Zapien 11/07/2020 Patient status continues to decline with marked leukocytosis and renal failure Antibiotic adjusted, resume IV Vanco and add Zosyn for aspiration pneumonitis, added acyclovir for possible viral meningitis Anemia Likely due to chronic disease Normal iron panel, folate levels High B12 levels stool Hemoccult negative Cerebral Palsy Seizure disorder Intrathecal baclofen pump surgically removed for infection around the pump pocket. Baclofane and Dantrolene dose on hold for acute renal failure appreciate input from Dr Jenkins Nutrition : Hold tube feeding for now DVT Px: SCD and teds Continue to hold subcu Lovenox postoperatively to prevent bleeding complication at the surgical wound Code Status Full code Disposition: Patient status continues to decline, plan of care discussed in detail to patient's mother present at bedside by myself, Dr. Merino, We will transfer the patient to ICU. Mother wants to continue treatment at [facility] if possible, for any life-threatening situation or patient is high level of care willing to have him transferred to [facility] Patient remains full code, CODE STATUS will be addressed with mother Admission and Anticipated Discharge Date Admission Date: November 05, 2020 Subjective Multiple visit done today because of the acute illness, deteriorating clinical status. Patient remains sedated most of the time today, no breakthrough spasm or seizure type activity noted Kidney function continues to deteriorate, Review of Systems Review of Systems: Unobtainable due to cognitive status Physical Exam Physical Exam: Sedated, no active spasm noted Constitutional: + thin, + behavioral limitations (Nonverbal), + physical limitations (Cerebral palsy), + frail appearing and + underweight Eyes: + anicteric sclerae Respiratory: normal respiratory effort, lungs clear to auscultation Cardiovascular: RRR, no murmur, no edema Gastrointestinal (Abdomen): Inspection/Auscultation: + abdominal surgical inci kyle (Right lower quadrant wound VAC present) Results & Data Results & Data ([facility]) Vital Signs (Past 12 Hours) Vital Signs Temp Pulse Resp BP BP Pulse Ox 11/12/20 16:10 36.6 C 105 H 22 158/100 H 97 11/12/20 11:10 36.8 C 101 H 18 117/79 92 11/12/20 08:14 36.1 C L 102 H 18 187/119 H 91 11/12/20 07:39 102 H 20 93
[2020-11-12 17:51] LABS: BUN Creatinine Ratio 4.3 (10-20); Calcium 8.8 mg/dl (8.5-10.1); Creatinine Clr Calc Pharmacy 15.2 ml/min; Est GFR (African American) 16.5 ml/min; Est GFR (Non-African American) 14.3 ml/min; Potassium 3.9 mmol/L (3.5-5.1)
--- NOTE | 2020-11-12 18:04 | XRay Report ---
KUB HISTORY: abdominal distension COMPARISON: Abdomen and pelvis CT 11/11/2020. FINDINGS: The bowel gas pattern is unremarkable. There are no dilated loops of small bowel to suggest an obstruction. No renal calculi. No ureteral calculi. No pneumoperitoneum or pneumatosis. A gastro stomy tube is unchanged in position. Linear metallic density overlying the right lower quadrant measu ring 2 cm remains unchanged. This appears to represent a residual intrathecal catheter. A Ponce [address] ter is noted. The bladder is not well visualized on this study. Chronic deformity remains stable. IMPRESSION: Unremarkable bowel gas pattern. No evidence for bowel obstruction. Additional chronic findings as castro cribed above. ACT 112: Negative or not required by law. Electronically signed by: Jamie Cash M.D. 11/12/2020 6:03 PM
[2020-11-12] MEDS ORDERED: ACYCLOVIR CONSULT ACTIVE PRN (19:11)
[2020-11-12] MEDS ORDERED: ACYCLOVIR SOD 500 MG in DEXTROSE 5% 100 ML IV SCH (19:15)
[2020-11-12] MEDS: PIPERACILLIN/TAZOBACTAM 3.375 GM in DEXTROSE 5% 100 ML IV SCH (20:50)
[2020-11-12] MEDS ORDERED: DANTROLENE SODIUM 25 MG CAP PEG SCH (21:00)
[2020-11-12 21:08] LABS: Cryptococcus neoformans/ga PCR Not Detected (NotDetected); Cytomegalovirus PCR Not Detected (NotDetected); Enterovirus PCR Not Detected (NotDetected); Escherichia coli K1 PCR Not Detected (NotDetected); Haemophilius influenzae PCR Not Detected (NotDetected); Herpes Simplex Virus 1 PCR Not Detected (NotDetected); Herpes Simplex Virus 2 PCR Not Detected (NotDetected); Human Herpes Virus 6 PCR Not Detected (NotDetected); Human Parechovirus PCR Not Detected (NotDetected); Listeria monocytogenes PCR Not Detected (NotDetected); Neisseria meningitidis PCR Not Detected (NotDetected); Streptococcus agalactiae PCR Not Detected (NotDetected); Streptococcus pneumoniae PCR Not Detected (NotDetected); Varicella Zoster Virus PCR Not Detected (NotDetected)
--- NOTE | 2020-11-12 21:58 | Critical Care Consultation ---
Date of Consultation November 12, 2020 Assessment & Plan (1) Admitted to intensive care unit: Reason Critically Ill: 30-year-old male with respiratory failure in the setting of sepsis, wound infection, renal failure, and possible meningitis requiring close monitoring for possible need for intubation and close hemodynamic monitoring. NEURO - * CAM ICU: Unable to assess secondary to baseline cognitive disability. CARDIAC/VASCULAR - * Hypertensive over the past few days. * EKG: * Monitor on telemetry. RESPIRATORY - * Respiratory Failure: * Likely 2/2 medication accumulation in the setting of worsening renal function. Likely with degree of CO2 narcosis with ongoing poor ventilation. * Patient unable to protect airway. * Discussed with mother at bedside. She is in agreement with emergent endotracheal intubation. * Will obtain ABGs as needed. * Titrate down ventilator settings as tolerated. GI/NUTRITION - * PEG tube in place. * Tube feeds per home schedule. RENAL/LYTES - * ARF (nonoliguric): * Of ?? etiology. * Patient 11.5 L positive. * Judicious use of IVF as patient is volume overloaded. * Thankfully, without significant electrolyte derangement to this point. * Concerning progression with possible need for HD soon. * Appreciate Nephrology's recommendations. - * Ponce in place - Strict I&Os. ENDO - * No h/o DM or Thyroid Dz * BSGs per unit protocol. ISS --> gtt per unit policy. HEME - * Stable H&H * Worsening leukocytosis. ID - * Sepsis 2/2 abdominal wall cellulitis w/ infected baclofen pump site: * Initial source control w/ explantation of pump. * MRSA of the pump site. * Covered currently w/ Zosyn, Vanc. * Worsening leukocytosis w/ concerns for possible other sources. * LP w/ c/o high protein and WBCs. Certainly concerning w/ h/o of recent thecal pump removal. LINES/IV ACCESS - * PIVs x1 * Ponce DVT PROPHYLAXIS - * Hold 2/2 c/o bleeding from surgical site. * SCDs I have personally spent 45 minutes of critical care time in the direct management of this patient. This is a life/limb threatening event. This includes time spent evaluating patient, direct bedside care, chart review, placing orders, interpretation of diagnostic studies, discussion with consultants, patient, and family members, as well as other required patient management activities. This time is exclusive of all separately billable procedures, and teaching time and separate from and in addition to any other critical care service time. Thank you for allowing us to participate in the care of this patient. Please refer to my attending physician's documentation for any further recommendations. (2) Respiratory failure: (3) Obtunded: (4) Acute kidney injury: (5) Sepsis: (6) Abdominal wall cellulitis: (7) Cerebral palsy, quadriplegic: (8) S/P insertion of intrathecal pump: (9) Spasticity: (10) Severe mental handicap: Supervising Physician Co-Signing Physician Notes Discussed with hospitalists and SALO. See my PN from 11/13 for additional details. History of Present Illness Attending Physician: Syl Shaver MD History of Present Illness Patient is a 30-year-old male with a significant past medical history of cerebral palsy with a nonverbal status, dystonia, and seizure disorder. Patient has had a intrathecal baclofen pump which was recently replaced on 09/04. The pa gian had been doing well up until 11/05, when he presented to the emergency department with complaints of fever and cough. Patient was noted to present in a septic-like presentation with borderline hypotension with concerns for aspiration pneumonia as well as abdominal wall cellulitis at the site of the intrathecal pump. Patient was initially placed on vancomycin and Zosyn. In consultation with pain management, it was felt best that the pain pump be removed. This procedure was performed on 11/07. There was an area of pus noted in the pocket of the baclofen pump. Wound cultures have grown positive for MRSA. Patient was transitioned to linezolid alone. Unfortunately, patient has suffered with ongoing episodes of spasticity since removal of the pump. He has since been placed on IV Valium in addition to PEG tube baclofen. Additionally, the patient has had a decline in his renal function. His baseline creatinine was approximately 0.5. Over the last few days, the patient has had a steady, abrupt rise in his creatinine. His current creatinine is greater than 5. Patient is nonoliguric, however he does have decreased urine output. Thankfully, to this point, his electrolytes have been within normal limits. Patient has been increasingly obtunded and with increasing requirements of oxygen over the last 24 hours. Concern for possible need for intubation in the setting of respiratory failure with concerns for need for transfer to the ICU for higher level of care. Upon assessment in the ICU, the patient is obtunded with snoring respirations. He was requiring high levels of oxygen mask to maintain saturations in the low 90s. Mother is at bedside and reports that his level of responsiveness and consciousness has certainly declined over the last 24 hours. She states that at baseline he is nonverbal, however he is expressive including smiles and knows his family and certain locations. We did have a discussion regarding my concerns from her respiratory status and possible need for emergent endotracheal intubation for airway protection. She is comfortable agreeing with any/all life-saving measures. Allergies Allergy/AdvReac Type Severity Reaction Status Date / Time cat dander Allergy Intermediate SHORTNESS Verified 11/05/20 16:17 OF BREATH pollen extracts Allergy Intermediate SHORTNESS Verified 11/05/20 16:17 OF BREATH ciprofloxacin AdvReac Intermediate GI SYMPTOMS Verified 11/05/20 16:17 house dust AdvReac Intermediate SHORTNESS Verified 11/12/20 16:30 OF BREATH Home Medications Medication Instructions Recorded Confirmed Type clonazepam 0.5 mg tablet 0.25 mg FEEDING TUBE UD tab 01/22/18 11/05/20 History dicyclomine 10 mg capsule 10 mg FEEDING TUBE BID cap 01/22/18 11/05/20 History fexofenadine 180 mg tablet 180 mg FEEDING TUBE QAM 01/22/18 11/05/20 History fluticasone propionate 50 2 sprays INTNAS QAM 01/22/18 11/05/20 History mcg/actuation nasal spray,suspension glycopyrrolate 1 mg tablet 1 mg FEEDING TUBE TID tab 01/22/18 11/05/20 History lamotrigine 150 mg tablet 150 mg FEEDING TUBE BID 01/22/18 11/05/20 History lamotrigine 25 mg tablet 75 mg FEEDING TUBE HS tab 01/22/18 11/05/20 History omeprazole 20 mg capsule,delayed 20 mg FEEDING TUBE QAM 01/22/18 11/05/20 History release saliva stimulant comb. no.3 1 appln MUCOUS MEMBRANE Q2H PRN 01/22/18 11/05/20 History sodium chloride 0.65 % nasal spray 2 sprays INTNAS QAM PRN ml 01/22/18 11/05/20 History aerosol water for irrigation, sterile 1 ml IRRIGATION DAILY PRN ml 01/22/18 11/05/20 History diazepam 12.5 mg-15 mg-17.5 mg-20 10 mg AK DAILY PRN 02/14/19 11/05/20 History mg rectal kit Nutren 2.0 4 ea FEEDING TUBE DAILY 02/25/19 11/05/20 History budesonide 0.5 mg/2 mL suspension 0.5 mg INH BID #120 ml 06/21/20 11/05/20 Rx for nebulization Florajen3 3 cap DAILY 08/14/20 11/05/20 History Percussion Vest 08/14/20 09/19/20 History Prevalite 4 g PO QDL 08/14/20 11/05/20 History albuterol sulfate 2.5 mg INHALATION QAM PRN 08/14/20 11/05/20 History clotrimazole 1 applic TOPICAL BID PRN 08/14/20 11/05/20 History dantrolene 25 mg FEEDING TUBE BID 08/14/20 11/05/20 History triamcinolone acetonide 1 applic TOPICAL BID PRN 08/14/20 11/05/20 History hydrocodone 7.5 mg-acetaminophen 15 ml PO Q8H PRN #60 ml 09/04/20 11/05/20 Rx 325 mg/15 mL oral solution baclofen 10 mg PO DIRECTED PRN 11/05/20 11/05/20 History Patient History Medical History Allergies Anxiety Aspiration into airway Per pulm 12/04, "doing well clinically, continue to observe for signs or symptoms of aspiration" Asthma working diagnosis, unable to complete PFTs Cerebral palsy, 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) Dry mouth Dystonia Excessive salivation Gastrostomy in place 18F 2.7 cm, change every 3 months, maintain 5-6 ml of water in baloon GERD (gastroesophageal reflux disease) 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 Seizure Seizures well controlled on Lamictal per 03/19/20 neuro note Severe mental handicap Spasticity Surgical History H/O wisdom tooth extraction Hamstring tightness of both lower extremities s/p surgical release of adductor and hamstrings S/P insertion of intrathecal pump Family History Family/Other Heart disease Father Diabetes Heart trouble Social History Smoking Status: Never smoker Second Hand Exposure: No; Hx Alcohol Use: No Hx Substance Use: No Preferred Language: Angolan Communication Ability: Impaired Beliefs That Will Affect Care: None marital status: Single Current Living Situation: Parent and Personal Care Facility Current Living Situation Comment: Personal Care Facility during week. Parents during the weekend current occupational status: disabled Other Information That Helps Us Care for You: No Feels Safe at Home: Yes Assistive Devices: Wheelchair Review of Systems Review of Systems: Unobtainable due to cognitive status Physical Exam Physical Exam: VITAL SIGNS - Vital signs and nursing notes were reviewed. GENERAL - 30-year-old male appearing younger than his stated age. Nonresponsive. Snoring respirations with poor inspiratory effort. SKIN - Without rashes. HEAD - NC/AT. EYES - Slightly dilated pupils noted bilaterally. Sluggish, but reactive. EARS - No deformities of external structures noted on gross examination bilaterally. NOSE - Midline and without cyanosis. No epistaxis or purulent drainage noted. MOUTH/OROPHARYNX - Without perioral cyanosis. Buccal mucosa pink and dry. NECK - Neck with FROM. Supple to palpation. LUNGS - Snoring respirations. Coarse breath sounds noted throughout. Chest wall symmetric without accessory muscle use, intercostals retractions, or central cyanosis. CARDIAC - RRR with S1/S2. No murmur, rubs, or gallops appreciated. ABDOMEN - Abdominal contour slightly distended. Open abdominal wound noted to the RLQ with wound vac in place. No appreciable TTP. EXTREMITIES - No clubbing or peripheral cyanosis. No pretibial edema present. +3/5 radial pulses palpated throughout. NEUROLOGIC - Obtunded. Snoring respirations. Pupils slightly dilated and sluggish. Unable to fully assess secondary to baseline deficits. Results & Data Results & Data ([facility]) Vital Signs (Past 12 Hours) Vital Signs Temp Pulse Resp BP BP Pulse Ox 11/12/20 19:54 36.6 C 101 H 18 147/99 H 92 11/12/20 18:53 106 H 20 95 11/12/20 18:04 37.8 C H 99 H 15 150/90 H 96 11/12/20 16:10 36.6 C 105 H 22 158/100 H 97 11/12/20 11:10 36.8 C 101 H 18 117/79 92 Coding Level of Care Code Critical Care 1st 30-74 mins Diagnoses Admitted to intensive care unit Z78.9 Respiratory failure J96.90 Obtunded R40.1 Acute kidney injury N17.9 Sepsis A41.9 Abdominal wall cellulitis L03.311 Cerebral palsy, quadriplegic G80.8 S/P insertion of intrathecal pump Z98.890 Spasticity R25.2 Severe mental handicap F72 Time Spent (min) 45
[2020-11-12] MEDS ORDERED: RAPID SEQUENCE INDUCTION BAG ONE (22:06)
[2020-11-12] MEDS ORDERED: fentaNYL citrate 100 MCG/2 ML VIAL IV PRN (22:30)
[2020-11-12] MEDS ORDERED: STAT IV Infusion **Titration per Protocol STA (23:00)
[2020-11-12] MEDS ORDERED: NOREPINEPHRINE/D5W 8 MG/508 ML BAG IV SCH (23:00)
[2020-11-12] MEDS ORDERED: NOREPINEPHRINE/D5W 8 MG/508 ML IV ONE (23:03)
--- NOTE | 2020-11-12 23:16 | Procedure Note ---
Procedure Note Date of Service November 12, 2020 Intubation Indication airway protection secondary to encephalopathy Called by the physician botany laboratory assistant in the ICU as the patient's had declining mental status and concerns for airway compromise. Patient is ill with a sepsis of unknown source with worsening renal dysfunction. Physician botany laboratory assistant in the ICU requested my presence as he believes the patient may need intubated. He discussed with the patient's mother and she is in agreement with that and they are arranging transport to a higher level of care here. Proceeded to ICU. Did review the patient's chart and discussed the case with the physician botany laboratory assistant at bedside in the ICU. Patient is obtunded and being bagged upon arrival. Intermittent respiratory effort. Patient satting 100% BVM 94%. The patient was on 100% oxygen via BVM prior to the procedure. Suction, airway equipment, RSI drugs, respiratory equipment, and appropriate personnel were prepared prior to the initiation of the procedure. KEYON Johnson attempted given the patient's obtundation intubation without the benefit of medications with visualization of the cords with the glide scope as well as suctioning of some greenish-ojeda secretions in the oropharynx and over the vocal cords. Patient began to gag and this was quickly aborted. Patient was bagged and pulse ox improved from the low 90s to the mid 90s. Induction was then performed with 50 mg of etomidate and 50 mg rocuronium. After observing the clinical benefit of the medications, the airway was easily visualized by myself utilizing a 3 glide scope. A 7.0 size ETT tube was placed atraumatically to 23 cm using standard technique. The cuff inflated without signs of malfunction. There were bilateral breath sounds, positive colormetric change, no gastric sounds, and post procedure pulse oximetry was 96%. There were no apparent complications. Patient left in the care of the ICU staff and PA. Further sedation and transportation arrangements to tertiary care were being arranged. Jerrell Devlin MD Coding
[2020-11-12] MEDS ORDERED: ICU PROTOCOL FOR HYPERGLYCEMIA PRN (23:18)
[2020-11-12 23:27] LABS: iSTAT Allen Test Pass; iSTAT Art Bld Gas pCO2 Correct 51 mmHg (35-46); iSTAT Arterial Blood Gas HCO3 32 meg/L (19-24); iSTAT Arterial Blood Gas pCO2 51 mmHg (35-46); iSTAT Arterial Blood Gas pO2 55 mmHg (80-95); iSTAT Arterial Blood Gas pO2 C 54; iSTAT Carbon Dioxide 33 mmol/L (24-31); iSTAT FiO2 60 %; iSTAT Hematocrit 37 % (42-52); iSTAT Hemoglobin 12.6 g/dl (14.0-18.0); iSTAT Potassium 3.6 mmol/L (3.3-5.0); iSTAT Site R Radial; iSTAT Sodium 131 mmol/L (135-144)
[2020-11-12] MEDS ORDERED: SODIUM CHLORIDE 0.9% 1000ML 500 ML IV ONE (23:33)
[2020-11-12] MEDS ORDERED: ALBUT/IPRATROP 3MG/0.5MG NEB 3 ML VIAL ONE (23:36)
[2020-11-12] MEDS: ALBUT/IPRATROP 3MG/0.5MG NEB 3 ML VIAL INH SCH (23:48)
--- NOTE | 2020-11-13 00:11 | Procedure Note ---
Procedure Note Date of Service November 13, 2020 Procedure: Arterial Line Placement Attending: Dr. Burgos APC: Rob Johnson PA-C Indication: Monitoring on Pressors Anesthesia: Lidocaine 1% Emergent consent implied in the setting of worsening hypotension and need for close hemodynamic monitoring. A time-out was completed verifying correct patient, procedure, site, positioning, and implant(s) or special equipment if applicable. Allens test was performed to ensure adequate perfusion. Patients RIGHT wrist was prepped and draped in the usual sterile fashion. Ultrasound guidance was used to aid needle placement. A 20g Arrow arterial line was introduced into the RIGHT Radial artery. Catheter was threaded, and the needle was removed with appropriate blood return. Good waveform was observed. The patient tolerated the procedure well. Confirmation of placement with ultrasound. Blood Loss: Minimal Complications: None Procedural Ultrasound Guidance: Procedure Date: 11/12/2020 Indication: Pressors, Frequent BPs, Frequent Labs Attending: Dr. Burgos APC: Rob Johnson PA-C Artery Identified: YES Line confirmed in Artery with ultrasound: YES Complications: NONE Patient tolerated procedure: WELL Coding CPT Codes Tubes, Drains, and Vasc Access - Tubes, Drains, and Vasc Access: [id number] Place Catheter In Artery ([id number]) [facility] [place] Codes (Charges) Tubes, Drains, and Vasc Access Procedure 1: Tubes, Drains, and Vasc Access: [id number] Place Catheter In Artery
[2020-11-13 00:16] LABS: Basophils # (auto) 0.01 K/uL (0-0.2); Basophils % (auto) 0.1 %; Eosinophils # (auto) 0.05 K/uL (0-0.5); Eosinophils % (auto) 0.3 %; Hematocrit (blood only) 35.9 % (42-52); Hemoglobin 11.7 g/dL (14.0-18.0); Immature Granulocytes # (auto) 0.04 K/uL (0.00-0.02); Immature Granulocytes % (auto) 0.2 %; Lymphocytes # (auto) 1.26 K/uL (1.2-3.4); Lymphocytes % (auto) 6.4 %; Mean Corpuscular Hemoglobin 31.2 pg (25-34); Mean Corpuscular Hgb Conc 32.6 g/dL (32-36); Mean Corpuscular Volume 95.7 fL (80-100); Mean Platelet Volume 10.3 fL (7.4-10.4); Monocytes # (auto) 0.79 K/uL (0.11-0.59); Neutrophils # (auto) 17.45 K/uL (1.4-6.5); Platelet Count 414 K/uL (130-400); RDW Coefficient of Variation 13.7 % (11.5-14.5); RDW Standard Deviation 47.8 fL (36.4-46.3); Red Blood Count 3.75 M/uL (4.7-6.1)
[2020-11-13 00:32] LABS: iSTAT Arterial Blood Gas HCO3 29 meg/L (19-24); iSTAT Arterial Blood Gas pCO2 41 mmHg (35-46); iSTAT Arterial Blood Gas pH 7.46 (7.35-7.45); iSTAT Arterial Blood Gas pO2 70 mmHg (80-95); iSTAT Carbon Dioxide 30 mmol/L (24-31); iSTAT FiO2 100 %; iSTAT Site Art Line
--- NOTE | 2020-11-13 00:42 | Communication Note ---
Date of Service: November 13, 2020 After complete assessment, the patient was intubated secondary to inability to protect airway. The patient had coarse breath sounds and appeared to have some upper airway secretions. Initially, I did suction him with Yankauer and the patient elicited no gag reflex. At this point, I had a discussion regarding need for intubation with the patient's mother. Emergency department provider kindly performed intubation. During intubation, it was noted the patient had a significant amount of secretions nearly occluding the airway. Patient did well post intubation, then shortly after was requiring 100% FiO2 and higher PEEP's as well as a subsequent drop in his blood pressure. Orders were placed for Levophed. He received a 500 cc normal saline bolus to which she was very responsive. During this time, I was in conversation with [facility] regarding transfer to their institution for increasingly complex patient with possible breakthrough seizure activity in the setting of baseline cerebral palsy with dystonia as well as infection and acute renal failure. [facility] declined patient at this time due to lack of complexity. Additionally, they reported that they did not have beds available. The patient did stabilize to a degree and further assessment was to be made while he remains in our institution. Thankfully, we were able to back off the pressors completely. It was also noted that the patient was having unequal pupils. At this point, CT scan of the head, chest, and abdomen/pelvis were ordered. The patient had stabilized well enough and was on minimal amounts of vasopressors so he was transported to [facility] where he underwent above- mentioned imaging studies. Imaging studies demonstrated RIGHT lower lobe infi ltrative change without any acute findings in the head/brain. Upon returning from CT scan, the patient then developed return of hypertension of which she had had upon arrival in the ICU. With the hypertension, the patient was noted to be tachycardic. Additionally, the patient was drawing up his LEFT upper extremity and appear to be having increasing spasticity in that extremity as well. He ini tially received an IV dose of Valium which provided little to no relief. Eventually, the patient did receive a 2 mg dose of IV Versed. Patient's blood pressure did decline and required a brief (~15 min) course of Levophed as well as a 250 cc normal saline bolus. At this point, his hypotension completely resolved. Orders placed for low dose Versed drip at 0.5 mg/h with slow titration parameters. With increasing frequency of spastic LEFT upper extremity movements with associated hypotension tachycardia, my concern is for possible subclinical seizure activity. The patient did previously undergo EEG, which was a spot EEG. My concern is the patient would require 24-hour EEG monitoring in addition to the multitude of other medical complexities that he is presenting with. I had previously spoken with the patient's mother and she was in agreement to transfer to [facility] if they did have bed availability as well. She was actually preferential to this versus any other referring facility. 0421: I did reach out to [facility] after all of the information from prior imaging studies and laboratory assessment were available. I spoke with Dr. Interiano and explained the current scenario. 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 He was accepted to their institution. Currently, they do not have bed availability, however they were working on arranging beds and would contact us with bed availability as well as with transport. Orders placed for copy of chart as well as burning disc. Patient to be transferred to [facility] when bed available. I have personally spent 62 minutes of critical care time in the direct management of this patient. This is a life/limb threatening event. This includes time spent evaluating patient, direct bedside care, chart review, placing orders, interpretation of diagnostic studies, discussion with consultants, patient, and family members, as well as other required patient management activities. This time is exclusive of all separately billable procedures, and teaching time and separate from and in addition to any other critical care service time. Coding Level of Care Code Critical Care 1st 30-74 mins Time Spent (min) 62
[2020-11-13 00:51] LABS: Albumin Level 1.8 gm/dl (3.4-5.0); BUN Creatinine Ratio 4.9 (10-20); Bilirubin,Total 0.5 mg/dl (0.2-1); Calcium 7.6 mg/dl (8.5-10.1); Creatinine Clr Calc Pharmacy 15.4 ml/min; Est GFR (African American) 16.7 ml/min; Est GFR (Non-African American) 14.4 ml/min; Magnesium 2.4 mg/dl (1.8-2.4); Phosphorus 4.8 mg/dl (2.5-4.9); Potassium 3.7 mmol/L (3.5-5.1); Total Protein 5.4 gm/dl (6.4-8.2)
[2020-11-13 00:52] LABS: Bilirubin Direct 0.2 mg/dl (0-0.2)
[2020-11-13] MEDS: TUBE FEEDING WATER FLUSH PEG SCH ×6 (01:19→12:55)
[2020-11-13] MEDS ORDERED: MIDAZOLAM HCL 1 MG/ML 2ML VIAL IV STA (03:51)
[2020-11-13] MEDS ORDERED: SODIUM CHLORIDE 0.9% 1000ML 250 ML IV ONE (04:14)
[2020-11-13 05:03] LABS: iSTAT Art Bld Gas pCO2 Correct 44 mmHg (35-46); iSTAT Art Bld Gas pH Corrected 7.409 (7.35-7.45); iSTAT Arterial Blood Gas HCO3 28 meg/L (19-24); iSTAT Arterial Blood Gas pCO2 43 mmHg (35-46); iSTAT Arterial Blood Gas pH 7.42 (7.35-7.45); iSTAT Arterial Blood Gas pO2 108 mmHg (80-95); iSTAT Arterial Blood Gas pO2 C 113; iSTAT Carbon Dioxide 29 mmol/L (24-31); iSTAT FiO2 50 %; iSTAT Hematocrit 42 % (42-52); iSTAT Hemoglobin 14.3 g/dl (14.0-18.0); iSTAT Potassium 3.5 mmol/L (3.3-5.0); iSTAT Site Art Line; iSTAT Sodium 134 mmol/L (135-144)
[2020-11-13] MEDS ORDERED: MIDAZOLAM HCL 125 MG/250 ML BAG IV PRN (05:30)
[2020-11-13] MEDS ORDERED: MIDAZOLAM BOLUS FROM BAG IV PRN (05:30)
[2020-11-13] MEDS ORDERED: STAT IV Infusion **Titration per Protocol STA ×2 (05:30→09:37)
[2020-11-13 05:35] LABS: Basophils # (auto) 0.01 K/uL (0-0.2); Basophils % (auto) 0.1 %; Eosinophils # (auto) 0.04 K/uL (0-0.5); Eosinophils % (auto) 0.3 %; Hematocrit (blood only) 41.4 % (42-52); Hemoglobin 13.5 g/dL (14.0-18.0); Immature Granulocytes # (auto) 0.05 K/uL (0.00-0.02); Immature Granulocytes % (auto) 0.3 %; Lymphocytes # (auto) 0.64 K/uL (1.2-3.4); Lymphocytes % (auto) 4.2 %; Mean Corpuscular Hemoglobin 30.3 pg (25-34); Mean Corpuscular Hgb Conc 32.6 g/dL (32-36); Mean Corpuscular Volume 92.8 fL (80-100); Mean Platelet Volume 10.6 fL (7.4-10.4); Monocytes # (auto) 0.51 K/uL (0.11-0.59); Monocytes % (auto) 3.3 %; Neutrophils # (auto) 14.06 K/uL (1.4-6.5); Neutrophils % (auto) 91.8 %; Platelet Count 324 K/uL (130-400); RDW Coefficient of Variation 13.5 % (11.5-14.5); RDW Standard Deviation 45.8 fL (36.4-46.3); Red Blood Count 4.46 M/uL (4.7-6.1); White Blood Count 15.31 K/uL (4.8-10.8)
[2020-11-13] MEDS: lamoTRIgine 100 MG TAB PO SCH ×2 (05:43→10:07)
[2020-11-13] MEDS: GLYCOPYRROLATE 1 MG TAB PO SCH ×2 (05:43→10:10)
[2020-11-13] MEDS: lamoTRIgine 25 MG TAB PO SCH (05:44)
[2020-11-13 05:57] LABS: Adenovirus PCR Not Detected (NotDetected); Bordetella parapertussis PCR Not Detected (NotDetected); Bordetella pertussis PCR Not Detected (NotDetected); Chlamydia pneumoniae PCR Not Detected (NotDetected); Coronavirus 229E PCR Not Detected (NotDetected); Coronavirus CoV-2 (COVID19)PCR Not Detected (NotDetected); Coronavirus HKU1 PCR Not Detected (NotDetected); Coronavirus NL63 PCR Not Detected (NotDetected); Coronavirus OC43PCR Not Detected (NotDetected); Human Metapneumovirus PCR Not Detected (NotDetected); Influenza A PCR Not Detected (NotDetected); Influenza B PCR Not Detected (NotDetected); Mycoplasma pneumoniae PCR Not Detected (NotDetected); Parainfluenza Virus 1 PCR Not Detected (NotDetected); Parainfluenza Virus 2 PCR Not Detected (NotDetected); Parainfluenza Virus 3 PCR Not Detected (NotDetected); Parainfluenza Virus 4 PCR Not Detected (NotDetected); Respiratory Syncytial VirusPCR Not Detected (NotDetected); Rhinovirus/Enterovirus PCR Not Detected (NotDetected)
[2020-11-13 06:08] LABS: Albumin Level 1.9 gm/dl (3.4-5.0); BUN Creatinine Ratio 4.9 (10-20); Bilirubin Direct 0.2 mg/dl (0-0.2); Bilirubin,Total 0.5 mg/dl (0.2-1); Calcium 8.1 mg/dl (8.5-10.1); Est GFR (African American) 16.1 ml/min; Est GFR (Non-African American) 13.9 ml/min; Magnesium 2.3 mg/dl (1.8-2.4); Phosphorus 4.4 mg/dl (2.5-4.9); Potassium 3.7 mmol/L (3.5-5.1); Total Protein 5.9 gm/dl (6.4-8.2)
[2020-11-13] MEDS: ALBUT/IPRATROP 3MG/0.5MG NEB 3 ML VIAL INH SCH ×2 (06:58→12:50)
[2020-11-13] MEDS: BUDESONIDE 0.5 MG/2 ML VIAL (PULMICORT) INH SCH (06:58)
--- NOTE | 2020-11-13 07:12 | CT Scan Report ---
CT SCAN OF THE BRAIN WITHOUT IV CONTRAST CLINICAL HISTORY: Change in mental status. COMPARISON STUDY: No priors. TECHNIQUE: Unenhanced axial CT scan of the brain is performed from the vertex to the skull base. A d ose lowering technique was utilized adhering to the principles of ALARA. CT DOSE: 1205.83 mGy.cm FINDINGS: Brain parenchyma: The brain parenchyma is normal in appearance. There is no hemorrhage, mass effect, or evidence of acute territorial ischemia by CT criteria. Bryson-white matter differentiation is preser jesus. No extra-axial fluid collection is seen. Ventricles, sulci, cisterns: Normal in configuration. Intracranial vasculature: The visualized intracranial vasculature at the skull base is normal in appe arance. Calvarium: Unremarkable. Sinuses and mastoids: The visualized paranasal sinuses are clear. There is a small right mastoid effu kyle. The left mastoid air cells are well pneumatized. Orbits: The bony orbits are grossly intact. IMPRESSION: No acute intracranial abnormality. ACT 112: Negative or not required by law. Electronically signed by: Edwardo Herrera M.D. 11/13/2020 7:11 AM
--- NOTE | 2020-11-13 07:39 | XRay Report ---
SINGLE VIEW CHEST CLINICAL HISTORY: Hypoxia. FINDINGS: An AP, portable, upright chest radiograph is compared to study performed earlier the same d ay 11/12/2020. An endotracheal tube has been placed. The tip projects 1.2 cm above the radha. The exa mination is degraded by portable technique and patient rotation. The cardiomediastinal silhouette is unremarkable. There is elevation of the right hemidiaphragm with increasing atelectasis of the right upper lobe. Small pleural effusions are suspected with bibasilar airspace opacities. No pneumothorax is seen. The bony thorax is grossly intact. IMPRESSION: 1. Endotracheal tube has been placed as above with the tip projecting 1.2 cm above the radha. 2. There is elevation of right hemidiaphragm with increasing/segmental atelectasis of the right upper lobe. 3. There are small pleural effusions with bibasilar opacities. ACT 112: Negative or not required by law. Electronically signed by: Edwardo Herrera M.D. 11/13/2020 7:37 AM
--- NOTE | 2020-11-13 07:52 | XRay Report ---
XR chest 1V portable CLINICAL HISTORY: f/u COMPARISON STUDY: Chest radiograph November 04, 2020. Chest CT performed earlier today. FINDINGS: The tip of the endotracheal tube is 5.4 cm above the radha. There is no pneumothorax. No p leural effusion is identified. Extensive bilateral mid and lower lung airspace opacities have progres sed. IMPRESSION: 1. Satisfactory positioning of the endotracheal tube. 2. No pneumothorax. 3. Progression of extensive bilateral mid and lower lung airspace opacities which may reflect pneumon ia or aspiration pneumonitis. ACT 112: Negative or not required by law. Electronically signed by: Bebo Gonzalez M.D. 11/13/2020 7:50 AM
--- NOTE | 2020-11-13 07:57 | CT Scan Report ---
CT OF THE ABDOMEN AND PELVIS WITHOUT CONTRAST CLINICAL HISTORY: Abdominal distention. COMPARISON STUDY: CT of the abdomen and pelvis November 11, 2020. TECHNIQUE: Axial images of the abdomen and pelvis were obtained without IV contrast. Images were revi ewed in the axial, sagittal, and coronal planes. Automated exposure control was utilized for the lisa dy. A dose lowering technique was utilized adhering to the principles of ALARA. FINDINGS: Please note that the chest CT will be reported separately. Lower lung airspace opacities lewis ve significantly progressed since CT of November 11, 2020. Gastrostomy tube is in place. Evaluation of th e abdomen and pelvis is suboptimal on this unenhanced exam. The liver, spleen, adrenal glands, right kidney and pancreas are unremarkable. There is a 5 mm left renal calculus. There are no ureteral calc gina. There is no hydronephrosis. Ponce balloon within the bladder is noted which is collapsed. There is mild mesenteric edema and trace ascites. This is likely related to volume overload. There is no ev idence for a bowel obstruction. Intrathecal catheter is noted. The right lower quadrant pump has been removed. No pneumatosis, free air or portal venous gas is present. IMPRESSION: 1. No evidence for a bowel obstruction. 2. Mild anasarca. Trace ascites. 3. 5 mm left renal calculus. No ureteral calculi. 4. Progression of bilateral lower lung airspace opacities which could reflect pneumonia or aspiration pneumonitis. ACT 112: Negative or not required by law. Electronically signed by: Bebo Gonzalez M.D. 11/13/2020 7:56 AM
--- NOTE | 2020-11-13 08:00 | CT Scan Report ---
CT SCAN OF THE CHEST WITHOUT IV CONTRAST CLINICAL HISTORY: Hypoxia. COMPARISON STUDY: Chest x-rays dated 11/12/2020. Abdominal CT dated 11/11/2020. TECHNIQUE: CT scan of the thorax was performed from the thoracic inlet to the upper abdomen. Images are reviewed in the axial, sagittal, and coronal planes. IV contrast was not administered for this ex amination as per the referring clinician. A dose lowering technique was utilized ad[facility]. The examination is degraded by motion artifact, as well as by streak artifact from the arms which could not be elevated above the chest. FINDINGS: Thyroid: Imaged portions of the thyroid gland are normal in size and attenuation. Thoracic aorta: The thoracic aorta is normal in caliber and demonstrates standard 3-vessel arch anato my. Heart: The heart is normal in size and without pericardial effusion. Lungs and pleural spaces: An endotracheal tube terminates above the radha. Minimal secretions are se en within the trachea. Secretions/debris fills the right lower lobe airways. There are small pleural effusions with bilateral lower lobe consolidation, right greater than left. This is new from the rece nt abdominal CT. No pneumothorax is identified. Mediastinum: There is no mediastinal lymphadenopathy. Jing: Not well assessed without IV contrast. Axillae: There is no axillary lymphadenopathy. Upper abdomen: Partially visualized upper abdominal viscera is within normal limits. Skeletal structures: No lytic or blastic bony lesions are seen. An intrathecal catheter is present wi thin the thoracic spinal canal. Soft tissues: There is body wall edema. IMPRESSION: 1. There is bilateral lower lobe consolidation, right greater than left. This is new from 11/11/2020 a nd typical for pneumonia/aspiration pneumonitis. Clinical correlation will be required. 2. Small pleural effusions. 3. An endotracheal tube is in place as above. 4. Secretions/debris fills the right lower lobe airways, possibly related to aspiration. 5. There is body wall edema. ACT 112: Negative or not required by law. Electronically signed by: Edwardo Herrera M.D. 11/13/2020 7:59 AM
--- NOTE | 2020-11-13 08:05 | XRay Report ---
XR chest 1V portable CLINICAL HISTORY: hypoxia COMPARISON STUDY: Chest radiograph November 12, 2020 at 10:41 PM. FINDINGS: Tip of the endotracheal tube is 4.7 cm above the radha. There is no pneumothorax or pleura l effusion. Bilateral mid and lower lung airspace opacities have increased. No pneumothorax or pleura l effusion is noted. IMPRESSION: 1. Satisfactory positioning of the endotracheal tube. 2. Increase in bilateral lower lung opacities which reflect pneumonia or aspiration pneumonitis. ACT 112: Negative or not required by law. Electronically signed by: Bebo Gonzalez M.D. 11/13/2020 8:04 AM
--- NOTE | 2020-11-13 08:19 | Pharmacy Report ---
Pharmacy Abx Dose Short Note - Date of Service November 13, 2020 - Assessment & Plan Assessment 30 year old M received vancomycin through 11/10 and zosyn through 11/09 now restarted on both in addition to acyclovir 11/12. Vancomycin AM random levels remains elevated. Will get another 24 hour level tomorrow morning. Plan Vancomycin * Random level of 40.2 mcg/mL is supratherapeutic * No redose until level falls within range * Goal trough level for : 15 to 20 mcg/mL * Trough or random level ordered for: 11/14/20 with AM labs Pharmacy will continue to follow and will adjust dose/frequency as necessary. Thank you.
--- NOTE | 2020-11-13 08:19 | Critical Care Progress Note ---
Date of Service November 13, 2020 Assessment & Plan (1) Admitted to intensive care unit: Impression: 30-year-old male with advanced cerebral palsy admitted 11/05/2020 with probable baclofen pump site infection and fevers. 11/07/2020 he was taken to the OR and had the pump removed by pain management and general surgery. There was purulent material in the pocket of the pump. The entire catheter was unable to be removed as it was embedded in scar tissue. We were initially contacted 11/12/2020 regarding the patient becoming less responsive having increasing "spasm" as well as labile blood pressure as well as acute renal failure. At that point time I recommended transfer to a tertiary care facility. 24 Hour Events: Critical care services recommended the patient be transferred to a tertiary care facility yesterday morning. Apparently this was not a ccomplished and the patient deteriorated and was transferred to the ICU last evening where he was intubated and placed on pressor agents. Kidney function continues to decline. Bronchoscopy was performed this morning for mucous plugging. CT of the chest and chest x-ray demonstrate patchy basilar opacities consistent with pneumonia, likely aspiration. The patient has been accepted at [facility] pending bed availability. Recommendations: 1. Neuro: Patient is now intubated and sedated. He became hypotensive with Versed. We will try propofol. Await neurology input. I think the patient would benefit from continuous EEG monitoring to document whether or not there are subclinical/nonconvulsive epileptic seizures ongoing. We will continue his Lamictal. Defer additional AEDs to nephrology. His LP did show few white blood cells with an elevated protein but viral panel was negative. We will hold off on additional acyclovir at this point time. Unclear if additional imaging may be required as the patient has the distal portion of his catheter still in the intrathecal space. Continue his chronic clonazepam. Holding additional baclofen given his kidney function. 2. CV: Labile blood pressure: Check blood cultures given the 2 species of staph from the explanted baclofen pump. Echocardiogram to rule out potential vegetation. Cortisol was low so we will place on replacing hydrocortisone and Florinef. Additional fluid bolus today. 3. Pulm: Continue current vent settings. Mucous plugging in the lower lobes. Await cultures. Hold vent weaning pending improvement in the patient's underlying hemodynamics. Continue albuterol and budesonide nebs as needed. 4. ID: Patient received 6 days of vancomycin which she stopped on the and then 2 days of Zyvox which stopped on the . He received 7 days of Zosyn but does not appear that he received any Zosyn on the of the . His fever curve is been increasing as has his white blood cell count. He has 2 separate species of MRSA growing from the explanted baclofen pump. He likely has aspiration pneumonia as well. Would continue vancomycin which should be adequate to cover [employer] issues. ID consultation recommended which again is not reliably available at our institution. Again the patient would benefit from transfer to a tertiary care center with in-house infectious disease consultation. 5. GI: Hold on additional trophic tube feeding currently given his hemodynamic instability. 6. Endo: Glycemic control per protocol 7. H/O: Leukocytosis is likely secondary to infectious etiologies. We will continue to trend over time. 8. Renal: Acute renal failure, suspect ATN. May have been exacerbated by multiple antibiotic administration. Urinalysis does show protein and blood although it is a catheterized specimen. Appreciate nephrology input. Electrolytes, acid-base status, and fluid status are currently reasonable. Mild hyponatremia which will need to be trended over time. BUN is only 26. Nephrology holding off on renal replacement at this point time although if the patient does require renal replacement in the future, his blood pressure labil ity may make conventional HD problematic, thus transfer to a tertiary care center with the capabilities of [facility] is appropriate. 9. Prophylaxis: Prevacid Solutab's and subcutaneous heparin 78 minutes critical care time exclusive of procedures spent in evaluation management stabilization of this patient including discussion on multidisciplinary rounds, with bedside critical care nurse, updates with the family on the phone. Patient remains critically ill with significant probability of clinical deterioration. (2) Respiratory failure: (3) Obtunded: (4) Acute kidney injury: (5) Sepsis: (6) Abdominal wall cellulitis: Admission and Anticipated Discharge Date Admission Date: November 05, 2020 Subjective intubated and sedated Review of Systems Review of Systems: Unobtainable due to cognitive status, Unobtainable due to endotracheal tube and Unobtainable due to reduced consciousness Physical Exam Physical Exam: Sedated, no active spasm noted Constitutional: + thin, + behavioral limitations (Nonverbal), + physical l imitations (Cerebral palsy), + frail appearing, + mechanically ventilated and + underweight Eyes: + anicteric sclerae Neck: trachea midline, no thyromegaly Respiratory: normal respiratory effort; no respiratory distress Auscultation: + rhonchi Cardiovascular: RRR, no murmur, no edema Extremities: no edema Gastrointestinal (Abdomen): Inspection/Auscultation: + abdominal surgical incision (Right lower quadrant wound VAC present) Neurologic: Sedated Results & Data Results & Data ([facility]) Vital Signs (Past 12 Hours) Vital Signs Temp Pulse Pulse Resp BP Pulse Ox 11/13/20 07:15 95 H 90 11/13/20 07:10 99 H 91/57 L 89 L 11/13/20 07:07 98 H 16 76/51 L 89 L 11/13/20 07:00 93 H 99 11/13/20 06:55 97 H 58/30 L 98 11/13/20 06:53 97 H 64/37 L 99 11/13/20 06:50 108 H 98 11/13/20 06:42 105 H 99/70 L 97 11/13/20 06:40 110 H 97 11/13/20 06:35 113 H 102/47 L 97 11/13/20 06:30 113 H 97 11/13/20 06:27 111 H 98 11/13/20 06:15 113 H 99 11/13/20 06:14 108 H 97 11/13/20 06:10 109 H 77/42 L 98 11/13/20 06:08 115 H 102/70 96 11/13/20 06:00 113 H 95 11/13/20 05:46 111 H 104/73 95 11/13/20 05:45 113 H 96 11/13/20 05:41 113 H 108/68 96 11/13/20 05:38 126 H 71/36 L 98 11/13/20 05:30 115 H 96 11/13/20 05:25 117 H 120/75 95 11/13/20 05:23 119 H 115/75 95 11/13/20 05:15 116 H 95 11/13/20 05:00 119 H 96 11/13/20 04:55 120 H 137/89 98 11/13/20 04:45 117 H 100 11/13/20 04:41 114 H 136/94 100 11/13/20 04:40 115 H 16 100 11/13/20 04:30 113 H 100 11/13/20 04:25 115 H 105/52 L 100 11/13/20 04:15 121 H 99 11/13/20 04:10 123 H 82/51 L 99 11/13/20 04:09 124 H 86/53 L 98 11/13/20 04:00 123 H 100 11/13/20 03:55 119 H 133/110 H 100 11/13/20 03:50 121 H 100 11/13/20 03:44 121 H 149/127 H 98 11/13/20 03:40 118 H 100 11/13/20 03:30 121 H 99 11/13/20 03:20 116 H 99 11/13/20 03:11 113 H 163/88 H 99 11/13/20 03:10 118 H 99 11/13/20 03:00 116 H 99 11/13/20 02:55 121 H 164/140 H 99 11/13/20 02:50 113 H 99 11/13/20 02:41 122 H 100 11/13/20 02:39 110 H 160/112 H 99 11/13/20 02:30 117 H 96 11/13/20 02:25 113 H 177/106 H 96 11/13/20 02:20 111 H 94 11/13/20 02:10 108 H 95 11/13/20 02:00 100 H 97 11/13/20 01:55 110 H 16 154/125 H 96 11/13/20 01:45 105 H 97 11/13/20 01:39 103 H 137/99 98 11/13/20 01:30 101 H 98 11/13/20 01:25 103 H 152/91 H 98 11/13/20 01:15 103 H 96 11/13/20 01:09 98 H 134/100 100 11/13/20 01:00 96 H 16 100 11/13/20 00:54 101 H 16 139/102 H 100 11/13/20 00:26 89 120/98 100 11/13/20 00:20 83 99 11/13/20 00:15 82 82/53 L 100 11/13/20 00:14 83 81/56 L 100 11/13/20 00:10 87 98 11/13/20 00:01 83 98 11/13/20 00:00 83 84/57 L 98 11/12/20 23:58 37.2 C 11/12/20 23:50 89 95 11/12/20 23:46 90 98 H 16 91 11/12/20 23:45 90 92/58 L 91 11/12/20 23:42 90 92/61 L 91 11/12/20 23:41 90 91 11/12/20 23:39 88 98/68 L 92 11/12/20 23:34 98 H 64/41 L 88 L 11/12/20 23:30 100 H 76/47 L 85 L 11/12/20 23:28 99 H 74/49 L 86 L 11/12/20 23:24 97 H 82/46 L 85 L 11/12/20 23:20 101 H 84 L 11/12/20 23:14 102 H 83 L 11/12/20 23:13 103 H 75/45 L 11/12/20 23:10 102 H 68/38 L 83 L 11/12/20 23:01 105 H 86 L 11/12/20 22:59 105 H 75/39 L 87 L 11/12/20 22:55 108 H 89/52 L 91 11/12/20 22:30 115 H 16 93 11/12/20 22:25 116 H 19 126/86 94 11/12/20 22:00 92 H 15 90 11/12/20 21:54 97 H 14 153/125 H 89 L 11/12/20 21:30 93 H 14 91 11/12/20 21:06 92 H 15 147/113 H 11/12/20 21:04 95 H 10 L Critical Care Results & Data Vital Signs (Past 12 Hours) Vital Signs Temp Pulse Pulse Resp BP Pulse Ox 11/13/20 08:00 108 H 100 11/13/20 07:41 37.7 C H 96 H 119/82 100 11/13/20 07:25 97 H 97/61 L 94 11/13/20 07:15 95 H 90 11/13/20 07:10 99 H 91/57 L 89 L 11/13/20 07:07 98 H 16 76/51 L 89 L 11/13/20 07:00 93 H 99 11/13/20 06:55 97 H 58/30 L 98 11/13/20 06:53 97 H 64/37 L 99 11/13/20 06:50 108 H 98 11/13/20 06:42 105 H 99/70 L 97 11/13/20 06:40 110 H 97 11/13/20 06:35 113 H 102/47 L 97 11/13/20 06:30 113 H 97 11/13/20 06:27 111 H 98 11/13/20 06:15 113 H 99 11/13/20 06:14 108 H 97 11/13/20 06:10 109 H 77/42 L 98 11/13/20 06:08 115 H 102/70 96 11/13/20 06:00 113 H 95 11/13/20 05:46 111 H 104/73 95 11/13/20 05:45 113 H 96 11/13/20 05:41 113 H 108/68 96 11/13/20 05:38 126 H 71/36 L 98 11/13/20 05:30 115 H 96 11/13/20 05:25 117 H 120/75 95 11/13/20 05:23 119 H 115/75 95 11/13/20 05:15 116 H 95 11/13/20 05:00 119 H 96 11/13/20 04:55 120 H 137/89 98 11/13/20 04:45 117 H 100 11/13/20 04:41 114 H 136/94 100 11/13/20 04:40 115 H 16 100 11/13/20 04:30 113 H 100 11/13/20 04:25 115 H 105/52 L 100 11/13/20 04:15 121 H 99 11/13/20 04:10 123 H 82/51 L 99 11/13/20 04:09 124 H 86/53 L 98 11/13/20 04:00 123 H 100 11/13/20 03:55 119 H 133/110 H 100 11/13/20 03:50 121 H 100 11/13/20 03:44 121 H 149/127 H 98 11/13/20 03:40 118 H 100 11/13/20 03:30 121 H 99 11/13/20 03:20 116 H 99 11/13/20 03:11 113 H 163/88 H 99 11/13/20 03:10 118 H 99 11/13/20 03:00 116 H 99 11/13/20 02:55 121 H 164/140 H 99 11/13/20 02:50 113 H 99 11/13/20 02:41 122 H 100 11/13/20 02:39 110 H 160/112 H 99 11/13/20 02:30 117 H 96 11/13/20 02:25 113 H 177/106 H 96 11/13/20 02:20 111 H 94 11/13/20 02:10 108 H 95 11/13/20 02:00 100 H 97 11/13/20 01:55 110 H 16 154/125 H 96 11/13/20 01:45 105 H 97 11/13/20 01:39 103 H 137/99 98 11/13/20 01:30 101 H 98 11/13/20 01:25 103 H 152/91 H 98 11/13/20 01:15 103 H 96 11/13/20 01:09 98 H 134/100 100 11/13/20 01:00 96 H 16 100 11/13/20 00:54 101 H 16 139/102 H 100 11/13/20 00:26 89 120/98 100 11/13/20 00:20 83 99 11/13/20 00:15 82 82/53 L 100 11/13/20 00:14 83 81/56 L 100 11/13/20 00:10 87 98 11/13/20 00:01 83 98 11/13/20 00:00 83 84/57 L 98 11/12/20 23:58 37.2 C 11/12/20 23:50 89 95 11/12/20 23:46 90 98 H 16 91 11/12/20 23:45 90 92/58 L 91 11/12/20 23:42 90 92/61 L 91 11/12/20 23:41 90 91 11/12/20 23:39 88 98/68 L 92 11/12/20 23:34 98 H 64/41 L 88 L 11/12/20 23:30 100 H 76/47 L 85 L 11/12/20 23:28 99 H 74/49 L 86 L 11/12/20 23:24 97 H 82/46 L 85 L 11/12/20 23:20 101 H 84 L 11/12/20 23:14 102 H 83 L 11/12/20 23:13 103 H 75/45 L 11/12/20 23:10 102 H 68/38 L 83 L 11/12/20 23:01 105 H 86 L 11/12/20 22:59 105 H 75/39 L 87 L 11/12/20 22:55 108 H 89/52 L 91 11/12/20 22:30 115 H 16 93 11/12/20 22:25 116 H 19 126/86 94 11/12/20 22:00 92 H 15 90 11/12/20 21:54 97 H 14 153/125 H 89 L 11/12/20 21:30 93 H 14 91 Lab & Micro Results (Past 24 Hours) RBC 4.46 M/uL (4.7-6.1) L 11/13/20 WBC 15.31 K/uL (4.8-10.8) H 11/13/20 Hgb 13.5 g/dL (14.0-18.0) L 11/13/20 Hct 41.4 % (42-52) L 11/13/20 MCV 92.8 fL (80-100) 11/13/20 MCH 30.3 pg (25-34) 11/13/20 MCHC 32.6 g/dL (32-36) 11/13/20 RDW Standard Deviation 45.8 fL (36.4-46.3) 11/13/20 RDW Coefficient of Variation 13.5 % (11.5-14.5) 11/13/20 Plt Count 324 K/uL (130-400) 11/13/20 MPV 10.6 fL (7.4-10.4) H 11/13/20 Neutrophils (%) (Auto) 91.8 % 11/13/20 Lymphocytes (%) (Auto) 4.2 % 11/13/20 Monocytes # (Auto) 0.51 K/uL (0.11-0.59) 11/13/20 Eosinophils # (Auto) 0.04 K/uL (0-0.5) 11/13/20 Immature Granulocyte % (Auto) 0.3 % 11/13/20 Neutrophils # (Auto) 14.06 K/uL (1.4-6.5) H 11/13/20 Lymphocytes # (Auto) 0.64 K/uL (1.2-3.4) L 11/13/20 Monocytes # (Auto) 0.51 K/uL (0.11-0.59) 11/13/20 Eosinophils # (Auto) 0.04 K/uL (0-0.5) 11/13/20 Basophils # (Auto) 0.01 K/uL (0-0.2) 11/13/20 Immature Granulocyte # (Auto) 0.05 K/uL (0.00-0.02) H 11/13/20 Na 131 mmol/L (136-145) L 11/13/20 K 3.7 mmol/L (3.5-5.1) 11/13/20 Cl 98 mmol/L (98-107) 11/13/20 CO2 27 mmol/L (21-32) 11/13/20 Anion Gap 6.0 (3-11) 11/13/20 BUN 26 mg/dl (7-18) H 11/13/20 Creatinine 5.13 mg/dl (0.6-1.4) H* 11/13/20 Estimated GFR ( Amer) 16.1 ml/min 11/13/20 Estimated GFR (Non-Af Amer) 13.9 ml/min 11/13/20 BUN/Creatinine Ratio 4.9 (10-20) L 11/13/20 Glu 109 mg/dl (70-99) H 11/13/20 Ca 8.1 mg/dl (8.5-10.1) L 11/13/20 Phosphorus Level 4.4 mg/dl (2.5-4.9) 11/13/20 Total Bilirubin 0.5 mg/dl (0.2-1) 11/13/20 Direct Bilirubin 0.2 mg/dl (0-0.2) 11/13/20 AST 13 U/L (15-37) L 11/13/20 ALT 14 U/L (12-78) 11/13/20 Alkaline Phosphatase 79 U/L (45-117) 11/13/20 TP 5.9 gm/dl (6.4-8.2) L 11/13/20 Albumin 1.9 gm/dl (3.4-5.0) L 11/13/20 Mg 2.3 mg/dl (1.8-2.4) 11/13/20 05:14 11/13/20 Calcium Level 8.1 mg/dl (8.5-10.1) L 11/13/20 05:14 11/13/20 Prothromb Time International Ratio 1.1 (0.9-1.1) 11/12/20 12:12 11/12/20 Blood Gas Barometric Pressure 738.1 mm/Hg 11/12/20 11:11 11/12/20 Arterial Blood pH 7.37 (7.35-7.45) 11/12/20 11:11 11/12/20 Arterial Blood Partial Pressure CO2 53 mmHg (35-46) H 11/12/20 11:11 11/12/20 Arterial Blood Partial Pressure O2 62 mmHg (80-95) L 11/12/20 11:11 11/12/20 Arterial Blood HCO3 30 mmol/L (19-24) H 11/12/20 11:11 11/12/20 Arterial Blood Base Excess 4.0 mEq/L (-9-1.8) H 11/12/20 11:11 11/12/20 Arterial Blood Oxygen Saturation 93.1 % (90-95) 11/12/20 11:11 11/12/20 Blood Gas Oxygen Given RA 11/12/20 11:11 11/12/20 Casey Test NA 11/13/20 04:47 11/13/20 Blood Gas Barometric Pressure 738.1 mm/Hg 11/12/20 11:11 11/12/20 Microbiology 11/12/20 15:28 Acid Fast Bacilli Smear - Final Cerebral Spinal Fluid 11/12/20 15:28 Gram Stain - Final Cerebral Spinal Fluid 11/12/20 15:28 Cryptococcal Antigen Test - Final Cerebral Spinal Fluid 11/07/20 14:03 Gram Stain - Final Abdomen, Right Lower Quadrant Aerobic and Anaerobic Culture - Final Staph aureus MRSA Staph aureus MRSA#2 11/07/20 14:03 Gram Stain - Final Abdomen, Right Lower Quadrant Aerobic and Anaerobic Culture - Final Staph aureus MRSA Staph aureus MRSA#2 Diagnostic Findings (Past 24 Hours) Chest X-Ray 11/12/20 10:38 SINGLE VIEW CHEST CLINICAL HISTORY: Sepsis. FINDINGS: An AP, portable, upright chest radiograph is compared to study dated 11/05/2020. The heart is top normal for projection. There is pulmonary vascular congestion. Bilateral airspace opacities are noted. There is mild elevation right hemidiaphragm. Small pleural effusions are identified. No pneumothorax is seen. The bony thorax is grossly intact. IMPRESSION: 1. There is pulmonary vascular congestion. 2. Bilateral airspace opacities likely represent pulmonary edema. Correlate clinically for evidence of a superimposed infectious/inflammatory pneumonitis. 3. Small pleural effusions. ACT 112: Negative or not required by law. Electronically signed by: Edwardo Herrera M.D. 11/12/2020 11:07 AM Lumbar Puncture Fluoroscopy 11/12/20 11:39 FLUOROSCOPICALLY GUIDED LUMBAR PUNCTURE CLINICAL HISTORY: meningitis FLUOROSCOPY TIME: 0.8 minutes NUMBER OF FLUOROSCOPIC IMAGES: 1 PROCEDURE: The procedure, risks and benefits were discussed with the patient's mother given patient's sedation including the risk of spinal headache, bleeding and infection. The patient's mother agreed to the procedure and informed written consent was obtained. The procedure was performed by Dr. Gonzalez following a timeout. The right L4-L5 interlaminar space was targeted. Skin overlying the space was prepped and draped in sterile fashion and local anesthesia was achieved with 1% lidocaine. Under intermittent fluoroscopic guidance, a 3 1/2 inch, 22-gauge spinal needle was directed into the thecal sac. There was immediate return of clear cerebrospinal fluid. 8 cc of CSF was collected in 4 vials and sent to the laboratory for analysis as ordered. The needle was removed. The patient tolerated the procedure well and no immediate complications were evident. IMPRESSION: Successful fluoroscopically guided lumbar puncture with collection of 8 cc of clear cerebrospinal fluid which was sent to the laboratory for analysis as ordered. ACT 112: Negative or not required by law. Electronically signed by: Bebo Gonzalez M.D. 11/12/2020 3:56 PM KUB X-Ray 11/12/20 17:34 KUB HISTORY: abdominal distension COMPARISON: Abdomen and pelvis CT 11/11/2020. FINDINGS: The bowel gas pattern is unremarkable. There are no dilated loops of small bowel to suggest an obstruction. No renal calculi. No ureteral calculi. No pneumoperitoneum or pneumatosis. A gastrostomy tube is unchanged in position. Linear metallic density overlying the right lower quadrant measuring 2 cm remains unchanged. This appears to represent a residual intrathecal catheter. A Ponce catheter is noted. The bladder is not well visualized on this study. Chronic deformity remains stable. IMPRESSION: Unremarkable bowel gas pattern. No evidence for bowel obstruction. Additional chronic findings as described above. ACT 112: Negative or not required by law. Electronically signed by: Jamie Cash M.D. 11/12/2020 6:03 PM Chest X-Ray 11/12/20 22:27 SINGLE VIEW CHEST CLINICAL HISTORY: Hypoxia. FINDINGS: An AP, portable, upright chest radiograph is compared to study performed earlier the same day 11/12/2020. An endotracheal tube has been placed. The tip projects 1.2 cm above the radha. The examination is degraded by portable technique and patient rotation. The cardiomediastinal silhouette is unremarkable. There is elevation of the right hemidiaphragm with increasing atelectasis of the right upper lobe. Small pleural effusions are suspected with bibasilar airspace opacities. No pneumothorax is seen. The bony thorax is grossly intact. IMPRESSION: 1. Endotracheal tube has been placed as above with the tip projecting 1.2 cm above the radha. 2. There is elevation of right hemidiaphragm with increasing/segmental atelectasis of the right upper lobe. 3. There are small pleural effusions with bibasilar opacities. ACT 112: Negative or not required by law. Electronically signed by: Edwardo Herrera M.D. 11/13/2020 7:37 AM Chest X-Ray 11/12/20 23:19 XR chest 1V portable CLINICAL HISTORY: hypoxia COMPARISON STUDY: Chest radiograph November 12, 2020 at 10:41 PM. FINDINGS: Tip of the endotracheal tube is 4.7 cm above the radha. There is no pneumothorax or pleural effusion. Bilateral mid and lower lung airspace opacities have increased. No pneumothorax or pleural effusion is noted. IMPRESSION: 1. Satisfactory positioning of the endotracheal tube. 2. Increase in bilateral lower lung opacities which reflect pneumonia or aspiration pneumonitis. ACT 112: Negative or not required by law. Electronically signed by: Bebo Gonzalez M.D. 11/13/2020 8:04 AM Abdomen/Pelvis CT 11/13/20 00:24 CT OF THE ABDOMEN AND PELVIS WITHOUT CONTRAST CLINICAL HISTORY: Abdominal distention. COMPARISON STUDY: CT of the abdomen and pelvis November 11, 2020. TECHNIQUE: Axial images of the abdomen and pelvis were obtained without IV con trast. Images were reviewed in the axial, sagittal, and coronal planes. Automated exposure control was utilized for the study. A dose lowering technique was utilized adhering to the principles of ALARA. FINDINGS: Please note that the chest CT will be reported separately. Lower lung airspace opacities have significantly progressed since CT of November 11, 2020. Gastrostomy tube is in place. Evaluation of the abdomen and pelvis is suboptimal on this unenhanced exam. The liver, spleen, adrenal glands, right kidney and pancreas are unremarkable. There is a 5 mm left renal calculus. There are no ureteral calculi. There is no hydronephrosis. Ponce balloon within the bladder is noted which is collapsed. There is mild mesenteric edema and trace ascites. This is likely related to volume overload. There is no evidence for a bowel obstruction. Intrathecal catheter is noted. The right lower quadrant pump has been removed. No pneumatosis, free air or portal venous gas is present. IMPRESSION: 1. No evidence for a bowel obstruction. 2. Mild anasarca. Trace ascites. 3. 5 mm left renal calculus. No ureteral calculi. 4. Progression of bilateral lower lung airspace opacities which could reflect pneumonia or aspiration pneumonitis. ACT 112: Negative or not required by law. Electronically signed by: Bebo Gonzalez M.D. 11/13/2020 7:[address] 11/13/20 00:24 CT SCAN OF THE CHEST WITHOUT IV CONTRAST CLINICAL HISTORY: Hypoxia. COMPARISON STUDY: Chest x-rays dated 11/12/2020. Abdominal CT dated 11/11/2020. TECHNIQUE: CT scan of the thorax was performed from the thoracic inlet to the upper abdomen. Images are reviewed in the axial, sagittal, and coronal planes. IV contrast was not administered for this examination as per the referring clinician. A dose lowering technique was utilized adhering to the principles of ALARA. The examination is degraded by motion artifact, as well as by streak artifact from the arms which could not be elevated above the chest. FINDINGS: Thyroid: Imaged portions of the thyroid gland are normal in size and attenuation. Thoracic aorta: The thoracic aorta is normal in caliber and demonstrates standard 3-vessel arch anatomy. Heart: The heart is normal in size and without pericardial effusion. Lungs and pleural spaces: An endotracheal tube terminates above the radha. Minimal secretions are seen within the trachea. Secretions/debris fills the right lower lobe airways. There are small pleural effusions with bilateral lower lobe consolidation, right greater than left. This is new from the recent abdominal CT. No pneumothorax is identified. Mediastinum: There is no mediastinal lymphadenopathy. Jing: Not well assessed without IV contrast. Axillae: There is no axillary lymphadenopathy. Upper abdomen: Partially visualized upper abdominal viscera is within normal limits. Skeletal structures: No lytic or blastic bony lesions are seen. An intrathecal catheter is present within the thoracic spinal canal. Soft tissues: There is body wall edema. IMPRESSION: 1. There is bilateral lower lobe consolidation, right greater than left. This is new from 11/11/2020 and typical for pneumonia/aspiration pneumonitis. Clinical correlation will be required. 2. Small pleural effusions. 3. An endotracheal tube is in place as above. 4. Secretions/debris fills the right lower lobe airways, possibly related to aspiration. 5. There is body wall edema. ACT 112: Negative or not required by law. Electronically signed by: Edwardo Herrera M.D. 11/13/2020 7:[address] 11/13/20 00:24 CT SCAN OF THE BRAIN WITHOUT IV CONTRAST CLINICAL HISTORY: Change in mental status. COMPARISON STUDY: No priors. TECHNIQUE: Unenhanced axial CT scan of the brain is performed from the vertex to the skull base. A dose lowering technique was utilized adhering to the principles of ALARA. CT DOSE: 1205.83 mGy.cm FINDINGS: Brain parenchyma: The brain parenchyma is normal in appearance. There is no hemorrhage, mass effect, or evidence of acute territorial ischemia by CT criteria. Bryson-white matter differentiation is preserved. No extra-axial fluid collection is seen. Ventricles, sulci, cisterns: Normal in configuration. Intracranial vasculature: The visualized intracranial vasculature at the skull base is normal in appearance. Calvarium: Unremarkable. Sinuses and mastoids: The visualized paranasal sinuses are clear. There is a small right mastoid effusion. The left mastoid air cells are well pneumatized. Orbits: The bony orbits are grossly intact. IMPRESSION: No acute intracranial abnormality. ACT 112: Negative or not required by law. Electronically signed by: Edwardo Herrera M.D. 11/13/2020 7:11 AM Chest X-Ray 11/13/20 07:00 XR chest 1V portable CLINICAL HISTORY: f/u COMPARISON STUDY: Chest radiograph November 04, 2020. Chest CT performed earlier today. FINDINGS: The tip of the endotracheal tube is 5.4 cm above the radha. There is no pneumothorax. No pleural effusion is identified. Extensive bilateral mid and lower lung airspace opacities have progressed. IMPRESSION: 1. Satisfactory positioning of the endotracheal tube. 2. No pneumothorax. 3. Progression of extensive bilateral mid and lower lung airspace opacities which may reflect pneumonia or aspiration pneumonitis. ACT 112: Negative or not required by law. Electronically signed by: Bebo Gonzalez M.D. 11/13/2020 7:50 AM I & O Totals 24 Hours 11/12/20 11/13/20 11/14/20 06:59 06:59 06:59 Intake Total 3542.083 / 3542.083 2418.611 / 2418.611 52.555 / 52.555 Output Total 250 / 250 675 / 675 Balance 3292.083 / 3292.083 1743.611 / 1743.611 52.555 / 52.555 Cumulative 11/05/20 13:52 thru 11/13/20 08:15 Intake Total 96352.916 Output Total 4700 Balance 91405.916 RT Ventilator Mngmt (Last Documented) Ventilator Ordered Settings Ventilator Support Mode Assist Control 11/13/20 07:07 Respiratory Rate 16 11/13/20 07:07 Ventilator Tidal Volume 420 11/13/20 07:07 Setting Minute Ventilation 6.5 11/13/20 07:07 Positive End Expiratory 5 11/13/20 08:59 Pressure Fraction of Inspired Oxygen 45 11/13/20 07:17 Peak Inspiratory Flow 50 11/13/20 01:55 Machine Comment SpO2 100% on current ventilator 11/13/20 04:05 settings. Weaned to 50% per vent protocol. Ventilator - PT Measurements Respiratory Rate 16 Exhaled Tidal Volume 420 Minute Ventilation 6.5 Peak Inspiratory Airway 26 Pressure Mean Airway Pressure 12 Plateau Pressure 18.8 Respiratory Cycle Inspiratory: 1:4.6 Expiratory Ratio Inspiratory Phase Time 0.67 End-Tidal CO2 37 Static Lung Compliance 38.89 Dynamic Lung Compliance 23.33 Normal Static Lung Compliance 46.00 Patient Measurements Comment PEEP weaned to +5 Coding Level of Care Code Critical Care 1st 30-74 mins Diagnoses Admitted to intensive care unit Z78.9 Respiratory failure J96.90 Obtunded R40.1 Acute kidney injury N17.9 Sepsis A41.9 Abdominal wall cellulitis L03.311 Time Spent (min) 79 Comment 29783 and 58880
[2020-11-13] MEDS: PIPERACILLIN/TAZOBACTAM 3.375 GM in DEXTROSE 5% 100 ML IV SCH (08:40)
[2020-11-13] MEDS ORDERED: VANCOMYCIN HCL 500 MG in SODIUM CHLORIDE 0.9% 250 ML IV SCH (09:00)
--- NOTE | 2020-11-13 09:06 | Procedure Note ---
Procedure Note Date of Service November 13, 2020 Procedure: Fiberoptic bronchoscopy Therapeutic aspiration of secretions, initial Provider: Shawn Burgos MD Consent: Procedure was emergent. No family immediately available to provide consent. Procedure: Patient was in the ICU on the mechanical ventilator. CT scan demonstrated obstruction of the bronchus intermedius consistent with probable mucous plugging. Appropriate radiographic studies had been reviewed prior to the procedure. Standard monitoring was applied. Patient was placed on 100% FiO2. Fiberoptic scope was advanced through the existing endotracheal tube via the Bodai adapter. The tube was sounded and found to be about 5 cm off the radha. The trachea and main radha appeared normal. A systematic inspection of the left-sided airways was conducted. These demonstrated normal anatomic configuration with normal mucosa. There were a few thin mucoid secretions present in the lower lobes which were lavaged free. The scope was then advanced into the right mainstem bronchus. The right upper lobe and right mainstem were patent. There were thick mucoid purulent secretions in the right lower lobe. The right middle lobe appeared patent. Saline lavage was used to clear these lower lobe secretions which were collected for microbiologic analysis. At the conclusion of the procedure, the airways were patent but somewhat friable. The bronchoscope was then removed from the airways. The patient tolerated the procedure well without obvious complication. He remained intubated on the mechanical ventilator Impression: 1. Endotracheal tube in good position. 2. Normal left-sided airways. 3. Moderate mucus plugging with purulent secretions in the right lower lobe. Lavaged free. Await cultures Coding CPT Codes Pulmonary/Thoracic - Pulmonary and Thoracic: 68959 Bronchoscopy, clear airways ([id number]) [facility] Procedure Codes (Charges) Pulmonary/Thoracic Procedure 1: Pulmonary and Thoracic: 20320 Bronchoscopy, clear airways
[2020-11-13] MEDS ORDERED: PROPOFOL BOLUS FROM BAG IV PRN (09:37)
--- NOTE | 2020-11-13 09:44 | Nephrology Progress Note ---
Date of Service November 13, 2020 Assessment & Plan (1) Acute kidney injury: baseline creatinine 0.4-0.7; stage 3 AURELIANO not oliguric. not likely prerenal at this point as he has been resuscitated and shows OL on imaging, clinically; volume status complicated in part by hypoalbuminemia. ATN possibly from severe sepsis/septic shock, from ischemic atn w/ labile blood pressures, +/- vanco toxicity. not oliguric; chemistries mostly acceptable though hyponatremia emerging, likely from volume overload, and will need to be monitored. infection sources include meningitis/ [employer] infection from intrathecal catheter, aspiration PNA, abdominal wound/cath site infection >last baclofen dose > 11/12 1430 > 20 mg via PEG >> 20 mg q6h since 11/10 AM; prior to this was tid 20 mg 11/07-11/10; pump removed 11/07 -cont to hold baclofen; he has minimal renal function at this point > in theory he is at high risk for baclofen toxicity/ accumulation; need now to monitor for withdrawal from baclofen though anticipate baclofen will be very slow to clear. challenging situation clinically -cannot rule out need for dialysis - agree w/ placing combo CVC/HD cath -- potential indications include volume management and/or removing baclofen from his system -repeat bmp twice daily -check serum osms w/ bmp later today; check also urine osms, rd urine Na (orders in) -he has total body volume overload w/ HTN, pulmonary edema on CXR -- use pressors not IV fluids to support bp; concentrate medications IV where possible -agree w/ pharmacy dosing vanco by level >> level this am QUITE high -monitor closely for baclofen withdrawal Care coordinated w/ Dr Burgos Present on Admission?: No (2) Seizure: Admission and Anticipated Discharge Date Admission Date: November 05, 2020 Subjective seen on rounds at 0700; moved to unit ON, intubated, needing pressors after smal l doses of sedation for intubation or agitation; 700mL UOP. declined by [facility]; accepted to [facility], awaiting bed Review of Systems Review of Systems: Unobtainable due to cognitive status and Unobtainable due to endotracheal tube Physical Exam Constitutional: + thin, + frail appearing and + mechanically ventilated; no acute distress (slight agitation) Eyes: EOM intact bilaterally ENMT: Ears: no external ear abnormality Nose: no external nose abnormality Mouth: + dry oral mucous membranes Neck: no nuchal rigidity Respiratory: Auscultation: lungs clear to auscultation bilaterally and + diminished lung sounds Cardiovascular: Rate/Rhythm: regular rhythm and + tachycardic (hyperdynamic) Gastrointestinal (Abdomen): Inspection/Auscultation: + hypoactive bowel sounds Percussion/Palpation: abdomen soft; abdomen nontender and no guarding Musculoskeletal: Extremities: + limited ROM of extremities and + muscle atrophy Skin: no rashes, warm and dry wound vac in abdomen Results & Data ([facility]) Vital Signs (Past 12 Hours) Vital Signs Temp Pulse Pulse Resp BP Pulse Ox 11/13/20 09:02 118 H 105/73 96 11/13/20 08:48 115 H 81/40 L 100 11/13/20 08:46 112 H 115/68 97 11/13/20 08:00 108 H 100 11/13/20 07:41 37.7 C H 96 H 119/82 100 11/13/20 07:25 97 H 97/61 L 94 11/13/20 07:15 95 H 90 11/13/20 07:10 99 H 91/57 L 89 L 11/13/20 07:07 98 H 16 76/51 L 89 L 11/13/20 07:00 93 H 99 11/13/20 06:55 97 H 58/30 L 98 11/13/20 06:53 97 H 64/37 L 99 11/13/20 06:50 108 H 98 11/13/20 06:42 105 H 99/70 L 97 11/13/20 06:40 110 H 97 11/13/20 06:35 113 H 102/47 L 97 11/13/20 06:30 113 H 97 11/13/20 06:27 111 H 98 11/13/20 06:15 113 H 99 11/13/20 06:14 108 H 97 11/13/20 06:10 109 H 77/42 L 98 11/13/20 06:08 115 H 102/70 96 11/13/20 06:00 113 H 95 11/13/20 05:46 111 H 104/73 95 11/13/20 05:45 113 H 96 11/13/20 05:41 113 H 108/68 96 11/13/20 05:38 126 H 71/36 L 98 11/13/20 05:30 115 H 96 11/13/20 05:25 117 H 120/75 95 11/13/20 05:23 119 H 115/75 95 11/13/20 05:15 116 H 95 11/13/20 05:00 119 H 96 11/13/20 04:55 120 H 137/89 98 11/13/20 04:45 117 H 100 11/13/20 04:41 114 H 136/94 100 11/13/20 04:40 115 H 16 100 11/13/20 04:30 113 H 100 11/13/20 04:25 115 H 105/52 L 100 11/13/20 04:15 121 H 99 11/13/20 04:10 123 H 82/51 L 99 11/13/20 04:09 124 H 86/53 L 98 11/13/20 04:00 123 H 100 11/13/20 03:55 119 H 133/110 H 100 11/13/20 03:50 121 H 100 11/13/20 03:44 121 H 149/127 H 98 11/13/20 03:40 118 H 100 11/13/20 03:30 121 H 99 11/13/20 03:20 116 H 99 11/13/20 03:11 113 H 163/88 H 99 11/13/20 03:10 118 H 99 11/13/20 03:00 116 H 99 11/13/20 02:55 121 H 164/140 H 99 11/13/20 02:50 113 H 99 11/13/20 02:41 122 H 100 11/13/20 02:39 110 H 160/112 H 99 11/13/20 02:30 117 H 96 11/13/20 02:25 113 H 177/106 H 96 11/13/20 02:20 111 H 94 11/13/20 02:10 108 H 95 11/13/20 02:00 100 H 97 11/13/20 01:55 110 H 16 154/125 H 96 11/13/20 01:45 105 H 97 11/13/20 01:39 103 H 137/99 98 11/13/20 01:30 101 H 98 11/13/20 01:25 103 H 152/91 H 98 11/13/20 01:15 103 H 96 11/13/20 01:09 98 H 134/100 100 11/13/20 01:00 96 H 16 100 11/13/20 00:54 101 H 16 139/102 H 100 11/13/20 00:26 89 120/98 100 11/13/20 00:20 83 99 11/13/20 00:15 82 82/53 L 100 11/13/20 00:14 83 81/56 L 100 11/13/20 00:10 87 98 11/13/20 00:01 83 98 11/13/20 00:00 83 84/57 L 98 11/12/20 23:58 37.2 C 11/12/20 23:50 89 95 11/12/20 23:46 90 98 H 16 91 11/12/20 23:45 90 92/58 L 91 11/12/20 23:42 90 92/61 L 91 11/12/20 23:41 90 91 11/12/20 23:39 88 98/68 L 92 11/12/20 23:34 98 H 64/41 L 88 L 11/12/20 23:30 100 H 76/47 L 85 L 11/12/20 23:28 99 H 74/49 L 86 L 11/12/20 23:24 97 H 82/46 L 85 L 11/12/20 23:20 101 H 84 L 11/12/20 23:14 102 H 83 L 11/12/20 23:13 103 H 75/45 L 11/12/20 23:10 102 H 68/38 L 83 L 11/12/20 23:01 105 H 86 L 11/12/20 22:59 105 H 75/39 L 87 L 11/12/20 22:55 108 H 89/52 L 91 11/12/20 22:30 115 H 16 93 11/12/20 22:25 116 H 19 126/86 94 11/12/20 22:00 92 H 15 90 11/12/20 21:54 97 H 14 153/125 H 89 L 11/12/20 21:30 93 H 14 91 Laboratory Results 11/13/20 05:14 11/13/20 05:14 Random vanco level 40 extensive CSF bacterial/viral PCR negative; has elevated protein though and a few WBC UA 1+ LE, 5-10 RBC/WBC, 1+ bacteria, pH [address] no acute i-c process cxr 1. Satisfactory positioning of the endotracheal tube. 2. No pneumothorax. 3. Progression of extensive bilateral mid and lower lung airspace opacities which may reflect pneumonia or aspiration pneumonitis. chest CT non con 1. There is bilateral lower lobe consolidation, right greater than left. This is new from 11/11/2020 and typical for pneumonia/aspiration pneumonitis. Clinical correlation will be required. 2. Small pleural effusions. 3. An endotracheal tube is in place as above. 4. Secretions/debris fills the right lower lobe airways, possibly related to as piration. 5. There is body wall edema. abd /pelv CT non con CT OF THE ABDOMEN AND PELVIS WITHOUT CONTRAST CLINICAL HISTORY: Abdominal distention. COMPARISON STUDY: CT of the abdomen and pelvis November 11, 2020. TECHNIQUE: Axial images of the abdomen and pelvis were obtained without IV contrast. Images were reviewed in the axial, sagittal, and coronal planes. Automated exposure control was utilized for the study. A dose lowering technique was utilized adhering to the principles of ALARA. FINDINGS: Please note that the chest CT will be reported separately. Lower lung airspace opacities have significantly progressed since CT of November 11, 2020. Gastrostomy tube is in place. Evaluation of the abdomen and pelvis is suboptimal on this unenhanced exam. The liver, spleen, adrenal glands, right kidney and pancreas are unremarkable. There is a 5 mm left renal calculus. There are no ureteral calculi. There is no hydronephrosis. Ponce balloon within the bladder is noted which is collapsed. There is mild mesenteric edema and trace ascites. This is likely related to volume overload. There is no evidence for a bowel obstruction. Intrathecal catheter is noted. The right lower quadrant pump has been removed. No pneumatosis, free air or portal venous gas is present. IMPRESSION: 1. No evidence for a bowel obstruction. 2. Mild anasarca. Trace ascites. 3. 5 mm left renal calculus. No ureteral calculi. 4. Progression of bilateral lower lung airspace opacities which could reflect pneumonia or aspiration pneumonitis.
[2020-11-13] MEDS ORDERED: FLUDROCORTISONE ACETATE 0.1 MG TAB PO SCH (09:45)
[2020-11-13] MEDS ORDERED: propofoL 1,000 MG/100 ML VIAL IV SCH (09:45)
[2020-11-13] MEDS: clonazePAM 0.25 MG TAB PO SCH ×2 (10:06→12:54)
[2020-11-13] MEDS: FLUTICASONE PROPIONATE NA SPR 16 GM BTL SCH (10:10)
[2020-11-13] MEDS: DICYCLOMINE HCL 10 MG CAP GT SCH (10:10)
[2020-11-13] MEDS: FEXOFENADINE HCL 180 MG TAB PO SCH (10:11)
[2020-11-13] MEDS: ADVANCED PROBIOTIC 1250 MG CAPSULE PO SCH (10:11)
[2020-11-13] MEDS: DOCUSATE SODIUM SYRUP 100 MG/10 ML UDC PO SCH ×2 (10:11→10:33)
[2020-11-13] MEDS: LANSOPRAZOLE 30 MG SOLTAB PEG SCH (10:12)
--- NOTE | 2020-11-13 10:38 | Procedure Note ---
Procedure Note Date of Service November 13, 2020 CENTRAL LINE PROCEDURE NOTE: Procedure: Central Line Placement Provider: Shawn Burgos MD Indication: Central Drug Administration, Poor Venous Access, Multiple Lab Draws Necessary, etc. Anesthesia: 5 mL lidocaine 1% Site: Left subclavian Consent was signed and placed on the chart prior to procedure. Indication, risks, and benefits were explained at length to the patient's father and mother by phone. Consent was verified by nursing prior to commencement of the procedure.. A time-out was completed verifying correct patient, procedure, site, positioning, and implants(s) or special equipment if applicable. Patients left neck and subclavian area was cleansed and draped in the typical sterile fashion using Chloraprep. The superficial tissue was anesthetized using 5 mL of 1% lidocaine without epinephrine. After adequate anesthetization was achieved, the left subclavian vein was cannulated using an introducer needle on a syringe. Good venous blood return was maintained prior to removal of syringe from introducer needle. Using Seldinger Technique, a guide wire was advanced through the introducer needle without resistance. The introducer needle was removed. A small incision was made in penetrating fashion at the guide wire insertion site utilizing an 11 blade scalpel. The dilator was advanced to the vessel without resistance. The dilator was exchanged for the triple lumen catheter which was advanced into the vessel without resistance. The guide wire was removed intact from the catheter without issue. Claves were placed on each catheter tip with confirmation of good blood flow from each lumen. Each port was easily flushed with sterile saline. The catheter was placed at the hub and sutured in place. BioPatch was applied to the catheter and a sterile Tegaderm dressing was applied over the catheter with careful attention to sterility. Patient tolerated procedure well. No immediate complications were met. Post procedure x-ray currently pending Estimated blood loss: Less than 10 mL Coding CPT Codes Tubes, Drains, and Vasc Access - Tubes, Drains, and Vasc Access: [id number] Place catheter in vein superior or inferior vena cava ([id number]) [facility] Procedure Codes (Charges) Tubes, Drains, and Vasc Access Procedure 1: Tubes, Drains, and Vasc Access: [id number] Place catheter in vein superior or inferior vena cava
--- NOTE | 2020-11-13 10:47 | XRay Report ---
XR chest 1V portable CLINICAL HISTORY: New L subclavian central line placed COMPARISON STUDY: Chest radiograph and chest CT performed earlier today. FINDINGS: Tip of the endotracheal tube is 5.1 cm above the radha. There is no pneumothorax following placement of a left subclavian central line. The tip projects over the cavoatrial junction. Extensiv e mid and lower lung airspace opacities persist. IMPRESSION: 1. No pneumothorax following placement of a left subclavian central line. 2. Satisfactory positioning of the endotracheal tube. 3. Extensive bilateral mid and lower lung airspace opacities which may reflect pneumonia or aspiratio n pneumonitis. ACT 112: Negative or not required by law. Electronically signed by: Bebo Gonzalez M.D. 11/13/2020 10:46 AM
[2020-11-13] MEDS ORDERED: CALCIUM CHLORIDE 10% 1,000 MG in SODIUM CHLORIDE 0.9% 50 ML IV SCH (11:00)
[2020-11-13] MEDS: HYDROCORTISONE SOD 50 MG in SYRINGE 0 ML IV SCH ×2 (11:06→16:49)
[2020-11-13] MEDS ORDERED: SODIUM CHLORIDE 0.9% 1000ML 1,000 ML IV ONE (11:34)
[2020-11-13] MEDS: ALBUMIN 25% 12.5 GM/50 ML VIAL IV SCH ×4 (11:34→12:54)
[2020-11-13] MEDS: CHOLESTYRAMINE LIGHT 4 GM PKT PEG SCH (11:51)
[2020-11-13 16:19] LABS: BUN Creatinine Ratio 5.6 (10-20); Calcium 8.7 mg/dl (8.5-10.1); Est GFR (African American) 15.4 ml/min; Est GFR (Non-African American) 13.3 ml/min; Potassium 3.6 mmol/L (3.5-5.1)
--- NOTE | 2020-11-13 16:39 | Communication Note ---
Date of Service: November 13, 2020 Pt is accepted to be transferred to [facility] ICU accepting dye range operator Dr Ananda Og [facility] does not have any ICU bed available currently Pt also accepted at [facility] ICU for transfer pending Bed availability pt remains critically ill /life threatening status with multiorgan failure , sepsis currently on mechanical ventilation /pressor support will need CVVH( cont venovenous hemofiltration ) or CCRT /cont 24 hr EEG , multidisciplinary specialist support -all of them are not available at [facility] ICU given complexity and critical nature of illness pt needs to be treated at to Tertiary care which ever institution( [facility] /[facility] ) has a bed opening earliest -pt will be transferred via life flight . plan of care updated with ICU /dye range operator , in agreement Syl Shaver MD
--- NOTE | 2020-11-13 17:03 | Discharge Summary ---
Date of Service November 13, 2020 Admission HPI Per Admitting Provider History obtained from family and records. Unable to obtain history from patient secondary to nonverbal state. Medical history significant for asthma, recurrent aspiration status post PEG replacement, dystonia as per records; cerebral palsy, chronic spasticity on intrathecal baclofen pump, seizure disorder, history of MRSA as per records. Last confinement 2016 for aspiration pneumonia. Patient underwent baclofen pump replacement on the right abdomen last August 2020 by [facility] management. Wound healing appropriately on follow-up at the office last month. Patient's mother noted persistent redness however procedure from 2 months ago. 2 days ago patient noted to be febrile at home with dry unproductive cough. Productive cough subsequently got worse. Patient intrathecal pump site on the abdomen noted to be persistently read by both parents. Temperature 102 at home. No black/bloody stools as per patient's mother. At the ER, patient received Vancomycin and Zosyn for sepsis. MEDICAL HISTORY: As above. SURGERIES: PEG tube placement. Some thigh tendon surgery, thecal pump placement. FAMILY HISTORY: Cannot be obtained. PERSONAL AND SOCIAL HISTORY: Non-smoker, primary caregiver is mother. Principal Diagnosis SEPSIS -due to abdominal wall cellulitis /infected intrathecal baclofen pump Acute renal failure Acute respiratory failure Infected intrathecal baclofen pump s/p surgical extraction Wound vac present Seizure disorder refractory spasm due to cerebral palsy Discharge Exam Constitutional + thin, + behavioral limitations (Nonverbal), + physical limitations (Cerebral palsy), + frail appearing and + underweight Eyes + anicteric sclerae Respiratory normal respiratory effort, lungs clear to auscultation Cardiovascular RRR, no murmur, no edema Gastrointestinal (Abdomen) Inspection/Auscultation: + abdominal surgical incision (Right lower quadrant wound VAC present) Discharge Data Allergies Allergy/AdvReac Type Severity Reaction Status Date / Time cat dander Allergy Intermediate SHORTNESS Verified 11/05/20 16:17 OF BREATH pollen extracts Allergy Intermediate SHORTNESS Verified 11/05/20 16:17 OF BREATH ciprofloxacin AdvReac Intermediate GI SYMPTOMS Verified 11/05/20 16:17 house dust AdvReac Intermediate SHORTNESS Verified 11/12/20 16:30 OF BREATH Consultations 11/05/20 19:01 ED Decision to Admit Stat 11/05/20 20:30 Consult Pain Management Routine 11/05/20 21:26 Consult Gastroenterology Routine 11/06/20 08:55 Consult General Surgery Routine 11/07/20 15:14 Consult Infectious Diseases Routine 11/11/20 08:13 Consult Neurology Routine 11/11/20 08:33 Consult Nephrology Routine 11/13/20 04:55 Burn CD for patient Stat Procedures Performed Operation Date: 11/07/20 12:00 Actual Procedures p Removal of Pain Pump and and extrathecal portion of Catheter(Not Applicable) - Pawel Jenkins MD, FIPP Ordered Studies 11/05/20 15:29 CT abd pelvis IV con only Stat 11/07/20 13:00 FL fluoro for pain procedure Routine 11/11/20 07:29 CT abd pelvis wo con Stat 11/12/20 11:39 FL lumbar puncture diagnostic Stat 11/13/20 00:20 US point of care ultrasound Urgent 11/13/20 00:24 CT abd pelvis wo con Stat CT chest diagnostic wo con Stat CT head/brain wo con Urgent Hospital Course (1) Sepsis: Multiple discussions with specialist: Mandeep PUENTES, correctional facility psychiatrist Dr. Burgos, pain management anesthesiology Dr. Zapien, nephrology Dr. Merino. Very hard to pinpoint exact source of infection, and because of sudden and progressive deterioration of renal function: IV fluid discontinued as patient can develop volume overload with acute renal failure, GFR less than 15, urine output diminished. Order to hold baclofen and dantrolene, patient appears to be extremely sedated, With worsening of kidney function, and in the absence of active spasm it would be prudent to hold blood Profen for now Continue as needed IV Valium EEG shows no active seizure-like activity, baseline low wave activity suggestive of encephalopathy. Overall prognosis remains poor, lumbar puncture done today, shows elevated protein, minimum WBC, suggestive of meningitis infection versus inflammatory Patient is already on IV vancomycin, and Zosyn, we will add acyclovir for viral infection coverage. Overall prognosis remains guarded If patient's hemodynamics continues to decline, will need to be transferred to tertiary care [place], spasm vs Seizure episode : EEG shows no evidence of active seizure, Today patient appears to be sedated, no active spasm noted, baclofen kept on hold for worsening of kidney function to prevent toxicity As needed IV Valium Acute renal failure : Not sure of the etiology, sepsis versus drug toxicity antibiotic vancomycin? CK level within normal limit, no evidence of rhabdo Creatinine continues to worsen, 5.2, baseline creatinine 1 0.8 Oliguric renal failure, IV fluid kept on hold as patient already with 3+ liter volume overload Nephrology following, may need dialysis Sepsis Secondary to abdominal wall cellulitis due to intrathecal pump implant pocket infection Possible Aspiration pneumonia -CT abdomen/pelvis :There is infiltration, soft tissue gas, and fluid identified surrounding the pain pump with overlying dermal thickening. This is not well evaluated due to significant streak artifact. Correlate clinically for evidence of soft tissue infection. A small abscess is not excluded. Suspect an inflamm atory process involving the ascending colon deep to the pain pump. Again, this is not well assessed due to significant streak artifact. This could represent a primary colonic inflammatory process such as colitis or diverticulitis or could be related to the inflammatory process around the pump. Clinical correlation will be essential. The appendix is discrete from this process and normal. No intraperitoneal free air is identified. Airspace opacities are present at both lung bases. This likely represents atelectasis. Correlate clinically for evidence of a mild infectious/inflammatory pneumonitis. Patient was started on broad-spectrum antibiotic with IV vancomycin and Zosyn Appreciate input from pain management, Intrathecal baclofen pump was removed surgically by Dr. Zapien 11/07/2020 Patient status continues to decline with marked leukocytosis and renal failure Antibiotic adjusted, resume IV Vanco and add Zosyn for aspiration pneumonitis, added acyclovir for possible viral meningitis Anemia Likely due to chronic disease Normal iron panel, folate levels High B12 levels stool Hemoccult negative Cerebral Palsy Seizure disorder Intrathecal baclofen pump surgically removed for infection around the pump pocket. Baclofane and Dantrolene dose on hold for acute renal failure appreciate input from Dr Jenkins Nutrition : Hold tube feeding for now DVT Px: SCD and teds Continue to hold subcu Lovenox postoperatively to prevent bleeding complication at the surgical wound Code Status Full code Disposition: Patient status continues to decline, plan of care discussed in detail to patient's mother present at bedside by myself, Dr. Merino, We will transfer the patient to ICU. Mother wants to continue treatment at [facility] if possible, for any life-threatening situation or patient is high level of care willing to have him transferred to [facility] Patient remains full code, CODE STATUS will be addressed with mother Total Time Total Time Spent Total Time Spent (In Minutes): 35 min Total Time Includes: Discharge Planning, Medication Reconciliation and Communication With Other Providers Discharge Plan Discharge Items Patient Disposition: Home - Home Health Services Reason For Visit: SEPSIS Discharge Diagnosis: SEPSIS -due to abdominal wall cellulitis /infected intrathecal baclofen pump Acute renal failure Acute respiratory failure Infected intrathecal baclofen pump s/p surgical extraction Wound vac present Seizure disorder refractory spasm due to cerebral palsy Activity: As commented below Activity Comment: complete bed rest Non-emergency contact: Primary Care Provider Call non-emergency contact if: you have any medication questions Follow-up/Referrals: Merissa Lopez DO [Primary Care Provider] - Diet: Nothing by Mouth Addtl Attending Provider Instructions: Patient is transferred to [facility] ICU -Accepting physician Dr Ananda Og Pending Studies at Discharge: No Stand-Alone Forms: My [employer], Smoking Cessation Medications and DC Order Prescriptions: Discontinued saliva stimulant comb. no.3 [Biotene Moisturizing Mouth] spray,non-aerosol 1 appln Mucous Membrane Q2H PRN (Reason: Dry Mouth) RF: 0 glycopyrrolate 1 mg tablet 1 mg Feeding Tube TID RF: 0 clonazepam [Klonopin] 0.5 mg tablet 0.25 mg feeding tube UD RF: 0 fexofenadine [Chayo Allergy] 180 mg tablet 180 mg Feeding Tube QAM RF: 0 fluticasone propionate [Flonase Allergy Relief] 50 mcg/actuation spray,suspension 2 sprays INTNAS QAM RF: 0 dicyclomine 10 mg capsule 10 mg Feeding Tube BID RF: 0 lamotrigine 150 mg tablet 150 mg feeding tube BID RF: 0 lamotrigine 25 mg tablet 75 mg feeding tube HS RF: 0 water for irrigation, sterile [Aqua Care Sterile Water] solution 1 ml Irrigation DAILY PRN (Reason: FLUSHING TUBE) RF: 0 omeprazole 20 mg capsule,delayed release(DR/EC) 20 mg Feeding Tube QAM RF: 0 sodium chloride [Flint Saline] 0.65 % aerosol,spray 2 sprays INTNAS QAM PRN (Reason: NASAL DRYNESS) RF: 0 diazepam 12.5-15-17.5-20 mg kit 10 mg NJ DAILY PRN (Reason: Seizures) RF: 0 budesonide [Pulmicort] 0.5 mg/2 mL suspension for nebulization 0.5 mg INH BID Qty: 120 RF: 5 hydrocodone-acetaminophen 7.5-325 mg/15 mL solution 15 ml PO Q8H PRN (Reason: post operative pain) Qty: 60 RF: 0 Nutren 2.0 0.08 gram-2 kcal/mL Liquid 4 ea feeding tube DAILY RF: 0 baclofen 10 mg tablet 10 mg PO DIRECTED PRN (Reason: spasms) RF: 0 Florajen3 460 mg (7.5-6- 1.5 bill. cell) Capsule 3 cap DAILY RF: 0 albuterol sulfate 2.5 mg /3 mL (0.083 %) Solution For Nebulization 2.5 mg INHALATION QAM PRN (Reason: SOB) RF: 0 triamcinolone acetonide 0.1 % Cream 1 applic TOPICAL BID PRN (Reason: Rash) RF: 0 clotrimazole 1 % Cream 1 applic TOPICAL BID PRN (Reason: fungal rash) RF: 0 Prevalite 4 gram Powder 4 g PO QDL RF: 0 dantrolene 25 mg capsule 25 mg feeding tube BID RF: 0 (DME) Percussion Vest RF: 0 Discharge Orders: Discharge Order (Routine); Ordered 11/13/20 Ordered By: Syl Shaver Admission Data Admit Date/Time: 11/05/20 20:19 Attending Provider: Syl Shaver Admit Provider: Shahid Toribio Primary Care Provider: Merissa Lopez Other Providers: Tyrese Velasco ; [facility] ; Shahid Toribio ; Justyn Inman ; Tabatha Chaparro ; Pawel Jenkins ; Olesya Adams ; Nelson Kennedy ; Orin Courtney ; Merritt Mathews ; Phoebe Jean ; Ky Garcia ; Aaron Condon ; Loyda Mercado ; Nahum Fontana ; Ira Hendrix ; Марина Price ; Lianet Fisher ; Юлия Somers ; Michelle Marie ; Fernando Ojeda ; Jean Carlos Knight ; Homero Cordon ; Thierry Tineo I. ; Osmani Bhakta II ; Dori Carlisle ; Roe Garvey ; Irlanda Arnold ; Kennedy Vazquez ; Irlanda Talamantes ; Elgin Jones ; Anna Quintana. Other Interventions: Discharge Summary Assessment (RN) Last Done: 11/13/20 18:11
[2020-11-13] MEDS ORDERED: HEPARIN SOD 5,000 UNIT/0.5 ML VIAL SQ SCH (21:00)
[2020-11-15 10:37] LABS: HSV Type 1 DNA Not Detected (Not Detected); HSV Type 1&2 DNA Source CSF; HSV Type 2 DNA Not Detected (Not Detected)
[2020-11-15 14:51] LABS: Enterovirus RNA by PCR Not Detected (Not Detected)
--- NOTE | 2020-11-26 13:39 | Pharmacy Report ---
Pharmacy Vanc AUC Short Note - Date of Service November 06, 2020 - Assessment & Plan Assessment 30 year old M receiving vancomycin and zosyn for treatment of "Recurrent aspiration pneumonia/Colitis/ Extension of abdominal wall/possible intrathecal pump infection". Pertinent microbiologic data includes: MRSA Nasal Swab, blood and urine cx pending. Per provider note hx of MRSA. Day # 1 of antimicrobial therapy. Plan Vancomycin * AUC/YOSHI is the preferred PK/PD target for vancomycin * AUC guided dosing is effective and associated with decreased risk of nephrotoxicity compared to traditional trough targets * Predicted Trough level of ~15.1 mcg/mL is predicted to achieve target AUC/YOSHI of 400-600 mg/L.hr and may be associated with a 11 % risk of nephrotoxicity * Loading dose [place] 1250 mg IV X 1 tthen 1000 mg IV every 8 hours * Trough or random level ordered for: 11/07/20 @0930 Pharmacy will continue to follow and will adjust dose/frequency as necessary. Thank you.
--- NOTE | 2020-11-26 13:39 | Pharmacy Report ---
Pharmacy Vanc AUC Short Note - Date of Service November 07, 2020 - Assessment & Plan Assessment 30 year old M receiving vancomycin/cefepime for treatment of possible asp pneumonia/abdominal wall cellulitis. Pertinent microbiologic data includes: Positive MRSA Nasal Swab urine/bcx culture growing NGTD. Day # 3/ of antimicrobial therapy. Plan Vancomycin * AUC/YOSHI is the preferred PK/PD target for vancomycin * AUC guided dosing is effective and associated with decreased risk of nephrotoxicity compared to traditional trough targets * Trough level of 7.3 mcg/mL is predicted to achieve target AUC/YOSHI of 400-600 mg/L.hr and may be associated with a 13 % risk of nephrotoxicity * Continue dose of 1000 mg IV every 8 hours * Trough or random level ordered for: 11/08/20 @0930 Pharmacy will continue to follow and will adjust dose/frequency as necessary. Thank you.
== END 2020-11-13 18:16 | disposition home health service (06) | DRG 28 ==
LOC: ED 13:52 → 2W 20:19 → SUATTDRO 20:19 → 2W 20:55 → 2E 11-07 15:10 → 2W 11-07 21:12 → 2E 11-12 14:01 → 1E 11-12 19:01

== ENCOUNTER 2020-12-12 22:19 | Observation (INO) ==
[2020-12-12] MEDS ORDERED: LORazepam 0.5 MG/1 ML VIAL IV STA (22:44)
[2020-12-12 22:56] LABS: Mean Corpuscular Hgb Conc 30.1 g/dL (32-36); Platelet Count 384 K/uL (130-400)
--- NOTE | 2020-12-12 23:06 | Emergency Department Note ---
History of Present Illness General Chief complaint: Respiratory Distress Stated complaint: RESPIRATORY DISTRESS Time Seen by Provider: 12/12/20 22:34 Source: EMS and other (Director Business Travel from [facility]) Mode of arrival: EMS Limitations: other (Nonverbal) History of Present Illness Provider complaint: Respiratory distress Onset (ago): hour(s) less than 1 Location: chest Pain Consistency: + constant Relieved By: + other (Supplemental oxygen) This is a 30-year-old nonverbal male brought in by ambulance from [facility] with respiratory distress. According to the multimedia services coordinator the patient was given a tube feed. He subsequently aspirated to fluid and the staff were suctioning out tube feed from his lungs. He had a pulse ox in the 70s. When they arrived his pulse ox was in the 70s and went up to the 90s on 100% nonrebreather. They stated that his lungs sounded very wet. The patient is nonverbal so no history is available from the patient. The multimedia services coordinator also states that the patient was at [facility] for a month and the ICU for respiratory failure and pneumonia. He was just discharged yesterday. I did speak to the staff member from [facility]. She states that there was no aspiration. He has been well all day and in no respiratory distress. They were periodically checking his pulse ox and tonight it was in the 70s. During this time the patient was in no respiratory distress. They did call 911 immediately and when the paramedics arrived his pulse ox was in the 70s. The staff member also states that the patient gets extremely agitated when he is restrained but he is calm if left alone. Home Medications Medication Instructions Recorded Confirmed Type L.acidophilus-B.lactis-B.longum 15 1 cap PO DAILY 12/12/20 12/12/20 History billion cell capsule Petrolatum/Zinc Oxide 1 applic TOPICAL DIRECTED PRN 12/12/20 12/12/20 History albuterol sulfate 2.5 mg INHALATION DAILY 12/12/20 12/12/20 History albuterol sulfate 2.5 mg INHALATION Q4H PRN 12/12/20 12/12/20 History baclofen 10 mg tablet 30 mg FEEDING TUBE TID 12/12/20 12/12/20 History benzethonium chloride 0.1 % 1 applic TOPICAL TID PRN 12/12/20 12/12/20 History topical cleanser budesonide 0.5 mg/2 mL suspension 0.5 mg INHALATION BID 12/12/20 12/12/20 History for nebulization cholestyramine-aspartame 4 gram 4 g FEEDING TUBE .DAILY AT 1230 12/12/20 12/12/20 History oral powder (Prevalite) clonazepam 0.5 mg tablet 0.25 mg FEEDING TUBE BID 12/12/20 12/12/20 History clonidine HCl 0.2 mg tablet 0.2 mg FEEDING TUBE TID 12/12/20 12/12/20 History clotrimazole 1 % topical cream 1 applic TOPICAL BID PRN 12/12/20 12/12/20 History dantrolene 25 mg capsule (Dantrium) 25 mg FEEDING TUBE BID 12/12/20 12/12/20 History diazepam 5 mg-7.5 mg-10 mg rectal 10 mg DC DIRECTED PRN 12/12/20 12/12/20 History kit (Diastat AcuDial) dicyclomine 10 mg capsule 10 mg FEEDING TUBE BID 12/12/20 12/12/20 History fexofenadine 180 mg tablet 180 mg FEEDING TUBE DAILY 12/12/20 12/12/20 History fluticasone propionate 50 2 spray INTRANASAL DAILY 12/12/20 12/12/20 History mcg/actuation nasal spray,suspension glycopyrrolate 1 mg tablet 1.25 mg FEEDING TUBE TID 12/12/20 12/12/20 History lamotrigine 150 mg tablet 150 mg FEEDING TUBE BID 12/12/20 12/12/20 History lamotrigine 25 mg tablet 75 mg FEEDING TUBE HS 12/12/20 12/12/20 History omeprazole 20 mg tablet,delayed 20 mg PO DAILY 12/12/20 12/12/20 History release oxycodone 5 mg/5 mL oral solution 5 mg PO Q6H PRN 12/12/20 12/12/20 History quetiapine 100 mg tablet (Seroquel) 100 mg FEEDING TUBE BID 12/12/20 12/12/20 History saliva substitute combo no.9 1 ea PO DAILY PRN 12/12/20 12/12/20 History (Biotene Dry Mouth Oral Rinse) sodium chloride 0.65 % nasal spray 2 spray INTRANASAL DAILY 12/12/20 12/12/20 History aerosol (Saline Nasal Mist) triamcinolone acetonide 0.1 % 1 applic TOPICAL BID PRN 12/12/20 12/12/20 History topical cream water See Rx Instructions .ROUTE .COMPLEX 12/12/20 12/12/20 History Allergies Allergy/AdvReac Type Severity Reaction Status Date / Time cat dander Allergy Intermediate SHORTNESS Verified 12/12/20 23:13 OF BREATH pollen extracts Allergy Intermediate SHORTNESS Verified 12/12/20 23:13 OF BREATH ciprofloxacin AdvReac Intermediate GI SYMPTOMS Verified 12/12/20 23:13 house dust AdvReac Intermediate SHORTNESS Verified 12/12/20 23:13 OF BREATH 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 Seizure Seizures well controlled on Lamictal per 03/19/20 neuro note Severe mental handicap Spasticity Surgical History H/O wisdom tooth extraction Hamstring tightness of both lower extremities s/p surgical release of adductor and hamstrings S/P insertion of intrathecal pump Family History Family/Other Heart disease Father Diabetes Heart trouble Social History Smoking Status: Never smoker Second Hand Exposure: No; Hx Alcohol Use: No Hx Substance Use: No Preferred Language: Khmer Communication Ability: Impaired Beliefs That Will Affect Care: None marital status: Single Current Living Situation: Parent and Personal Care Facility Current Living Situation Comment: Personal Care Facility during week. Parents during the weekend current occupational status: disabled Feels Safe at Home: Yes Assistive Devices: Oxygen - Continuous Review of Systems See HPI for pertinent positives & negatives. Unobtainable due to cognitive status Physical Exam Vital Signs Vital Signs - 24 hr 12/12/20 22:20 12/12/20 22:37 12/12/20 22:46 Temperature 37.4 C Temperature Source Axillary Pulse Rate 114 H Pulse Rate [Finger] 120 H Respiratory Rate 24 32 H Respiratory Effort / Characteristics Spontaneous Grunting Short of Breath Respiratory Depth Blood Pressure 121/54 L Blood Pressure [Left Arm] Blood Pressure Mean 76 Blood Pressure Mean [Left Arm] Blood Pressure Position Lying Pulse Oximetry 100 100 Oxygen Delivery Method Non-rebreather Non-rebreather Nasal Cannula Non-rebreather Oxygen Flow Rate 15 15 15 Sepsis Recent Fever Within 48 Hours No Sepsis New/Unexplained Change in Mental Status N/A Sepsis Action Taken by Nursing Physician Notified 12/12/20 22:54 12/12/20 23:00 12/13/20 00:00 Temperature Temperature Source Pulse Rate Pulse Rate [Finger] 113 H 109 H Respiratory Rate 22 20 Respiratory Effort / Characteristics Respiratory Depth Normal Normal Blood Pressure Blood Pressure [Left Arm] 106/69 112/66 Blood Pressure Mean Blood Pressure Mean [Left Arm] 81 81 Blood Pressure Position Pulse Oximetry 100 93 93 Oxygen Delivery Method Non-rebreather Room Air Room Air Oxygen Flow Rate 15 Sepsis Recent Fever Within 48 Hours Sepsis New/Unexplained Change in Mental Status Sepsis Action Taken by Nursing 12/13/20 00:30 12/13/20 01:00 12/13/20 01:30 Temperature Temperature Source Pulse Rate Pulse Rate [Finger] 105 H 105 H 111 H Respiratory Rate 20 20 20 Respiratory Effort / Characteristics Respiratory Depth Normal Blood Pressure Blood Pressure [Left Arm] 106/66 110/68 99/56 L Blood Pressure Mean Blood Pressure Mean [Left Arm] 79 82 70 Blood Pressure Position Pulse Oximetry 99 99 99 Oxygen Delivery Method Nasal Cannula Oxygen Flow Rate 2 Sepsis Recent Fever Within 48 Hours Sepsis New/Unexplained Change in Mental Status Sepsis Action Taken by Nursing 12/13/20 02:00 12/13/20 02:30 12/13/20 02:41 Temperature Temperature Source Pulse Rate Pulse Rate [Finger] 105 H 105 H 110 H Respiratory Rate 18 22 24 Respiratory Effort / Characteristics Spontaneous Grunting Moaning Respiratory Depth Normal Blood Pressure Blood Pressure [Left Arm] 105/68 121/69 Blood Pressure Mean Blood Pressure Mean [Left Arm] 80 86 Blood Pressure Position Pulse Oximetry 93 99 98 Oxygen Delivery Method Nasal Cannula Nasal Cannula Nasal Cannula Oxygen Flow Rate 2 2 2 Sepsis Recent Fever Within 48 Hours Sepsis New/Unexplained Change in Mental Status Sepsis Action Taken by Nursing Constitutional: Vital signs reviewed. Eyes: Pupils are equal round reactive to light. Conjunctiva are noninjected. ENT: Mucous membranes are slightly dry.. Neck supple without meningeal signs. Respiratory: Tachypneic. Rhonchi bilaterally. Breath sounds are equal bilaterally. Cardiovascular: Tachycardic. Heart rate 110. GI: Soft, nondistended and nontender. G-tube in place. Bowel sounds are present. Musculoskeletal: No peripheral edema. Multiple bandaged wounds to the feet as well as the right abdominal wall. There is some erythema and increased warmth to the right ankle and lower leg. Integumentary: No cyanosis. or jaundice. Neurological: The patient is awake and alert. Nonverbal. Psychiatric: Unable to assess. Highly agitated. Course Administered Medications Discontinued Medications Lorazepam (Ativan) 0.5 mg in 1 mls @ 1 mls/min IV NOW STA Stop: 12/12/20 22:45 Last Admin: 12/12/20 23:08 Dose: Not Given Documented by: [id number] Sodium Chloride (Nss 1000ml) 500 mls @ 999 mls/hr IV .Q31M ONE Stop: 12/13/20 00:49 Last Infusion: 12/13/20 01:01 Dose: 0 mls/hr Documented by: [id number] Admin: 12/13/20 00:30 Dose: 999 mls/hr Documented by: [id number] Sodium Chloride (1/2 Nss) 1,000 mls @ 999 mls/hr IV .Q1H1M STA Stop: 12/13/20 02:26 Last Admin: 12/13/20 01:58 Dose: 999 mls/hr Documented by: [id number] Ampicillin Sodium/Sulbactam Sodium 3,000 mg/ Sodium Chloride 108 mls @ 200 mls/hr IV NOW STA Stop: 12/13/20 02:52 Last Admin: 12/13/20 02:49 Dose: 200 mls/hr Documented by: [id number] Dexamethasone (Decadron) 1.5 mls @ 1 mls/min IV ONE STA Stop: 12/13/20 02:35 Last Admin: 12/13/20 02:45 Dose: 1 mls/min Documented by: [id number] Ipratropium [place] (Ipratropium [place] Neb Soln 0.02% 2.5 Ml Vial) 0.5 mg INH ONE STA Stop: 12/13/20 02:36 Last Admin: 12/13/20 02:41 Dose: 0.5 mg Documented by: [id number] Levalbuterol HCl (Levalbuterol 1.25mg/0.5ml Neb) 1.25 mg INH ONE STA Stop: 12/13/20 02:36 Last Admin: 12/13/20 02:41 Dose: 1.25 mg Documented by: [id number] Critical Care Time Critical Care Time: Yes Total Critical Care Time: 40 I have personally spent approximately 40 minutes of critical care time in the direct management of this patient. This includes bedside care, interpretation of diagnostic studies, and testing, discussion with consultants, patient, and family members, and other required patient management activities. These minutes are in excess of all separately billable procedures. Medical Decision Making Differential Diagnosis Respiratory failure, pneumonia, sepsis, hypoxemia, pulse oximeter error Medical Records Attestation: I reviewed the patient's medical records. I did perform a limited focused review of portions of the patient's old chart on the electronic medical record. The patient was admitted to this hospital in October for respiratory failure, abdominal wall cellulitis and infected baclofen pump. He was eventually transferred to [facility] for further care and evaluation. Home Medications Current Medication List: was personally reviewed by me Laboratory Data Attestation: I reviewed the patient's lab results. Result diagrams: 12/12/20 22:35 12/12/20 22:35 Lab Results 12/12/20 12/12/20 12/12/20 Range/Units 22:35 22:35 22:35 WBC 15.50 H (4.8-10.8) K/uL RBC 3.44 L (4.7-6.1) M/uL Hgb 10.4 L (14.0-18.0) g/dL Hct 34.5 L (42-52) % MCV 100.3 H (80-100) fL MCH 30.2 (25-34) pg MCHC 30.1 L (32-36) g/dL RDW Std Deviation 59.7 H (36.4-46.3) fL RDW Coeff of Kimo 16.2 H (11.5-14.5) % Plt Count 384 (130-400) K/uL MPV 11.0 H (7.4-10.4) fL Immature Gran % (Auto) 0.3 % Neut % (Auto) 75.1 % Lymph % (Auto) 13.7 % [place] % (Auto) 8.6 % Eos % (Auto) 2.0 % Baso % (Auto) 0.3 % Neut # (Auto) 11.65 H (1.4-6.5) K/uL Lymph # (Auto) 2.12 (1.2-3.4) K/uL [place] # (Auto) 1.34 H (0.11-0.59) K/uL Eos # (Auto) 0.31 (0-0.5) K/uL Baso # (Auto) 0.04 (0-0.2) K/uL Immature Gran # (Auto) 0.04 H (0.00-0.02) K/uL Stomatocytes 1+ ABG pH (7.35-7.45) ABG pCO2 (35-46) mmHg ABG pO2 (80-95) mmHg ABG HCO3 (19-24) mmol/L ABG O2 Saturation (90-95) % ABG Base Excess (-9-1.8) mEq/L Casey Test (Pos) Barometric Pressure mm/Hg Oxygen Given Sodium 149 H (136-145) mmol/L Potassium 4.2 (3.5-5.1) mmol/L Chloride 113 H (98-107) mmol/L Carbon Dioxide 32 (21-32) mmol/L Anion Gap 3.0 (3-11) BUN 24 H (7-18) mg/dl Creatinine 0.64 (0.6-1.4) mg/dl Est Cr Clr Drug Dosing 101.7 ml/min Est GFR ( Amer) > 150.0 ml/min Est GFR (Non-Af Amer) 131.4 ml/min BUN/Creatinine Ratio 37.5 H (10-20) Glucose 103 H (70-99) mg/dl Lactate (0.4-2.0) mmol/L Calcium 9.3 (8.5-10.1) mg/dl Total Bilirubin 0.3 (0.2-1) mg/dl AST 10 L (15-37) U/L ALT 17 (12-78) U/L Alkaline Phosphatase 119 H (45-117) U/L Total Protein 8.4 H (6.4-8.2) gm/dl Albumin 3.7 (3.4-5.0) gm/dl Globulin 4.7 H (2.5-4.0) gm/dl Albumin/Globulin Ratio 0.8 L (0.9-2) Procalcitonin 0.08 (0-0.5) ng/ml COVID-19 Eval Order SARS-CoV-2 (PCR) (Negative) 12/13/20 12/13/20 12/13/20 Range/Units 01:20 01:20 02:03 WBC (4.8-10.8) K/uL RBC (4.7-6.1) M/uL Hgb (14.0-18.0) g/dL Hct (42-52) % MCV (80-100) fL MCH (25-34) pg MCHC (32-36) g/dL RDW Std Deviation (36.4-46.3) fL RDW Coeff of Kimo (11.5-14.5) % Plt Count (130-400) K/uL MPV (7.4-10.4) fL Immature Gran % (Auto) % Neut % (Auto) % Lymph % (Auto) % [place] % (Auto) % Eos % (Auto) % Baso % (Auto) % Neut # (Auto) (1.4-6.5) K/uL Lymph # (Auto) (1.2-3.4) K/uL [place] # (Auto) (0.11-0.59) K/uL Eos # (Auto) (0-0.5) K/uL Baso # (Auto) (0-0.2) K/uL Immature Gran # (Auto) (0.00-0.02) K/uL Stomatocytes ABG pH (7.35-7.45) ABG pCO2 (35-46) mmHg ABG pO2 (80-95) mmHg ABG HCO3 (19-24) mmol/L ABG O2 Saturation (90-95) % ABG Base Excess (-9-1.8) mEq/L Casey Test (Pos) Barometric Pressure mm/Hg Oxygen Given Sodium (136-145) mmol/L Potassium (3.5-5.1) mmol/L Chloride (98-107) mmol/L Carbon Dioxide (21-32) mmol/L Anion Gap (3-11) BUN (7-18) mg/dl Creatinine (0.6-1.4) mg/dl Est Cr Clr Drug Dosing ml/min Est GFR ( Amer) ml/min Est GFR (Non-Af Amer) ml/min BUN/Creatinine Ratio (10-20) Glucose (70-99) mg/dl Lactate 0.6 (0.4-2.0) mmol/L Calcium (8.5-10.1) mg/dl Total Bilirubin (0.2-1) mg/dl AST (15-37) U/L ALT (12-78) U/L Alkaline Phosphatase (45-117) U/L Total Protein (6.4-8.2) gm/dl Albumin (3.4-5.0) gm/dl Globulin (2.5-4.0) gm/dl Albumin/Globulin Ratio (0.9-2) Procalcitonin (0-0.5) ng/ml COVID-19 Eval Order Covid19 at [facility] SARS-CoV-2 (PCR) NEGATIVE (Negative) 12/13/20 Range/Units 02:03 WBC (4.8-10.8) K/uL RBC (4.7-6.1) M/uL Hgb (14.0-18.0) g/dL Hct (42-52) % MCV (80-100) fL MCH (25-34) pg MCHC (32-36) g/dL RDW Std Deviation (36.4-46.3) fL RDW Coeff of Kimo (11.5-14.5) % Plt Count (130-400) K/uL MPV (7.4-10.4) fL Immature Gran % (Auto) % Neut % (Auto) % Lymph % (Auto) % [place] % (Auto) % Eos % (Auto) % Baso % (Auto) % Neut # (Auto) (1.4-6.5) K/uL Lymph # (Auto) (1.2-3.4) K/uL [place] # (Auto) (0.11-0.59) K/uL Eos # (Auto) (0-0.5) K/uL Baso # (Auto) (0-0.2) K/uL Immature Gran # (Auto) (0.00-0.02) K/uL Stomatocytes ABG pH 7.43 (7.35-7.45) ABG pCO2 44 (35-46) mmHg ABG pO2 65 L (80-95) mmHg ABG HCO3 29 H (19-24) mmol/L ABG O2 Saturation 92.8 (90-95) % ABG Base Excess 4.2 H (-9-1.8) mEq/L Casey Test POS (Pos) Barometric Pressure 732.5 mm/Hg Oxygen Given 2 L Sodium (136-145) mmol/L Potassium (3.5-5.1) mmol/L Chloride (98-107) mmol/L Carbon Dioxide (21-32) mmol/L Anion Gap (3-11) BUN (7-18) mg/dl Creatinine (0.6-1.4) mg/dl Est Cr Clr Drug Dosing ml/min Est GFR ( Amer) ml/min Est GFR (Non-Af Amer) ml/min BUN/Creatinine Ratio (10-20) Glucose (70-99) mg/dl Lactate (0.4-2.0) mmol/L Calcium (8.5-10.1) mg/dl Total Bilirubin (0.2-1) mg/dl AST (15-37) U/L ALT (12-78) U/L Alkaline Phosphatase (45-117) U/L Total Protein (6.4-8.2) gm/dl Albumin (3.4-5.0) gm/dl Globulin (2.5-4.0) gm/dl Albumin/Globulin Ratio (0.9-2) Procalcitonin (0-0.5) ng/ml COVID-19 Eval Order SARS-CoV-2 (PCR) (Negative) Imaging Data Attestation: I personally reviewed and interpreted this imaging study as follows: My Impression: Chest x-ray per my interpretation shows no acute cardiopulmonary process. Prior infiltrates are resolved compared to his chest x-ray from October. ECG Data Attestation: I personally reviewed and interpreted this ECG as follows: Indication: + SOB/dyspnea Rate (beats per minute): 114 Rhythm: + sinus tachycardia ECG ST segments: + Nonspecific ST abnormalities ECG Findings: no PVCs Comparison ECG Date: from (November 05, 2020) Change: no significant change MDM Narrative I was called emergently into the room by the nurse due to the patient's respiratory distress. I did evaluate the patient as noted above. The patient is agitated and tachypneic. His O2 saturation is 96% on a nonrebreather mask. The multimedia services coordinator gave me the history that he aspirated his tube feeds and that his pulse ox was in the 70s. He also stated that the patient was supposed to go to hospice tomorrow. There is a POLST which I reviewed and he is DNI DNR. I did call his parents over the telephone to clarify what type of treatment would be appropriate for him given his current condition. They were agreeable to lab work and chest x-ray as well as sedation. Sonia, who is a staff member at the patient's residence, was done in the room and the patient had now calm down. She stated that he gets very agitated when he is restrained. She gave me a very different history than the multimedia services coordinator. She states that he has been fine all day and that routine pulse oximetry showed a pulse ox of 70. They did call 911 because of this but she notes that he did not have any sort of respiratory distress or difficulty at the time. There was also no aspiration of tube feeds. She stated that he has normally thick secretions and he had the normal amount of secretions today as he has been having. I did immediately call back the parents to reassure them that their son was doing much better. IV access was established. I did place an order for continuous cardiac monitoring. The monitor showed sinus tachycardia at a rate of 110 bpm. I did order and personally review the patient's 12-lead EKG as described above. He has no evidence of acute ischemia. I did order and personally reviewed the images of the patient's chest x-ray as described above. Chest x-ray seems to demonstrate resolution of his prior infiltrates. I did order blood cultures. I did order and review the patient's blood work as noted in the electronic medical record. His white blood cell count is 15.5. This is increased from his previous white count of 11.7 on December 10. His hemoglobin is 10.4 and was previously 10.8. Sodium is 149 up from 145. I suspect he is dehydrated. I did obtain a room air pulse ox and he was initially in the low 90s but then started to desat into the 80s. He was placed on 2 L via nasal cannula. I did discuss the test results with the patient's parents. Initially the patient's mother wanted to send him back home to be in an environment where people knew him well but they spoke to Sonia and decided to have him stay in the hospital. I did order a COVID-19 test. I did reassess the patient. He is resting comfortably on 2 L nasal cannula. I did discuss case with the hospitalist and manager of case. Impression & Plan Hypoxemia, Leukocytosis, Acute hypernatremia, Cellulitis of leg, right Discharge Plan Visit Data Chief Complaint: Respiratory Distress Stated Complaint: RESPIRATORY DISTRESS ED Provider: Marcus Brunson Discharge Problem: Hypoxemia, Leukocytosis, Acute hypernatremia, Cellulitis of leg, right Patient Disposition: Being Evaluated by Hospitalist Forms Stand Alone Forms: [facility] Prescriptions Prescriptions: No Action glycopyrrolate 1 mg Tablet 1.25 mg feeding tube TID RF: 0 lamotrigine 150 mg Tablet 150 mg feeding tube BID RF: 0 albuterol sulfate 2.5 mg /3 mL (0.083 %) Solution For Nebulization 2.5 mg INHALATION DAILY RF: 0 albuterol sulfate 2.5 mg /3 mL (0.083 %) solution for nebulization 2.5 mg inhalation Q4H PRN (Reason: Shortness Of Breath) RF: 0 dantrolene [Dantrium] 25 mg Capsule 25 mg feeding tube BID RF: 0 clonazepam 0.5 mg Tablet 0.25 mg feeding tube BID RF: 0 oxycodone [Roxicodone] 5 mg/5 mL Solution 5 mg PO Q6H PRN (Reason: Pain, Severe) RF: 0 fexofenadine [Chayo] 180 mg Tablet 180 mg feeding tube DAILY RF: 0 quetiapine [Seroquel] 100 mg Tablet 100 mg feeding tube BID RF: 0 triamcinolone acetonide 0.1 % Cream 1 applic TOPICAL BID PRN (Reason: Skin Irritation) RF: 0 lamotrigine 25 mg Tablet 75 mg feeding tube HS RF: 0 clonidine HCl 0.2 mg Tablet 0.2 mg feeding tube TID RF: 0 baclofen 10 mg Tablet 30 mg feeding tube TID RF: 0 budesonide 0.5 mg/2 mL Suspension For Nebulization 0.5 mg INHALATION BID RF: 0 fluticasone propionate 50 mcg/actuation [place],Suspension 2 spray INTRANASAL DAILY RF: 0 clotrimazole 1 % Cream 1 applic TOPICAL BID PRN (Reason: IRRITATION BUTTOCKS/GROIN) RF: 0 dicyclomine 10 mg Capsule 10 mg feeding tube BID RF: 0 water Liquid See Rx Instructions .ROUTE .COMPLEX RF: 0 sodium chloride [Saline Nasal Mist] 0.65 % Aerosol,[place] 2 spray INTRANASAL DAILY RF: 0 diazepam [Diastat AcuDial] 5-7.5-10 mg Kit 10 mg DC DIRECTED PRN (Reason: PROLONGED SEIZURE) RF: 0 Perineal Skin Cleanser 0.1 % Cleanser 1 applic TOPICAL TID PRN (Reason: CLEANSE SKIN) RF: 0 Prevalite 4 gram Powder 4 g feeding tube .DAILY AT 1230 RF: 0 omeprazole 20 mg Tablet,Delayed Release (Dr/Ec) 20 mg PO DAILY RF: 0 Florajen3 15 billion cell Capsule 1 cap PO DAILY RF: 0 Biotene Dry Mouth Oral Rinse Mouthwash 1 ea PO DAILY PRN (Reason: Dry Mouth) RF: 0 Petrolatum/Zinc Oxide 1 applic topical DIRECTED PRN (Reason: REDNESS OF BUTTOCKS) RF: 0 Referrals Referrals: Merissa Lopez DO [Primary Care Provider] - Discharge Problem: Leukocytosis Qualifiers: Leukocytosis type: unspecified Qualified Code(s): D72.829 - Elevated white blood cell count, unspecified
[2020-12-12 23:09] LABS: Alanine Aminotransferase 17 U/L (12-78); Albumin Level 3.7 gm/dl (3.4-5.0); Aspartate Aminotransferase 10 U/L (15-37); BUN Creatinine Ratio 37.5 (10-20); Blood Urea Nitrogen 24 mg/dl (7-18); Calcium 9.3 mg/dl (8.5-10.1); Carbon Dioxide 32 mmol/L (21-32); Chloride 113 mmol/L (98-107); Creatinine Clr Calc Pharmacy 101.7 ml/min; Est GFR (African American) > 150.0 ml/min; Est GFR (Non-African American) 131.4 ml/min; Glucose 103 mg/dl (70-99); Potassium 4.2 mmol/L (3.5-5.1); Sodium 149 mmol/L (136-145)
[2020-12-12 23:12] LABS: Albumin Globulin Ratio 0.8 (0.9-2); Alkaline Phosphatase 119 U/L (45-117); Bilirubin,Total 0.3 mg/dl (0.2-1); Globulin 4.7 gm/dl (2.5-4.0); Total Protein 8.4 gm/dl (6.4-8.2)
[2020-12-12 23:25] LABS: Hematocrit (blood only) 34.5 % (42-52); Hemoglobin 10.4 g/dL (14.0-18.0); Mean Corpuscular Hemoglobin 30.2 pg (25-34); Mean Corpuscular Volume 100.3 fL (80-100); RDW Coefficient of Variation 16.2 % (11.5-14.5); RDW Standard Deviation 59.7 fL (36.4-46.3); Red Blood Count 3.44 M/uL (4.7-6.1)
[2020-12-12 23:26] LABS: Basophils # (auto) 0.04 K/uL (0-0.2); Basophils % (auto) 0.3 %; Eosinophils # (auto) 0.31 K/uL (0-0.5); Immature Granulocytes # (auto) 0.04 K/uL (0.00-0.02); Immature Granulocytes % (auto) 0.3 %; Lymphocytes # (auto) 2.12 K/uL (1.2-3.4); Lymphocytes % (auto) 13.7 %; Monocytes # (auto) 1.34 K/uL (0.11-0.59); Monocytes % (auto) 8.6 %; Neutrophils # (auto) 11.65 K/uL (1.4-6.5); Neutrophils % (auto) 75.1 %; Stomatocytes 1+
[2020-12-13] MEDS ORDERED: SODIUM CHLORIDE 0.9% 1000ML 500 ML IV ONE (00:19)
[2020-12-13] MEDS ORDERED: SODIUM CHLORIDE 0.45 % 1,000 ML IV STA (01:26)
[2020-12-13] MEDS ORDERED: AMPICILLIN/SULBACTAM SOD 3,000 MG in 0.9 % SODIUM CHLORIDE 100 ML IV STA (02:20)
--- NOTE | 2020-12-13 02:21 | History & Physical Report ---
Date of Service December 13, 2020 Assessment & Plan (1) Severe sepsis: Plan: SIRS plus hypoxemia Secondary to HCAP, hx recurrent aspiration status post PEG tube placement hx MRSA as per records Chronic anemia, new baseline of 10 since discharge from [facility] seizure disorder, stable on regimen Medical telemetry Supplemental O2 CS, Doxycycline, Zosyn Nebs RTC given bronchospasm causing hypoxemia Decadron 1 dose given hypoxemia Aspiration precautions DVT prophylaxis. Heparin subcu DNR as per prior family directives for patient. Patient's mother requesting updates from providers. Ms. Joyce West, contact #[phone]. Total critical care time was 40 minutes. Text document was generated using [employer] voice recognition software. It may contain grammatical or spelling errors. Kindly contact undersigned for clarification of any documentation item in qu estion. History of Present Illness Chief Complaint: Respiratory distress, hypoxemia as per records Primary Care Provider: Merissa Lopez DO History obtained from patient caregiver and records. Unable to obtain history from patient secondary to nonverbal state. Medical history significant for asthma, recurrent aspiration status post PEG replacement, dystonia as per records; cerebral palsy, chronic spasticity, seizure disorder, history of MRSA as per records. Last confinement at [facility] November 05-2020 for sepsis secondary to abdominal wall cellulitis/infected intrathecal baclofen pump status post removal. Subsequent septic shock during confinement. Patient later intubated for airway protection. Patient developed renal failure, creatinine noted to be 5. Patient subsequently transferred to [facility]. Patient confined at [facility] from November 13 to December 11, 2020. 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 Kidney dysfunction improved without dialysis. Patient successfully extubated last 11/18 but subsequently reintubated 11/23 after an episode of epistaxis secondary to nasal suctioning which caused epistaxis. Patient successfully extubated 12/06. Family completed POLST form detailing DNR [facility]. [facility] noted by [facility] staff to be in respiratory distress last night, junky respiratory secretions noted. Possible aspiration as per staff. O2 sats 70s at [facility]. Patient brought to the ER for evaluation. MEDICAL HISTORY: As above. SURGERIES: PEG tube placement. Some thigh tendon surgery, thecal pump place ment/removal FAMILY HISTORY: Cannot be obtained. PERSONAL AND SOCIAL HISTORY: Non-smoker, [facility] resident Allergies Allergy/AdvReac Type Severity Reaction Status Date / Time cat dander Allergy Intermediate SHORTNESS Verified 12/12/20 23:13 OF BREATH pollen extracts Allergy Intermediate SHORTNESS Verified 12/12/20 23:13 OF BREATH meropenem Allergy Mild Rash Verified 12/13/20 08:08 ciprofloxacin AdvReac Intermediate GI SYMPTOMS Verified 12/12/20 23:13 house dust AdvReac Intermediate SHORTNESS Verified 12/12/20 23:13 OF BREATH haloperidol [From Haldol] AdvReac Unknown Verified 12/13/20 08:08 Home Medications Medication Instructions Recorded Confirmed Type L.acidophilus-B.lactis-B.longum 15 1 cap PO DAILY 12/12/20 12/12/20 History billion cell capsule Petrolatum/Zinc Oxide 1 applic TOPICAL DIRECTED PRN 12/12/20 12/12/20 History albuterol sulfate 2.5 mg INHALATION DAILY 12/12/20 12/12/20 History albuterol sulfate 2.5 mg INHALATION Q4H PRN 12/12/20 12/12/20 History baclofen 10 mg tablet 30 mg FEEDING TUBE TID 12/12/20 12/12/20 History benzethonium chloride 0.1 % 1 applic TOPICAL TID PRN 12/12/20 12/12/20 History topical cleanser budesonide 0.5 mg/2 mL suspension 0.5 mg INHALATION BID 12/12/20 12/12/20 History for nebulization cholestyramine-aspartame 4 gram 4 g FEEDING TUBE .DAILY AT 1230 12/12/20 12/12/20 History oral powder (Prevalite) clonazepam 0.5 mg tablet 0.25 mg FEEDING TUBE BID 12/12/20 12/12/20 History clonidine HCl 0.2 mg tablet 0.2 mg FEEDING TUBE TID 12/12/20 12/12/20 History clotrimazole 1 % topical cream 1 applic TOPICAL BID PRN 12/12/20 12/12/20 Hi story dantrolene 25 mg capsule (Dantrium) 25 mg FEEDING TUBE BID 12/12/20 12/12/20 History diazepam 5 mg-7.5 mg-10 mg rectal 10 mg CO DIRECTED PRN 12/12/20 12/12/20 History kit (Diastat AcuDial) dicyclomine 10 mg capsule 10 mg FEEDING TUBE BID 12/12/20 12/12/20 History fexofenadine 180 mg tablet 180 mg FEEDING TUBE DAILY 12/12/20 12/12/20 History fluticasone propionate 50 2 spray INTRANASAL DAILY 12/12/20 12/12/20 History mcg/actuation nasal spray,suspension glycopyrrolate 1 mg tablet 1.25 mg FEEDING TUBE TID 12/12/20 12/12/20 History lamotrigine 150 mg tablet 150 mg FEEDING TUBE BID 12/12/20 12/12/20 History lamotrigine 25 mg tablet 75 mg FEEDING TUBE HS 12/12/20 12/12/20 History omeprazole 20 mg tablet,delayed 20 mg PO DAILY 12/12/20 12/12/20 History release oxycodone 5 mg/5 mL oral solution 5 mg PO Q6H PRN 12/12/20 12/12/20 History quetiapine 100 mg tablet (Seroquel) 100 mg FEEDING TUBE BID 12/12/20 12/12/20 History saliva substitute combo no.9 1 ea PO DAILY PRN 12/12/20 12/12/20 History (Biotene Dry Mouth Oral Rinse) sodium chloride 0.65 % nasal spray 2 spray INTRANASAL DAILY 12/12/20 12/12/20 History aerosol (Saline Nasal Mist) triamcinolone acetonide 0.1 % 1 applic TOPICAL BID PRN 12/12/20 12/12/20 History topical cream water See Rx Instructions .ROUTE .COMPLEX 12/12/20 12/12/20 History 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 Seizure Seizures well controlled on Lamictal per 03/19/20 neuro note Severe mental handicap Spasticity Surgical History H/O wisdom tooth extraction Hamstring tightness of both lower extremities s/p surgical release of adductor and hamstrings S/P insertion of intrathecal pump Family History Family/Other Heart disease Father Diabetes Heart trouble Social History Smoking Status: Never smoker Second Hand Exposure: No; Do You Dip or Chew Tobacco: No; Hx Alcohol Use: No Hx Substance Use: No Preferred Language: Sudanese Communication Ability: Cloudmark Resource Director Required: No Beliefs That Will Affect Care: None marital status: Single Current Living Situation: Parent and Personal Care Facility Current Living Situation Comment: Personal Care Facility during week. Parents during the weekend current occupational status: disabled Other Information That Helps Us Care for You: No Feels Safe at Home: Yes Assistive Devices: None Review of Systems Review of Systems: Could not be reliably obtained Physical Exam Physical Exam: GENERAL: uncomfortable, restless, nonverbal, respiratory distress, chronically ill SKIN: Pallor , warm HEENT: Pale palpebral conjunctivae, no ptosis, dry buccal mucosa, nasal cannula in place NECK : Supple, no tenderness CHEST : Decreased breath sounds, bilateral rhonchi with expiratory wheezes, no tenderness HEART : Tachycardic,, no obvious murmurs ABDOMEN: Soft, PEG tube in place EXTREMITIES : No LE swelling, no LE tenderness NEUROLOGIC : Nonverbal, no facial asymmetry, no other gross focality Results & Data Results & Data ([facility]) Vital Signs (Past 12 Hours) Vital Signs Temp Pulse Pulse Resp BP BP Pulse Ox 12/13/20 02:00 105 H 18 105/68 93 12/13/20 01:30 111 H 20 99/56 L 99 12/13/20 01:00 105 H 20 110/68 99 12/13/20 00:30 105 H 20 106/66 99 12/13/20 00:00 109 H 20 112/66 93 12/12/20 23:00 113 H 22 106/69 93 12/12/20 22:54 100 12/12/20 22:37 37.4 C 114 H 32 H 121/54 L 100 12/12/20 22:20 120 H 24 100 Laboratory Results Laboratory Results WBC 15.50 K/uL (4.8-10.8) H 12/12/20 22:35 RBC 3.44 M/uL (4.7-6.1) L 12/12/20 22:35 Hgb 10.4 g/dL (14.0-18.0) L 12/12/20 22:35 Hct 34.5 % (42-52) L 12/12/20 22:35 MCV 100.3 fL (80-100) H 12/12/20 22:35 MCH 30.2 pg (25-34) 12/12/20 22:35 MCHC 30.1 g/dL (32-36) L 12/12/20 22:35 RDW Std Deviation 59.7 fL (36.4-46.3) H 12/12/20 22:35 RDW Coeff of Kimo 16.2 % (11.5-14.5) H 12/12/20 22:35 Plt Count 384 K/uL (130-400) 12/12/20 22:35 MPV 11.0 fL (7.4-10.4) H 12/12/20 22:35 Immature Gran % (Auto) 0.3 % 12/12/20 22:35 Neut % (Auto) 75.1 % 12/12/20 22:35 Lymph % (Auto) 13.7 % 12/12/20 22:35 [place] % (Auto) 8.6 % 12/12/20 22:35 Eos % (Auto) 2.0 % 12/12/20 22:35 Baso % (Auto) 0.3 % 12/12/20 22:35 Neut # (Auto) 11.65 K/uL (1.4-6.5) H 12/12/20 22:35 Lymph # (Auto) 2.12 K/uL (1.2-3.4) 12/12/20 22:35 [place] # (Auto) 1.34 K/uL (0.11-0.59) H 12/12/20 22:35 Eos # (Auto) 0.31 K/uL (0-0.5) 12/12/20 22:35 Baso # (Auto) 0.04 K/uL (0-0.2) 12/12/20 22:35 Immature Gran # (Auto) 0.04 K/uL (0.00-0.02) H 12/12/20 22:35 Stomatocytes 1+ 12/12/20 22:35 Sodium 149 mmol/L (136-145) H 12/12/20 22:35 Potassium 4.2 mmol/L (3.5-5.1) 12/12/20 22:35 Chloride 113 mmol/L (98-107) H 12/12/20 22:35 Carbon Dioxide 32 mmol/L (21-32) 12/12/20 22:35 Anion Gap 3.0 (3-11) 12/12/20 22:35 BUN 24 mg/dl (7-18) H 12/12/20 22:35 Creatinine 0.64 mg/dl (0.6-1.4) 12/12/20 22:35 Est Cr Clr Drug Dosing 101.7 ml/min 12/12/20 22:35 Est GFR ( Amer) > 150.0 ml/min 12/12/20 22:35 Est GFR (Non-Af Amer) 131.4 ml/min 12/12/20 22:35 BUN/Creatinine Ratio 37.5 (10-20) H 12/12/20 22:35 Glucose 103 mg/dl (70-99) H 12/12/20 22:35 Calcium 9.3 mg/dl (8.5-10.1) 12/12/20 22:35 Total Bilirubin 0.3 mg/dl (0.2-1) 12/12/20 22:35 AST 10 U/L (15-37) L 12/12/20 22:35 ALT 17 U/L (12-78) 12/12/20 22:35 Alkaline Phosphatase 119 U/L (45-117) H 12/12/20 22:35 Total Protein 8.4 gm/dl (6.4-8.2) H 12/12/20 22:35 Albumin 3.7 gm/dl (3.4-5.0) 12/12/20 22:35 Globulin 4.7 gm/dl (2.5-4.0) H 12/12/20 22:35 Albumin/Globulin Ratio 0.8 (0.9-2) L 12/12/20 22:35 Procalcitonin 0.08 ng/ml (0-0.5) 12/12/20 22:35 COVID-19 Eval Order Covid19 at [facility] 12/13/20 01:[address] chest initial read: No definite CT evidence for pulmonaryembolism; however, the bilateral segmental and subsegmental branches are not optimallyevaluated due to artifact. No thoracic aortic aneurysmor dissection. Normal cardiac size. No pathologic intrathoracic lymphadenopathy. Mild patchybilateral ground-glass infiltrates or interstitial edema. No acute consolidation. No pneumothorax or pleural effusions. Pectus excavatum. No acute osseous abnormality. EKG as per my interpretation: Rate 115, sinus tachycardia, normal axis, incomplete RBBB, T wave abnormalities inferior leads
[2020-12-13 02:22] LABS: Base Excess ABG 4.2 mEq/L (-9-1.8); HCO3 ABG 29 mmol/L (19-24); Oxygen Saturation ABG 92.8 % (90-95); PCO2 ABG 44 mmHg (35-46); PO2 ABG 65 mmHg (80-95); pH ABG 7.43 (7.35-7.45)
[2020-12-13] MEDS ORDERED: XOPENEX/ATROVENT 1.25mg/0.5MG NEB COMBO NEB STA (02:22)
[2020-12-13 02:24] LABS: Allen Test POS (Pos)
[2020-12-13] MEDS ORDERED: dexAMETHasone 1.5 ML IV STA (02:34)
[2020-12-13] MEDS ORDERED: IPRATROPIUM BROMIDE NEB SOLN 0.02% 2.5 ML VIAL INH STA (02:35)
[2020-12-13] MEDS ORDERED: LEVALBUTEROL 1.25MG/0.5ML NEB INH STA (02:35)
[2020-12-13] MEDS ORDERED: PROMETHAZINE HCL 6.25 MG in SODIUM CHLORIDE 0.9% 50 ML IV PRN (03:03)
[2020-12-13] MEDS ORDERED: ACETAMINOPHEN 65 ML IV PRN (03:03)
[2020-12-13] MEDS ORDERED: OPTIRAY 320 125ml IV ONE (04:41)
[2020-12-13] MEDS ORDERED: oxyCODONE HCL SOLN 5 MG/5 ML UDC GT PRN (04:59)
[2020-12-13] MEDS ORDERED: NON-FORMULARY MEDICATION (Saliva Substitute Combo No.9 [Biotene Dry Mouth Oral Rinse] Mout PO PRN (04:59)
[2020-12-13] MEDS ORDERED: ACETAMINOPHEN 10MG/ML PEDIATRIC DOSING IV STA (05:19)
[2020-12-13] MEDS ORDERED: SODIUM CHLORIDE 0.45 % 1,000 ML IV ONE (05:22)
[2020-12-13] MEDS ORDERED: ACETAMINOPHEN 65 ML IV ONE (05:30)
[2020-12-13] MEDS ORDERED: TUBE FEEDING WATER FLUSH PEG SCH (06:00)
[2020-12-13] MEDS: HEPARIN SOD 5,000 UNIT/0.5 ML VIAL SQ SCH ×3 (06:23→21:55)
[2020-12-13] MEDS ORDERED: PIPERACILL/TAZOBAC CONSULT ACTIVE PRN (06:33)
[2020-12-13] MEDS ORDERED: PIPERACILLIN/TAZOBACTAM 4.5 GM in DEXTROSE 5% 100 ML IV ONE (06:45)
[2020-12-13] MEDS ORDERED: XOPENEX/ATROVENT 1.25mg/0.5MG NEB COMBO NEB SCH (07:00)
[2020-12-13] MEDS ORDERED: DOXYCYCLINE HYCLATE 100 MG in DEXTROSE 5% 100 ML IV ONE (07:15)
[2020-12-13] MEDS: IPRATROPIUM BROMIDE NEB SOLN 0.02% 2.5 ML VIAL INH SCH ×3 (07:24→20:06)
[2020-12-13] MEDS: LEVALBUTEROL 1.25MG/0.5ML NEB INH SCH ×3 (07:24→20:07)
[2020-12-13] MEDS: BUDESONIDE 0.5 MG/2 ML VIAL (PULMICORT) INH SCH ×2 (07:25→20:06)
[2020-12-13] MEDS: lamoTRIgine 100 MG TAB PO SCH ×2 (07:59→21:53)
[2020-12-13] MEDS: DANTROLENE SODIUM 25 MG CAP PEG SCH ×2 (07:59→21:52)
[2020-12-13] MEDS: cloNIDine HCL 0.1 MG TAB PEG SCH ×3 (08:00→21:55)
[2020-12-13] MEDS: BACLOFEN 10 MG TAB PEG SCH ×3 (08:00→21:52)
[2020-12-13] MEDS: GLYCOPYRROLATE 1 MG TAB PO SCH ×3 (08:00→21:49)
[2020-12-13] MEDS ORDERED: AMPICILLIN/SULBACTAM SOD 3,000 MG in 0.9 % SODIUM CHLORIDE 100 ML IV SCH (08:00)
[2020-12-13] MEDS: LANSOPRAZOLE 30 MG SOLTAB PEG SCH (08:01)
[2020-12-13] MEDS: LACTOBACILLUS ACIDOPHILUS 1 GM PACK PEG SCH (08:01)
[2020-12-13] MEDS: FEXOFENADINE 60 MG TAB GT SCH ×2 (08:01→21:54)
[2020-12-13] MEDS: QUEtiapine FUMARATE 100 MG TABLET PO SCH ×2 (08:01→21:52)
[2020-12-13] MEDS: DICYCLOMINE HCL 10 MG CAP PEG SCH ×2 (08:01→21:54)
--- NOTE | 2020-12-13 08:08 | XRay Report ---
XR chest 1V portable HISTORY: Dyspnea COMPARISON: Chest 11/13/2020. FINDINGS: No pneumothorax or no pleural effusions. The heart remains mildly enlarged. There is mild e levation of the right hemidiaphragm. No evidence for pulmonary edema. Faint hazy airspace opacities w ithin the mid to lower lung zones. This has improved in the interval. IMPRESSION: Interval improvement in the hazy airspace opacities consistent with a resolving pneumonia. Stable car diomegaly. ACT 112: Negative or not required by law. Electronically signed by: Jamie Cash M.D. 12/13/2020 8:07 AM
--- NOTE | 2020-12-13 08:21 | CT Scan Report ---
CT ANGIOGRAM OF THE CHEST CLINICAL HISTORY: low o2. Hypoxia. COMPARISON STUDY: November 13, 2020 TECHNIQUE: Following the IV administration of 96 mL of Optiray, CT angiogram of the thorax was perfor med from the thoracic inlet to the lung bases utilizing the pulmonary embolus protocol. Images are re viewed in the axial, sagittal, and coronal planes. IV contrast was administered without complication. MIP imaging was performed. A dose lowering technique was utilized adhering to the principles of ALA RA. CT DOSE: 263.32 mGy.cm FINDINGS: No axillary, supra clavicle or internal mammary lymphadenopathy seen. Mottled mediastinal lymph nodes are slightly prominent however individual size is difficult to evaluate due to motion artifact and b eam hardening artifact from IV contrast and vasculature. There is adequate opacification of the main pulmonary artery. No definite central pulmonary embolus is seen however evaluation of segmental and peripheral branches of pulmonary artery is difficult due to prominent motion artifact. Main pulmonary artery is nondilated. No evidence of right heart strain. Heart is normal in size without definite pericardial effusion. No coronary calcifications are seen. Visualized portion of the thyroid gland shows no evidence of focal lesions. There was no evidence of thoracic aortic dilatation. Tracheobronchial tree is patent. Redemonstration of small area of gas collection to the left lateral side of trachea within thoracic i nlet (4/239) was also seen during prior study and might represent esophageal diverticulum. Interval near resolution of previously seen consolidative opacities within bilateral lower lobes. Ove rall evaluation of pulmonary parenchyma is significantly limited due to motion artifact. No pleural effusions are visualized. Limited evaluation of upper abdominal viscera shows no evidence of acute abnormalities. Osseous structures: Redemonstration of pectus deformity of the chest. No definite osseous lesions are seen in this study limited by motion artifact. Distal aspect of the spinal stimulator device is seen within central canal. IMPRESSION: 1. No definite central pulmonary embolus is seen. Limited exam due to significant motion artifact. 2. Interval near resolution of previously seen consolidation within both right and left lower lobes. 3. 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 4. The rest of findings as above. ACT 112: Negative or not required by law. The above report was generated using voice recognition software. It may contain grammatical, syntax o r spelling errors. Electronically signed by: Rosenda Iglesias DO 12/13/2020 8:20 AM
--- NOTE | 2020-12-13 08:29 | Electrocardiogram Report ---
Test Reason : Blood Pressure : / mmHG Vent. Rate : 114 BPM Atrial Rate : 114 BPM P-R Int : 122 ms QRS Dur : 082 ms QT Int : 330 ms P-R-T Axes : 069 052 058 degrees QTc Int : 454 ms Poor data quality, interpretation may be adversely affected Sinus tachycardia Left atrial enlargement Incomplete right bundle branch block Borderline ECG When compared with ECG of 05-NOV-2020 18:31, No significant change was found Confirmed by Madan Flannery ([id number]) on 12/13/2020 8:28:55 AM Referred By: REFERRED SELF Confirmed By:Madan Flannery
[2020-12-13] MEDS ORDERED: AMPICILLIN/SULBACTAM CONSULT ACTIVE PRN (09:00)
[2020-12-13] MEDS ORDERED: lamoTRIgine 100 MG TAB PO SCH (09:00)
[2020-12-13] MEDS: clonazePAM 0.25 MG TAB PO SCH ×2 (10:07→21:54)
[2020-12-13] MEDS: TUBE FEEDING WATER FLUSH PEG SCH ×7 (10:19→23:05)
[2020-12-13] MEDS: NUTREN SCH ×2 (11:08→18:30)
[2020-12-13] MEDS: CHOLESTYRAMINE LIGHT 4 GM PKT PEG SCH (12:12)
[2020-12-13] MEDS: PIPERACILLIN/TAZOBACTAM 3.375 GM in DEXTROSE 5% 100 ML IV SCH ×2 (12:12→20:48)
[2020-12-13] MEDS: DOXYCYCLINE HYCLATE 100 MG in DEXTROSE 5% 100 ML IV SCH (18:30)
--- NOTE | 2020-12-13 18:53 | Hospitalist Progress Note ---
Date of Service December 13, 2020 Assessment & Plan (1) Severe sepsis: Plan: 30 yo M with PMH Of asthma, recurrent aspiration status post PEG replacement, dystonia, cerebral palsy, chronic spasticity, seizure disorder, MRSA and recent h/o abdominal wall cellulitis/infected intrathecal abdominal pump l/t subsequent sepsis f/b intubation f/b renal failure (November 05-2020) f/b transfer to [facility] (November 13 to December 11, 2020) where his resp culture was +ve for MRSA and Nannette holderia cepacia s/p vancomycin and ceftazidime Rx. Kidney dysfunction improved without dialysis. Extubated 11/18 but reintubated 11/23 after an episode of epistaxis secondary to nasal suctioning f/b extubation on 12/06. Family completed POLST form detailing DNR prior to discharge to [facility] 2 days ago. [facility] staff noted resp distress and SaO2 dropped to 70s and hence brought to ER 12/12 for evaluation. He is being managed for the followin. SIRS plus Acute hypoxic respiratory failure likely aspiration vs HCAP, hx recurrent aspiration status post PEG tube sahra cement hx of MRSA as per records ABG at presentation: 7.43/44//29 WBC elevated at 15.5K, will repeat CBC tomorrow AM Admission CXR and CTA chest shows resolving consolidation f/u with blood culture. c/w telemetry, aspiration precautions c/w Zosyn and Doxy. c/w Nebs and O2 to keep SaO2> 92%. 2. Chronic anemia new baseline of 10 since discharge from [facility] stable 3. seizure disorder: stable on regimen 4. DVT prophylaxis: Heparin subcu DNR as per prior family directives for patient. Updated patient's mother and father over the phone: Ms. Joyce West, contact #[phone]. They stated they were waiting insulation technician from [facility] for possible discussion about hospice for the patient. Admission and Anticipated Discharge Date Admission Date: December 13, 2020 Subjective Patient was lying in bed. Tube feed running. Patient non verbal. Wasn't agitated at bedside exam. Physical Exam Physical Exam: GENERAL: non verbal, Cachectic, Tube feed in place. HEENT: No pallor, no icterus. Pupils equal, round and reactive to light. Oral mucosa dry NECK: No JVD, no neck masses. HEART: S1 and S2 heard. Regular rate and rhythm. No murmur, no gallop. RESPIRATORY SYSTEM: Crackles diffuse and bilateral ABDOMEN: Soft, bowel sounds present, no distention. CENTRAL NERVOUS SYSTEM: moves extremities. others n/a EXTREMITIES: No edema, no erythema seen. Results & Data Results & Data ([facility]) Vital Signs (Past 12 Hours) Vital Signs Temp Pulse Pulse Resp BP BP Pulse Ox 12/13/20 14:49 37.3 C 56 L 16 97/50 L 91 12/13/20 13:05 115 H 24 98 12/13/20 11:03 36.7 C 100 H 24 104/68 100 12/13/20 08:00 109 H 12/13/20 07:26 125 H 24 97 12/13/20 06:56 37.0 C 102 H 20 109/61 100
[2020-12-13] MEDS ORDERED: lamoTRIgine 25 MG TAB PO SCH (21:00)
[2020-12-14] MEDS: IPRATROPIUM BROMIDE NEB SOLN 0.02% 2.5 ML VIAL INH SCH ×3 (00:31→12:57)
[2020-12-14] MEDS: LEVALBUTEROL 1.25MG/0.5ML NEB INH SCH ×3 (00:31→12:57)
[2020-12-14] MEDS: PIPERACILLIN/TAZOBACTAM 3.375 GM in DEXTROSE 5% 100 ML IV SCH ×2 (04:11→12:32)
[2020-12-14] MEDS: HEPARIN SOD 5,000 UNIT/0.5 ML VIAL SQ SCH ×2 (05:25→15:08)
[2020-12-14] MEDS: NUTREN SCH (06:15)
[2020-12-14] MEDS: TUBE FEEDING WATER FLUSH PEG SCH ×4 (06:16→15:51)
[2020-12-14 07:34] LABS: Basophils # (auto) 0.03 K/uL (0-0.2); Basophils % (auto) 0.2 %; Eosinophils # (auto) 0.11 K/uL (0-0.5); Eosinophils % (auto) 0.8 %; Hematocrit (blood only) 30.5 % (42-52); Hemoglobin 9.1 g/dL (14.0-18.0); Immature Granulocytes # (auto) 0.04 K/uL (0.00-0.02); Immature Granulocytes % (auto) 0.3 %; Lymphocytes # (auto) 2.59 K/uL (1.2-3.4); Lymphocytes % (auto) 18.6 %; Mean Corpuscular Hemoglobin 29.4 pg (25-34); Mean Corpuscular Hgb Conc 29.8 g/dL (32-36); Mean Corpuscular Volume 98.4 fL (80-100); Mean Platelet Volume 11.2 fL (7.4-10.4); Monocytes # (auto) 0.91 K/uL (0.11-0.59); Monocytes % (auto) 6.5 %; Neutrophils # (auto) 10.23 K/uL (1.4-6.5); Neutrophils % (auto) 73.6 %; Platelet Count 289 K/uL (130-400); RDW Coefficient of Variation 15.5 % (11.5-14.5); RDW Standard Deviation 56.4 fL (36.4-46.3); White Blood Count 13.91 K/uL (4.8-10.8)
[2020-12-14] MEDS: clonazePAM 0.25 MG TAB PO SCH (07:39)
[2020-12-14] MEDS: GLYCOPYRROLATE 1 MG TAB PO SCH ×2 (07:39→15:12)
[2020-12-14] MEDS: cloNIDine HCL 0.1 MG TAB PEG SCH ×2 (07:40→15:12)
[2020-12-14] MEDS: DICYCLOMINE HCL 10 MG CAP PEG SCH (07:40)
[2020-12-14] MEDS: lamoTRIgine 100 MG TAB PO SCH (07:41)
[2020-12-14] MEDS: BACLOFEN 10 MG TAB PEG SCH ×2 (07:41→15:12)
[2020-12-14] MEDS: QUEtiapine FUMARATE 100 MG TABLET PO SCH (07:41)
[2020-12-14] MEDS: LACTOBACILLUS ACIDOPHILUS 1 GM PACK PEG SCH (07:42)
[2020-12-14] MEDS: DANTROLENE SODIUM 25 MG CAP PEG SCH (07:42)
[2020-12-14] MEDS: FEXOFENADINE 60 MG TAB GT SCH (07:42)
[2020-12-14] MEDS: LANSOPRAZOLE 30 MG SOLTAB PEG SCH (07:43)
[2020-12-14] MEDS: BUDESONIDE 0.5 MG/2 ML VIAL (PULMICORT) INH SCH (07:57)
[2020-12-14 08:03] VITALS: O2SAT 100
[2020-12-14 08:18] LABS: BUN Creatinine Ratio 23.7 (10-20); Blood Urea Nitrogen 13 mg/dl (7-18); Calcium 8.7 mg/dl (8.5-10.1); Carbon Dioxide 29 mmol/L (21-32); Chloride 110 mmol/L (98-107); Creatinine Clr Calc Pharmacy 145.9 ml/min; Est GFR (African American) > 150.0 ml/min; Glucose 93 mg/dl (70-99); Potassium 3.7 mmol/L (3.5-5.1); Sodium 143 mmol/L (136-145)
[2020-12-14] MEDS: DOXYCYCLINE HYCLATE 100 MG in DEXTROSE 5% 100 ML IV SCH (09:07)
[2020-12-14 11:09] VITALS: TEMP 99
[2020-12-14] MEDS: CHOLESTYRAMINE LIGHT 4 GM PKT PEG SCH (12:35)
--- NOTE | 2020-12-14 12:37 | Palliative Care Consultation ---
Date of Consultation December 14, 2020 Assessment & Plan (1) Palliative care encounter: I met with Kennedy's mother, Joyce West and his father over the phone. They confirm that they do not want CPR or reintubation for Kennedy. They feel that he has had a very difficult time in the last six weeks and would not want him to go through something like that again. They understand that he has aspiration and is likely to have recurrent respiratory symptoms. We talked about whether they would want him to return to the hospital. Though they do not completely rule this out, their hope for him is to focus more on symptom management and to have support at home to recognize symptoms and try to treat prior to needing hospitalization. In general, they would want him to remain at home and not be hospitalized. They would want antibiotics at home. We discussed hospice benefit and support available. While they are clearly distressed at the idea of losing their son, they are in agreement that a focus on comfort is the best approach for him. He does have home care through [facility] and they would want to transition to hospice through [facility] when he is stable for discharge. (2) Respiratory failure: (3) Cerebral palsy, quadriplegic: (4) Seizure: (5) Spasticity: History of Present Illness Reason for Consultation: goals of care Requesting Physician: Dr. Quiñones Attending Physician: Berhane Quiñones MD History of Present Illness 30 yo gentleman with cerebral palsy admitted with pneumonia. He has had complicated course recently with hospitalization at [facility] in October for abdominal wall infection at the site of an implanted baclofen pump. He was intubated and eventually admitted to [facility] [place] where he was extubated and reintubated with aspiration pneumonia. He had been discharged home for one day and was noted to have difficulty breathing so he was brought to [facility] emergency department. He has been readmitted with respiratory distress and hypoxia related aspiration vs HCAP pneumonia. Prior to discharge from [facility], his family had completed a POLST form indicating DNR/DNI. Family has been considering hospice and we have been consulted to assist with goals of care. Allergies Allergy/AdvReac Type Severity Reaction Status Date / Time cat dander Allergy Intermediate SHORTNESS Verified 12/12/20 23:13 OF BREATH pollen extracts Allergy Intermediate SHORTNESS Verified 12/12/20 23:13 OF BREATH meropenem Allergy Mild Rash Verified 12/13/20 08:08 ciprofloxacin AdvReac Intermediate GI SYMPTOMS Verified 12/12/20 23:13 house dust AdvReac Intermediate SHORTNESS Verified 12/12/20 23:13 OF BREATH haloperidol [From Haldol] AdvReac Unknown Verified 12/13/20 08:08 Home Medications Medication Instructions Recorded Confirmed Type L.acidophilus-B.lactis-B.longum 15 1 cap PO DAILY 12/12/20 12/12/20 History billion cell capsule Petrolatum/Zinc Oxide 1 applic TOPICAL DIRECTED PRN 12/12/20 12/12/20 History albuterol sulfate 2.5 mg INHALATION DAILY 12/12/20 12/12/20 History albuterol sulfate 2.5 mg INHALATION Q4H PRN 12/12/20 12/12/20 History baclofen 10 mg tablet 30 mg FEEDING TUBE TID 12/12/20 12/12/20 History benzethonium chloride 0.1 % 1 applic TOPICAL TID PRN 12/12/20 12/12/20 History topical cleanser budesonide 0.5 mg/2 mL suspension 0.5 mg INHALATION BID 12/12/20 12/12/20 Hi story for nebulization cholestyramine-aspartame 4 gram 4 g FEEDING TUBE .DAILY AT 1230 12/12/20 12/12/20 History oral powder (Prevalite) clonazepam 0.5 mg tablet 0.25 mg FEEDING TUBE BID 12/12/20 12/12/20 History clonidine HCl 0.2 mg tablet 0.2 mg FEEDING TUBE TID 12/12/20 12/12/20 History clotrimazole 1 % topical cream 1 applic TOPICAL BID PRN 12/12/20 12/12/20 History dantrolene 25 mg capsule (Dantrium) 25 mg FEEDING TUBE BID 12/12/20 12/12/20 History diazepam 5 mg-7.5 mg-10 mg rectal 10 mg [place] DIRECTED PRN 12/12/20 12/12/20 History kit (Diastat AcuDial) dicyclomine 10 mg capsule 10 mg FEEDING TUBE BID 12/12/20 12/12/20 History fexofenadine 180 mg tablet 180 mg FEEDING TUBE DAILY 12/12/20 12/12/20 History fluticasone propionate 50 2 spray INTRANASAL DAILY 12/12/20 12/12/20 History mcg/actuation nasal spray,suspension glycopyrrolate 1 mg tablet 1.25 mg FEEDING TUBE TID 12/12/20 12/12/20 History lamotrigine 150 mg tablet 150 mg FEEDING TUBE BID 12/12/20 12/12/20 History lamotrigine 25 mg tablet 75 mg FEEDING TUBE HS 12/12/20 12/12/20 History omeprazole 20 mg tablet,delayed 20 mg PO DAILY 12/12/20 12/12/20 History release oxycodone 5 mg/5 mL oral solution 5 mg PO Q6H PRN 12/12/20 12/12/20 History quetiapine 100 mg tablet (Seroquel) 100 mg FEEDING TUBE BID 12/12/20 12/12/20 History saliva substitute combo no.9 1 ea PO DAILY PRN 12/12/20 12/12/20 History (Biotene Dry Mouth Oral Rinse) sodium chloride 0.65 % nasal spray 2 spray INTRANASAL DAILY 12/12/20 12/12/20 History aerosol (Saline Nasal Mist) triamcinolone acetonide 0.1 % 1 applic TOPICAL BID PRN 12/12/20 12/12/20 History topical cream water See Rx Instructions .ROUTE .COMPLEX 12/12/20 12/12/20 History Patient History Medical History Allergies Anxiety Aspiration into airway Per pulm 12/04, "doing well clinically, continue to observe for signs or symptoms of aspiration" Asthma working diagnosis, unable to complete PFTs Cerebral palsy, 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) Dry mouth Dystonia Excessive salivation Gastrostomy in place 18F 2.7 cm, change every 3 months, maintain 5-6 ml of water in baloon GERD (gastroesophageal reflux disease) 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 Seizure Seizures well controlled on Lamictal per 03/19/20 neuro note Severe mental handicap Spasticity Surgical History H/O wisdom tooth extraction Hamstring tightness of both lower extremities s/p surgical release of adductor and hamstrings S/P insertion of intrathecal pump Family History Family/Other Heart disease Father Diabetes Heart trouble Social History Smoking Status: Never smoker Second Hand Exposure: No; Do You Dip or Chew Tobacco: No; Hx Alcohol Use: No Hx Substance Use: No Preferred Language: Amharic Communication Ability: Unable Biometry Teacher Required: No Beliefs That Will Affect Care: None marital status: Single Current Living Situation: Parent and Personal Care Facility Current Living Situation Comment: Personal Care Facility during week. Parents during the weekend current occupational status: disabled Other Information That Helps Us Care for You: No Feels Safe at Home: Yes Assistive Devices: None Review of Systems Review of Systems: Unobtainable due to cognitive status [place] Symptom Assessment Scale PainAD 0/3 Dyspnea by observation 05/20 Palliative Performance Score 30% Physical Exam Constitutional: no acute distress ENMT: Mouth: oral mucous membranes not dry Respiratory: normal respiratory effort; no labored breathing copious tracheal secretions requiring periodic suction Cardiovascular: Extremities: no edema Gastrointestinal (Abdomen): soft, nontender Musculoskeletal: muscle atrophy, contractures with spasticity Neurologic: nonverbal Results & Data ([facility]) Vital Signs (Past 12 Hours) Vital Signs Temp Pulse Resp BP Pulse Ox 12/14/20 11:07 99.0 F 104 H 20 112/70 100 12/14/20 07:59 107 H 22 100 12/14/20 07:23 98.1 F 104 H 20 116/72 98 12/14/20 03:36 97.3 F L 100 H 24 105/59 L 94 PG Care Time/CCT Total # of Minutes Spent Total Time Spent: 65 Total Time Spent with Patient: Total time spent is greater than 50% in coordination of care (as documented) at patient's floor/unit and/or counseling patient: goals of care, symptom management, code status, hospice Coding Level of Care Code 33951 Initial Inpt Care Lvl 2 Diagnoses Respiratory failure J96.90 Palliative care encounter Z51.5 Cerebral palsy, quadriplegic G80.8 Seizure R56.9 Spasticity R25.2
[2020-12-14] MEDS ORDERED: ACETAMINOPHEN 650 MG SUPP PR PRN (14:51)
[2020-12-14] MEDS ORDERED: GLYCOPYRROLATE 1 MG TAB PO PRN (14:51)
[2020-12-14] MEDS ORDERED: MORPHINE SULFATE 20 MG/ML PO PRN (14:53)
[2020-12-14 15:07] VITALS: BP 103/65
[2020-12-14] MEDS ORDERED: clonazePAM 0.25 MG TAB PO STA (15:23)
--- NOTE | 2020-12-14 15:23 | Communication Note ---
Date of Service: December 14, 2020 By CMS guidelines, a determination that the admission or continued stay is not medically necessary has been made by a member of the Utilization Review commi ttee and a physician for this hospital stay. Therefore, a Code 44 will be completed and the inpatient admission will be changed to outpatient. DO OLIVA Green Physician Member
[2020-12-14 16:26] VITALS: PULSE 101
--- NOTE | 2020-12-14 20:08 | Discharge Summary ---
Date of Service December 14, 2020 Admission HPI Per Admitting Provider History obtained from patient caregiver and records. Unable to obtain history from patient secondary to nonverbal state. Medical history significant for asthma, recurrent aspiration status post PEG replacement, dystonia as per records; cerebral palsy, chronic spasticity, seizure disorder, history of MRSA as per records. Last confinement at [facility] November 05-2020 for sepsis secondary to abdominal wall cellulitis/infected intrathecal baclofen pump status post removal. Subsequent septic shock during confinement. Patient later intubated for airway protection. Patient developed renal failure, creatinine noted to be 5. Patient subsequently transferred to [facility]. Patient confined at [facility] from November 13 to December 11, 2020. 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 Kidney dysfunction improved without dialysis. Patient successfully extubated last 11/18 but subsequently reintubated 11/23 after an episode of epistaxis secondary to nasal suctioning which caused epistaxis. Patient successfully extubated 12/06. Family completed POLST form detailing DNR prior to discharge to longterm 2 days ago. Patient noted by longterm staff to be in respiratory distress last night, junky respiratory secretions noted. Possible aspiration as per staff. O2 sats 70s at longterm. Patient brought to the ER for evaluation. MEDICAL HISTORY: As above. SURGERIES: PEG tube placement. Some thigh tendon surgery, thecal pump placement/removal FAMILY HISTORY: Cannot be obtained. PERSONAL AND SOCIAL HISTORY: Non-smoker, longterm resident Admission Exam Per Admitting Provider GENERAL: uncomfortable, restless, nonverbal, respiratory distress, chronically ill SKIN: Pallor , warm HEENT: Pale palpebral conjunctivae, no ptosis, dry buccal mucosa, nasal cannula in place NECK : Supple, no tenderness CHEST : Decreased breath sounds, bilateral rhonchi with expiratory wheezes, no tenderness HEART : Tachycardic,, no obvious murmurs ABDOMEN: Soft, PEG tube in place EXTREMITIES : No LE swelling, no LE tenderness NEUROLOGIC : Nonverbal, no facial asymmetry, no other gross focality Principal Diagnosis Sepsis 2/2 Aspiration pneumonia Vs HCAP Acute hypoxic respiratory failure from the above Chronic Anemia Discharge Exam GENERAL: non verbal, Cachectic, Tube feed in place. HEENT: No pallor, no icterus. Pupils equal, round and reactive to light. Oral mucosa dry NECK: No JVD, no neck masses. HEART: S1 and S2 heard. Regular rate and rhythm. No murmur, no gallop. RESPIRATORY SYSTEM: Crackles diffuse and bilateral ABDOMEN: Soft, bowel sounds present, no distention. CENTRAL NERVOUS SYSTEM: moves extremities. others n/a EXTREMITIES: No edema, no erythema seen. Discharge Data Allergies Allergy/AdvReac Type Severity Reaction Status Date / Time cat dander Allergy Intermediate SHORTNESS Verified 12/12/20 23:13 OF BREATH pollen extracts Allergy Intermediate SHORTNESS Verified 12/12/20 23:13 OF BREATH meropenem Allergy Mild Rash Verified 12/13/20 08:08 ciprofloxacin AdvReac Intermediate GI SYMPTOMS Verified 12/12/20 23:13 house dust AdvReac Intermediate SHORTNESS Verified 12/12/20 23:13 OF BREATH haloperidol [From Haldol] AdvReac Unknown Verified 12/13/20 08:08 Consultations 12/13/20 00:53 ED Decision to Admit Stat 12/13/20 08:36 Consult Palliative Care Routine Ordered Studies 12/13/20 02:20 CT angio chest PE protocol Urgent Hospital Course (1) Severe sepsis: (2) Acute respiratory failure with hypoxia: (3) Cerebral palsy, quadriplegic: (4) Aspiration into airway: 30 yo M with PMH Of asthma, recurrent aspiration status post PEG replacement, dystonia, cerebral palsy, chronic spasticity, seizure disorder, MRSA and recent h/o abdominal wall cellulitis/infected intrathecal abdominal pump l/t subsequent sepsis f/b intubation f/b renal failure (November 05-2020) f/b transfer to [facility] (November 13 to December 11, 2020) where his resp culture was +ve for MRSA and Burkholderia cepacia s/p vancomycin and ceftazidime Rx. Kidney dysfunction improved without dialysis. Extubated 11/18 but reintubated 11/23 after an episode of epistaxis secondary to nasal suctioning f/b extubation on 12/06. Family completed POLST form detailing DNR prior to discharge [facility] longterm [facility] staff noted resp distress and SaO2 dropped to 70s and hence brought to ER 12/12 for evaluation. He was managed for the followin. SIRS plus Acute hypoxic respiratory failure likely aspiration vs HCAP, hx recurrent aspiration status post PEG tube placement hx of MRSA as per records ABG at presentation: 7.43/44/65/29 WBC elevated at 15.5K, coming down nicely today Admission CXR and CTA chest shows resolving consolidation f/u with admitting blood culture. No growth at the time of discharge. c/w aspiration precautions Transitioned him to Amoxi clav and levaquin per PEG tube. He is getting discharged to home with hospice today. c/w Nebs and O2 to keep SaO2> 92%. 2. Chronic anemia new baseline of 10 since discharge from [facility] stable 3. seizure disorder: stable on regimen 4. DVT prophylaxis: Heparin subcu, will be DC'd upon discharge DNR as per prior family directives for patient. Patient getting discharged to home with hospice. Mother updated. Instruction provided. By CMS guidelines, a determination that the admission or continued stay is not medically necessary has been made by a member of the Utilization Review committee and a physician for this hospital stay. Therefore, a Code 44 will be completed and the inpatient admission will be changed to outpatient. Total Time Total Time Spent Total Time Spent (In Minutes): 45 Discharge Plan Discharge Items Patient Disposition: Hospice - Home Reason For Visit: RESPIRATORY FAILURE Discharge Diagnosis: Sepsis 2/2 Aspiration pneumonia Vs HCAP Acute hypoxic respiratory failure from the above Chronic Anemia Activity: Resume your previous activity Non-emergency contact: Primary Care Provider Call non-emergency contact if: you have any medication questions Follow-up/Referrals: Merissa Lopez DO [Primary Care Provider] - (Date & Time 12/17/2020 11:10 AM Provider Merissa Lopez DO Department [facility] ) Diet: Nothing by Mouth Diet Comment: Patient on Tube Feeding Diet Addtl Attending Provider Instructions: Please take antibiotic as prescribed. Amoxiclav for 10 days and levofloxacin for 7 days. Nothing by mouth. Can wet mouth with water. Clean oral secretions frequently. Pending Studies at Discharge: Yes Studies:: 12/13 Blood Culture: no growth at 24 hours at time of discharge. Stand-Alone Forms: [employer] Medications and DC Order Prescriptions: New ipratropium bromide 0.02 % Solution 0.5 mg inhalation Q6R 7 Days Qty: 30 RF: 0 promethazine 25 mg tablet 25 mg PO Q6H PRN (Reason: nausea and vomiting) Qty: 16 RF: 0 lorazepam 1 mg tablet 1 mg PO Q1H PRN (Reason: anxiety and agitation) Qty: 30 RF: 0 diazepam 5 mg tablet 5 mg PO Q6H PRN (Reason: seizure actvity or severe nausea) Qty: 3 RF: 0 glycopyrrolate 1 mg Tablet 1 mg PO Q4H PRN (Reason: secretions) 2 Days Qty: 6 RF: 0 acetaminophen [Feverall] 650 mg Suppository 650 mg HI Q4H PRN (Reason: fever or pain) 2 Days Qty: 6 RF: 0 morphine concentrate 100 mg/5 mL (20 mg/mL) Solution 10 mg PO Q30M PRN (Reason: pain and air hunger) 2 Days Qty: 30 RF: 0 amoxicillin-pot clavulanate 400-57 mg/5 mL suspension for reconstitution 10 ml PO BID 10 Days Qty: 200 RF: 0 levofloxacin 250 mg/10 mL solution 750 mg PO DAILY 7 Days Qty: 210 RF: 0 Continued glycopyrrolate 1 mg Tablet 1.25 mg feeding tube TID RF: 0 lamotrigine 150 mg Tablet 150 mg feeding tube BID RF: 0 albuterol sulfate 2.5 mg /3 mL (0.083 %) Solution For Nebulization 2.5 mg INHALATION DAILY RF: 0 albuterol sulfate 2.5 mg /3 mL (0.083 %) solution for nebulization 2.5 mg inhalation Q4H PRN (Reason: Shortness Of Breath) RF: 0 dantrolene [Dantrium] 25 mg Capsule 25 mg feeding tube BID RF: 0 clonazepam 0.5 mg Tablet 0.25 mg feeding tube BID RF: 0 oxycodone 5 mg/5 mL Solution 5 mg PO Q6H PRN (Reason: Pain, Severe) RF: 0 fexofenadine 180 mg Tablet 180 mg feeding tube DAILY RF: 0 quetiapine [Seroquel] 100 mg Tablet 100 mg feeding tube BID RF: 0 triamcinolone acetonide 0.1 % Cream 1 applic TOPICAL BID PRN (Reason: Skin Irritation) RF: 0 lamotrigine 25 mg Tablet 75 mg feeding tube HS RF: 0 clonidine HCl 0.2 mg Tablet 0.2 mg feeding tube TID RF: 0 baclofen 10 mg Tablet 30 mg feeding tube TID RF: 0 budesonide 0.5 mg/2 mL Suspension For Nebulization 0.5 mg INHALATION BID RF: 0 fluticasone propionate 50 mcg/actuation [place],Suspension 2 spray INTRANASAL DAILY RF: 0 clotrimazole 1 % Cream 1 applic TOPICAL BID PRN (Reason: IRRITATION BUTTOCKS/GROIN) RF: 0 dicyclomine 10 mg Capsule 10 mg feeding tube BID RF: 0 water Liquid See Rx Instructions .ROUTE .COMPLEX RF: 0 sodium chloride [Saline Nasal Mist] 0.65 % Aerosol,[place] 2 spray INTRANASAL DAILY RF: 0 diazepam [Diastat AcuDial] 5-7.5-10 mg Kit 10 mg [place] DIRECTED PRN (Reason: PROLONGED SEIZURE) RF: 0 benzethonium chloride 0.1 % Cleanser 1 applic TOPICAL TID PRN (Reason: CLEANSE SKIN) RF: 0 Prevalite 4 gram Powder 4 g feeding tube .DAILY AT 1230 RF: 0 omeprazole 20 mg Tablet,Delayed Release (Dr/Ec) 20 mg PO DAILY RF: 0 L.acidoph-B.lactis-B.longum 15 billion cell Capsule 1 cap PO DAILY RF: 0 Biotene Dry Mouth Oral Rinse Mouthwash 1 ea PO DAILY PRN (Reason: Dry Mouth) RF: 0 Petrolatum/Zinc Oxide 1 applic topical DIRECTED PRN (Reason: REDNESS OF BUTTOCKS) RF: 0 Discharge Orders: Discharge Order (Routine); Ordered 12/14/20 Ordered By: Berhane Quiñones Admission Data Admit Date/Time: 12/13/20 02:58 Attending Provider: Berhane Quiñones Admit Provider: Shahid Toribio Primary Care Provider: Merissa Lopez Other Providers: Shahid Toribio ; Luzma Batista ; [facility] Other Interventions: Discharge Summary Assessment (RN) Last Done: 12/14/20 16:25
== END 2020-12-14 17:08 | disposition hospice, home (50) ==
LOC: ED 22:19 → SUATTDRO 12-13 02:58 → INTOOBSV 12-13 02:58 → 2S 12-13 02:58 → 2W 12-14 07:28